=== PATIENT | female | born 1980 | race Caucasian/White ===

== ENCOUNTER 2016-03-15 11:56 | Emergency (ER) | payer MEDICARE, MEDICAID ==
[2016-03-15] MEDS ORDERED: ASPIRIN 81 MG TABLET, CHEWABLE PO ONE (12:36)
--- NOTE | 2016-03-15 12:36 | ER Document Report ---
ED Medical Screen (RME) - General Stated Complaint: CHEST TIGHTNESS/ DIFFICULTY BREATHING Mode of Arrival: Ambulatory Information source: Patient Notes: Patient complains of chest tightness and upper back pain that started yesterday. Patient does report shortness of breath. Patient has had a cough for the past several days. Patient reports chills but no fever. Patient does complain of some nausea. hx; asthma, anxiety I have greeted and performed a rapid initial assessment of this patient. A comprehensive ED assessment and evaluation of the patient, analysis of test results and completion of the medical decision making process will be conducted by additional ED providers. TRAVEL OUTSIDE OF THE [place] IN LAST 30 DAYS: No - Related Data Allergies/Adverse Reactions: lurasidone HCl [From Latuda] Allergy (Severe, Verified 03/15/16 12:35) Seizures morphine Adverse Reaction (Verified 03/15/16 12:35) Past Medical History - Social History Family history: Hypertension Pulmonary Medical History: Reports: Hx Asthma, Hx Pneumonia, Hx Intubation Neurological Medical History: Reports: Hx Seizures - After taking latuda, after latuda was stopped, patient seizures stopped Renal/ Medical History: Reports: Hx Ovarian Cysts GI Medical History: Reports: Hx Irritable Bowel Musculoskeltal Medical History: Reports Hx Musculoskeletal Trauma Psychiatric Medical History: Reports: Hx Anxiety, Hx Depression Past Surgical History: Reports: Hx Section - x2, Hx Tubal Ligation - Immunizations Immunizations up to date: Yes Hx Diphtheria, Pertussis, Tetanus Vaccination: Yes Physical Exam - Respiratory Respiratory status: No respiratory distress Breath sounds: Nonproductive cough
--- NOTE | 2016-03-15 13:21 | EKG REPORT ---
SEVERITY:- BORDERLINE ECG - SINUS RHYTHM INFERIOR Q WAVES, PROBABLY NORMAL VARIATION : Confirmed by: Yazan Brock MD 15-Mar-2016 13:21:14
[2016-03-15 14:02] LABS: ABSOLUTE EOSINOPHILS # (AUTO) 0.2 10^3/uL (0.0-0.6); ABSOLUTE LYMPHOCYTES (AUTO) 1.4 10^3/uL (0.5-4.7); ABSOLUTE MONOCYTES (AUTO) 0.5 10^3/uL (0.1-1.4); ABSOLUTE NEUT (AUTO) 5.2 10^3/uL (1.7-8.2); BASOPHILS % (AUTO) 0.6 % (0-2); EOSINOPHILS % (AUTO) 2.6 % (0-6); HEMATOCRIT 36.8 % (36.0-47.0); HEMOGLOBIN 11.7 g/dL (12.0-15.5); HGB HCT DIFFERENCE -1.7; LYMPHOCYTES % (AUTO) 19.1 % (13-45); MEAN CORPUSCULAR HEMOGLOBIN 21.9 pg (27.0-33.4); MEAN CORPUSCULAR HGB CONC 31.7 g/dL (32.0-36.0); MEAN CORPUSCULAR VOLUME 69 fl (80-97); MONOCYTES % (AUTO) 6.6 % (3-13); RED BLOOD COUNT 5.33 10^6/uL (3.72-5.28); RED CELL DISTRIBUTION WIDTH 16.8 % (11.5-14.0); SEGMENTED NEUTROPHILS % (AUTO) 71.1 % (42-78); WHITE BLOOD COUNT 7.4 10^3/uL (4.0-10.5)
[2016-03-15 14:21] LABS: ALANINE AMINOTRANSFERASE 22 U/L (9-52); ALBUMIN 3.5 g/dL (3.5-5.0); ALKALINE PHOSPHATASE 73 U/L (38-126); ANION GAP 10 (5-19); ASPARTATE AMINO TRANSFERASE 21 U/L (14-36); BILIRUBIN,TOTAL 0.4 mg/dL (0.2-1.3); BLOOD UREA NITROGEN 7 mg/dL (7-20); CALCIUM 9.5 mg/dL (8.4-10.2); CARBON DIOXIDE 29 mmol/L (22-30); CHLORIDE 101 mmol/L (98-107); CREATINE KINASE 83 U/L (30-135); GLUCOSE 94 mg/dL (75-110); POTASSIUM 4.2 mmol/L (3.6-5.0); SODIUM 140.1 mmol/L (137-145); TOTAL PROTEIN 6.9 g/dL (6.3-8.2)
[2016-03-15 14:44] LABS: CREATINE KINASE MB < 0.22 ng/mL (<4.55); TROPONIN I < 0.012 ng/mL
--- NOTE | 2016-03-15 15:23 | ER Document Report ---
ED Respiratory Problem <MARTIN HARVEY - Last Filed: 03/15/16 16:36> - General Mode of Arrival: Ambulatory Information source: Patient TRAVEL OUTSIDE OF THE [place] IN LAST 30 DAYS: No - HPI Patient complains to provider of: Chest pain - Chest tightness, Short of breath Onset: Other - a few days ago Context: Hx asthma Chest pain/discomfort: Tightness Associated symptoms: Other - see above <ANGIE DC - Last Filed: 03/15/16 22:56> - General Chief Complaint: Cough Stated Complaint: CHEST TIGHTNESS/ DIFFICULTY BREATHING Notes: 35-year-old female with history of asthma, pneumonia, and anxiety presents to the ED complaining of shortness of breath secondary to her chest tightness that began a few days ago. Patient explains that her asthma is likely contributing to her difficulty breathing. Patient is also complaining of increased cough. She claims that she had to be admitted to the hospital due to an asthma related incident last year. She further explains that she was intubated for an asthma related incident 8-9 years ago. Patient is currently on Clonidine, Cymbalta, Abilify, Singulair, and Albuterol. Patient denies using her nebulizer at home more than usual. (ANGIE DC) - Related Data Allergies/Adverse Reactions: lurasidone HCl [From Latuda] Allergy (Severe, Verified 03/15/16 12:35) Seizures morphine Adverse Reaction (Verified 03/15/16 12:35) Past Medical History - General Information source: Patient - Social History Smoking Status: Never Smoker Chew tobacco use (# tins/day): No Family History: Reviewed & Not Pertinent, CAD, DM, Hypertension Patient has suicidal ideation: No Patient has homicidal ideation: No Pulmonary Medical History: Reports: Hx Asthma, Hx Pneumonia, Hx Intubation Neurological Medical History: Reports: Hx Seizures - After taking latuda, after latuda was stopped, patient seizures stopped Renal/ Medical History: Reports: Hx Ovarian Cysts. Denies: Hx Peritoneal Dialysis GI Medical History: Reports: Hx Irritable Bowel Musculoskeltal Medical History: Reports Hx Musculoskeletal Trauma Psychiatric Medical History: Reports: Hx Anxiety, Hx Depression Past Surgical History: Reports: Hx Section - x2, Hx Tubal Ligation - Immunizations Immunizations up to date: Yes Hx Diphtheria, Pertussis, Tetanus Vaccination: Yes <ANGIE DC - Last Filed: 03/15/16 22:56> Review of Systems - Review of Systems Constitutional: No symptoms reported EENT: No symptoms reported Cardiovascular: See HPI, Chest pain - chest tightness Respiratory: See HPI, Cough, Short of breath Gastrointestinal: No symptoms reported Genitourinary: No symptoms reported Female Genitourinary: No symptoms reported Musculoskeletal: No symptoms reported Skin: No symptoms reported Hematologic/Lymphatic: No symptoms reported Neurological/Psychological: No symptoms reported -: Yes All other systems reviewed and negative <ANGIE DC - Last Filed: 03/15/16 22:56> Physical Exam <MARTIN HARVEY - Last Filed: 03/15/16 16:36> - Vital signs Interpretation: Normal - General General appearance: Alert In distress: None - HEENT Head: Normocephalic, Atraumatic Eyes: Normal Extraocular movements intact: Yes Pupils: PERRL - Respiratory Respiratory status: No respiratory distress Breath sounds: Normal - Cardiovascular Rhythm: Regular Heart sounds: Normal auscultation - Abdominal Inspection: Normal Distension: No distension Bowel sounds: Normal Tenderness: Nontender - Back Back: Normal - Extremities General upper extremity: Normal inspection, Normal color General lower extremity: Normal inspection, Normal color - Neurological Neuro grossly intact: Yes Cognition: Normal Orientation: AAOx4 [place] Coma Scale Eye Opening: Spontaneous Dott[place] Coma Scale Verbal: Oriented Dottie Coma Scale Motor: Obeys Commands [place] Coma Scale Total: 15 Speech: Normal - Psychological Associated symptoms: Normal affect, Normal mood - Skin Skin Temperature: Warm Skin Moisture: Dry Skin Color: Normal <ANGIE DC - Last Filed: 03/15/16 22:56> - Vital signs Vitals: Temp Pulse Resp BP Pulse Ox 98.1 F 83 16 134/74 H 99 03/15/16 12:33 03/15/16 12:33 03/15/16 12:33 03/15/16 12:33 03/15/16 12:33 (MARTIN HARVEY) Temp Pulse Resp BP Pulse Ox 98.1 F 83 16 134/74 H 99 03/15/16 12:33 03/15/16 12:33 03/15/16 12:33 03/15/16 12:33 03/15/16 12:33 (ANGIE DC) Course - Laboratory Result Diagrams: 03/15/16 13:50 03/15/16 13:50 <MARTIN HARVEY - Last Filed: 03/15/16 16:36> - Laboratory Result Diagrams: 03/15/16 13:50 03/15/16 13:50 <ANGIE DC - Last Filed: 03/15/16 22:56> - Re-evaluation Re-evalutation: 03/15/16 16:35 I personally performed the services described in the documentation, reviewed and edited the documentation which was dictated to my scribe in my presence, and it accurately records my words and actions. Patient presents emergency Department with chest tightness difficulty breathing aching all over back hurts from coughing negative acute flu laboratory evaluation vitals are stable afebrile no acute clinical distress chest x-ray negative. We'll treat as acute bronchitis with prednisone inhaler 2 to three- day PCP follow-up and discuss reasons for ED return sooner (MARTIN HARVEY) - Vital Signs Vital signs: Temp Pulse Resp BP Pulse Ox 98.3 F 73 16 106/63 98 03/15/16 16:47 03/15/16 16:47 03/15/16 16:47 03/15/16 16:47 03/15/16 16:47 (MARTIN HARVEY) - Laboratory Laboratory results interpreted by me: 03/15/16 13:50 RBC 5.33 H Hgb 11.7 L MCV 69 L MCH 21.9 L MCHC 31.7 L RDW 16.8 H (MARTIN HARVEY) (ANGIE DC) Discharge <MARTIN HARVEY - Last Filed: 03/15/16 16:36> <ANGIE DC - Last Filed: 03/15/16 22:56> - Discharge Clinical Impression: Acute bronchitis Qualifiers: Bronchitis organism: unspecified organism Qualified Code(s): J20.9 - Acute bronchitis, unspecified Condition: Stable Disposition: HOME, SELF-CARE Additional Instructions: Bronchitis You have acute bronchitis. This disease is an infection or inflammation of the air passageways in your lungs. Symptoms usually include cough, low grade fever, shortness of breath, and wheezing. The cough usually persists for a couple of weeks. Most cases of bronchitis get better without antibiotics. We prescribe antibiotics when we believe bacteria are damaging your airways, or if there's high risk the bronchitis will worsen into pneumonia. Increase your fluid intake. A cool mist humidifier may make your lungs more comfortable. An expectorant (cough medicine that loosens phlegm) can help. If you smoke, STOP!!! Recovery from bronchitis can be somewhat slow, but you should see improvement within a day or two. Repeated episodes of bronchitis may result in lung damage -- for example, chronic bronchitis, recurrent pneumonias, or emphysema. Call the doctor if you develop increasing fever, shortness of breath, chest pain, bloody sputum, or otherwise worsen. If you have not improved at all after several days, contact the physician. Prescriptions: Albuterol Sulfate [Proair HFA Inhalation Aerosol 8.5 gm MDI] 2 puff IH Q4H PRN # 1 mdi PRN Reason: Prednisone [Deltasone 20 mg Tablet] 3 tab PO DAILY 5 Days Referrals: TJ HODGE DO [Primary Care Provider] - Follow up in 3-5 days (in 2-3 days return to er sooner for increasing worsening or new symptoms) Scribe Documentation - Scribe Written by Frank:: Frank Packer, 03/15/2016 16:21 acting as scribe for :: Wade <ANGIE DC - Last Filed: 03/15/16 22:56>
[2016-03-15 16:52] VITALS: BP 106/63
== END 2016-03-15 16:51 | disposition home or self-care (01) ==
LOC: ER 11:56
DX: J20.9 Acute bronchitis, unspecified (principal); R07.9 Chest pain, unspecified; R06.02 Shortness of breath; Z79.899 Other long term (current) drug therapy
CPT/HCPCS: 93005; 99285; 36415; 82553; 82550; 85025; 80053; 84484; 87804; 71020; 93010; A9270

== ENCOUNTER 2016-03-24 23:52 | Emergency (ER) | payer MEDICARE, MEDICAID ==
--- NOTE | 2016-03-25 00:22 | ER Document Report ---
ED Medical Screen (RME) - General Stated Complaint: PSYCH EVALUATION Time seen by provider: 00:20 Mode of Arrival: Ambulatory Information source: Patient Notes: 35-year-old female presents to ED for no appetite and insomnia and feels like she can have a mental breakdown.. She states she lost all of her medicines 3 weeks ago and she feels like she is going through withdrawals. She states she' s been using Benadryl. I have greeted and performed a rapid initial assessment of this patient. A comprehensive ED assessment and evaluation of the patient, analysis of test results and completion of medical decision making process will be conducted by an additional ED providers. TRAVEL OUTSIDE OF THE [place] IN LAST 30 DAYS: No - Related Data Allergies/Adverse Reactions: lurasidone HCl [From Latuda] Allergy (Severe, Verified 03/15/16 12:35) Seizures morphine Adverse Reaction (Verified 03/15/16 12:35) Past Medical History - Social History Family history: Hypertension Pulmonary Medical History: Reports: Hx Asthma, Hx Pneumonia, Hx Intubation Neurological Medical History: Reports: Hx Seizures - After taking latuda, after latuda was stopped, patient seizures stopped Renal/ Medical History: Reports: Hx Ovarian Cysts. Denies: Hx Peritoneal Dialysis GI Medical History: Reports: Hx Irritable Bowel Musculoskeltal Medical History: Reports Hx Musculoskeletal Trauma Psychiatric Medical History: Reports: Hx Anxiety, Hx Depression Past Surgical History: Reports: Hx Section - x2, Hx Tubal Ligation - Immunizations Immunizations up to date: Yes Hx Diphtheria, Pertussis, Tetanus Vaccination: Yes Physical Exam - Vital signs Vitals: Temp Pulse Resp BP Pulse Ox 98.6 F 84 20 122/83 97 03/25/16 00:02 03/25/16 00:02 03/25/16 00:02 03/25/16 00:02 03/25/16 00:02 Course - Vital Signs Vital signs: Temp Pulse Resp BP Pulse Ox 98.6 F 84 20 122/83 97 03/25/16 00:02 03/25/16 00:02 03/25/16 00:02 03/25/16 00:02 03/25/16 00:02
[2016-03-25 00:48] LABS: ABSOLUTE EOSINOPHILS # (AUTO) 0.3 10^3/uL (0.0-0.6); ABSOLUTE LYMPHOCYTES (AUTO) 2.2 10^3/uL (0.5-4.7); ABSOLUTE MONOCYTES (AUTO) 0.5 10^3/uL (0.1-1.4); ABSOLUTE NEUT (AUTO) 4.1 10^3/uL (1.7-8.2); BASOPHILS % (AUTO) 0.5 % (0-2); EOSINOPHILS % (AUTO) 4.3 % (0-6); HEMATOCRIT 37.4 % (36.0-47.0); HEMOGLOBIN 11.9 g/dL (12.0-15.5); HGB HCT DIFFERENCE -1.7; LYMPHOCYTES % (AUTO) 30.4 % (13-45); MEAN CORPUSCULAR HEMOGLOBIN 22.2 pg (27.0-33.4); MEAN CORPUSCULAR HGB CONC 31.8 g/dL (32.0-36.0); MEAN CORPUSCULAR VOLUME 70 fl (80-97); MONOCYTES % (AUTO) 6.7 % (3-13); RED BLOOD COUNT 5.35 10^6/uL (3.72-5.28); RED CELL DISTRIBUTION WIDTH 17.3 % (11.5-14.0); SEGMENTED NEUTROPHILS % (AUTO) 58.1 % (42-78); WHITE BLOOD COUNT 7.1 10^3/uL (4.0-10.5)
[2016-03-25 01:03] LABS: ALANINE AMINOTRANSFERASE 29 U/L (9-52); ALBUMIN 3.9 g/dL (3.5-5.0); ALKALINE PHOSPHATASE 87 U/L (38-126); ANION GAP 10 (5-19); ASPARTATE AMINO TRANSFERASE 20 U/L (14-36); BILIRUBIN,TOTAL 0.3 mg/dL (0.2-1.3); BLOOD UREA NITROGEN 9 mg/dL (7-20); CALCIUM 9.7 mg/dL (8.4-10.2); CARBON DIOXIDE 28 mmol/L (22-30); CHLORIDE 101 mmol/L (98-107); CREATININE RESULT 0.91 mg/dL (0.52-1.25); GLUCOSE 94 mg/dL (75-110); POTASSIUM 4.2 mmol/L (3.6-5.0); SODIUM 138.5 mmol/L (137-145); TOTAL PROTEIN 6.8 g/dL (6.3-8.2)
[2016-03-25] MEDS ORDERED: DULOXETINE HCL 30 MG CAPSULE.DR PO ONE (02:48)
[2016-03-25] MEDS ORDERED: ARIPIPRAZOLE 5 MG TABLET PO ONE (02:49)
--- NOTE | 2016-03-25 02:52 | ER Document Report ---
ED General - General Chief Complaint: Psych Problem Stated Complaint: PSYCH EVALUATION Mode of Arrival: Ambulatory Notes: Patient is 35-year-old female presents for complaint of feeling very anxious and jittery. She lost her medicine back to half weeks ago. She's been without her Klonopin, Cymbalta, and Abilify. She has a refill coming tomorrow at [facility]. She will be able to obtain her medications tomorrow but requests something to help calm down her symptoms in the meantime. No other complaints at this time. TRAVEL OUTSIDE OF THE [place] IN LAST 30 DAYS: No - Related Data Allergies/Adverse Reactions: lurasidone HCl [From Latuda] Allergy (Severe, Verified 03/15/16 12:35) Seizures morphine Adverse Reaction (Verified 03/15/16 12:35) Past Medical History - General Information source: Patient - Social History Smoking Status: Never Smoker Chew tobacco use (# tins/day): No Frequency of alcohol use: None Drug Abuse: None Family History: Reviewed & Not Pertinent, CAD, DM, Hypertension Patient has suicidal ideation: No Patient has homicidal ideation: No Pulmonary Medical History: Reports: Hx Asthma, Hx Pneumonia, Hx Intubation Neurological Medical History: Reports: Hx Seizures - After taking latuda, after latuda was stopped, patient seizures stopped Renal/ Medical History: Reports: Hx Ovarian Cysts. Denies: Hx Peritoneal Dialysis GI Medical History: Reports: Hx Irritable Bowel Musculoskeltal Medical History: Reports Hx Musculoskeletal Trauma Psychiatric Medical History: Reports: Hx Anxiety, Hx Depression Past Surgical History: Reports: Hx Section - x2, Hx Tubal Ligation - Immunizations Immunizations up to date: Yes Hx Diphtheria, Pertussis, Tetanus Vaccination: Yes Review of Systems - Review of Systems Notes: My Normal Review Basic REVIEW OF SYSTEMS: CONSTITUTIONAL : Denies fever, chills, or sweats. Denies recent illness. EENT: Denies eye, ear, throat, or mouth pain or symptoms. Denies nasal or sinus congestion. MUSCULOSKELETAL: Denies neck or back pain or joint pain or swelling. SKIN: Denies rash or skin lesions. NEUROLOGICAL: Denies altered mental status or loss of consciousness. Denies headache. Denies weakness or paralysis or loss of use of either side. Denies problems with gait or speech. Denies sensory or motor loss. PSYCHIATRIC: Anxiety ALL OTHER SYSTEMS REVIEWED AND NEGATIVE. Physical Exam - Vital signs Vitals: Temp Pulse Resp BP Pulse Ox 98.6 F 84 20 122/83 97 03/25/16 00:02 03/25/16 00:02 03/25/16 00:02 03/25/16 00:02 03/25/16 00:02 - Notes Notes: General Appearance: Well nourished, alert, cooperative, no acute distress, no obvious discomfort. Well-appearing. Vitals: reviewed, See vital signs table. Eyes: PERRL, EOMI, Conjuctiva clear Mouth: No decreasd moisture Neck: Supple, no neck tenderness, No thyromegaly Lungs: No wheezing, No rales, No rhonci, No accessory muscle use, good air exchange bilaterally. Heart: Normal rate, Regular rythm, No murmur, no rub Extremities: strength 5/5 in all extremities, good pulses in all extremities, no swelling or tenderness in the extremities, no edema. Skin: warm, dry, appropriate color, no rash Neuro: speech clear, oriented x 3, normal affect, responds appropriately to questions. Course - Vital Signs Vital signs: Temp Pulse Resp BP Pulse Ox 97.6 F 78 16 128/57 H 98 03/25/16 03:43 03/25/16 03:43 03/25/16 03:43 03/25/16 03:43 03/25/16 03:43 - Laboratory Result Diagrams: 03/25/16 00:31 03/25/16 00:31 Laboratory results interpreted by me: 03/25/16 00:31 RBC 5.35 H Hgb 11.9 L MCV 70 L MCH 22.2 L MCHC 31.8 L RDW 17.3 H - Transfer of Care Notes: 03/25/16 06:58 Patient given her medications. Patient's is going to [facility] any prescriptions in the morning. Patient no further complaints otherwise looks well. Patient will be discharged home. Patient encouraged return to ER at anytime if she has any further concerns. Dictation of this chart was performed using voice recognition software; therefore, there may be some unintended grammatical errors. Discharge - Discharge Clinical Impression: Medication refill Condition: Good Disposition: HOME, SELF-CARE Additional Instructions: Please follow-up with your doctor as needed. Please obtain your medications from the pharmacy tomorrow. Return to ER if you have any further concerns. Referrals: TJ HODGE DO [Primary Care Provider] - Follow up as needed
[2016-03-25 03:44] VITALS: BP 128/57
== END 2016-03-25 03:45 | disposition home or self-care (01) ==
LOC: ER 23:52
DX: F41.9 Anxiety disorder, unspecified (principal); F32.9 Major depressive disorder, single episode, unspecified; J45.909 Unspecified asthma, uncomplicated; Z88.8 Allergy status to other drugs, medicaments and biological substances
CPT/HCPCS: 99282; 36415; 84703; 85025; 80053; A9270 ×2

== ENCOUNTER 2016-03-31 03:09 | Emergency (ER) | payer MEDICARE, MEDICAID ==
[2016-03-31] MEDS ORDERED: IPRATROPIUM/ALBUTEROL 0.5-2.5 MG/3 ML AMPUL NEB ONE (03:41)
[2016-03-31] MEDS ORDERED: ALBUTEROL SULFATE 0.083% NEB 2.5 MG/3 ML AMPUL NEB ONE (07:57)
[2016-03-31] MEDS ORDERED: PREDNISONE 20 MG TABLET PO ONE (07:58)
--- NOTE | 2016-03-31 08:19 | ER Document Report ---
HPI - HPI Patient complains to provider of: cold symptoms Onset: This morning Onset/Duration: Gradual Quality of pain: Achy Pain Level: 5 Context: Patient reports cough, chest tightness and shortness of breath that started today. Patient's concerned she may have the flu. Patient reports multiple sick contacts in the household. Associated Symptoms: Nonproductive cough, Rhinnorhea, Shortness of breath Exacerbated by: Denies Relieved by: Denies Similar symptoms previously: Yes Recently seen / treated by doctor: No - ROS ROS below otherwise negative: Yes Systems Reviewed and Negative: Yes All other systems reviewed and negative - CONSTITUTIONAL Constitutional: REPORTS: Chills. DENIES: Fever - EENT EENT: REPORTS: Congestion - NEURO Neurology: DENIES: Headache - CARDIOVASCULAR Cardiovascular: REPORTS: Chest pain - RESPIRATORY Respiratory: REPORTS: Coughing. DENIES: Trouble Breathing - GASTROINTESTINAL Gastrointestinal: DENIES: Nausea, Patient vomiting, Diarrhea - REPRODUCTIVE Reproductive: DENIES: : - MUSCULOSKELETAL Musculoskeletal: DENIES: Back Pain, Neck Pain - DERM Skin Color: Normal Skin Problems: None Past Medical History - General Information source: Patient - Social History Smoking Status: Former Smoker Frequency of alcohol use: None Drug Abuse: None Occupation: none Lives with: Family Family History: Reviewed & Not Pertinent, CAD, DM, Hypertension Patient has suicidal ideation: No Patient has homicidal ideation: No Pulmonary Medical History: Reports: Hx Asthma, Hx Pneumonia, Hx Intubation Neurological Medical History: Reports: Hx Seizures - After taking latuda, after latuda was stopped, patient seizures stopped Renal/ Medical History: Reports: Hx Ovarian Cysts. Denies: Hx Peritoneal Dialysis GI Medical History: Reports: Hx Irritable Bowel Musculoskeltal Medical History: Reports Hx Musculoskeletal Trauma Psychiatric Medical History: Reports: Hx Anxiety, Hx Depression - anxiety Past Surgical History: Reports: Hx Section - x2, Hx Tubal Ligation - Immunizations Immunizations up to date: Yes Hx Diphtheria, Pertussis, Tetanus Vaccination: Yes Vertical Provider Document - CONSTITUTIONAL Agree With Documented VS: Yes Exam Limitations: No Limitations General Appearance: WD/WN, No Apparent Distress - INFECTION CONTROL TRAVEL OUTSIDE OF THE [place] IN LAST 30 DAYS: No - HEENT HEENT: Atraumatic, Normocephalic. negative: Pharyngeal Exudate, Tympanic Membrane Red, Tympanic Membrane Bulging - NECK Neck: Normal Inspection, Supple, Other - No meningismus. negative: Lymphadenopathy-Left, Lymphadenopathy-Right - RESPIRATORY Respiratory: Breath Sounds Normal, No Respiratory Distress. negative: Chest Non -Tender - Generalized chest and back tenderness with coughing O2 Sat by Pulse Oximetry: 100 - CARDIOVASCULAR Cardiovascular: Regular Rate, Regular Rhythm, No Murmur - GI/ABDOMEN Gastrointestinal: Abdomen Soft - BACK Back: Normal Inspection. negative: CVA Tenderness-Right, CVA Tenderness-Left - MUSCULOSKELETAL/EXTREMETIES Musculoskeletal/Extremeties: DERICK FOREMAN - NEURO Level of Consciousness: Awake, Alert Motor/Sensory: No Motor Deficit, No Sensory Deficit - DERM Integumentary: Warm, Dry, No Rash Course - Re-evaluation Re-evalutation: 03/31/16 10:23 Patient reports breathing has improved after nebulizer treatment. Discussed worsening signs or symptoms that patient should [facility]. Patient verbalized understanding and agrees with plan of care. - Vital Signs Vital signs: Temp Pulse Resp BP Pulse Ox 98.6 F 93 18 123/68 100 03/31/16 03:23 03/31/16 03:23 03/31/16 04:22 03/31/16 03:23 03/31/16 03:23 - Laboratory Laboratory results interpreted by me: 03/31/16 10:24 Labs- Entire Visit 03/31/16 04:00 Influenza A (Rapid) NEGATIVE Influenza B (Rapid) NEGATIVE 03/31/16 17:15 - Diagnostic Test Radiology reviewed: Reports reviewed Discharge - Discharge Clinical Impression: Wheezing Upper respiratory infection Qualifiers: URI type: unspecified URI Qualified Code(s): J06.9 - Acute upper respiratory infection, unspecified Condition: Stable Disposition: HOME, SELF-CARE Additional Instructions: Return immediately for any new or worsening symptoms Followup with your primary care provider, call tomorrow to make a followup appointment Use your nebulizer that you have at home as prescribed UPPER RESPIRATORY ILLNESS: You have a viral infection of the respiratory passages -- a "cold." This common infection causes nasal congestion, drainage, and often sore throat and cough. It is highly contagious. The disease usually lasts about 10 to 14 days. There is no "cure" for the viral infection -- it must run its course. If there is a complication, such as bacterial infection in the nose, sinuses, middle ear, or bronchial tubes, antibiotics may be required. The antibiotics won't affect the virus. Drink plenty of fluids. A humidifier may help. An expectorant medication or decongestant may make you more comfortable. Use acetaminophen or ibuprofen for fever or aches. See the doctor if fever persists over two days, if there is any significant worsening of your symptoms, or if you simply fail to improve as expected. BRONCHOSPASM: You have tightness in the bronchial tubes, called bronchospasm. This often occurs with bronchial infections. Allergies, inhaled chemicals, and polluted or cold air can also provoke bronchospasm. It's more likely in patients with asthma in the family. Emergency treatment of bronchospasm may include adrenaline shots or bronchodilator aerosol. You may feel lightheaded and have a rapid pulse for an hour or two. Rest and get plenty of fluids. At home, we'll treat you with a bronchodilator inhaler. Antibiotics and corticosteroids may be required for some patients. Until you recover, avoid chemical fumes, dusts, pollens, and exercising in very cold or dry air. If you smoke, stop now!! If you develop a fever, increased wheezing, chest pain, or severe shortness of breath, you should contact the doctor immediately. INHALED BRONCHODILATORS: You have received a treatment of and/or prescription for an inhaled bronchodilator -- a medication which stimulates the airways in the lung to dilate. This improves the flow of air in asthma, bronchitis, and emphysema. These medicines have some similarity to adrenaline, and can cause similar side effects: shakiness, racing heart, and a sense of nervousness. These side effects decrease with time. Contact your doctor if these side effects are severe. Do not over-use the medicine. Too-frequent use of the inhaler may make it ineffective. Call your doctor if the inhaler is not controlling your symptoms at the prescribed doses. STEROID MEDICATION: You have been given an injection of or oral medicine of the cortisone/ steroid class. This medication is used to control inflammation or allergy. Larry t is usually only given for a short period of time, until the acute process subsides. There are usually no side effects from short-term use of cortisone-like medications. Some persons feel an increased sense of well-being and are not sleepy at bedtime. Long-term use of cortisone medications is best avoided, unless required for a severe condition. If your condition does not remit, or relapses after the course of corticosteroid medication, you should consult your physician. USE OF ACETAMINOPHEN (Tylenol): Acetaminophen may be taken for pain relief or fever control. It's much safer than aspirin, offering a wider range of "safe" dosages. It is safe during . Some brand names are Tylenol, Panadol, Datril, Anacin 3, Tempra, and Liquiprin. Acetaminophen can be repeated every four hours. The following are maximum recommended dosages: >89 pounds or adults 650 mg to 900 mg Acetaminophen can be repeated every four hours. Maximum dose not to exceed 4000 mg a day. FOLLOW-UP CARE: If you have been referred to a physician for follow-up care, call the physician s office for an appointment as you were instructed or within the next two days. If you experience worsening or a significant change in your symptoms, notify the physician immediately or return to the Emergency Department at any time for re-evaluation. Prescriptions: Benzonatate [Tessalon Perle 100 mg Capsule] 100 mg PO Q8HP PRN #20 cap PRN Reason: Prednisone [Deltasone 20 mg Tablet] 3 tab PO DAILY 4 Days Referrals: TJ HODGE DO [Primary Care Provider] - Follow up tomorrow
[2016-03-31 10:38] VITALS: BP 125/80
== END 2016-03-31 10:36 | disposition home or self-care (01) ==
LOC: ER 03:09
DX: J06.9 Acute upper respiratory infection, unspecified (principal); J45.909 Unspecified asthma, uncomplicated; R07.89 Other chest pain; R06.02 Shortness of breath; R05 Cough; J34.89 Other specified disorders of nose and nasal sinuses; R68.83 Chills (without fever); Z87.891 Personal history of nicotine dependence; Z82.49 Family history of ischemic heart disease and other diseases of the circulatory system; Z87.01 Personal history of pneumonia (recurrent)
CPT/HCPCS: 94640 ×2; 99284; 87804; 71020; A9270 ×3; J7512; J7620

== ENCOUNTER 2016-04-14 01:17 | Emergency (ER) | payer MEDICARE, MEDICAID ==
[2016-04-14 01:30] VITALS: BP 125/71
== END 2016-04-14 03:20 | disposition left against medical advice (07) ==
LOC: ER 01:17
DX: Z53.21 Procedure and treatment not carried out due to patient leaving prior to being seen by health care provider (principal)

== ENCOUNTER 2016-04-28 23:26 | Emergency (ER) | payer MEDICAID, MEDICARE ==
[2016-04-29] MEDS ORDERED: ONDANSETRON 4 MG TAB.RAPDIS PO ONE (00:29)
[2016-04-29] MEDS ORDERED: ONDANSETRON ODT 4 MG TAB (6 TAB/DSPK) PO PRN (04:08)
[2016-04-29] MEDS ORDERED: PREDNISONE 20 MG TABLET PO ONE (04:08)
--- NOTE | 2016-04-29 04:15 | ER Document Report ---
ED General - General Chief Complaint: Hand Swelling Stated Complaint: HAND SWELLING Notes: Patient is a 35-year-old female who presents with complaint of swelling of her hands. Patient says that her hands of been intermittent swelling for last few days. She says they do hurt around the MCP joints for swelling starts. Currently she has no swelling. She says it comes and goes. She's had no fevers. No redness to her hands. No recent trauma or injuries. Patient's second complaint is that she's had some diarrhea and nausea. No social abdominal pain. No vomiting. This is been ongoing for 3 days. No blood in her stool. TRAVEL OUTSIDE OF THE [place] IN LAST 30 DAYS: No - Related Data Allergies/Adverse Reactions: lurasidone HCl [From Latuda] Allergy (Severe, Verified 04/29/16 00:25) Seizures morphine Adverse Reaction (Intermediate, Verified 04/29/16 00:25) Hives Past Medical History - Social History Smoking Status: Never Smoker Chew tobacco use (# tins/day): No Frequency of alcohol use: None Drug Abuse: None Family History: Reviewed & Not Pertinent, CAD, DM, Hypertension Pulmonary Medical History: Reports: Hx Asthma, Hx Pneumonia, Hx Intubation Neurological Medical History: Reports: Hx Seizures - After taking latuda, after latuda was stopped, patient seizures stopped Renal/ Medical History: Reports: Hx Ovarian Cysts. Denies: Hx Peritoneal Dialysis GI Medical History: Reports: Hx Irritable Bowel Musculoskeltal Medical History: Reports Hx Musculoskeletal Trauma Psychiatric Medical History: Reports: Hx Anxiety, Hx Depression - anxiety Past Surgical History: Reports: Hx Section - x2, Hx Tubal Ligation - Immunizations Immunizations up to date: Yes Hx Diphtheria, Pertussis, Tetanus Vaccination: Yes Review of Systems - Review of Systems Notes: My Normal Review Basic REVIEW OF SYSTEMS: CONSTITUTIONAL : Denies fever, chills, or sweats. Denies recent illness. RESPIRATORY: Denies cough, cold, or chest congestion. Denies shortness of breath, difficulty breathing, or wheezing. GASTROINTESTINAL: Denies abdominal pain. Nausea and diarrhea Denies constipation. Last BM: GENITOURINARY: Denies difficulty urinating, painful urination, burning, frequency, or blood in urine. FEMALE GENITOURINARY: Denies vaginal bleeding, abnormal or irregular periods. LMP: MUSCULOSKELETAL: Hand swelling and pain SKIN: Denies rash or skin lesions. NEUROLOGICAL: Denies altered mental status or loss of consciousness. Denies headache. Denies weakness or paralysis or loss of use of either side. Denies problems with gait or speech. Denies sensory or motor loss. ALL OTHER SYSTEMS REVIEWED AND NEGATIVE. Physical Exam - Vital signs Vitals: Temp Pulse Resp BP Pulse Ox 98.5 F 83 16 110/62 98 04/28/16 23:41 04/28/16 23:41 04/28/16 23:41 04/28/16 23:41 04/28/16 23:41 - Notes Notes: General Appearance: Well nourished, alert, cooperative, no acute distress, no obvious discomfort. Well-appearing. Vitals: reviewed, See vital signs table. Head: no swelling or tenderness to the head Eyes: PERRL, EOMI, Conjuctiva clear Mouth: No decreasd moisture Neck: Supple, no neck tenderness Lungs: No wheezing, No rales, No rhonci, No accessory muscle use, good air exchange bilaterally. Heart: Normal rate, Regular rythm, No murmur, no rub Abdomen: Normal BS, soft, No rigidity, No abdominal tenderness, No guarding, no rebound, no abdominal masses, no organomegaly Extremities: strength 5/5 in all extremities, good pulses in all extremities, no swelling or tenderness in the extremities, no current swelling to the hands. No pain to palpation of the hands. No redness or warmth., no edema. Skin: warm, dry, appropriate color, no rash Neuro: speech clear, oriented x 3, normal affect, responds appropriately to questions. Course - Vital Signs Vital signs: Temp Pulse Resp BP Pulse Ox 97.7 F 71 16 112/69 99 04/29/16 04:17 04/29/16 04:17 04/29/16 04:17 04/29/16 04:17 04/29/16 04:17 - Transfer of Care Notes: 04/29/16 07:16 Patient is well-appearing. If the patient safe to be discharged home. She has no current swelling to her hands. Her and her both that her swelling has been come and go and recurrent. Seems to be in conjunction with pain around the MCP joints. The son of possible rheumatoid arthritis or osteoarthritis. We'll place on a tapering dose of steroids have her follow up closely with a primary care doctor. She is also had some diarrhea and nausea. No vomiting. No abdominal pain. She has no fevers. She has no pain to palpation of her abdomen. Clinically she looks very well. I will give her some medications for nausea. Strongly encourage her to return to ER shows fevers, intractable vomiting, or blood in her stool. Patient agrees with plan and will be discharged home. Dictation of this chart was performed using voice recognition software; therefore, there may be some unintended grammatical errors. Discharge - Discharge Clinical Impression: Nausea, Bilateral hand swelling Diarrhea Qualifiers: Diarrhea type: unspecified type Qualified Code(s): R19.7 - Diarrhea, unspecified Condition: Good Disposition: HOME, SELF-CARE Additional Instructions: Please take the prednisone as prescribed. Please take the Zofran for your nausea. Please return to ER if you have abdominal pain, fevers, or redness or increased swelling to your hands that is not improving. Please follow-up with your doctor on Monday for close reevaluation. Prescriptions: Ondansetron [Zofran Odt 4 mg Tablet] 1 tab PO Q4H PRN #10 tab.rapdis PRN Reason: For Nausea/Vomiting Prednisone 10 mg PO ASDIR #20 tablet
[2016-04-29 04:37] VITALS: BP 112/69
== END 2016-04-29 04:21 | disposition home or self-care (01) ==
LOC: ER 23:26
DX: M79.89 Other specified soft tissue disorders (principal); R19.7 Diarrhea, unspecified; R11.0 Nausea; M25.542 Pain in joints of left hand; M25.541 Pain in joints of right hand; J45.909 Unspecified asthma, uncomplicated; Z88.8 Allergy status to other drugs, medicaments and biological substances
CPT/HCPCS: 99283; A9270 ×3; J7512; S0119

== ENCOUNTER 2016-06-05 22:35 | Emergency (ER) | payer MEDICARE, MEDICAID ==
[2016-06-05 23:04] VITALS: BP 119/77
== END 2016-06-06 01:10 | disposition left against medical advice (07) ==
LOC: ER 22:35
DX: Z53.21 Procedure and treatment not carried out due to patient leaving prior to being seen by health care provider (principal)

== ENCOUNTER 2016-07-27 21:45 | Emergency (ER) | payer MEDICARE, MEDICAID ==
[2016-07-27] MEDS ORDERED: PREDNISONE 20 MG TABLET PO ONE (23:21)
[2016-07-27] MEDS ORDERED: KETOROLAC TROMETHAMINE INJ/PF 30 MG/1 ML SDV IM ONE (23:21)
--- NOTE | 2016-07-27 23:26 | ER Document Report ---
ED General - General Chief Complaint: Back Pain Stated Complaint: BACK PAIN Time Seen by Provider: 07/27/16 23:20 Notes: Patient is a 35-year-old female who presents to the ER with a complaint of back pain. Patient says earlier in the week she was trying to lift a large bag of dog food and felt a pop in the right lower back. Since then she has had pain radiating down her right leg. Slight tingling sensation in the toes. No weakness into the leg. No loss of bowel control. No urinary retention. No other injuries or complaints at this time. She has not yet seen her doctor about this. She took ibuprofen and Tylenol at home. She has been using some heat and cold packs. She has some pain with walking but is able to walk without too much difficulty. TRAVEL OUTSIDE OF THE [place] IN LAST 30 DAYS: No - Related Data Allergies/Adverse Reactions: lurasidone HCl [From Latuda] Allergy (Severe, Verified 06/05/16 23:01) Seizures morphine Adverse Reaction (Intermediate, Verified 06/05/16 23:01) Hives Past Medical History - Social History Smoking Status: Never Smoker Chew tobacco use (# tins/day): No Frequency of alcohol use: None Drug Abuse: None Family History: Reviewed & Not Pertinent, CAD, DM, Hypertension Patient has suicidal ideation: No Patient has homicidal ideation: No Pulmonary Medical History: Reports: Hx Asthma, Hx Pneumonia, Hx Intubation Neurological Medical History: Reports: Hx Seizures - After taking latuda, after latuda was stopped, patient seizures stopped Renal/ Medical History: Reports: Hx Ovarian Cysts. Denies: Hx Peritoneal Dialysis GI Medical History: Reports: Hx Irritable Bowel Musculoskeltal Medical History: Reports Hx Musculoskeletal Trauma Psychiatric Medical History: Reports: Hx Anxiety, Hx Depression - anxiety Past Surgical History: Reports: Hx Section - x2, Hx Tubal Ligation - Immunizations Immunizations up to date: Yes Hx Diphtheria, Pertussis, Tetanus Vaccination: Yes Review of Systems - Review of Systems Notes: My Normal Review Basic REVIEW OF SYSTEMS: CONSTITUTIONAL : Denies fever, chills, or sweats. Denies recent illness. EENT: Denies eye, ear, throat, or mouth pain or symptoms. Denies nasal or sinus congestion. CARDIOVASCULAR: Denies chest pain. RESPIRATORY: Denies cough, cold, or chest congestion. Denies shortness of breath, difficulty breathing, or wheezing. GASTROINTESTINAL: Denies abdominal pain. Denies nausea, vomiting, or diarrhea. Denies constipation. Last BM: MUSCULOSKELETAL: Right lower back pain SKIN: Denies rash or skin lesions. NEUROLOGICAL: Denies sensory or motor loss. ALL OTHER SYSTEMS REVIEWED AND NEGATIVE. Physical Exam - Vital signs Vitals: Temp Pulse Resp BP Pulse Ox 98.6 F 79 18 132/84 H 96 07/27/16 22:29 07/27/16 22:29 07/27/16 22:29 07/27/16 22:29 07/27/16 22:29 - Notes Notes: General Appearance: Well nourished, alert, cooperative, no acute distress, no obvious discomfort. Well appearing. Vitals: reviewed, See vital signs table. Head: no swelling or tenderness to the head Eyes: PERRL, EOMI, Conjuctiva clear Back: Palpation on the right side of the lumbosacral spine junction. Extremities: strength 5/5 in all extremities, good pulses in all extremities, no swelling or tenderness in the extremities, patient has good strength with plantar dorsiflexion against resistance. Good distal sensation. Patella and Achilles reflexes are normal. No edema. Skin: warm, dry, appropriate color, no rash Neuro: speech clear, oriented x 3, normal affect, responds appropriately to questions. Course - Vital Signs Vital signs: Temp Pulse Resp BP Pulse Ox 98.6 F 74 18 135/79 H 98 07/27/16 22:29 07/27/16 23:35 07/27/16 23:35 07/27/16 23:35 07/27/16 23:35 - Transfer of Care Notes: 07/28/16 00:19 Patient has what appears to be low back pain with sciatica. She has no evidence of central cord impingement. I encouraged her return here immediately if she has worsening pain, leg weakness, worsening leg numbness, loss of bowel control, or urinary retention. I encouraged her follow-up with her doctor in 2- 3 days for close reevaluation. Patient agrees with plan and will be discharged home. Dictation of this chart was performed using voice recognition software; therefore, there may be some unintended grammatical errors. Discharge - Discharge Clinical Impression: Low back pain Qualifiers: Chronicity: acute Back pain laterality: right Sciatica presence: with sciatica Sciatica laterality: sciatica of right side Qualified Code(s): M54.41 - Lumbago with sciatica, right side Condition: Good Disposition: HOME, SELF-CARE Additional Instructions: LOW BACK PAIN: Three out of every four people will have an episode of disabling back pain during their lifetime. Most commonly the pain is due to straining of the muscles and ligaments in the low back. Usual treatment includes: (1) Rest on a firm surface. Avoid lying on your stomach. (2) Ice pack the painful area. After a few days, gentle heat may be used intermittently to relax the area, or ice packs can be continued. (3) Medication may be needed -- muscle relaxers and antiinflammatory medicines are commonly used. (4) As the back improves, exercises are prescribed to strengthen the back and abdominal muscles. Your doctor will advise you on the proper care for your back at each stage in your recovery. You may be better in a few days -- or healing may take several weeks. If new symptoms of a "herniated disc" (radiation of pain, numbness, or tingling down the back of the leg or weakness in the leg) occur, you should be re-examined. Further testing may be necessary. ICE PACKS: Apply ice packs frequently against the painful area. Many different schedules are recommended, such as "20 minutes on, 20 minutes off" or "one hour ice, two hours rest." If you need to work, you may need to go longer between ice treatments. You should plan to have the area ice packed AT LEAST one fourth of the time. The ice should be applied over the wrap, tape, or splint, or over a layer of cloth -- not directly against the skin. Some ice bags have a built-in cloth and can be put directly on the skin. WARM PACKS: After approximately two days, apply gentle heat (such as a heating pad or hot water bottle) for about 20 to 30 minutes about every two hours -- at least four times daily. Warmth and elevation will help you make a more rapid recovery , and will ease the pain considerably. Do not use HOT heat, and never apply heat for longer than 30 minutes. The continuous heat can invisibly damage skin and muscles -- even when no burn is seen on the surface. Damaged muscles can make you MORE sore. FOLLOW-UP CARE: If you have been referred to a physician for follow-up care, call the physician s office for an appointment as you were instructed or within the next two days. If you experience worsening or a significant change in your symptoms, notify the physician immediately or return to the Emergency Department at any time for re-evaluation. Please return to the ER immediately if you have worsening pain, weakness in your legs, worsening numbness in your legs, loss of bowel control, Inability to urinate, or if you have further concerns. Please follow up with your doctor in 1 -2 days for close reevaluation. If your symptoms persist you may eventually need an MRI and referral to a back surgeon. Prescriptions: Prednisone 10 mg PO ASDIR #42 tablet Referrals: DARREN JERONIMO MD [Primary Care Provider] - Follow up in 3-5 days
[2016-07-27 23:35] VITALS: BP 135/79
== END 2016-07-27 23:35 | disposition home or self-care (01) ==
LOC: ER 21:45
DX: M54.41 Lumbago with sciatica, right side (principal); Z88.6 Allergy status to analgesic agent
CPT/HCPCS: 99283; 96372; J1885; A9270; J7512

== ENCOUNTER 2016-08-01 22:48 | Emergency (ER) | payer MEDICARE, MEDICAID ==
[2016-08-01 23:22] VITALS: BP 128/72
--- NOTE | 2016-08-02 00:14 | ER Document Report ---
HPI - HPI Patient complains to provider of: allergic reaction Onset: Yesterday Severity: Severe Pain Level: 5 Context: Patient presents to the emergency department with concerns that she may be having allergic reaction to 1 of her new medications that she just received from her mental health worker for anxiety and depression. She reports her mouth and throat hurts really bad hurts to swallow. Complains of nausea but denies fever vomiting. Patient is speaking in full sentences clear voice no distress noted. She is drinking a soda. Associated Symptoms: Sore throat Exacerbated by: Denies Relieved by: Denies Similar symptoms previously: No Recently seen / treated by doctor: No - REPRODUCTIVE LMP: current Reproductive: DENIES: : - DERM Skin Color: Normal Past Medical History - General Information source: Patient Last Menstrual Period: Current - Social History Smoking Status: Unknown if Ever Smoked Cigarette use (# per day): No Frequency of alcohol use: None Drug Abuse: None Lives with: Family Family History: Reviewed & Not Pertinent, CAD, DM, Hypertension Pulmonary Medical History: Reports: Hx Asthma, Hx Pneumonia, Hx Intubation Neurological Medical History: Reports: Hx Seizures - After taking latuda, after latuda was stopped, patient seizures stopped Renal/ Medical History: Reports: Hx Ovarian Cysts. Denies: Hx Peritoneal Dialysis GI Medical History: Reports: Hx Irritable Bowel Musculoskeltal Medical History: Reports Hx Musculoskeletal Trauma Psychiatric Medical History: Reports: Hx Anxiety, Hx Depression - anxiety Past Surgical History: Reports: Hx Section - x2, Hx Tubal Ligation - Immunizations Immunizations up to date: Yes Hx Diphtheria, Pertussis, Tetanus Vaccination: Yes Vertical Provider Document - CONSTITUTIONAL Agree With Documented VS: Yes Exam Limitations: No Limitations General Appearance: WD/WN, No Apparent Distress - INFECTION CONTROL TRAVEL OUTSIDE OF THE [place] IN LAST 30 DAYS: No - HEENT HEENT: Atraumatic, Normocephalic, Pharyngeal Erythema - No peritonsillar abscess good clear voice no trismus. negative: Conjuctival Injection, Pharyngeal Tenderness, Tympanic Membrane Bulging - NECK Neck: Normal Inspection, Supple. negative: Lymphadenopathy-Left, Lymphadenopathy-Right - RESPIRATORY Respiratory: Breath Sounds Normal, No Respiratory Distress - No cough noted, respiratory rate even and unlabored O2 Sat by Pulse Oximetry: 98 - CARDIOVASCULAR Cardiovascular: Regular Rate, Regular Rhythm - GI/ABDOMEN Gastrointestinal: Abdomen Soft, Abdomen Non-Tender - MUSCULOSKELETAL/EXTREMETIES Musculoskeletal/Extremeties: MAEW, FROM - NEURO Level of Consciousness: Awake, Alert, Appropriate Motor/Sensory: No Motor Deficit - DERM Integumentary: Warm, Dry, No Rash Course - Re-evaluation Re-evalutation: 08/02/16 00:49 Instructed on negative strep throat culture pending. Patient looks good no rash no signs of an allergic reaction. Respiratory rate even and unlabored - Vital Signs Vital signs: Temp Pulse Resp BP Pulse Ox 98.5 F 88 17 128/72 H 98 08/01/16 23:18 08/01/16 23:18 08/01/16 23:18 08/01/16 23:18 08/01/16 23:18 Discharge - Discharge Clinical Impression: Sore throat, Elevated blood pressure reading Condition: Stable Disposition: HOME, SELF-CARE Instructions: Sore Throat ([facility]) Additional Instructions: *You have been evaluated for a sore throat, concern over allergic reaction *Take benadryl as indicated *Contact your mental health worker regarding your medication concerns tomorrow *Warm salt water gargles and throat lozenges for comfort *Your strep test was negative. A throat culture is pending. Should you need antibiotics you will be contacted. *Follow-up with a primary care provider within one week for recheck *Return to ED for worsening condition change, needs Monitor your blood pressure. Your blood pressure was elevated today. This may be because you were anxious, in pain or because you need medication. It is important to follow up with your primary care provider for full evaluation. Forms: Elevated Blood Pressure Referrals: TJ HODGE DO [Primary Care Provider] - Follow up in 1 week
== END 2016-08-02 02:00 | disposition home or self-care (01) ==
LOC: ER 22:48
DX: J02.9 Acute pharyngitis, unspecified (principal); K13.79 Other lesions of oral mucosa; R03.0 Elevated blood-pressure reading, without diagnosis of hypertension; R11.0 Nausea; F41.9 Anxiety disorder, unspecified; F32.9 Major depressive disorder, single episode, unspecified; J45.909 Unspecified asthma, uncomplicated
CPT/HCPCS: 87070; 87880; 99283

== ENCOUNTER 2016-08-26 01:11 | Emergency (ER) | payer MEDICARE, MEDICAID ==
[2016-08-26] MEDS ORDERED: BENZONATATE 100 MG CAPSULE PO ONE (02:14)
[2016-08-26] MEDS ORDERED: ACETAMINOPHEN 325 MG TABLET PO ONE (02:14)
--- NOTE | 2016-08-26 02:17 | ER Document Report ---
ED Oral Problem - General Chief Complaint: Toothache Stated Complaint: TOOTH PAIN Time Seen by Provider: 08/26/16 01:59 Mode of Arrival: Ambulatory Information source: Patient Notes: 36-year-old female presents to ED for dental pain on the left molar. Patient went to the day and is on antibiotics amoxicillin. She states that she broke the tooth after she fell that the and now she is in some pain. She states that the tooth is supposed to be pulled next week. TRAVEL OUTSIDE OF THE [place] IN LAST 30 DAYS: No - HPI Patient complains to provider of: Toothache Onset: Last week Onset: Gradual Quality of pain: Sharp, Throbbing Severity: Severe Pain Level: 5 Associated symptoms: Toothache Worsened by: Cold Similar symptoms previously: Yes Recently seen / treated by doctor/dentist: Yes - Related Data Allergies/Adverse Reactions: lurasidone HCl [From Latuda] Allergy (Severe, Verified 08/01/16 23:19) Seizures morphine Adverse Reaction (Intermediate, Verified 08/01/16 23:19) Hives Past Medical History - General Information source: Patient - Social History Smoking Status: Former Smoker Cigarette use (# per day): No Chew tobacco use (# tins/day): No Smoking Education Provided: No Frequency of alcohol use: None Drug Abuse: None Lives with: Family Family History: CAD, DM, Hypertension Patient has suicidal ideation: No Patient has homicidal ideation: No - Past Medical History Cardiac Medical History: Reports: None Pulmonary Medical History: Reports: Hx Asthma, Hx Pneumonia, Hx Intubation EENT Medical History: Reports: None Neurological Medical History: Reports: Hx Seizures - After taking latuda, after latuda was stopped, patient seizures stopped Endocrine Medical History: Reports: None Renal/ Medical History: Reports: Hx Ovarian Cysts Malignancy Medical History: Reports: None GI Medical History: Reports: Hx Irritable Bowel Musculoskeltal Medical History: Reports Hx Musculoskeletal Trauma Skin Medical History: Reports None Psychiatric Medical History: Reports: Hx Anxiety, Hx Depression - anxiety Traumatic Medical History: Reports: None Infectious Medical History: Reports: None - Documentary Past Surgical History: Reports: Hx Section - x2, Hx Tubal Ligation - Immunizations Immunizations up to date: Yes Hx Diphtheria, Pertussis, Tetanus Vaccination: Yes Review of Systems - Review of Systems Constitutional: No symptoms reported EENT: Dental problem Cardiovascular: No symptoms reported Respiratory: No symptoms reported Gastrointestinal: No symptoms reported Genitourinary: No symptoms reported Female Genitourinary: No symptoms reported Musculoskeletal: No symptoms reported Skin: No symptoms reported Hematologic/Lymphatic: No symptoms reported Neurological/Psychological: No symptoms reported Physical Exam - Vital signs Vitals: Temp Pulse Resp BP Pulse Ox 98.2 F 99 18 130/72 H 97 08/26/16 01:19 08/26/16 01:19 08/26/16 01:19 08/26/16 01:19 08/26/16 01:19 Interpretation: Normal - General General appearance: Appears well, Alert - HEENT Head: Normocephalic, Atraumatic Eyes: Normal Pupils: PERRL Ears: Normal External canal: Normal Tympanic membrane: Normal Sinus: Normal Nasal: Normal Mouth/Lips: Caries - Multiple dental caries, was seen by a dentist yesterday and started on antibiotics patient states the tooth broke after she fell the dentist and is now in pain. Patient is to have the tooth removed next week. Pharynx: Normal Neck: Normal - Respiratory Respiratory status: No respiratory distress Chest status: Nontender Breath sounds: Normal Chest palpation: Normal - Cardiovascular Rhythm: Regular Heart sounds: Normal auscultation Murmur: No - Abdominal Inspection: Normal Distension: No distension Bowel sounds: Normal Tenderness: Nontender Organomegaly: No organomegaly - Back Back: Normal, Nontender - Extremities General upper extremity: Normal inspection, Nontender, Normal color, Normal ROM , Normal temperature General lower extremity: Normal inspection, Nontender, Normal color, Normal ROM , Normal temperature, Normal weight bearing. No: Ebony's sign - Neurological Neuro grossly intact: Yes Cognition: Normal Orientation: AAOx4 Derby Coma Scale Eye Opening: Spontaneous Dottie Coma Scale Verbal: Oriented Dottie Coma Scale Motor: Obeys Commands Derby Coma Scale Total: 15 Speech: Normal Motor strength normal: LUE, RUE, LLE, RLE Sensory: Normal - Psychological Associated symptoms: Normal affect, Normal mood - Skin Skin Temperature: Warm Skin Moisture: Dry Skin Color: Normal Course - Re-evaluation Re-evalutation: 08/26/16 02:53 Patient was treated with Tylenol and Tessalon Perles to the tooth she is instructed to continue taking her amoxicillin as ordered by her dentist and to follow-up with the dentist as is scheduled to have the tooth removed. - Vital Signs Vital signs: Temp Pulse Resp BP Pulse Ox 97.8 F 88 16 116/68 96 08/26/16 02:27 08/26/16 02:27 08/26/16 02:27 08/26/16 02:27 08/26/16 02:27 Discharge - Discharge Clinical Impression: Pain due to dental caries Condition: Stable Disposition: HOME, SELF-CARE Additional Instructions: TOOTHACHE: Your pain is due to dental decay. The tooth must be repaired in order for you to feel better. You will, therefore, be referred to a dentist. We do not have dentists on the staff at [facility]. Severe swelling or drainage around a tooth usually means a dental abscess. This also requires evaluation and treatment by the dentist, but antibiotics may be prescribed while awaiting dental treatment. You should be rechecked immediately if you develop major swelling of the face, increasing pain, a lump in the jaw or gums, headache, difficulty swallowing, or fever. Take your antibiotics and ibuprofen as ordered. Gargle with warm salt water 2- 3 times a day for the discomfort. Follow-up with dentist as obtained by your dentist to have the tooth pulled. You were given Tylenol for your discomfort tooth. Tessalon Perles was applied to the tooth to decrease the pain at this time. This will give you a numbness to the mouth and throat do not eat or drink anything for the next 4 hours. FOLLOW-UP CARE: You have been referred for follow-up care to the dentists listed below. Call the dentists office for an appointment as you were instructed or within the next two days. If you experience worsening or a significant change in your symptoms, notify the physician immediately or return to the Emergency Department at any time for re-evaluation. [facility] [address] [place], [place] Monday mornings, by appointment [facility] [address] [place] [address] [facility] [address] [facility] [address] [facility] [address] [email or web address] [address] [place] [address] Monday- 8:00am to 5:00 pm Will see patients from other doctors hospital. Charges based on income and family size and accepts Medicare, Medicaid, and Insurances Will pull molars [facility] [id number] Hours of Operation 8:00 am - 4:30 pm weekdays The following dental offices accept Medicaid: [facility] [address] Dr. Love Dr. Donnelly Dr. Stubbs [facility], [place], and Marry oral surgery Dr. Wills ([place]) Dr. Hinton ([place]) [facility] Drs. Whitley and Darwin ([place]) Dr. Jones ([place]) [facility] Dr. Spencer ([place]) Drs. Franz and ([place]) Medicaid Care Line Forms: Elevated Blood Pressure
[2016-08-26 02:28] VITALS: BP 116/68
== END 2016-08-26 02:29 | disposition home or self-care (01) ==
LOC: ER 01:11
DX: K02.9 Dental caries, unspecified (principal); Z87.891 Personal history of nicotine dependence; Z98.51 Tubal ligation status
CPT/HCPCS: 99282; A9270 ×2

== ENCOUNTER 2016-09-12 22:17 | Emergency (ER) | payer MEDICARE, MEDICAID ==
[2016-09-12 22:22] VITALS: BP 136/98
[2016-09-12] MEDS ORDERED: KETOROLAC TROMETHAMINE INJ/PF 30 MG/1 ML SDV IM ONE (23:00)
[2016-09-12] MEDS ORDERED: DEXAMETHASONE SOD PHOS INJ 10 MG/1 ML VIAL IM ONE (23:00)
--- NOTE | 2016-09-12 23:04 | ER Document Report ---
ED General - General Chief Complaint: Back Pain Stated Complaint: BACK AND LEG PAIN Time Seen by Provider: 09/12/16 22:54 Notes: Patient is a 36-year-old female presents with complaint of chronic low back pain. She has pain on the right had a raised on her right leg. She is an MRI which showed bulging disc on her right side. Patient says that this last few days her pain has increased. She is scheduled to have injections in her back in a week but says that she cannot wait and like something to help better manage the pain. She has had no fevers. No weakness. No loss of bowel control. No urinary retention. No new trauma. No other complaints at this time. She is able to ambulate. TRAVEL OUTSIDE OF THE [place] IN LAST 30 DAYS: No - Related Data Allergies/Adverse Reactions: lurasidone HCl [From Latuda] Allergy (Severe, Verified 08/01/16 23:19) Seizures morphine Adverse Reaction (Intermediate, Verified 08/01/16 23:19) Hives Past Medical History - Social History Smoking Status: Former Smoker Chew tobacco use (# tins/day): Yes Frequency of alcohol use: None Drug Abuse: None Family History: CAD, DM, Hypertension Patient has suicidal ideation: No Patient has homicidal ideation: No Pulmonary Medical History: Reports: Hx Asthma, Hx Pneumonia, Hx Intubation Neurological Medical History: Reports: Hx Seizures - After taking latuda, after latuda was stopped, patient seizures stopped Renal/ Medical History: Reports: Hx Ovarian Cysts. Denies: Hx Peritoneal Dialysis GI Medical History: Reports: Hx Irritable Bowel Musculoskeltal Medical History: Reports Hx Musculoskeletal Trauma Psychiatric Medical History: Reports: Hx Anxiety, Hx Depression - anxiety Past Surgical History: Reports: Hx Section - x2, Hx Tubal Ligation - Immunizations Immunizations up to date: Yes Hx Diphtheria, Pertussis, Tetanus Vaccination: Yes Review of Systems - Review of Systems Notes: My Normal Review Basic REVIEW OF SYSTEMS: CONSTITUTIONAL : Denies fever, chills, or sweats. Denies recent illness. GASTROINTESTINAL: Denies abdominal pain. Denies nausea, vomiting, or diarrhea. Denies constipation. Last BM: GENITOURINARY: Denies difficulty urinating, painful urination, burning, frequency, or blood in urine. MUSCULOSKELETAL: Low back pain SKIN: Denies rash or skin lesions. NEUROLOGICAL: Denies sensory or motor loss. ALL OTHER SYSTEMS REVIEWED AND NEGATIVE. Physical Exam - Vital signs Vitals: Temp Pulse Resp BP Pulse Ox 98.3 F 90 17 136/98 H 97 09/12/16 22:19 09/12/16 22:19 09/12/16 22:19 09/12/16 22:19 09/12/16 22:19 - Notes Notes: General Appearance: Well nourished, alert, cooperative, no acute distress,mild obvious discomfort. Patient stands she was able to easily move her legs off the bed and stand up without any difficulty. Vitals: reviewed, See vital signs table. Eyes: PERRL, EOMI, Conjuctiva clear Mouth: No decreasd moisture Back: Pain to palpation of the right lumbar paraspinal musculature. Some pain over the right piriformis. Extremities: strength 5/5 in all extremities, good pulses in all extremities, no swelling or tenderness in the extremities Skin: warm, dry, appropriate color, no rash Neuro: speech clear, oriented x 3, normal affect, responds appropriately to questions. Normal gait. Normal distal sensation. No foot drop Course - Re-evaluation Re-evalutation: 09/12/16 23:09 Chronic back pain. She does not have any signs or symptoms concerning for central cord impingement. She is able walk without difficulty. She looks well. I feel she is safe to be discharged home. I gave her a shot of Decadron as well as a shot of Toradol. I encouraged her follow-up closely with her primary care doctor. I encouraged her return to ER if she has loss of bowel control or urinary tension or leg weakness. Patient agrees with plan and will be discharged home. Dictation of this chart was performed using voice recognition software; therefore, there may be some unintended grammatical errors. - Vital Signs Vital signs: Temp Pulse Resp BP Pulse Ox 98.3 F 90 17 136/98 H 97 09/12/16 22:19 09/12/16 22:19 09/12/16 22:19 09/12/16 22:19 09/12/16 22:19 Discharge - Discharge Clinical Impression: Back pain Qualifiers: Back pain location: low back pain Chronicity: chronic Back pain laterality: right Sciatica presence: with sciatica Sciatica laterality: sciatica of right side Qualified Code(s): M54.41 - Lumbago with sciatica, right side Condition: Good Disposition: HOME, SELF-CARE Additional Instructions: LOW BACK PAIN: Three out of every four people will have an episode of disabling back pain during their lifetime. Most commonly the pain is due to straining of the muscles and ligaments in the low back. Usual treatment includes: (1) Rest on a firm surface. Avoid lying on your stomach. (2) Ice pack the painful area. After a few days, gentle heat may be used intermittently to relax the area, or ice packs can be continued. (3) Medication may be needed -- muscle relaxers and antiinflammatory medicines are commonly used. (4) As the back improves, exercises are prescribed to strengthen the back and abdominal muscles. Your doctor will advise you on the proper care for your back at each stage in your recovery. You may be better in a few days -- or healing may take several weeks. If new symptoms of a "herniated disc" (radiation of pain, numbness, or tingling down the back of the leg or weakness in the leg) occur, you should be re-examined. Further testing may be necessary. ICE PACKS: Apply ice packs frequently against the painful area. Many different schedules are recommended, such as "20 minutes on, 20 minutes off" or "one hour ice, two hours rest." If you need to work, you may need to go longer between ice treatments. You should plan to have the area ice packed AT LEAST one fourth of the time. The ice should be applied over the wrap, tape, or splint, or over a layer of cloth -- not directly against the skin. Some ice bags have a built-in cloth and can be put directly on the skin. WARM PACKS: After approximately two days, apply gentle heat (such as a heating pad or hot water bottle) for about 20 to 30 minutes about every two hours -- at least four times daily. Warmth and elevation will help you make a more rapid recovery , and will ease the pain considerably. Do not use HOT heat, and never apply heat for longer than 30 minutes. The continuous heat can invisibly damage skin and muscles -- even when no burn is seen on the surface. Damaged muscles can make you MORE sore. FOLLOW-UP CARE: If you have been referred to a physician for follow-up care, call the physician s office for an appointment as you were instructed or within the next two days. If you experience worsening or a significant change in your symptoms, notify the physician immediately or return to the Emergency Department at any time for re-evaluation. You have received shots of Toradol and Decadron. These should help some with your pain until you follow up with your doctor. Please take Tylenol at home to also help with your pain. Please return to the ER immediately if you develop weakness in your legs, loss of bowel control, inability to urinate or feel that you are worsening. Referrals: TJ HODGE DO [Primary Care Provider] - 09/14/16
== END 2016-09-12 23:19 | disposition home or self-care (01) ==
LOC: ER 22:17
DX: M54.41 Lumbago with sciatica, right side (principal); M54.9 Dorsalgia, unspecified; M79.604 Pain in right leg; M54.5 Low back pain; G89.29 Other chronic pain; Z87.891 Personal history of nicotine dependence
CPT/HCPCS: 99283; 96372; J1885; J1100

== ENCOUNTER 2016-09-15 23:03 | Emergency (ER) | payer MEDICARE, MEDICAID ==
[2016-09-15 23:11] VITALS: BP 135/75
[2016-09-16] MEDS ORDERED: DIPHENHYDRAMINE HCL 50 MG/ML VIAL IV ONE (01:28)
[2016-09-16] MEDS ORDERED: KETOROLAC TROMETHAMINE INJ/PF 30 MG/1 ML SDV IV ONE (01:28)
[2016-09-16] MEDS ORDERED: PROCHLORPERAZINE EDISYLATE INJ 10 MG/2 ML VIAL IV ONE (01:28)
--- NOTE | 2016-09-16 02:26 | ER Document Report ---
ED General - General Chief Complaint: Headache Stated Complaint: MIGRANE, BLURRY VISION Time Seen by Provider: 09/16/16 02:16 Notes: Patient presents with 2 days of a left-sided constant, throbbing, severe headache with associated blurring of vision in the left eye and nausea without vomiting. Patient states the headache was gradual in onset and became progressively worse until she decided to come to the emergency department tonight for treatment. Notes that lights and sounds worsen her pain. Nothing improves her pain. She notes she has had a history of similar headaches in the past. Denies any focal weakness or numbness. No fever or altered mental status. She has not seen her primary doctor regarding today's concerns. TRAVEL OUTSIDE OF THE [place] IN LAST 30 DAYS: No - Related Data Allergies/Adverse Reactions: lurasidone HCl [From Latuda] Allergy (Severe, Verified 08/01/16 23:19) Seizures morphine Adverse Reaction (Intermediate, Verified 08/01/16 23:19) Hives Past Medical History - General Information source: Patient - Social History Smoking Status: Never Smoker Frequency of alcohol use: None Drug Abuse: None Lives with: Spouse/Significant other Family History: CAD, DM, Hypertension Patient has suicidal ideation: No Patient has homicidal ideation: No Pulmonary Medical History: Reports: Hx Asthma, Hx Pneumonia, Hx Intubation Neurological Medical History: Reports: Hx Seizures - After taking latuda, after latuda was stopped, patient seizures stopped Renal/ Medical History: Reports: Hx Ovarian Cysts. Denies: Hx Peritoneal Dialysis GI Medical History: Reports: Hx Irritable Bowel Musculoskeltal Medical History: Reports Hx Musculoskeletal Trauma Psychiatric Medical History: Reports: Hx Anxiety, Hx Depression - anxiety Past Surgical History: Reports: Hx Section - x2, Hx Tubal Ligation - Immunizations Immunizations up to date: Yes Hx Diphtheria, Pertussis, Tetanus Vaccination: Yes Review of Systems - Review of Systems Notes: Constitutional: Negative for fever. HENT: Negative for sore throat. Eyes: Negative for visual changes. Cardiovascular: Negative for chest pain. Respiratory: Negative for shortness of breath. Gastrointestinal: Negative for abdominal pain, vomiting or diarrhea. Genitourinary: Negative for dysuria. Musculoskeletal: Negative for back pain. Skin: Negative for rash. Neurological: Positive for headache 10 point ROS negative except as marked above and in HPI. Physical Exam - Vital signs Vitals: Temp Pulse Resp BP Pulse Ox 98.9 F 79 18 135/75 H 97 09/15/16 23:08 09/15/16 23:08 09/15/16 23:08 09/15/16 23:08 09/15/16 23:08 Interpretation: Normal Notes: PHYSICAL EXAMINATION: GENERAL: Well-appearing, well-nourished and in no acute distress. HEAD: Atraumatic, normocephalic. EYES: Pupils equal round and reactive to light, extraocular movements intact, sclera anicteric, conjunctiva are normal. ENT: nares patent, oropharynx clear without exudates. Moist mucous membranes. NECK: Normal range of motion, supple without lymphadenopathy LUNGS: Breath sounds clear to auscultation bilaterally and equal. No wheezes rales or rhonchi. HEART: Regular rate and rhythm without murmurs ABDOMEN: Soft, nontender, normoactive bowel sounds. No guarding, no rebound. No masses appreciated. EXTREMITIES: Normal range of motion, no pitting or edema. No cyanosis. NEUROLOGICAL: Face symmetric. Tongue protrudes midline. Extraocular motions intact. Pupils are 2 mm and equally reactive. Normal speech, normal gait. 5 out of 5 strength in both the distal and proximal upper and lower extremities bilaterally. Sensation is grossly intact throughout. Finger to nose testing normal. Pronator drift normal. PSYCH: Normal mood, normal affect. SKIN: Warm, Dry, normal turgor, no rashes or lesions noted. Course - Re-evaluation Re-evalutation: 09/16/16 02:25 Presentation of a headache that appears to be most consistent with tension versus migrainous type headache. Headache was not maximal in onset, patient has no focal neurologic deficits, no nuchal rigidity, vital signs within normal limits, no papilledema, and patient is overall well in appearance. Based on clinical history and examination I do not suspect an acute subarachnoid hemorrhage, dural venous sinus thrombosis, acute meningitis, or intercranial mass. Given my low clinical suspicion for any acute life-threatening etiology, I do not feel advanced neuro imaging or laboratory testing is indicated at this time. Patient did have complete resolution of her headache after receiving a migraine cocktail. At this time will discharge with return precautions and follow-up recommendations. Verbal discharge instructions given a the bedside and opportunity for questions given. Medication warnings reviewed. Patient is in agreement with this plan and has verbalized understanding of return precautions and the need for primary care follow-up in the next 24-72 hours. - Vital Signs Vital signs: Temp Pulse Resp BP Pulse Ox 98.9 F 88 18 135/75 H 98 09/15/16 23:08 09/16/16 02:33 09/16/16 02:33 09/15/16 23:08 09/16/16 02:33 Discharge - Discharge Clinical Impression: Migraine headache Qualifiers: Migraine type: unspecified Status migrainosus presence: with status migrainosus Intractability: not intractable Qualified Code(s): G43.901 - Migraine, unspecified, not intractable, with status migrainosus Condition: Good Disposition: HOME, SELF-CARE Additional Instructions: You were seen today for a migraine headache. Please follow-up with your primary care doctor regarding today's ED visit. Return to emergency department immediately if you develop a headache that gets to its maximum severity within 20 minutes of onset, you pass out, you develop weakness, numbness, changes in your vision, become unable to keep any fluids down for more than 12 hours, or develop a fever greater than 100.4 degrees Fahrenheit. If you develop a similar migraine headache in the future I recommend that you immediately take 600 mg of ibuprofen and 50 mg of Benadryl and go to sleep as quickly as possible. This can often prevent your migraine headache from becoming severe.
== END 2016-09-16 02:33 | disposition home or self-care (01) ==
LOC: ER 23:03
DX: G43.901 Migraine, unspecified, not intractable, with status migrainosus (principal); R11.0 Nausea; H53.149 Visual discomfort, unspecified; J45.909 Unspecified asthma, uncomplicated; Z88.8 Allergy status to other drugs, medicaments and biological substances
CPT/HCPCS: 99283; 96374; 96375; J1200; J1885; J0780

== ENCOUNTER 2016-10-04 01:18 | Emergency (ER) | payer MEDICARE, MEDICAID ==
[2016-10-04 01:23] VITALS: BP 134/86
== END 2016-10-04 03:00 | disposition left against medical advice (07) ==
LOC: ER 01:18
DX: Z53.21 Procedure and treatment not carried out due to patient leaving prior to being seen by health care provider (principal)

== ENCOUNTER 2016-10-10 02:54 | Emergency (ER) | payer MEDICARE, MEDICAID ==
[2016-10-10] MEDS ORDERED: ALBUTEROL SULFATE HFA (90 MCG/PUFF) 8 GM MDI (1 MDI/ER DISP) IH PRN (03:17)
[2016-10-10] MEDS ORDERED: DEXAMETHASONE 4 MG TABLET PO ONE (03:17)
[2016-10-10] MEDS ORDERED: IPRATROPIUM/ALBUTEROL 0.5-2.5 MG/3 ML AMPUL NEB ONE (03:17)
[2016-10-10] MEDS ORDERED: LIDOCAINE 1% INJ-PF (10 MG/ML) 30 ML SDV INJ ONE (04:07)
[2016-10-10] MEDS ORDERED: CEFTRIAXONE INJ 1000 MG VIAL IM ONE (04:07)
--- NOTE | 2016-10-10 04:13 | ER Document Report ---
ED General - General Chief Complaint: Breathing Difficulty Stated Complaint: DIFFICULTY BREATHING Time Seen by Provider: 10/10/16 03:17 Notes: Patient is a 36 year old female with past medical history of asthma who presents with shortness of breath for the last 24 hours. She states that she is out of all home albuterol inhalers. States her symptoms are mild. Exertion worsens her symptoms. She has not tried anything to improve her symptoms. Denies any fever or constitutional symptoms. She does also note that she has a dull, constant, left ear pain ache. She was seen at an urgent care several days ago and diagnosed with a otitis media but has not yet been able to fill a prescription due to the pharmacies being closed for the holiday weekend. She has a history of similar symptoms in the past. TRAVEL OUTSIDE OF THE [place] IN LAST 30 DAYS: No - Related Data Allergies/Adverse Reactions: lurasidone HCl [From Latuda] Allergy (Severe, Verified 08/01/16 23:19) Seizures morphine Adverse Reaction (Intermediate, Verified 08/01/16 23:19) Hives Past Medical History - General Information source: Patient - Social History Smoking Status: Current Every Day Smoker Frequency of alcohol use: None Drug Abuse: None Lives with: Spouse/Significant other Family History: CAD, DM, Hypertension Pulmonary Medical History: Reports: Hx Asthma, Hx Pneumonia, Hx Intubation Neurological Medical History: Reports: Hx Seizures - After taking latuda, after latuda was stopped, patient seizures stopped Renal/ Medical History: Reports: Hx Ovarian Cysts. Denies: Hx Peritoneal Dialysis GI Medical History: Reports: Hx Irritable Bowel Musculoskeltal Medical History: Reports Hx Musculoskeletal Trauma Psychiatric Medical History: Reports: Hx Anxiety, Hx Depression - anxiety Past Surgical History: Reports: Hx Section - x2, Hx Tubal Ligation - Immunizations Immunizations up to date: Yes Hx Diphtheria, Pertussis, Tetanus Vaccination: Yes Review of Systems - Review of Systems Notes: Constitutional: Negative for fever. HENT: Negative for sore throat. Positive for left ear pain Eyes: Negative for visual changes. Cardiovascular: Negative for chest pain. Respiratory: Positive for shortness of breath. Gastrointestinal: Negative for abdominal pain, vomiting or diarrhea. Genitourinary: Negative for dysuria. Musculoskeletal: Negative for back pain. Skin: Negative for rash. Neurological: Negative for headaches, weakness or numbness. 10 point ROS negative except as marked above and in HPI. Physical Exam - Vital signs Vitals: Temp Pulse Resp BP Pulse Ox 97.9 F 79 17 127/78 H 98 10/10/16 03:05 10/10/16 03:05 10/10/16 03:05 10/10/16 03:05 10/10/16 03:05 Interpretation: Normal Notes: PHYSICAL EXAMINATION: GENERAL: Well-appearing, well-nourished and in no acute distress. HEAD: Atraumatic, normocephalic. EYES: Pupils equal round and reactive to light, extraocular movements intact, sclera anicteric, conjunctiva are normal. ENT: nares patent, oropharynx clear without exudates. Moist mucous membranes. Left TM with purulent effusion and bulging. Right TM is clear. NECK: Normal range of motion, supple without lymphadenopathy LUNGS: Breath sounds clear to auscultation bilaterally and equal. Scant wheezing in all lung [place]. HEART: Regular rate and rhythm without murmurs ABDOMEN: Soft, nontender, normoactive bowel sounds. No guarding, no rebound. No masses appreciated. EXTREMITIES: Normal range of motion, no pitting or edema. No cyanosis. NEUROLOGICAL: No focal neurological deficits. Moves all extremities spontaneously and on command. PSYCH: Normal mood, normal affect. SKIN: Warm, Dry, normal turgor, no rashes or lesions noted. Course - Re-evaluation Re-evalutation: 10/10/16 04:07 Patient presents with a mild exacerbation of their baseline asthma. Mild wheezing at time of presentation but vitals do not show significant hypoxemia or tachypnea. No retractions. Patient did clinically improve after receiving nebulizers here in the emergency department. No indication for an acute chest x -ray as patient reports that if she had her home treatments she would not be here. I do not clinically suspect a pneumonia based on history and exam. Patient able to ambulate without any respiratory distress. Based on patient's overall reassuring assessment, I believe they are stable for outpatient management. Patient does also have a left otitis media. She was seen at different providers office but no pharmacies are open for her to fill the prescription. Will give a single dose of IM ceftriaxone here given her ongoing symptoms. There is no pain over the mastoid to suggest an acute mastoiditis. I do not suspect an acute alternative pathology at this time based on history and exam including acute pulmonary embolus, ACS, pneumothorax, or aortic dissection. At this time will discharge with return precautions and follow-up recommendations. Verbal discharge instructions given a the bedside and opportunity for questions given. Medication warnings reviewed. Patient is in agreement with this plan and has verbalized understanding of return precautions and the need for primary care follow-up in the next 24-72 hours. - Vital Signs Vital signs: Temp Pulse Resp BP Pulse Ox 97.9 F 79 17 127/78 H 98 10/10/16 03:05 10/10/16 03:05 10/10/16 03:05 10/10/16 03:05 10/10/16 03:05 Discharge - Discharge Clinical Impression: Asthma exacerbation Left otitis media Qualifiers: Otitis media type: suppurative Chronicity: acute Recurrence: not specified as recurrent Spontaneous tympanic membrane rupture: without spontaneous rupture Qualified Code(s): H66.002 - Acute suppurative otitis media without spontaneous rupture of ear drum, left ear Condition: Good Disposition: HOME, SELF-CARE Additional Instructions: You were seen for an asthma exacerbation. Your symptoms improved with treatment here in the emergency department. However, it is very important that you return to the emergency department immediately if you began to have worsening difficulty breathing that does not respond to your normal home nebulizers. Please also follow closely with your primary care physician. you should also return to emergency department if you develop fever greater than 101 , persistent cough, persistent vomiting, pass out, or any other symptoms that are concerning to you. Referrals: TJ HODGE DO [Primary Care Provider] - Follow up as needed
[2016-10-10 06:08] VITALS: BP 129/69
== END 2016-10-10 04:45 | disposition home or self-care (01) ==
LOC: ER 02:54
DX: J45.901 Unspecified asthma with (acute) exacerbation (principal); T48.6X6A Underdosing of antiasthmatics, initial encounter; Z91.128 Patient's intentional underdosing of medication regimen for other reason; Z91.14 Patient's other noncompliance with medication regimen; H66.002 Acute suppurative otitis media without spontaneous rupture of ear drum, left ear; F17.200 Nicotine dependence, unspecified, uncomplicated; Z88.8 Allergy status to other drugs, medicaments and biological substances
CPT/HCPCS: 94640; 99284; A9270 ×2; J3490 ×2; J0696; J7620

== ENCOUNTER 2017-01-11 02:23 | Emergency (ER) | payer MEDICARE, MEDICAID ==
[2017-01-11 02:51] VITALS: BP 121/61
== END 2017-01-11 03:28 | disposition left against medical advice (07) ==
LOC: ER 02:23
DX: Z53.9 Procedure and treatment not carried out, unspecified reason (principal); R42 Dizziness and giddiness

== ENCOUNTER 2017-02-15 07:19 | Emergency (ER) | payer MEDICARE, MEDICAID ==
--- NOTE | 2017-02-15 08:29 | ER Document Report ---
ED General - General Chief Complaint: Dizziness Stated Complaint: DIZZINESS Time Seen by Provider: 02/15/17 08:28 Notes: The patient is a 36-year-old female, past medical history asthma, anxiety, presents with 2 weeks of feeling like the room is spinning, intermittent nausea and decreased appetite. Patient's anxiety medications were recently adjusted prior to this and she is now on Xanax 0.5 mg twice a day. She denies abdominal pain, urinary symptoms, chest pain, shortness of breath, back pain, sick contacts, recent travel, ataxia, focal weakness, numbness, tingling, SI or HI. TRAVEL OUTSIDE OF THE [place] IN LAST 30 DAYS: No - Related Data Allergies/Adverse Reactions: lurasidone HCl [From Latuda] Allergy (Severe, Verified 02/15/17 07:21) Seizures morphine Adverse Reaction (Intermediate, Verified 02/15/17 07:21) Hives Past Medical History - General Information source: Patient - Social History Smoking Status: Current Every Day Smoker Family History: CAD, DM, Hypertension Pulmonary Medical History: Reports: Hx Asthma, Hx Pneumonia, Hx Intubation Neurological Medical History: Reports: Hx Seizures - After taking latuda, after latuda was stopped, patient seizures stopped Renal/ Medical History: Reports: Hx Ovarian Cysts. Denies: Hx Peritoneal Dialysis GI Medical History: Reports: Hx Irritable Bowel Musculoskeltal Medical History: Reports Hx Musculoskeletal Trauma Psychiatric Medical History: Reports: Hx Anxiety, Hx Depression - anxiety Past Surgical History: Reports: Hx Section - x2, Hx Tubal Ligation - Immunizations Immunizations up to date: Yes Hx Diphtheria, Pertussis, Tetanus Vaccination: Yes Review of Systems - Review of Systems Notes: REVIEW OF SYSTEMS: CONSTITUTIONAL: -fevers, +chills EENT: -eye pain, -difficulty swallowing, -nasal congestion CARDIOVASCULAR: -chest pain, -syncope. RESPIRATORY: -cough, -SOB GASTROINTESTINAL: -abdominal pain, +nausea, -vomiting, -diarrhea GENITOURINARY: -dysuria, -hematuria MUSCULOSKELETAL: -back pain, -neck pain SKIN: -rash or skin lesions. HEMATOLOGIC: -easy bruising or bleeding. LYMPHATIC: -swollen, enlarged glands. NEUROLOGICAL: -altered mental status or loss of consciousness, -headache, + vertigo PSYCHIATRIC: -anxiety, -depression. ALL OTHER SYSTEMS REVIEWED AND NEGATIVE. Physical Exam - Vital signs Vitals: Temp Pulse Resp BP Pulse Ox 97.7 F 81 16 105/71 99 02/15/17 07:25 02/15/17 07:25 02/15/17 07:25 02/15/17 07:25 02/15/17 07:25 - Notes Notes: PHYSICAL EXAMINATION: GENERAL: Well-appearing, well-nourished and in no acute distress. HEAD: Atraumatic, normocephalic. EYES: Pupils equal round and reactive to light, extraocular movements intact, sclera anicteric, conjunctiva are normal. ENT: nares patent, oropharynx clear without exudates. Moist mucous membranes. NECK: Normal range of motion, supple without lymphadenopathy LUNGS: Breath sounds clear to auscultation bilaterally and equal. No wheezes rales or rhonchi. HEART: Regular rate and rhythm without murmurs ABDOMEN: Soft, nontender, normoactive bowel sounds. No guarding, no rebound. No masses appreciated. EXTREMITIES: Normal range of motion, no pitting or edema. No cyanosis. NEUROLOGICAL: Cranial nerves grossly intact. Normal speech, normal gait. Normal sensory and motor exams. PSYCH: Normal mood, normal affect. SKIN: Warm, Dry, normal turgor, no rashes or lesions noted. Course - Re-evaluation Re-evalutation: Patient presents with multiple complaints. She appears well and her vital signs are stable. Blood work is unremarkable and after meclizine, her vertiginous symptoms have resolved. Patient has absolutely no posterior cerebellar signs on physical exam. Instructed patient continue to stay hydrated and use meclizine as needed for any vertigo. Will have her follow-up with her primary care physician tomorrow for recheck of her symptoms and further evaluation. Given very strict return precautions and she understands. Patient presents with multiple vague complaints that did not appear to be concerning for any acute life-threatening pathology. Vitals are within normal limits at triage and at time of discharge. Physical examination is unremarkable. Patient has tolerated oral intake without difficulty. Patient was not noted to be in distress at any point during their ER visit. At this time, based on the reassuring evaluation, I do not suspect an acute OH, pulmonary embolus, aortic dissection, acute intra-abdominal pathology, stroke, or sepsis.Will discharge with return precautions and follow-up recommendations. Verbal discharge instructions given a the bedside and opportunity for questions given. Medication warnings reviewed. Patient is in agreement with this plan and has verbalized understanding of return precautions and the need for primary care follow-up in the next 24-72 hours. - Vital Signs Vital signs: Temp Pulse Resp BP Pulse Ox 97.7 F 81 16 105/71 99 02/15/17 07:25 02/15/17 07:25 02/15/17 07:25 02/15/17 07:25 02/15/17 07:25 - Laboratory Result Diagrams: 02/15/17 08:45 02/15/17 08:45 Laboratory results interpreted by me: 02/15/17 02/15/17 02/15/17 08:45 08:45 08:45 Hgb 10.9 L Hct 34.4 L MCV 70 L MCH 22.3 L MCHC 31.8 L RDW 19.9 H Carbon Dioxide 31 H BUN 4 L Total Protein 6.2 L Urine Blood SMALL H Ur Leukocyte Esterase TRACE H - EKG Interpretation by Me EKG shows normal: Sinus rhythm, [place], Intervals, QRS Complexes, ST-T Waves Rate: Normal Discharge - Discharge Clinical Impression: Vertiginous syndrome Condition: Stable Disposition: HOME, SELF-CARE Additional Instructions: DIZZINESS: Under normal circumstances, your sense of balance is controlled by a number of signals that your brain receives from several locations: Eyes. No matter what your position, visual signals help you determine where your body is in space and how it's moving. Sensory nerves. These are in your skin, muscles and joints. Sensory nerves send messages to your brain about body movements and positions. Inner ear. The organ of balance in your inner ear is the vestibular labyrinth. It includes loop-shaped structures (semicircular canals) that contain fluid and fine, hair-like sensors that monitor the rotation of your head. Near the semicircular canals are the utricle and saccule, which contain tiny particles called otoconia ([id number]). These particles are attached to sensors that help detect gravity and [id number] motion. Good balance depends on at least two of these three sensory systems working well. For instance, closing your eyes while washing your hair in the shower doesn't mean you'll lose your balance. Signals from your inner ear and sensory nerves help keep you upright. However, if your central nervous system can't process signals from all of these locations, if the messages are contradictory, or if the sensory systems aren't functioning properly, you may experience loss of balance. Dizziness may have a number of potential causes. These may include: Vertigo Vertigo - the false sense of motion or spinning - is the most common symptom of dizziness. Sitting up or moving around may make it worse. Sometimes vertigo is severe enough to cause nausea and vomiting. Vertigo usually results from a problem with the nerves and the structures of the balance mechanism in your inner ear (vestibular system), which sense movement and changes in your head position. Abnormal rhythmic eye movements ( nystagmus) almost always accompany vertigo. Causes of vertigo may include: Benign paroxysmal positional vertigo (BPPV). BPPV involves intense, brief episodes of vertigo associated with a change in the position of your head, often when you turn over in bed or sit up in the morning. It occurs when normal calcium carbonate crystals (otoconia) break loose and fall into the wrong part of the canals in your inner ear. When these particles shift, they stimulate sensors in your ear, producing an episode of vertigo. Doctors don't know what causes BPPV, but it may be a natural result of aging. Trauma to your head also may lead to BPPV. Inflammation in the inner ear. Signs and symptoms of inflammation of the inner ear (acute vestibular neuronitis or labyrinthitis) include sudden, intense vertigo that may persist for several days, with nausea and vomiting. It can be incapacitating, requiring bed rest to minimize the signs and symptoms. Fortunately, vestibular neuronitis generally subsides and clears up on its own. Recovery time may be shorter with vestibular rehabilitation exercises. Although the cause of this condition is unknown, it may be a viral infection. Meniere's disease. This disease involves the excessive buildup of fluid in your inner ear. It may affect adults at any age and is characterized by sudden episodes of vertigo lasting 30 minutes to an hour or longer. Other signs and symptoms include the feeling of fullness in your ear, buzzing or ringing in your ear (tinnitus), and fluctuating hearing loss. The cause of Meniere's disease is unknown. Vestibular migraine. People who experience a vestibular migraine are very sensitive to motion. Dizziness and vertigo caused by a vestibular migraine may be triggered by turning your head quickly, being in a crowded or confusing place , driving or riding in a vehicle, or even watching movement on TV. A vestibular migraine may cause feelings of imbalance or unsteadiness, hearing loss, "muffled " hearing, or ringing in your ears (tinnitus). For most people with a vestibular migraine, vertigo doesn't necessarily happen at the same time as the headache. Instead, typical migraine triggers may lead to vertigo without an actual migraine. Attacks of migrainous vertigo can last from a few minutes to several days. Acoustic neuroma. An acoustic neuroma (schwannoma) is a noncancerous (benign ) growth on the acoustic nerve, which connects the inner ear to your brain. Signs and symptoms of an acoustic neuroma may include dizziness, loss of balance , hearing loss and tinnitus. Rapid changes in motion. Riding on roller coasters or in boats, cars or even airplanes may on occasion make you dizzy. Other causes. Rarely, vertigo can be a symptom of a more serious neurological problem such as a stroke, brain hemorrhage or multiple sclerosis. Feeling of faintness (presyncope) "Presyncope" is the medical term for feeling faint and lightheaded without losing consciousness. Sometimes nausea, pale skin and a sense of dizziness accompany a feeling of faintness. Causes of presyncope include: Drop in blood pressure (orthostatic hypotension). A dramatic drop in your systolic blood pressure - the higher number in your blood pressure reading - may result in lightheadedness or a feeling of faintness. It can occur after sitting up or standing too quickly. Inadequate output of blood from the heart. Conditions such as partially blocked arteries (atherosclerosis), disease of the heart muscle (cardiomyopathy) , abnormal heart rhythm (arrhythmia) or a decrease in blood volume may cause inadequate blood flow from your heart. Loss of balance (disequilibrium) Disequilibrium is the loss of balance or the feeling of unsteadiness when you walk. Causes may include: Inner ear (vestibular) problems. Abnormalities with your inner ear can cause you to feel like you are floating, have a heavy head or are unsteady in the dark. Sensory disorders. Failing vision and nerve damage in your legs (peripheral neuropathy) are common in older adultsand may result in difficulty maintaining your balance. Joint and muscle problems. Muscle weakness and osteoarthritis - the type of arthritis that involves wear and tear of your joints - can contribute to loss of balance when it involves your weight-bearing joints. Medications. Loss of balance can be a side effect of certain medications, such as anti-seizure drugs, sedatives and tranquilizers. Lightheadedness and other kinds of dizziness Feeling lightheaded is the feeling of being "spaced out" or having the sensation of spinning inside your head. It can also give you the sensation that if your lightheadedness worsens, you might lose consciousness. Causes may include: Inner ear disorders. These abnormalities of your inner ear can lead to illusions of motion and make you feel like you're floating. Anxiety disorders. Certain anxiety disorders, such as panic attacks and a fear of leaving home or being in large, open spaces (agoraphobia), may cause lightheadedness. Hyperventilation. Abnormally rapid breathing that often accompanies anxiety disorders may make you feel lightheaded. NORMAL EXAM AND WORKUP: At this time, your examination and workup show no significant abnormality. No significant abnormal physical findings were noted. All laboratory, EKG, and imaging (x-ray, CT scans, ultrasound) studies that were ordered show no significant abnormality. Although your examination and all studies that were ordered showed no significant abnormal finding, there are no examinations and no studies that are 100% accurate. There is always the possibility that some abnormality could exist and not be detected with physical examination or within the limits and capabilities of laboratory and other studies. You should return or follow up as you were instructed on your visit today for further evaluation if your symptoms do not resolve. MECLIZINE: You are to take meclizine (Antivert) for control of symptoms. This is a drug of the antihistamine family which is useful for controlling nausea, dizziness, and motion sickness. Meclizine is usually taken three times a day, as needed. It's more effective at preventing symptoms than at relieving severe symptoms once they occur. It can be taken BEFORE activities which are likely to cause dizziness or nausea. Common side effects of this medicine are drowsiness and dry mouth. You should use caution in driving or operating machinery while taking this medication. In particular, you should not drive long distances or drive at night while taking this medicine. Meclizine should not be combined with alcohol , narcotics, or sedative medications without consulting your physician. FOLLOW-UP CARE: If you have been referred to a physician for follow-up care, call the physician s office for an appointment as you were instructed or within the next two days. If you experience worsening or a significant change in your symptoms, notify the physician immediately or return to the Emergency Department at any time for re-evaluation. Prescriptions: Meclizine HCl [Antivert 12.5 mg Tablet] 25 mg PO Q12H PRN #20 tablet PRN Reason: Referrals: DAXA HUSSEIN MD [ACTIVE STAFF] - Follow up as needed
[2017-02-15] MEDS ORDERED: NORMAL SALINE 1000 ML 1,000 ML IV ONE (08:32)
[2017-02-15] MEDS ORDERED: MECLIZINE HCL 25 MG TABLET PO ONE (08:33)
[2017-02-15 09:05] LABS: ABSOLUTE BASOPHILS # (AUTO) 0.1 10^3/uL (0.0-0.2); ABSOLUTE EOSINOPHILS # (AUTO) 0.4 10^3/uL (0.0-0.6); ABSOLUTE LYMPHOCYTES (AUTO) 1.7 10^3/uL (0.5-4.7); ABSOLUTE MONOCYTES (AUTO) 0.7 10^3/uL (0.1-1.4); ABSOLUTE NEUT (AUTO) 5.2 10^3/uL (1.7-8.2); BASOPHILS % (AUTO) 1.2 % (0-2); EOSINOPHILS % (AUTO) 5.5 % (0-6); HEMATOCRIT 34.4 % (36.0-47.0); HEMOGLOBIN 10.9 g/dL (12.0-15.5); LYMPHOCYTES % (AUTO) 20.5 % (13-45); MEAN CORPUSCULAR HEMOGLOBIN 22.3 pg (27.0-33.4); MEAN CORPUSCULAR HGB CONC 31.8 g/dL (32.0-36.0); MEAN CORPUSCULAR VOLUME 70 fl (80-97); MONOCYTES % (AUTO) 8.1 % (3-13); PLATELET COUNT 372 10^3/uL (150-450); RED CELL DISTRIBUTION WIDTH 19.9 % (11.5-14.0); SEGMENTED NEUTROPHILS % (AUTO) 64.7 % (42-78); TOTAL CELLS COUNTED % (AUTO) 100 %; WHITE BLOOD COUNT 8.1 10^3/uL (4.0-10.5)
[2017-02-15 09:16] LABS: ALANINE AMINOTRANSFERASE 25 U/L (9-52); ALBUMIN 3.5 g/dL (3.5-5.0); ALKALINE PHOSPHATASE 90 U/L (38-126); ANION GAP 8 (5-19); ASPARTATE AMINO TRANSFERASE 27 U/L (14-36); BILIRUBIN,DIRECT 0.2 mg/dL (0.0-0.4); BILIRUBIN,TOTAL 0.2 mg/dL (0.2-1.3); BLOOD UREA NITROGEN 4 mg/dL (7-20); CALCIUM 9.5 mg/dL (8.4-10.2); CARBON DIOXIDE 31 mmol/L (22-30); CHLORIDE 102 mmol/L (98-107); GLUCOSE 88 mg/dL (75-110); LIPASE 74.6 U/L (23-300); SODIUM 140.9 mmol/L (137-145); TOTAL PROTEIN 6.2 g/dL (6.3-8.2)
[2017-02-15 09:18] LABS: APPEARANCE,URINE CLEAR; BILIRUBIN,URINE NEGATIVE (NEGATIVE); COLOR,URINE STRAW; GLUCOSE, URINE NEGATIVE (NEGATIVE); KETONES,URINE NEGATIVE (NEGATIVE); LEUKOCYTE ESTERASE,URINE TRACE (NEGATIVE); NITRITE,URINE NEGATIVE (NEGATIVE); PROTEIN,URINE NEGATIVE (NEGATIVE); URINE SPECIFIC GRAVITY 1.002; UROBILINOGEN,URINE NEGATIVE mg/dL (<2.0)
[2017-02-15 10:53] VITALS: BP 112/65
--- NOTE | 2017-02-15 13:32 | EKG REPORT ---
SEVERITY:- NORMAL ECG - SINUS RHYTHM : Confirmed by: Yazan Brock MD 15-Feb-2017 13:32:17
== END 2017-02-15 10:53 | disposition home or self-care (01) ==
LOC: ER 07:19
DX: H81.90 Unspecified disorder of vestibular function, unspecified ear (principal); R11.0 Nausea; R63.0 Anorexia; F41.9 Anxiety disorder, unspecified; F17.200 Nicotine dependence, unspecified, uncomplicated; Z79.899 Other long term (current) drug therapy; Z88.8 Allergy status to other drugs, medicaments and biological substances; R68.83 Chills (without fever)
CPT/HCPCS: 93005; 99284; 96360; 36415; 83690; 85025; 81025; 80053; 81001; 93010; A9270; J7030

== ENCOUNTER 2017-03-14 21:11 | Emergency (ER) | payer MEDICARE, MEDICAID ==
[2017-03-14 21:25] VITALS: BP 117/78
== END 2017-03-14 22:20 | disposition left against medical advice (07) ==
LOC: ER 21:11
DX: Z53.21 Procedure and treatment not carried out due to patient leaving prior to being seen by health care provider (principal)

== ENCOUNTER 2017-04-07 17:59 | Emergency (ER) | payer MEDICARE, MEDICAID ==
[2017-04-07] MEDS ORDERED: IPRATROPIUM/ALBUTEROL 0.5-2.5 MG/3 ML AMPUL NEB ONE ×3 (18:20→19:26)
[2017-04-07] MEDS ORDERED: PREDNISONE 20 MG TABLET PO ONE (18:22)
--- NOTE | 2017-04-07 18:22 | ER Document Report ---
ED Medical Screen (RME) - General Chief Complaint: Shortness Of Breath Stated Complaint: DIFFICULTY BREATHING, CHEST TIGHTNESS Time Seen by Provider: 04/07/17 18:21 Mode of Arrival: Ambulatory Information source: Patient Notes: 36-year-old female with a history of asthma presents to the emergency room with wheezing, tightness in the chest for the past 4 days. Patient denies smoking but states she is around people who do smoke. She does report some chills but denies fever. TRAVEL OUTSIDE OF THE [place] IN LAST 30 DAYS: No - HPI Onset: Yesterday Onset/Duration: Gradual Quality of pain: No pain Severity: None Pain Level: Denies Associated Symptoms: Chills, Cough (nonproductive), Shortness of breath. denies : Fever Exacerbated by: Denies Relieved by: Denies Similar symptoms previously: Yes Recently seen / treated by doctor: Yes - Related Data Smoking: Non-smoker Frequency of alcohol use: None Drug Abuse: None Allergies/Adverse Reactions: lurasidone HCl [From Latuda] Allergy (Severe, Verified 04/07/17 18:05) Seizures morphine Adverse Reaction (Intermediate, Verified 04/07/17 18:05) Hives Past Medical History - General Information source: Patient - Social History Cigarette use (# per day): No Chew tobacco use (# tins/day): No Frequency of alcohol use: None Drug Abuse: None Lives with: Family Family history: Hypertension Pulmonary Medical History: Reports: Hx Asthma, Hx Pneumonia, Hx Intubation Neurological Medical History: Reports: Hx Seizures - After taking latuda, after latuda was stopped, patient seizures stopped Renal/ Medical History: Reports: Hx Ovarian Cysts. Denies: Hx Peritoneal Dialysis GI Medical History: Reports: Hx Irritable Bowel Musculoskeltal Medical History: Reports Hx Musculoskeletal Trauma Psychiatric Medical History: Reports: Hx Anxiety, Hx Depression - anxiety Past Surgical History: Reports: Hx Section - x2, Hx Tubal Ligation - Immunizations Immunizations up to date: Yes Hx Diphtheria, Pertussis, Tetanus Vaccination: Yes Review of Systems - Review of Systems Constitutional: denies: Chills, Fever EENT: No symptoms reported Cardiovascular: No symptoms reported Respiratory: See HPI Gastrointestinal: No symptoms reported Genitourinary: No symptoms reported Female Genitourinary: No symptoms reported Musculoskeletal: No symptoms reported Skin: No symptoms reported Hematologic/Lymphatic: No symptoms reported Neurological/Psychological: No symptoms reported Physical Exam - Vital signs Vitals: Temp Pulse Resp BP Pulse Ox 98.8 F 98 20 113/76 97 18 18:07 04/07/17 18:07 04/07/17 18:07 04/07/17 18:07 04/07/17 18:07 Notes: Physical exam: GENERAL: 36-year-old female, alert and oriented 3, no acute distress HEAD: Atraumatic, normocephalic. EYES: Pupils equal round and reactive to light, extraocular movements intact, sclera anicteric, conjunctiva are normal. ENT: TMs normal, nares patent, oropharynx clear without exudates. Moist mucous membranes. NECK: Normal range of motion, supple without obvious mass or JVD. LUNGS: Lateral wheezing HEART: Regular rate and rhythm without murmurs, rubs or gallops. ABDOMEN: Soft, normoactive bowel sounds. No tenderness to palpation. No guarding, no rebound. No masses appreciated. EXTREMITIES: Normal range of motion, no pitting or edema. No clubbing or cyanosis. NEUROLOGICAL: Cranial nerves II through XII grossly intact. Normal speech, moving all extremities. PSYCH: Normal mood, normal affect. SKIN: Warm, Dry, normal turgor, no rashes or lesions noted. Course - Vital Signs Vital signs: Temp Pulse Resp BP Pulse Ox 98.8 F 98 20 113/76 97 18 18:07 04/07/17 18:07 04/07/17 18:07 04/07/17 18:07 04/07/17 18:07 - Diagnostic Test Radiology reviewed: Image reviewed, Reports reviewed - Test x-ray shows no infiltrates Doctor's Discharge - Discharge Clinical Impression: Asthma exacerbation Condition: Stable Disposition: HOME, SELF-CARE Instructions: Asthma ([facility]) Additional Instructions: As we discussed her chest x-ray showed no pneumonia which is good. Continue with your inhalers. Take the steroids as prescribed: Your given tonight's dose, take your next dose tomorrow. Return to the emergency room for any worsening shortness of breath or concerns or getting worse. Follow-up with your primary care doctor in the next few days. Prescriptions: Prednisone [Deltasone 20 mg Tablet] 3 tab PO DAILY 5 Days tablet Referrals: TJ HODGE DO [Primary Care Provider] - Follow up as needed
--- NOTE | 2017-04-07 18:48 | RADIOLOGY REPORT (SQ) ---
EXAM DESCRIPTION: CHEST PA/LAT COMPLETED DATE/TIME: 04/07/2017 6:42 pm REASON FOR STUDY: sob COMPARISON: 03/31/2016 EXAM PARAMETERS: NUMBER OF VIEWS: two views TECHNIQUE: Digital Frontal and Lateral radiographic views of the chest acquired. RADIATION DOSE: NA LIMITATIONS: none FINDINGS: LUNGS AND PLEURA: No opacities, masses or pneumothorax. No pleural effusion. MEDIASTINUM AND HILAR STRUCTURES: No masses or contour abnormalities. HEART AND VASCULAR STRUCTURES: Heart normal size. No evidence for failure. BONES: No acute findings. HARDWARE: None in the chest. OTHER: No other significant finding. IMPRESSION: NO SIGNIFICANT RADIOGRAPHIC FINDING IN THE CHEST. TECHNICAL DOCUMENTATION: JOB ID: [id number] [employer]- All Rights Reserved Reading location - IP/workstation name: [email or web address]
[2017-04-07 20:31] VITALS: BP 118/67
== END 2017-04-07 20:31 | disposition home or self-care (01) ==
LOC: ER 17:59
DX: J45.901 Unspecified asthma with (acute) exacerbation (principal); R06.02 Shortness of breath; R07.9 Chest pain, unspecified; R05 Cough
CPT/HCPCS: 94640 ×2; 99284; 71046; A9270 ×2; J7512; J7620

== ENCOUNTER 2017-05-27 06:26 | Emergency (ER) | payer MEDICARE, MEDICAID ==
[2017-05-27] MEDS ORDERED: PREDNISONE 20 MG TABLET PO ONE (06:50)
[2017-05-27] MEDS ORDERED: IPRATROPIUM/ALBUTEROL 0.5-2.5 MG/3 ML AMPUL NEB ONE ×2 (06:50→08:07)
[2017-05-27] MEDS: ALBUTEROL SULFATE 0.083% NEB 2.5 MG/3 ML AMPUL NEB SCH (06:56)
[2017-05-27] MEDS ORDERED: GUAIFENESIN/D-METHORPHAN (200-20 MG) SYRUP 10 ML PO ONE (08:08)
--- NOTE | 2017-05-27 08:16 | RADIOLOGY REPORT (SQ) ---
EXAM DESCRIPTION: CHEST 2 VIEWS COMPLETED DATE/TIME: 05/27/2017 8:04 am REASON FOR STUDY: wheeze COMPARISON: 04/07/2017 EXAM PARAMETERS: NUMBER OF VIEWS: two views TECHNIQUE: Digital Frontal and Lateral radiographic views of the chest acquired. RADIATION DOSE: NA LIMITATIONS: none FINDINGS: LUNGS AND PLEURA: No opacities, masses or pneumothorax. No pleural effusion. MEDIASTINUM AND HILAR STRUCTURES: No masses or contour abnormalities. HEART AND VASCULAR STRUCTURES: Heart normal size. No evidence for failure. BONES: No acute findings. HARDWARE: None in the chest. OTHER: No other significant finding. IMPRESSION: NO ACUTE RADIOGRAPHIC FINDING IN THE CHEST. TECHNICAL DOCUMENTATION: JOB ID: [id number] [employer]- All Rights Reserved Reading location - IP/workstation name: [email or web address]
--- NOTE | 2017-05-27 08:29 | ER Document Report ---
ED Respiratory Problem - General Chief Complaint: Asthma Exacerbation Stated Complaint: TROUBLE BREATHING Time Seen by Provider: 05/27/17 07:05 Mode of Arrival: Ambulatory Information source: Patient Notes: Patient is a 36-year-old female with asthma who presents to the ER today for cough, shortness of breath, wheezing 3 days. Patient denies any fever but admits to chills. She denies any vomiting, diarrhea, body aches. She has been using her albuterol inhaler which is not been helping. She denies any chest pain. TRAVEL OUTSIDE OF THE [place] IN LAST 30 DAYS: No - Related Data Allergies/Adverse Reactions: lurasidone HCl [From Latuda] Allergy (Severe, Verified 04/07/17 18:05) Seizures morphine Adverse Reaction (Intermediate, Verified 04/07/17 18:05) Hives Past Medical History - General Information source: Patient - Social History Smoking Status: Never Smoker Family History: CAD, DM, Hypertension Patient has suicidal ideation: No Patient has homicidal ideation: No Pulmonary Medical History: Reports: Hx Asthma, Hx Pneumonia, Hx Intubation Neurological Medical History: Reports: Hx Seizures - After taking latuda, after latuda was stopped, patient seizures stopped Renal/ Medical History: Reports: Hx Ovarian Cysts. Denies: Hx Peritoneal Dialysis GI Medical History: Reports: Hx Irritable Bowel Musculoskeltal Medical History: Reports Hx Musculoskeletal Trauma Psychiatric Medical History: Reports: Hx Anxiety, Hx Depression - anxiety Past Surgical History: Reports: Hx Section - x2, Hx Tubal Ligation - Immunizations Immunizations up to date: Yes Hx Diphtheria, Pertussis, Tetanus Vaccination: Yes Review of Systems - Review of Systems Constitutional: See HPI EENT: No symptoms reported Cardiovascular: No symptoms reported Respiratory: See HPI Gastrointestinal: No symptoms reported Genitourinary: No symptoms reported Female Genitourinary: No symptoms reported Musculoskeletal: No symptoms reported Skin: No symptoms reported Hematologic/Lymphatic: No symptoms reported Neurological/Psychological: No symptoms reported Physical Exam - Vital signs Vitals: Temp Pulse Resp BP Pulse Ox 97.9 F 85 20 120/70 94 05/27/17 06:34 05/27/17 06:34 05/27/17 06:34 05/27/17 06:34 05/27/17 06:34 - Notes Notes: PHYSICAL EXAMINATION: GENERAL: Well-appearing and in no acute distress. HEAD: Atraumatic, normocephalic. EYES: Pupils equal round and reactive to light, extraocular movements intact, sclera anicteric, conjunctiva are normal. ENT: ear canals without erythema or foreign body, TMs pearly peace with good bony landmarks, nares patent, oropharynx clear without exudates. Moist mucous membranes. NECK: Normal range of motion, supple without lymphadenopathy LUNGS: Mild expiratory wheezes in all lung [place], no rales or rhonchi. HEART: Regular rate and rhythm without murmurs ABDOMEN: Soft, no tenderness. No guarding, no rebound BACK: no vertebral tenderness, normal ROM GI/: no CVA tenderness EXTREMITIES: Normal range of motion, no pitting edema. No cyanosis. NEUROLOGICAL: Cranial nerves grossly intact. Normal sensory/motor exams. PSYCH: Normal mood, normal affect. SKIN: Warm, Dry, normal turgor, no rashes or lesions noted Course - Re-evaluation Re-evalutation: 05/27/17 08:26 Chest x-ray negative for any acute pathology, patient feels better after breathing treatments here and cough medication, prednisone. Vital signs are all within normal limits, pulse ox of 94% on room air on arrival. - Vital Signs Vital signs: Temp Pulse Resp BP Pulse Ox 97.9 F 80 20 120/70 99 05/27/17 06:34 05/27/17 07:00 05/27/17 07:00 05/27/17 06:34 05/27/17 07:00 Discharge - Discharge Clinical Impression: Asthma exacerbation Qualifiers: Asthma severity: mild Asthma persistence: unspecified Qualified Code(s): J45.901 - Unspecified asthma with (acute) exacerbation Condition: Stable Disposition: HOME, SELF-CARE Additional Instructions: Return immediately for any new or worsening symptoms. Follow up with primary care provider, call tomorrow to make followup appointment. Prescriptions: Azithromycin [Zithromax 250 mg Tablet] 250 mg PO ASDIR PRN #6 tablet PRN Reason: Prednisone [Deltasone 20 mg Tablet] 3 tab PO DAILY 5 Days tablet
[2017-05-27 09:04] VITALS: BP 128/78
== END 2017-05-27 09:02 | disposition home or self-care (01) ==
LOC: ER 06:26
DX: J45.901 Unspecified asthma with (acute) exacerbation (principal); R05 Cough; R06.02 Shortness of breath
CPT/HCPCS: 94640 ×2; 99285; 71046; A9270 ×4; J3490; J7512; J7620

== ENCOUNTER 2017-06-08 22:35 | Emergency (ER) | payer MEDICARE, MEDICAID ==
[2017-06-08] MEDS ORDERED: PREDNISONE 20 MG TABLET PO ONE (23:44)
[2017-06-08] MEDS ORDERED: ALBUTEROL SULFATE 0.083% NEB 2.5 MG/3 ML AMPUL NEB ONE (23:44)
[2017-06-08] MEDS ORDERED: IPRATROPIUM/ALBUTEROL 0.5-2.5 MG/3 ML AMPUL NEB ONE (23:44)
--- NOTE | 2017-06-08 23:46 | ER Document Report ---
ED Medical Screen (RME) - General Chief Complaint: Nausea/Vomiting/Diarrhea Stated Complaint: TROUBLE BREATHING Time Seen by Provider: 06/08/17 23:41 Mode of Arrival: Ambulatory Information source: Patient Notes: 36 yo ex smoker, asthmatic female thought she had a head and chest cold, getting worse, feels like chest is getting squeezed with cough for 1 week, hurts to take a deep breath. Using duoneb at home , still rattling inside and hurts to breath. Now vomiting and diarrhea past few days. No abdominal pain. INSP and EXP wheeze bilateral. No respiratory distress. Pulse ox 96% and pulse 97 at this time. TRAVEL OUTSIDE OF THE [place] IN LAST 30 DAYS: No - Related Data Allergies/Adverse Reactions: lurasidone HCl [From Latuda] Allergy (Severe, Verified 04/07/17 18:05) Seizures morphine Adverse Reaction (Intermediate, Verified 04/07/17 18:05) Hives Past Medical History - Social History Family history: Hypertension Pulmonary Medical History: Reports: Hx Asthma, Hx Pneumonia, Hx Intubation Neurological Medical History: Reports: Hx Seizures - After taking latuda, after latuda was stopped, patient seizures stopped Renal/ Medical History: Reports: Hx Ovarian Cysts. Denies: Hx Peritoneal Dialysis GI Medical History: Reports: Hx Irritable Bowel Musculoskeltal Medical History: Reports Hx Musculoskeletal Trauma Psychiatric Medical History: Reports: Hx Anxiety, Hx Depression - anxiety Past Surgical History: Reports: Hx Section - x2, Hx Tubal Ligation - Immunizations Immunizations up to date: Yes Hx Diphtheria, Pertussis, Tetanus Vaccination: Yes Physical Exam - Vital signs Vitals: Temp Pulse Resp BP Pulse Ox 99 F 118 H 18 123/76 98 06/08/17 22:35 06/08/17 22:35 06/08/17 22:35 06/08/17 22:35 06/08/17 22:35 Course - Vital Signs Vital signs: Temp Pulse Resp BP Pulse Ox 99 F 118 H 18 123/76 98 06/08/17 22:35 06/08/17 22:35 06/08/17 22:35 06/08/17 22:35 06/08/17 22:35
[2017-06-08] MEDS ORDERED: ONDANSETRON 4 MG TAB.RAPDIS PO ONE (23:50)
--- NOTE | 2017-06-08 23:57 | ER Document Report ---
ED General - General Chief Complaint: Nausea/Vomiting/Diarrhea Stated Complaint: TROUBLE BREATHING Time Seen by Provider: 06/08/17 23:41 Mode of Arrival: Ambulatory Information source: Patient Notes: 36-year-old female history of asthma who was intubated 7 years ago but has been on BiPAP multiple times presents with complaints of shortness of breath productive cough. Patient notes there is a rattling sensation in her lungs but she is unable to completely get up. Patient denies any nausea or vomiting admits to fevers at home max temp 102. Patient denies any concerns for DVT or PE or such risk factors. Otherwise patient states she feels well was given breathing treatments prior to my evaluation TRAVEL OUTSIDE OF THE [place] IN LAST 30 DAYS: No - HPI Onset: Last week Onset/Duration: Persistent Quality of pain: Achy Severity: Mild Pain Level: 1 Associated symptoms: Productive cough, Fever, Shortness of breath Exacerbated by: Movement, Walking, Coughing Relieved by: Denies Similar symptoms previously: Yes Recently seen / treated by doctor: Yes - Related Data Allergies/Adverse Reactions: lurasidone HCl [From Latuda] Allergy (Severe, Verified 04/07/17 18:05) Seizures morphine Adverse Reaction (Intermediate, Verified 04/07/17 18:05) Hives Past Medical History - General Information source: Patient - Social History Smoking Status: Never Smoker Cigarette use (# per day): No Chew tobacco use (# tins/day): No Smoking Education Provided: No Family History: CAD, DM, Hypertension Pulmonary Medical History: Reports: Hx Asthma, Hx Pneumonia, Hx Intubation Neurological Medical History: Reports: Hx Seizures - After taking latuda, after latuda was stopped, patient seizures stopped Renal/ Medical History: Reports: Hx Ovarian Cysts. Denies: Hx Peritoneal Dialysis GI Medical History: Reports: Hx Irritable Bowel Musculoskeltal Medical History: Reports Hx Musculoskeletal Trauma Psychiatric Medical History: Reports: Hx Anxiety, Hx Depression - anxiety Past Surgical History: Reports: Hx Section - x2, Hx Tubal Ligation - Immunizations Immunizations up to date: Yes Hx Diphtheria, Pertussis, Tetanus Vaccination: Yes Review of Systems - Review of Systems Notes: REVIEW OF SYSTEMS: CONSTITUTIONAL : Denies fever, chills, or sweats. Denies recent illness. EENT: Denies eye, ear, throat, or mouth pain or symptoms. Denies nasal or sinus congestion or discharge. Denies throat, tongue, or mouth swelling or difficulty swallowing. CARDIOVASCULAR: Denies chest pain. Denies palpitations or racing or irregular heart beat. Denies ankle edema. RESPIRATORY: Admits to cough shortness of breath wheezing GASTROINTESTINAL: Denies abdominal pain or distention. Denies nausea, vomiting , or diarrhea. Denies blood in vomitus, stools, or per rectum. Denies black, tarry stools. Denies constipation. GENITOURINARY: Denies difficulty urinating, painful urination, burning, frequency, blood in urine, or discharge. FEMALE GENITOURINARY: Denies vaginal bleeding, heavy or abnormal periods, irregular periods. Denies vaginal discharge or odor. MUSCULOSKELETAL: Denies back or neck pain or stiffness. Denies joint pain or swelling. SKIN: Denies rash, lesions or sores. HEMATOLOGIC : Denies easy bruising or bleeding. LYMPHATIC: Denies swollen, enlarged glands. NEUROLOGICAL: Denies confusion or altered mental status. Denies passing out or loss of consciousness. Denies dizziness or lightheadedness. Denies headache. Denies weakness or paralysis or loss of use of either side. Denies problems with gait or speech. Denies sensory loss, numbness, or tingling. Denies seizures. PSYCHIATRIC: Denies anxiety or stress. Denies depression, suicidal ideation, or homicidal ideation. ALL OTHER SYSTEMS REVIEWED AND NEGATIVE. PHYSICAL EXAMINATION: GENERAL: Well-appearing, well-nourished and in no acute distress. HEAD: Atraumatic, normocephalic. EYES: Pupils equal round and reactive to light, extraocular movements intact, conjunctiva are normal. ENT: Nares patent, oropharynx clear without exudates. Moist mucous membranes. NECK: Normal range of motion, supple without lymphadenopathy LUNGS: Inspiratory expiratory wheezing all throughout HEART: Tachycardic while performing breathing treatments ABDOMEN: Soft, nontender, nondistended abdomen. No guarding, no rebound. No masses appreciated. Female : deferred Musculoskeletal: Normal range of motion, no pitting or edema. No cyanosis. NEUROLOGICAL: Cranial nerves grossly intact. Normal speech, normal gait. Normal sensory, motor exams PSYCH: Normal mood, normal affect. SKIN: Warm, Dry, normal turgor, no rashes or lesions noted. Dictation was performed using [employer] recognition software Physical Exam - Vital signs Vitals: Temp Pulse Resp BP Pulse Ox 99 F 118 H 18 123/76 98 06/08/17 22:35 06/08/17 22:35 06/08/17 22:35 06/08/17 22:35 06/08/17 22:35 Course - Re-evaluation Re-evalutation: 06/09/17 02:24 Patient's presentation is most consistent with asthma exacerbation, given that she has had fevers and a sensation of a productive cough I will treat her with antibiotics given history of intubation. Patient overall looks well though is satting well was noted to be tachycardic but has no other pulmonary emboli risk factors therefore I do believe she is stable for discharge Restrict return precautions and provide After performing a Medical Screening Examination, I estimate there is LOW risk for ACUTE CORONARY SYNDROME, PULMONARY EMBOLI, RESPIRATORY FAILURE, SEPSIS OR MENINGITIS, thus I consider the discharge disposition reasonable. I have reevaluated this patient multiple times and no significant life threatening changes are noted. The patient and I have discussed the diagnosis and risks, and we agree with discharging home with close follow-up. We also discussed returning to the Emergency Department immediately if new or worsening symptoms occur. We have discussed the symptoms which are most concerning (e.g., changing or worsening pain, trouble swallowing or breathing, neck stiffness, fever) that necessitate immediate return. - Vital Signs Vital signs: Temp Pulse Resp BP Pulse Ox 98.0 F 118 H 15 122/71 97 06/09/17 01:54 06/08/17 22:35 06/09/17 01:53 06/09/17 01:54 06/09/17 01:53 - Diagnostic Test Radiology reviewed: Image reviewed - No acute abnormality noted on chest x-ray 2 view, Reports reviewed Discharge - Discharge Clinical Impression: Asthma exacerbation Qualifiers: Asthma severity: mild Asthma persistence: intermittent Qualified Code(s): J45.21 - Mild intermittent asthma with (acute) exacerbation Pneumonia Qualifiers: Pneumonia type: due to unspecified organism Laterality: unspecified laterality Lung location: unspecified part of lung Qualified Code(s): J18.9 - Pneumonia, unspecified organism Condition: Stable Disposition: HOME, SELF-CARE Instructions: Asthma ([facility]) Prescriptions: Azithromycin 250 mg PO ASDIR PRN #6 tablet PRN Reason: Prednisone [Deltasone 20 mg Tablet] 3 tab PO DAILY 5 Days tablet Referrals: TJ HODGE DO [Primary Care Provider] - Follow up tomorrow
--- NOTE | 2017-06-09 00:03 | RADIOLOGY REPORT (SQ) ---
EXAM DESCRIPTION: CHEST 2 VIEWS COMPLETED DATE/TIME: 06/08/2017 11:54 pm REASON FOR STUDY: cough and wheeze COMPARISON: 05/27/2017 NUMBER OF VIEWS: Two view. TECHNIQUE: Frontal and lateral radiographic views of the chest acquired. LIMITATIONS: None. FINDINGS: LUNGS AND PLEURA: Peribronchial cuffing and interstitial changes. No consolidation, effus ion, or pneumothorax. MEDIASTINUM AND HILAR STRUCTURES: No masses. No contour abnormalities. HEART AND VASCULAR STRUCTURES: Heart normal in size and contour. No evidence for failure. BONES: No acute findings. HARDWARE: None in the chest. OTHER: No other significant finding. IMPRESSION: REACTIVE AIRWAY DISEASE VERSUS VIRAL SYNDROME. NO CONSOLIDATION. TECHNICAL DOCUMENTATION: JOB ID: [id number] [employer]- All Rights Reserved Reading location - IP/workstation name: [email or web address]
[2017-06-09 01:55] VITALS: BP 122/71
== END 2017-06-09 01:55 | disposition home or self-care (01) ==
LOC: ER 22:35
DX: J18.9 Pneumonia, unspecified organism (principal); R11.2 Nausea with vomiting, unspecified; R19.7 Diarrhea, unspecified; R50.9 Fever, unspecified; Z88.6 Allergy status to analgesic agent; Z98.51 Tubal ligation status
CPT/HCPCS: 94640 ×2; 99283; 71046; A9270 ×4; J7512; J7620; S0119

== ENCOUNTER 2017-06-13 14:12 | Emergency (ER) | payer MEDICARE, MEDICAID ==
[2017-06-13] MEDS ORDERED: NORMAL SALINE 1000 ML 1,000 ML IV ONE ×2 (16:16→18:17)
[2017-06-13] MEDS ORDERED: ONDANSETRON HCL INJ/PF 4 MG/2 ML SDV IV ONE ×2 (16:17→23:38)
--- NOTE | 2017-06-13 16:17 | ER Document Report ---
ED GI/ - General Chief Complaint: Diarrhea Stated Complaint: CONGESTION, DIARRHEA, VOMITING Time Seen by Provider: 06/13/17 15:42 Notes: 36-year-old female to the emergency department with nausea vomiting diarrhea. States that she has had cramping abdominal pain for last 4 days. Large amounts of diarrhea. Cannot keep anything down. Large amount of vomiting. No blood in her stool. Was on antibiotics 2 rounds of azithromycin for total of 10 days as well as prednisone. History of asthma. Abdominal discomfort is described as crampy. TRAVEL OUTSIDE OF THE [place] IN LAST 30 DAYS: No - HPI Patient complains to provider of: Abdominal pain, Diarrhea, Vomiting Onset: Last week Timing/Duration: Gradual, Worse Severity at maximum: Moderate Severity in ED: Moderate Pain Level: 3 Context: denies: Bad food, Lifting, Out of the country travel, , Recent trauma, Other - Related Data Allergies/Adverse Reactions: lurasidone HCl [From Latuda] Allergy (Severe, Verified 06/13/17 14:15) Seizures morphine Adverse Reaction (Intermediate, Verified 06/13/17 14:15) Hives Past Medical History - General Information source: Patient - Social History Smoking Status: Former Smoker Cigarette use (# per day): No Chew tobacco use (# tins/day): No Frequency of alcohol use: None Drug Abuse: None Lives with: Spouse/Significant other Family History: CAD, DM, Hypertension Patient has suicidal ideation: No Patient has homicidal ideation: No Pulmonary Medical History: Reports: Hx Asthma, Hx Pneumonia, Hx Intubation Neurological Medical History: Reports: Hx Seizures - After taking latuda, after latuda was stopped, patient seizures stopped Renal/ Medical History: Reports: Hx Ovarian Cysts. Denies: Hx Peritoneal Dialysis GI Medical History: Reports: Hx Irritable Bowel Musculoskeltal Medical History: Reports Hx Musculoskeletal Trauma Psychiatric Medical History: Reports: Hx Anxiety, Hx Depression - anxiety Past Surgical History: Reports: Hx Section - x2, Hx Tubal Ligation - Immunizations Immunizations up to date: Yes Hx Diphtheria, Pertussis, Tetanus Vaccination: Yes Review of Systems - Review of Systems Constitutional: No symptoms reported EENT: No symptoms reported Cardiovascular: No symptoms reported Respiratory: Cough, Short of breath, Wheezing Gastrointestinal: Abdominal pain, Diarrhea, Nausea, Vomiting Genitourinary: No symptoms reported Female Genitourinary: No symptoms reported Musculoskeletal: No symptoms reported Skin: No symptoms reported Hematologic/Lymphatic: No symptoms reported Neurological/Psychological: No symptoms reported Physical Exam - Vital signs Vitals: Temp Pulse Resp BP Pulse Ox 98.4 F 96 20 127/81 H 99 06/13/17 14:18 06/13/17 14:18 06/13/17 14:18 06/13/17 14:18 06/13/17 14:18 Interpretation: Tachycardic - General General appearance: Appears well, Alert - HEENT Head: Normocephalic, Atraumatic Eyes: Normal Pupils: PERRL - Respiratory Respiratory status: No respiratory distress Chest status: Nontender Breath sounds: Nonproductive cough, Wheezing Chest palpation: Normal - Cardiovascular Rhythm: Tachycardia Heart sounds: Normal auscultation Murmur: No - Abdominal Inspection: Normal Distension: No distension Bowel sounds: Hyperactive Tenderness: Tender, Other - Diffuse tenderness Organomegaly: No organomegaly - Back Back: Normal, Nontender - Extremities General upper extremity: Normal inspection, Nontender, Normal color, Normal ROM , Normal temperature General lower extremity: Normal inspection, Nontender, Normal color, Normal ROM , Normal temperature, Normal weight bearing. No: Ebony's sign - Neurological Neuro grossly intact: Yes Cognition: Normal Orientation: AAOx4 Dottie Coma Scale Eye Opening: Spontaneous Dottie Coma Scale Verbal: Oriented Dottie Coma Scale Motor: Obeys Commands Dottie Coma Scale Total: 15 Speech: Normal Motor strength normal: LUE, RUE, LLE, RLE Sensory: Normal - Psychological Associated symptoms: Normal affect, Normal mood - Skin Skin Temperature: Warm Skin Moisture: Dry Skin Color: Normal Course - Re-evaluation Re-evalutation: 06/13/17 18:24 Patient with excessive amounts of diarrhea while in the emergency department. Has not had any emesis while she is here. Wheezing noted on exam. Has been on recent antibiotic use for C. difficile was ordered. C. difficile was negative. Patient still complaining of significant amount of discomfort diffusely in the abdomen with hyperactive bowel sounds. I do not believe patient has obstruction but will get acute abdominal series. Do not think patient needs a CT scan at this time. More likely represents a colitis. Will likely respond to IV fluids. Would like to place patient in the hospital for observation based on her poor respiratory history and persistent symptoms. Consulted with hospitalist, Dr. Hedrick states that the nighttime hospitalist will see her. Will put her in observation status at this time for intractable diarrhea, dehydration and gastroenteritis 06/13/17 19:13 X-ray was performed. X-ray results concerning for small bowel obstruction. Consult with surgeon. Recommend CT abdomen and pelvis with oral and IV contrast and reconsult after results are complete. CT pending at time of signout. Dr. James to review results of CT scan and consult with surgeon if it appears to be a bowel obstruction or hospitalist if there does not appear to be a bowel obstruction. - Vital Signs Vital signs: Temp Pulse Resp BP Pulse Ox 98.8 F 75 17 123/77 99 06/13/17 18:58 06/13/17 18:58 06/13/17 18:58 06/13/17 18:58 06/13/17 18:58 - Laboratory Result Diagrams: 06/13/17 16:25 06/13/17 16:25 Laboratory results interpreted by me: 06/13/17 06/13/17 06/13/17 16:25 16:25 16:25 WBC 11.7 H Hgb 11.5 L MCV 71 L MCH 22.5 L MCHC 31.7 L RDW 19.8 H Seg Neutrophils % 87.0 H Lymphocytes % 9.7 L Absolute Neutrophils 10.2 H Potassium 3.3 L AST 12 L Urine Blood SMALL H Discharge - Discharge Clinical Impression: Gastroenteritis, Intractable diarrhea Condition: Good Referrals: TJ HODGE DO [Primary Care Provider] - Follow up as needed
[2017-06-13 16:55] LABS: ABSOLUTE LYMPHOCYTES (AUTO) 1.1 10^3/uL (0.5-4.7); ABSOLUTE MONOCYTES (AUTO) 0.4 10^3/uL (0.1-1.4); ABSOLUTE NEUT (AUTO) 10.2 10^3/uL (1.7-8.2); BASOPHILS % (AUTO) 0.1 % (0-2); EOSINOPHILS % (AUTO) 0.1 % (0-6); HEMATOCRIT 36.4 % (36.0-47.0); HEMOGLOBIN 11.5 g/dL (12.0-15.5); LYMPHOCYTES % (AUTO) 9.7 % (13-45); MEAN CORPUSCULAR HEMOGLOBIN 22.5 pg (27.0-33.4); MEAN CORPUSCULAR HGB CONC 31.7 g/dL (32.0-36.0); MEAN CORPUSCULAR VOLUME 71 fl (80-97); MONOCYTES % (AUTO) 3.1 % (3-13); PLATELET COUNT 411 10^3/uL (150-450); RED BLOOD COUNT 5.14 10^6/uL (3.72-5.28); RED CELL DISTRIBUTION WIDTH 19.8 % (11.5-14.0); TOTAL CELLS COUNTED % (AUTO) 100 %; WHITE BLOOD COUNT 11.7 10^3/uL (4.0-10.5)
[2017-06-13 17:07] LABS: APPEARANCE,URINE CLEAR; BILIRUBIN,URINE NEGATIVE (NEGATIVE); COLOR,URINE STRAW; GLUCOSE, URINE NEGATIVE (NEGATIVE); KETONES,URINE NEGATIVE (NEGATIVE); LEUKOCYTE ESTERASE,URINE NEGATIVE (NEGATIVE); NITRITE,URINE NEGATIVE (NEGATIVE); PROTEIN,URINE NEGATIVE (NEGATIVE); URINE SPECIFIC GRAVITY 1.003; UROBILINOGEN,URINE NEGATIVE mg/dL (<2.0)
[2017-06-13 17:22] LABS: ALANINE AMINOTRANSFERASE 17 U/L (9-52); ALBUMIN 3.5 g/dL (3.5-5.0); ALKALINE PHOSPHATASE 76 U/L (38-126); ANION GAP 12 (5-19); ASPARTATE AMINO TRANSFERASE 12 U/L (14-36); BILIRUBIN,DIRECT 0.3 mg/dL (0.0-0.4); BILIRUBIN,TOTAL 0.3 mg/dL (0.2-1.3); BLOOD UREA NITROGEN 9 mg/dL (7-20); CALCIUM 8.9 mg/dL (8.4-10.2); CARBON DIOXIDE 28 mmol/L (22-30); CHLORIDE 101 mmol/L (98-107); GLUCOSE 94 mg/dL (75-110); LIPASE 45.4 U/L (23-300); POTASSIUM 3.3 mmol/L (3.6-5.0); SODIUM 141.1 mmol/L (137-145); TOTAL PROTEIN 6.6 g/dL (6.3-8.2)
[2017-06-13] MEDS ORDERED: HYDROCODONE/ACETAMINOPHEN 5-325 MG TABLET PO ONE ×2 (18:18→23:38)
[2017-06-13] MEDS ORDERED: FAMOTIDINE INJ/PF 20 MG/2 ML SDV IV ONE (18:18)
--- NOTE | 2017-06-13 18:57 | RADIOLOGY REPORT (SQ) ---
EXAM DESCRIPTION: ACUTE ABDOMEN SERIES COMPLETED DATE/TIME: 06/13/2017 6:48 pm REASON FOR STUDY: abd pain COMPARISON: None. NUMBER OF VIEWS: Three views. TECHNIQUE: Frontal chest, supine abdomen and upright/ CT abdomen radiographic images acquired. LIMITATIONS: None. FINDINGS: CHEST: Lungs clear of infiltrates. FREE AIR: None. No abnormal gas collections. BOWEL GAS PATTERN: Multiple gas-filled loops of large and small bowel are present. Air-fluid levels are seen on the upright views. There is not appear to be significant bowel distention, however. CALCIFICATIONS: No suspicious calcifications. HARDWARE: None in the abdomen. SOFT TISSUES: No gross mass or suggestion of organomegaly. BONES: No acute fracture. No worrisome bone lesions. OTHER: No other significant finding. IMPRESSION: Partial bowel obstruction versus ileus. TECHNICAL DOCUMENTATION: JOB ID: [id number] [employer]- All Rights Reserved Reading location - IP/workstation name: [email or web address]
--- NOTE | 2017-06-13 23:12 | RADIOLOGY REPORT (SQ) ---
EXAM DESCRIPTION: CT abdomen pelvis with IV contrast CLINICAL HISTORY: 36 years Female, abd pain and ? obstruction COMPARISON: 12/21/2015 TECHNIQUE: IV and oral contrast. Coronal and sagittal reformat. This exam was performed according to our departmental dose-optimization program, which includes automated exposure control, adjustment of the mA and/or kV according to patient size and/or use of iterative reconstruction technique. FINDINGS: Small right pleural effusion. Minimal left pleural effusion. Interval resolution of a previous cystic component of the left ovarian fossa on CT from December 2015. Inferior thorax, liver, gallbladder, pancreas, spleen, adrenals, renal system, gastrointestinal tract, pelvic organs, lymphatics, vasculature, and musculoskeleton appear otherwise unremarkable. IMPRESSION: Small right pleural effusion. No acute abdominal-pelvic findings.
[2017-06-14 01:27] VITALS: BP 122/71
== END 2017-06-14 01:45 | disposition home or self-care (01) ==
LOC: ER 14:12
DX: K52.9 Noninfective gastroenteritis and colitis, unspecified (principal); Z87.891 Personal history of nicotine dependence; Z88.6 Allergy status to analgesic agent
CPT/HCPCS: 96376; 99285; 96361; 96374; 96375; 36415; 87045; 87205; 83690; 85025; 81025; 80053; 81001; 87493; 74022; 74177; J2405; J7030; S0028; A9270

== ENCOUNTER 2017-06-15 21:00 | Emergency (ER) | payer MEDICARE, MEDICAID ==
[2017-06-15] MEDS ORDERED: LOPERAMIDE HCL 2 MG CAPSULE PO ONE (22:22)
--- NOTE | 2017-06-15 22:29 | ER Document Report ---
ED General <RAVIN GARCIA - Last Filed: 06/16/17 00:30> - General Mode of Arrival: Ambulatory Information source: Patient TRAVEL OUTSIDE OF THE [place] IN LAST 30 DAYS: No <BRIJESH AMES - Last Filed: 06/16/17 01:46> - General Chief Complaint: Abdominal Pain Stated Complaint: ABDOMINAL PAIN Time Seen by Provider: 06/15/17 22:08 Notes: Patient is a 36 year old female presenting to the emergency department complaining of abdominal pain with associated symptoms of diarrhea, decreased appetite and weakness. Patient states that she has not been able to eat anything due to her abdominal pain. She describes her diarrhea as similar to water. Patient was seen in this emergency department on 06/13/2017 and was diagnosed with Gastroenteritis and discharged home. Patient states she has taken an anti-diarrhea medication (does not remember name) and it has not help alleviate her symptoms. According to [facility] records a culture of the patient stool returned with a positive for C. Albicans. (BRIJESH AMES) - Related Data Allergies/Adverse Reactions: lurasidone HCl [From Latuda] Allergy (Severe, Verified 06/13/17 14:15) Seizures morphine Adverse Reaction (Intermediate, Verified 06/13/17 14:15) Hives Past Medical History - General Information source: Patient - Social History Smoking Status: Former Smoker Chew tobacco use (# tins/day): No Frequency of alcohol use: None Drug Abuse: None Family History: CAD, DM, Hypertension Patient has suicidal ideation: No Patient has homicidal ideation: No Pulmonary Medical History: Reports: Hx Asthma, Hx Pneumonia, Hx Intubation Neurological Medical History: Reports: Hx Seizures - After taking latuda, after latuda was stopped, patient seizures stopped Renal/ Medical History: Reports: Hx Ovarian Cysts GI Medical History: Reports: Hx Irritable Bowel Musculoskeltal Medical History: Reports Hx Musculoskeletal Trauma Psychiatric Medical History: Reports: Hx Anxiety, Hx Depression - anxiety Past Surgical History: Reports: Hx Section - x2, Hx Tubal Ligation - Immunizations Immunizations up to date: Yes Hx Diphtheria, Pertussis, Tetanus Vaccination: Yes <BRIJESH AMES - Last Filed: 06/16/17 01:46> Review of Systems - Review of Systems Constitutional: See HPI, Weakness EENT: No symptoms reported Cardiovascular: No symptoms reported Respiratory: No symptoms reported Gastrointestinal: See HPI, Abdominal pain, Diarrhea, Poor appetite Genitourinary: No symptoms reported Female Genitourinary: No symptoms reported Musculoskeletal: No symptoms reported Skin: No symptoms reported Hematologic/Lymphatic: No symptoms reported Neurological/Psychological: No symptoms reported <HUIBRIJESH DENNISON - Last Filed: 06/16/17 01:46> Physical Exam <RADHARAVIN - Last Filed: 06/16/17 00:30> <HUISADESERGIO - Last Filed: 06/16/17 01:46> - Vital signs Vitals: Temp Pulse Resp BP Pulse Ox 98.9 F 98 20 110/70 98 06/15/17 21:05 06/15/17 21:05 06/15/17 21:05 06/15/17 21:05 06/15/17 21:05 - Notes Notes: GENERAL: Alert, interacts well. No acute distress. HEAD: Normocephalic, atraumatic. EYES: Pupils equal, round, and reactive to light. Extraocular movements intact. ENT: Oral mucosa moist, tongue midline. NECK: Full range of motion. Supple. Trachea midline. LUNGS: Clear to auscultation bilaterally, no wheezes, rales, or rhonchi. No respiratory distress. HEART: Regular rate and rhythm. No murmurs, gallops, or rubs. ABDOMEN: Soft, non-tender. Non-distended. Bowel sounds present in all 4 quadrants. EXTREMITIES: Moves all 4 extremities spontaneously. NEUROLOGICAL: Alert and oriented x3. Normal speech. PSYCH: Normal affect, normal mood. SKIN: Warm, dry, normal turgor. No rashes or lesions noted. (BRIJESH AMES) Course - Laboratory Result Diagrams: 06/15/17 22:50 06/15/17 22:50 <RAVIN GARCIA - Last Filed: 06/16/17 00:30> - Laboratory Result Diagrams: 06/15/17 22:50 06/15/17 22:50 <BRIJESH AMES - Last Filed: 06/16/17 01:46> - Re-evaluation Re-evalutation: 06/16/17 00:30 The patient is resting comfortably. There is been no diarrhea since she arrived here. Formed her potassium level is a little low so she will get some supplemental potassium orally and some medicine for nausea and discharged home. (RAVIN GARCIA) - Vital Signs Vital signs: Temp Pulse Resp BP Pulse Ox 98.0 F 80 16 128/73 H 98 06/16/17 01:01 06/16/17 01:01 06/16/17 01:01 06/16/17 01:01 06/16/17 01:01 - Laboratory Laboratory results interpreted by me: 06/15/17 06/15/17 06/15/17 22:50 22:50 23:55 Hgb 11.5 L Hct 35.8 L MCV 71 L MCH 22.7 L RDW 19.3 H Potassium 3.2 L Carbon Dioxide 33 H BUN 6 L Est GFR (Non-Af Amer) 55 L Total Protein 6.0 L Albumin 3.3 L Urine Blood SMALL H Ur Leukocyte Esterase TRACE H Discharge <RAVIN GARCIA - Last Filed: 06/16/17 00:30> <BRIJESH AMES - Last Filed: 06/16/17 01:46> - Discharge Clinical Impression: Hypokalemia Abdominal pain Qualifiers: Abdominal location: generalized Qualified Code(s): R10.84 - Generalized abdominal pain Diarrhea Qualifiers: Diarrhea type: unspecified type Qualified Code(s): R19.7 - Diarrhea, unspecified Condition: Stable Disposition: HOME, SELF-CARE Additional Instructions: Diarrhea Diarrhea means frequent, watery stools. There are many causes. Any problem that keeps the intestinal tract from absorbing water from the stool can lead to diarrhea. A sudden new diarrhea problem is usually caused by a virus, food sensitivity, toxic bacteria, or drugs. In this case, we expect the problem to go away soon. Testing is done only if you seem seriously ill from the diarrhea. If you have chronic diarrhea, or diarrhea that keeps coming back, we need to find out why. Chronic diarrhea can be due to inflammation of the bowels such as Crohn's disease or ulcerative colitis, food sensitivity such as intolerance to lactose or wheat protein, irritable bowel syndrome, and other problems. If your diarrhea is a significant problem but it's not clear why you have it, we' ll refer you to a specialist for further testing. During an episode of diarrhea, drink small amounts (two to six ounces) of clear liquids (soft drinks, sport drinks, herb teas, broth, etc). Take fluids frequently to prevent dehydration. It's usually not a problem to take mild anti- diarrhea medication such as Kaopectate or Pepto-Bismol. As the diarrhea eases, advance to small amounts of bland food (mashed potato, toast) for 24 hours. Call the physician if blood appears in your vomit or stool, if vomiting lasts longer than 24 hours, if the abdominal pain worsens or becomes localized to one area, if you develop high fever, or if you become lightheaded and weak. 888 Drink cool clear liquids for the next 12-24 hours. Take Imodium-AD Pepto-Bismol for diarrhea if needed. Follow-up with your doctor in the next few days for recheck. Referrals: TJ HODGE DO [Primary Care Provider] - Follow up as needed [place] Attestation: 06/15/17 22:41 I personally performed the services described in the documentation, reviewed and edited the documentation which was dictated to the scribe in my presence, and it accurately records my words and actions. (RAVIN GARCIA) Scribe Documentation - Scribe Written by Frank:: Frank Diego, 06/15/2017 22:31 acting as scribe for :: Radha <BRIJESH AMES - Last Filed: 06/16/17 01:46>
[2017-06-15 23:11] LABS: ABSOLUTE BASOPHILS # (AUTO) 0.1 10^3/uL (0.0-0.2); ABSOLUTE EOSINOPHILS # (AUTO) 0.1 10^3/uL (0.0-0.6); ABSOLUTE LYMPHOCYTES (AUTO) 1.7 10^3/uL (0.5-4.7); ABSOLUTE MONOCYTES (AUTO) 0.6 10^3/uL (0.1-1.4); ABSOLUTE NEUT (AUTO) 5.9 10^3/uL (1.7-8.2); BASOPHILS % (AUTO) 0.8 % (0-2); EOSINOPHILS % (AUTO) 1.4 % (0-6); HEMATOCRIT 35.8 % (36.0-47.0); HEMOGLOBIN 11.5 g/dL (12.0-15.5); LYMPHOCYTES % (AUTO) 20.5 % (13-45); MEAN CORPUSCULAR HEMOGLOBIN 22.7 pg (27.0-33.4); MEAN CORPUSCULAR HGB CONC 32.2 g/dL (32.0-36.0); MEAN CORPUSCULAR VOLUME 71 fl (80-97); MONOCYTES % (AUTO) 7.3 % (3-13); PLATELET COUNT 390 10^3/uL (150-450); RED BLOOD COUNT 5.09 10^6/uL (3.72-5.28); RED CELL DISTRIBUTION WIDTH 19.3 % (11.5-14.0); TOTAL CELLS COUNTED % (AUTO) 100 %; WHITE BLOOD COUNT 8.4 10^3/uL (4.0-10.5)
[2017-06-15 23:26] LABS: ALANINE AMINOTRANSFERASE 23 U/L (9-52); ALBUMIN 3.3 g/dL (3.5-5.0); ALKALINE PHOSPHATASE 65 U/L (38-126); ANION GAP 8 (5-19); ASPARTATE AMINO TRANSFERASE 15 U/L (14-36); BILIRUBIN,DIRECT 0.3 mg/dL (0.0-0.4); BILIRUBIN,TOTAL 0.4 mg/dL (0.2-1.3); BLOOD UREA NITROGEN 6 mg/dL (7-20); CALCIUM 8.7 mg/dL (8.4-10.2); CARBON DIOXIDE 33 mmol/L (22-30); CHLORIDE 98 mmol/L (98-107); GLUCOSE 90 mg/dL (75-110); POTASSIUM 3.2 mmol/L (3.6-5.0)
[2017-06-16] MEDS ORDERED: POTASSIUM CHLORIDE 20 MEQ/15 ML UDCUP PO ONE (00:23)
[2017-06-16] MEDS ORDERED: ONDANSETRON 4 MG TAB.RAPDIS PO ONE (00:24)
[2017-06-16] MEDS ORDERED: ONDANSETRON ODT 4 MG TAB (6 TAB/ER DISP) PO PRN (00:27)
[2017-06-16 01:10] VITALS: BP 128/73
[2017-06-16 01:26] LABS: APPEARANCE,URINE SLIGHTLY-CLOUDY; BILIRUBIN,URINE NEGATIVE (NEGATIVE); COLOR,URINE YELLOW; GLUCOSE, URINE NEGATIVE (NEGATIVE); KETONES,URINE NEGATIVE (NEGATIVE); LEUKOCYTE ESTERASE,URINE TRACE (NEGATIVE); NITRITE,URINE NEGATIVE (NEGATIVE); PROTEIN,URINE NEGATIVE (NEGATIVE); URINE SPECIFIC GRAVITY 1.018; UROBILINOGEN,URINE NEGATIVE mg/dL (<2.0)
== END 2017-06-16 01:10 | disposition home or self-care (01) ==
LOC: ER 21:00
DX: E87.6 Hypokalemia (principal); R10.84 Generalized abdominal pain; R19.7 Diarrhea, unspecified; Z87.891 Personal history of nicotine dependence; Z98.51 Tubal ligation status; Z88.6 Allergy status to analgesic agent
CPT/HCPCS: 99284; 36415; 85025; 80053; 81001; A9270 ×4; S0119

== ENCOUNTER 2017-07-01 21:37 | Emergency (ER) | payer MEDICARE, MEDICAID ==
[2017-07-01 21:46] VITALS: BP 146/94
--- NOTE | 2017-07-01 23:08 | ER Document Report ---
ED General - General Chief Complaint: Psych Problem Stated Complaint: ALTERED MENTAL STATUS Time Seen by Provider: 07/01/17 22:03 Cannot obtain history due to: Uncooperative Notes: Patient is a 36-year-old female with a past medical history of severe depression , anxiety, multiple prior psychiatric hospitalizations who presents with increasing depression and inability to complete her activities of daily living secondary to her lethargy in association with depression. She self discontinued all of her medications approximate 1 week ago the names of which she cannot recall. She states she restarted them 3 days ago due to her progressively worsening depression. Her at the bedside provides the majority the history as the patient has minimal verbal engagement. She keeps her eyes closed the entirety of history taking. He reports that she has gotten like this in the [place] past and has spiral out of control often resulting in prolonged mental health hospitalizations with her trying to avoid in this occurrence. They have not contacted the patient's primary doctor psychiatrist regarding today's concerns. The patient denies any suicidal homicidal ideation. She states that her symptoms have not gotten any better since she restarted taking her psychiatric medications. TRAVEL OUTSIDE OF THE [place] IN LAST 30 DAYS: No - Related Data Allergies/Adverse Reactions: lurasidone HCl [From Latuda] Allergy (Severe, Verified 07/01/17 22:11) Seizures morphine Adverse Reaction (Intermediate, Verified 07/01/17 22:11) Hives Past Medical History - General Information source: Patient, Relative - Social History Smoking Status: Never Smoker Frequency of alcohol use: None Drug Abuse: None Lives with: Spouse/Significant other Family History: CAD, DM, Hypertension Patient has suicidal ideation: No Patient has homicidal ideation: No Pulmonary Medical History: Reports: Hx Asthma, Hx Pneumonia, Hx Intubation Neurological Medical History: Reports: Hx Seizures - After taking latuda, after latuda was stopped, patient seizures stopped Renal/ Medical History: Reports: Hx Ovarian Cysts. Denies: Hx Peritoneal Dialysis GI Medical History: Reports: Hx Irritable Bowel Musculoskeltal Medical History: Reports Hx Musculoskeletal Trauma Psychiatric Medical History: Reports: Hx Anxiety, Hx Depression - anxiety Past Surgical History: Reports: Hx Section - x2, Hx Tubal Ligation - Immunizations Immunizations up to date: Yes Hx Diphtheria, Pertussis, Tetanus Vaccination: Yes Review of Systems - Review of Systems Notes: Constitutional: Negative for fever. HENT: Negative for sore throat. Eyes: Negative for visual changes. Cardiovascular: Negative for chest pain. Respiratory: Negative for shortness of breath. Gastrointestinal: Negative for abdominal pain, vomiting or diarrhea. Genitourinary: Negative for dysuria. Musculoskeletal: Negative for back pain. Skin: Negative for rash. Neurological: Negative for headaches, weakness or numbness. 10 point ROS negative except as marked above and in HPI. Physical Exam - Vital signs Vitals: Temp Pulse Resp BP Pulse Ox 98.6 F 97 16 146/94 H 100 07/01/17 21:44 07/01/17 21:44 07/01/17 21:44 07/01/17 21:44 07/01/17 21:44 Interpretation: Hypertensive Notes: PHYSICAL EXAMINATION: GENERAL: Disengaged but in no acute distress HEAD: Atraumatic, normocephalic. EYES: Pupils equal round and reactive to light, extraocular movements intact, sclera anicteric, conjunctiva are normal. ENT: nares patent, oropharynx clear without exudates. Moist mucous membranes. NECK: Normal range of motion, supple without lymphadenopathy LUNGS: Breath sounds clear to auscultation bilaterally and equal. No wheezes rales or rhonchi. HEART: Regular rate and rhythm without murmurs ABDOMEN: Soft, nontender, normoactive bowel sounds. No guarding, no rebound. No masses appreciated. EXTREMITIES: Normal range of motion, no pitting or edema. No cyanosis. NEUROLOGICAL: No focal neurological deficits. Moves all extremities spontaneously and on command. PSYCH: Depressed mood. Flat affect. Denies suicidal or homicidal ideation SKIN: Warm, Dry, normal turgor, no rashes or lesions noted. Course - Re-evaluation Re-evalutation: 07/01/17 23:07 Patient presents with progressively worsening depression that is causing increasing functional impairment, particularly prevents her from performing all of her activities of daily living. She denies any acute safety concerns specifically denies any suicidal or homicidal ideation. She apparently self discontinued her medicines approximately week ago but restarted them several days ago when she noticed progressive worsening of her symptoms. She denies any acute medical complaints. She does not currently meet involuntary treatment criteria but has elected to remain in the emergency department for evaluation by psychiatry in the morning. Will obtain standard screening laboratories. Her screening exam is otherwise unremarkable. She is cleared for evaluation and disposition by psychiatry in the morning. - Vital Signs Vital signs: Temp Pulse Resp BP Pulse Ox 98.6 F 97 16 146/94 H 100 07/01/17 21:44 07/01/17 21:44 07/01/17 21:44 07/01/17 21:44 07/01/17 21:44 - Laboratory Result Diagrams: 07/01/17 23:34 07/01/17 23:34 Laboratory results interpreted by me: 07/01/17 23:34 Hgb 11.2 L Hct 34.6 L MCV 70 L MCH 22.4 L RDW 19.9 H - EKG Interpretation by Me Additional EKG results interpreted by me: 07/02/17 00:03 Sinus rhythm. Rate 82. No ST elevations or depressions. QTC is 463. Discharge - Discharge Clinical Impression: Malaise Depression Qualifiers: Depression Type: major depressive disorder Major depression recurrence: recurrent Active/Remission status: currently active Major depression episode severity: severe Psychotic features: without psychotic features Qualified Code(s ): F33.2 - Major depressive disorder, recurrent severe without psychotic features Condition: Good Disposition: PSYCH HOSP/UNIT Referrals: TJ HODGE DO [Primary Care Provider] - Follow up as needed
[2017-07-01 23:47] LABS: ABSOLUTE EOSINOPHILS # (AUTO) 0.1 10^3/uL (0.0-0.6); ABSOLUTE LYMPHOCYTES (AUTO) 1.2 10^3/uL (0.5-4.7); ABSOLUTE MONOCYTES (AUTO) 0.4 10^3/uL (0.1-1.4); ABSOLUTE NEUT (AUTO) 4.3 10^3/uL (1.7-8.2); BASOPHILS % (AUTO) 0.7 % (0-2); HEMATOCRIT 34.6 % (36.0-47.0); HEMOGLOBIN 11.2 g/dL (12.0-15.5); LYMPHOCYTES % (AUTO) 19.7 % (13-45); MEAN CORPUSCULAR HEMOGLOBIN 22.4 pg (27.0-33.4); MEAN CORPUSCULAR HGB CONC 32.2 g/dL (32.0-36.0); MEAN CORPUSCULAR VOLUME 70 fl (80-97); MONOCYTES % (AUTO) 6.8 % (3-13); PLATELET COUNT 368 10^3/uL (150-450); RED BLOOD COUNT 4.98 10^6/uL (3.72-5.28); RED CELL DISTRIBUTION WIDTH 19.9 % (11.5-14.0); SEGMENTED NEUTROPHILS % (AUTO) 70.8 % (42-78); TOTAL CELLS COUNTED % (AUTO) 100 %; WHITE BLOOD COUNT 6.1 10^3/uL (4.0-10.5)
[2017-07-02 00:03] LABS: ALANINE AMINOTRANSFERASE 24 U/L (9-52); ALBUMIN 3.6 g/dL (3.5-5.0); ALKALINE PHOSPHATASE 69 U/L (38-126); ANION GAP 8 (5-19); ASPARTATE AMINO TRANSFERASE 17 U/L (14-36); BILIRUBIN,DIRECT 0.3 mg/dL (0.0-0.4); BILIRUBIN,TOTAL 0.3 mg/dL (0.2-1.3); BLOOD UREA NITROGEN 4 mg/dL (7-20); CALCIUM 9.3 mg/dL (8.4-10.2); CARBON DIOXIDE 27 mmol/L (22-30); CHLORIDE 103 mmol/L (98-107); GLUCOSE 103 mg/dL (75-110); POTASSIUM 3.5 mmol/L (3.6-5.0); SODIUM 137.9 mmol/L (137-145); TOTAL PROTEIN 6.6 g/dL (6.3-8.2)
[2017-07-02 00:04] LABS: ACETAMINOPHEN < 10 ug/mL (10-30); ALCOHOL < 10 mg/dL (NONE DETECTED); SALICYLATE < 1.0 mg/dL (2.0-20.0)
--- NOTE | 2017-07-02 08:41 | EKG REPORT ---
SEVERITY:- ABNORMAL ECG - SINUS RHYTHM LEFT ATRIAL ABNORMALITY INFERIOR Q WAVES, PROBABLY NORMAL VARIATION : Confirmed by: Yazan Brock MD 02-Jul-2017 08:40:10
[2017-07-02 09:13] LABS: APPEARANCE,URINE SLIGHTLY-CLOUDY; BILIRUBIN,URINE NEGATIVE (NEGATIVE); COLOR,URINE AMBER; GLUCOSE, URINE NEGATIVE (NEGATIVE); KETONES,URINE TRACE mg/dL (NEGATIVE); LEUKOCYTE ESTERASE,URINE NEGATIVE (NEGATIVE); NITRITE,URINE NEGATIVE (NEGATIVE); PROTEIN,URINE 30 mg/dL (NEGATIVE); URINE SPECIFIC GRAVITY 1.018
[2017-07-02 09:16] LABS: URINE AMPHETAMINES SCREEN NEGATIVE; URINE BARBITURATES SCREEN NEGATIVE; URINE BENZODIAZEPINES SCREEN UNCONFIRMED POSITIVE; URINE COCAINE SCREEN NEGATIVE; URINE MARIJUANA (THC) SCREEN UNCONFIRMED POSITIVE; URINE METHADONE SCREEN NEGATIVE; URINE PHENCYCLIDINE SCREEN NEGATIVE
--- NOTE | 2017-07-02 09:59 | ER Document Report ---
Doctor's Note Notes: 07/02/17 09:58 This is a follow-up evaluation: Primary diagnosis-depression major, Patient is here for the above reason, has been doing well, currently has -no complaints-- complaint. On examination-vitals reviewed in the chart. General exam: Alert oriented 3 not in any acute distress HEENT: Normocephalic atraumatic pupils are equal reactive to light, Lungs-clear breath sounds no rales or wheezing. Cardiovascular system: Normal S1-S2 no murmurs. Gastrointestinal: Normal breath sounds, no organomegaly positive bowel sounds. Genitourinary: Skin: No lesions noted, no rash Psychiatric: Diagnoses: Major depressive disorder Plan: Mental health evaluation
--- NOTE | 2017-07-02 13:59 | PSYCHOLOGICAL NOTE ---
Psych Note - Psych Note Psych Note: Reason for consult: Stopped medications x5 days, restarted them the past 3 days , has had difficulty sleeping/eating/been dazed and confused/withdrawn Contact permissions: Juan [phone] Patient is a 36 year old female who presented to the ED last evening via for poor sleep, poor appetite, being more withdrawn and being dazed/ confused subsequent to having stopped her psychiatric medications (Alprazolam 0.5MG, Cogentin 1MG, Hydroxyzine 25MG, Rexulti 4MG obtained by nurse from patient's pharmacy) for 5 days and just restarting them 3 days ago. She denied taking extra since missing days. She was adamant she restarted the medications as prescribed. Patient stated she did not know why she stopped the medications but she restarted them due to how she was feeling. SI/HI were never presenting concerns, patient denied these to initial attending ED Physician and she continued to deny these to this clinician. She admitted to a history of SI with one attempt. at bedside and provided most of the information. He stated patient is not typically silent as she has been. He identified patient sees Aracely Sainz at [facility], she goes monthly and the next appointment is approaching. He stated the last medication appointment there were NO medication changes. he noted Rexulti is a new medication started a couple months back but the others have been prescribed for a year or longer. He stated she had a therapy session scheduled a couple months ago however missed the appointment due to her father having cancer which resulted in clinician sending a letter saying she would have to seek therapy elsewhere He reported patient has the following diagnoses: Anxiety, Panic Attack and Depression. 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 He clarified that patient has had passive thoughts of suicide in the past and there was one overdose (sleep medication) in the past. He acknowledged a previous hospitalization at [facility]) for a 2 week duration 7-8 years ago. He stated she has not been talking, eating or sleeping and he was wanting to prevent a hospitalization. Diagnosis: 311 (F32.9) Unspecified Depressive Disorder by history 300.00 (F41.9) Unspecified Anxiety Disorder (with panic attacks) by history Impression/Plan: Patient is cleared from acute psychiatric services. She had consistently denied SI/HI and these were not presenting concerns. There was no observed psychosis just some slowness in thought process. Patient's presentation is likely a result of abruptly stopping medications for 5 days and starting back up the past 3 days. Her system likely needs to adjust. agreed to have control over medications to include administration, as well as increased supervision. Patient to follow up with current outpatient provider Aracely Sainz at [facility] as a walk in Monday (07/04/17) morning. Patient and provided with outpatient resource list which highlighted both MCM numbers (provided psycho-education on how MCM works) and documented doing a walk in at [facility]. Consulted with Dr. Grant regarding the management and care of patient. ED Physician in agreement with recommendations.
== END 2017-07-02 12:40 | disposition home or self-care (01) ==
LOC: ER 21:37
DX: F33.2 Major depressive disorder, recurrent severe without psychotic features (principal); T43.596A Underdosing of other antipsychotics and neuroleptics, initial encounter; F41.9 Anxiety disorder, unspecified; F41.0 Panic disorder [episodic paroxysmal anxiety]; T42.4X6A Underdosing of benzodiazepines, initial encounter; Z91.128 Patient's intentional underdosing of medication regimen for other reason; J45.909 Unspecified asthma, uncomplicated; Z88.8 Allergy status to other drugs, medicaments and biological substances
CPT/HCPCS: 36415; 80053; 80307; 81001; 84703; 85025; 93005; 93010; 99285

== ENCOUNTER 2017-07-05 15:45 | Emergency (ER) | payer MEDICARE, MEDICAID ==
--- NOTE | 2017-07-05 16:58 | ER Document Report ---
ED Medical Screen (RME) - General Chief Complaint: Psych Problem Stated Complaint: CHEST PAIN Time Seen by Provider: 07/05/17 16:51 Mode of Arrival: Ambulatory Information source: Patient Notes: 36-year-old female presented ED for complaint of loose urination and pain in the back of the head she will not answer questions. She is a frequent visitor to the emergency room. She will not get any information on why she is here or what she is looking for. Respirations are even and unlabored and she is walking with a even steady gait. I have greeted and performed a rapid initial assessment of this patient. A comprehensive ED assessment and evaluation of the patient, analysis of test results and completion of medical decision making process will be conducted by an additional ED providers. TRAVEL OUTSIDE OF THE [place] IN LAST 30 DAYS: No - Related Data Allergies/Adverse Reactions: lurasidone HCl [From Latuda] Allergy (Severe, Verified 07/05/17 16:40) Seizures morphine Adverse Reaction (Intermediate, Verified 07/05/17 16:40) Hives Past Medical History - Social History Chew tobacco use (# tins/day): No Frequency of alcohol use: None Drug Abuse: None Family history: Hypertension Pulmonary Medical History: Reports: Hx Asthma, Hx Pneumonia, Hx Intubation Neurological Medical History: Reports: Hx Seizures - After taking latuda, after latuda was stopped, patient seizures stopped Renal/ Medical History: Reports: Hx Ovarian Cysts. Denies: Hx Peritoneal Dialysis GI Medical History: Reports: Hx Irritable Bowel Musculoskeltal Medical History: Reports Hx Musculoskeletal Trauma Psychiatric Medical History: Reports: Hx Anxiety, Hx Depression - anxiety Past Surgical History: Reports: Hx Section - x2, Hx Tubal Ligation - Immunizations Immunizations up to date: Yes Hx Diphtheria, Pertussis, Tetanus Vaccination: Yes Physical Exam - Vital signs Vitals: Temp Pulse Resp BP Pulse Ox 99.8 F 118 H 16 156/95 H 96 07/05/17 15:59 07/05/17 15:59 07/05/17 15:59 07/05/17 15:59 07/05/17 15:59 Course - Vital Signs Vital signs: Temp Pulse Resp BP Pulse Ox 99.8 F 118 H 16 156/95 H 96 07/05/17 15:59 07/05/17 15:59 07/05/17 15:59 07/05/17 15:59 07/05/17 15:59
[2017-07-05 17:36] LABS: ABSOLUTE BASOPHILS # (AUTO) 0.1 10^3/uL (0.0-0.2); ABSOLUTE EOSINOPHILS # (AUTO) 0.3 10^3/uL (0.0-0.6); ABSOLUTE LYMPHOCYTES (AUTO) 1.7 10^3/uL (0.5-4.7); ABSOLUTE MONOCYTES (AUTO) 0.7 10^3/uL (0.1-1.4); ABSOLUTE NEUT (AUTO) 4.3 10^3/uL (1.7-8.2); BASOPHILS % (AUTO) 1.4 % (0-2); EOSINOPHILS % (AUTO) 4.1 % (0-6); HEMATOCRIT 38.3 % (36.0-47.0); HEMOGLOBIN 12.5 g/dL (12.0-15.5); LYMPHOCYTES % (AUTO) 23.9 % (13-45); MEAN CORPUSCULAR HEMOGLOBIN 22.7 pg (27.0-33.4); MEAN CORPUSCULAR HGB CONC 32.7 g/dL (32.0-36.0); MEAN CORPUSCULAR VOLUME 69 fl (80-97); MONOCYTES % (AUTO) 9.4 % (3-13); PLATELET COUNT 473 10^3/uL (150-450); RED BLOOD COUNT 5.53 10^6/uL (3.72-5.28); RED CELL DISTRIBUTION WIDTH 19.6 % (11.5-14.0); SEGMENTED NEUTROPHILS % (AUTO) 61.2 % (42-78); TOTAL CELLS COUNTED % (AUTO) 100 %
[2017-07-05 17:50] LABS: ALANINE AMINOTRANSFERASE 29 U/L (9-52); ALBUMIN 4.4 g/dL (3.5-5.0); ALKALINE PHOSPHATASE 79 U/L (38-126); ANION GAP 12 (5-19); ASPARTATE AMINO TRANSFERASE 21 U/L (14-36); BILIRUBIN,DIRECT 0.4 mg/dL (0.0-0.4); BILIRUBIN,TOTAL 0.4 mg/dL (0.2-1.3); BLOOD UREA NITROGEN 3 mg/dL (7-20); CALCIUM 9.9 mg/dL (8.4-10.2); CARBON DIOXIDE 28 mmol/L (22-30); CHLORIDE 99 mmol/L (98-107); GLUCOSE 99 mg/dL (75-110); SODIUM 139.4 mmol/L (137-145); TOTAL PROTEIN 7.8 g/dL (6.3-8.2)
--- NOTE | 2017-07-05 20:01 | RADIOLOGY REPORT (SQ) ---
EXAM DESCRIPTION: CHEST 2 VIEWS COMPLETED DATE/TIME: 07/05/2017 7:52 pm REASON FOR STUDY: ams COMPARISON: 06/08/2017 EXAM PARAMETERS: NUMBER OF VIEWS: two views TECHNIQUE: Digital Frontal and Lateral radiographic views of the chest acquired. RADIATION DOSE: NA LIMITATIONS: none FINDINGS: LUNGS AND PLEURA: Mild subsegmental atelectasis. No infiltrate or effusion. No mass. MEDIASTINUM AND HILAR STRUCTURES: No masses or contour abnormalities. HEART AND VASCULAR STRUCTURES: Heart normal size. No evidence for failure. BONES: No acute findings. HARDWARE: None in the chest. OTHER: No other significant finding. IMPRESSION: NO ACUTE RADIOGRAPHIC FINDING IN THE CHEST. TECHNICAL DOCUMENTATION: JOB ID: [id number]- All Rights Reserved Reading location - IP/workstation name: [email or web address]
--- NOTE | 2017-07-05 20:12 | RADIOLOGY REPORT (SQ) ---
EXAM DESCRIPTION: CT HEAD WITHOUT COMPLETED DATE/TIME: 07/05/2017 7:58 pm REASON FOR STUDY: ams COMPARISON: None. TECHNIQUE: Axial images acquired through the brain without intravenous contrast. Images reviewed wi th bone, brain and subdural windows. Additional sagittal and coronal reconstructions were generated. Images stored on PACS. All CT scanners at this facility use dose modulation, iterative reconstruction, and/or weight based d osing when appropriate to reduce radiation dose to as low as reasonably achievable (ALARA). [facility]: Dose Right [facility]: CareDose [facility]: Dose Right [facility]: Teradose 4D [facility]: [employer] RADIATION DOSE: CT Rad equipment meets quality standard of care and radiation dose reduction techniq ues were employed. CTDIvol: 53.2 mGy. DLP: 911 mGy-cm. mGy. LIMITATIONS: None. FINDINGS: VENTRICLES: Normal size and contour. CEREBRUM: No masses. No hemorrhage. No midline shift. No evidence for acute infarction. Normal gra y/white matter differentiation. No areas of low density in the white matter. CEREBELLUM: No masses. No hemorrhage. No alteration of density. No evidence for acute infarction. EXTRAAXIAL SPACES: No fluid collections. No masses. ORBITS AND GLOBE: No intra- or extraconal masses. Normal contour of globe without masses. CALVARIUM: No fracture. PARANASAL SINUSES: No fluid or mucosal thickening. SOFT TISSUES: No mass or hematoma. OTHER: No other significant finding. IMPRESSION: NORMAL BRAIN CT WITHOUT CONTRAST. EVIDENCE OF ACUTE STROKE: NO. COMMENT: Quality ID # [id number]: Final reports with documentation of one or more dose reduction techniques (e.g., Automated exposure control, adjustment of the mA and/or kV according to patient size, use of iterative reconstruction technique) TECHNICAL DOCUMENTATION: JOB ID: [id number] [employer]- All Rights Reserved Reading location - IP/workstation name: [email or web address]
[2017-07-05 20:55] LABS: AMORPHOUS SEDIMENT,URINE TRACE /HPF; APPEARANCE,URINE SLIGHTLY-CLOUDY; BILIRUBIN,URINE NEGATIVE (NEGATIVE); COLOR,URINE YELLOW; GLUCOSE, URINE NEGATIVE (NEGATIVE); KETONES,URINE NEGATIVE (NEGATIVE); LEUKOCYTE ESTERASE,URINE MODERATE (NEGATIVE); NITRITE,URINE NEGATIVE (NEGATIVE); PROTEIN,URINE NEGATIVE (NEGATIVE); URINE SPECIFIC GRAVITY 1.008; UROBILINOGEN,URINE NEGATIVE mg/dL (<2.0)
[2017-07-05 21:10] LABS: URINE AMPHETAMINES SCREEN NEGATIVE; URINE BENZODIAZEPINES SCREEN UNCONFIRMED POSITIVE; URINE COCAINE SCREEN NEGATIVE; URINE MARIJUANA (THC) SCREEN UNCONFIRMED POSITIVE; URINE METHADONE SCREEN NEGATIVE; URINE PHENCYCLIDINE SCREEN NEGATIVE
[2017-07-05 21:11] LABS: URINE BARBITURATES SCREEN NEGATIVE
[2017-07-05] MEDS ORDERED: HALOPERIDOL LACTATE INJ 5 MG/1 ML VIAL IM ONE (21:59)
[2017-07-05] MEDS ORDERED: DIPHENHYDRAMINE HCL 50 MG/ML VIAL IV ONE (21:59)
[2017-07-05] MEDS: NITROFURANTOIN MONOHYD/M-CRYST 100 MG CAPSULE PO SCH (22:00)
[2017-07-05] MEDS ORDERED: ZIPRASIDONE HCL 20 MG CAPSULE PO ONE (22:54)
--- NOTE | 2017-07-06 00:47 | ER Document Report ---
ED General - General Chief Complaint: Psych Problem Stated Complaint: CHEST PAIN Time Seen by Provider: 07/05/17 16:51 Mode of Arrival: Ambulatory TRAVEL OUTSIDE OF THE U.S. IN LAST 30 DAYS: No - HPI Patient complains to provider of: Psychiatric evaluation Notes: Patient coming in for psychiatric evaluation. Upon my entrance examination room patient sitting quietly. Patient does not give much history for the HPI initially. Patient denies any pain upon my evaluation patient is able to give me her address however is unable to get into town she lives when I asked the patient she was in view of the patient states yes that is correct however patient looks like she resides in [place]. Patient is able to name the year name the hospital that she is in but however is confused about the president. Patient otherwise looks to be in no obvious distress. Patient denies any homicidal suicidal ideation upon initial evaluation. Later is available states the patient has a history of significant depression is been off her medications for a few days prior however to take her medications today. While talking to the in the room patient sit up and states "if you discharge you will regret it. I will " states that the patient has been making some passive suicidal thoughts last few days as well - Related Data Allergies/Adverse Reactions: lurasidone HCl [From Latuda] Allergy (Severe, Verified 07/05/17 16:40) Seizures morphine Adverse Reaction (Intermediate, Verified 07/05/17 16:40) Hives Past Medical History - General Information source: Patient - Social History Smoking Status: Never Smoker Chew tobacco use (# tins/day): No Frequency of alcohol use: None Drug Abuse: None Family History: CAD, DM, Hypertension Patient has suicidal ideation: No Patient has homicidal ideation: No Pulmonary Medical History: Reports: Hx Asthma, Hx Pneumonia, Hx Intubation Neurological Medical History: Reports: Hx Seizures - After taking latuda, after latuda was stopped, patient seizures stopped Renal/ Medical History: Reports: Hx Ovarian Cysts. Denies: Hx Peritoneal Dialysis GI Medical History: Reports: Hx Irritable Bowel Musculoskeltal Medical History: Reports Hx Musculoskeletal Trauma Psychiatric Medical History: Reports: Hx Anxiety, Hx Depression - anxiety Past Surgical History: Reports: Hx Section - x2, Hx Tubal Ligation - Immunizations Immunizations up to date: Yes Hx Diphtheria, Pertussis, Tetanus Vaccination: Yes Review of Systems - Review of Systems Constitutional: No symptoms reported EENT: No symptoms reported Cardiovascular: No symptoms reported Respiratory: No symptoms reported Gastrointestinal: No symptoms reported Genitourinary: No symptoms reported Female Genitourinary: No symptoms reported Musculoskeletal: No symptoms reported Skin: No symptoms reported Hematologic/Lymphatic: No symptoms reported Neurological/Psychological: Depression, Suicidal ideation -: Yes All other systems reviewed and negative Physical Exam - Vital signs Vitals: Temp Pulse Resp BP Pulse Ox 99.8 F 118 H 16 156/95 H 96 07/05/17 15:59 07/05/17 15:59 07/05/17 15:59 07/05/17 15:59 07/05/17 15:59 Interpretation: Normal - General General appearance: Appears well, Alert - HEENT Head: Normocephalic, Atraumatic Eyes: Normal Pupils: PERRL - Respiratory Respiratory status: No respiratory distress Chest status: Nontender Breath sounds: Normal Chest palpation: Normal - Cardiovascular Rhythm: Regular Heart sounds: Normal auscultation Murmur: No - Abdominal Inspection: Normal Distension: No distension Bowel sounds: Normal Tenderness: Nontender Organomegaly: No organomegaly - Back Back: Normal, Nontender - Extremities General upper extremity: Normal inspection, Nontender, Normal color, Normal ROM , Normal temperature General lower extremity: Normal inspection, Nontender, Normal color, Normal ROM , Normal temperature, Normal weight bearing. No: Ebony's sign - Neurological Neuro grossly intact: Yes Cognition: Normal Orientation: AAOx4 Dottie Coma Scale Eye Opening: Spontaneous Dottie Coma Scale Verbal: Oriented Dottie Coma Scale Motor: Obeys Commands Dottie Coma Scale Total: 15 Speech: Normal Motor strength normal: LUE, RUE, LLE, RLE Sensory: Normal - Psychological Associated symptoms: Flat affect - Skin Skin Temperature: Warm Skin Moisture: Dry Skin Color: Normal Course - Re-evaluation Re-evalutation: 07/06/17 00:45 Upon evaluation with the has been in the room patient is making passive suicidal statements stating "he will be sorry for letting out here because I am going to " has been is concerned patient will harm herself. I was personally involved in taking care of a cardiac arrest during this time patient became very boisterous screaming and yelling in her room upon leaving the cardiac risk patient started running around the ER screaming "Dion Frederick come and get me" patient was restrained and given medications to help her situation patient was easily and then was let out of restraints. Because of these passive thoughts and erratic behavior will put the patient on IVC paperwork - Vital Signs Vital signs: Temp Pulse Resp BP Pulse Ox 99.8 F 118 H 16 156/95 H 96 07/05/17 15:59 07/05/17 15:59 07/05/17 15:59 07/05/17 15:59 07/05/17 15:59 - Laboratory Result Diagrams: 07/05/17 17:25 07/05/17 17:25 Laboratory results interpreted by me: 07/05/17 07/05/17 07/05/17 17:25 17:25 20:35 RBC 5.53 H MCV 69 L MCH 22.7 L RDW 19.6 H Plt Count 473 H BUN 3 L Urine Blood LARGE H Ur Leukocyte Esterase MODERATE H Discharge - Discharge Clinical Impression: UTI (urinary tract infection) Qualifiers: Urinary tract infection type: site unspecified Hematuria presence: without hematuria Qualified Code(s): N39.0 - Urinary tract infection, site not specified Depression Qualifiers: Depression Type: unspecified Qualified Code(s): F32.9 - Major depressive disorder, single episode, unspecified Condition: Good Disposition: PSYCH HOSP/UNIT
--- NOTE | 2017-07-06 14:08 | ER Document Report ---
Doctor's Note Notes: 07/06/17 14:01 Pt is alert. She believes her mother is the devil because the devil told her that her mother is the devil. Pt is however able to tell me her mother's name along with her father's and 's names. Pt is oriented to person, place and time; she was able to tell me she was [facility], her full name and the year. PE: Lungs clear, no respiratory distress. Heart regular rate and rhythm, no murmurs, gallops or rubs. (MAYA FLORES) 07/06/17 19:29 On physical examination patient has a bizarre affect, is slightly slow to respond and occasionally has word salad but then other times will be completely oriented. She does not have any focal neurologic deficits that would suggest stroke at this point, I am somewhat more concerned that this may be a manifestation of her bipolar disorder. 07/06/17 19:30 Laboratory studies show urinary tract infection which is being treated with nitrofurantoin. We have followed psychiatry's recommendations of Aldo and Julio C. We will wait to see how she responds to these medications. (RONNIE BURKS)
--- NOTE | 2017-07-06 15:52 | PSYCHOLOGICAL NOTE ---
Psych Note - Psych Note Psych Note: Reason for consult: Psychosis Patient coming in for psychiatric evaluation. Upon my entrance examination room patient sitting quietly. Patient does not give much history for the HPI initially. Patient denies any pain upon my evaluation patient is able to give me her address however is unable to get into town she lives when I asked the patient she was in view of the patient states yes that is correct however patient looks like she resides in [place]. Patient is able to name the year name the hospital that she is in but however is confused about the president. Patient was asked she remembered how she arrived to [facility] ED at which she replied "my mama." When asked what behavioral health team can do to help assist patient she stated "take me to [place]." When asked if she is taking her medication she originally states yes then states no. Patient's presentation deteriorated (some word salad and odd responses to further questions) which resulted in patient refusing to further engage further with clinician. Patient is alert however unable to adequately assess orientation. Patient's mood is irritable and hypomanic with congruent affect. Patient is presenting as if in possible psychosis. It is unclear if patient is cheeking her medications or if this is behavioral. Patient is able to correctly answer some questions however quickly deteriorated during evaluation and refused to engage further. Chart review conducted Attending physician noted: Later is available states the patient has a history of significant depression is been off her medications for a few days prior however to take her medications today. While talking to the in the room patient sit up and states "if you discharge you will regret it. I will " states that the patient has been making some passive suicidal thoughts last few days as well Attending physician: Pt noted clapping hands and shouting "hallelujah, hallelujah" and stomping around room. Pt noted leaving room and walking down the hallway continuing to shout "I am Otoniel! Hallelujah". Pt was encouraged back to room by friends, and staff members. Patient was seen on 07/02/2017 for was appears to be the start of current episode--Patient presented to the ED last evening via for poor sleep, poor appetite, being more withdrawn and being dazed/confused subsequent to having stopped her psychiatric medications (Alprazolam 0.5MG, Cogentin 1MG, Hydroxyzine 25MG, Rexulti 4MG obtained by nurse from patient's pharmacy) for 5 days and just restarting them 3 days ago. Medication recommendations per [facility]'s contracted psychiatrist are as follows 1 Zyprexa 5 mg twice daily for mood stabilization. 2. Cogentin 1 mg daily for prevention of possible side effects from Zyprexa Diagnosis: 311 (F32.9) Unspecified Depressive Disorder by history 300.00 (F41.9) Unspecified Anxiety Disorder (with panic attacks) by history R/O Bipolar Disorder Impression/plan: Patient is recommended for mental health hold for overnight observation. Patient presented last week with similar concerns which appears to possibly be the start of this current episode. It is unclear if the patient has been taking her medications. Medication recommendations have been provided. Dr. Grant was consulted and the care management this patient; attending physician is in agreement with recommendations and disposition.
[2017-07-06] MEDS ORDERED: OLANZAPINE INJ/PF 10 MG SDV IM ONE (18:14)
[2017-07-06] MEDS ORDERED: BENZTROPINE MESYLATE INJ 2 MG/2 ML AMPULE IM ONE (18:15)
--- NOTE | 2017-07-07 09:41 | ER Document Report ---
Doctor's Note Notes: 07/07/17 09:39 Medical rounds: Chart reviewed and patient interviewed briefly. Vital signs remained stable. Laboratory studies are satisfactory. Patient is alert, oriented, and cooperative. She states she "does not feel well" but no specific complaint. She denies any unusual pain. She is medically stable, pending reevaluation by psych.
[2017-07-07] MEDS ORDERED: BENZTROPINE MESYLATE 1 MG TABLET PO SCH (10:15)
[2017-07-07] MEDS ORDERED: OLANZAPINE 5 MG TABLET PO SCH (10:15)
[2017-07-07] MEDS: NITROFURANTOIN MONOHYD/M-CRYST 100 MG CAPSULE PO SCH (10:28)
[2017-07-07] MEDS ORDERED: ALBUTEROL SULFATE HFA (90 MCG/PUFF) 200 PUFF/8.5 GM MDI IH PRN (11:20)
--- NOTE | 2017-07-07 13:29 | PSYCHOLOGICAL NOTE ---
Psych Note - Psych Note Psych Note: Reason for consult: Psychosis Patient coming in for psychiatric evaluation. Upon my entrance examination room patient sitting quietly. Patient does not give much history for the HPI initially. Patient denies any pain upon my evaluation patient is able to give me her address however is unable to get into town she lives when I asked the patient she was in view of the patient states yes that is correct however patient looks like she resides in [place]. Patient is able to name the year name the hospital that she is in but however is confused about the president. Clinician conducted checking with patient Patient disclosed she is feeling well today. She reports that she understands she is in [facility] and states that her date is [birth year] however she was having a difficult time identifying what her month ie August not just . Patient was unable to identify correctly the current president stating that she believes the current president is Amie. Patient is presentation is euthymic with congruent affect i.e. no longer demonstrating irritability. Medication recommendations per [facility]'s contracted psychiatrist are as follows 1 Zyprexa 5 mg twice daily for mood stabilization. 2. Cogentin 1 mg daily for prevention of possible side effects from Zyprexa Diagnosis: 311 (F32.9) Unspecified Depressive Disorder by history 300.00 (F41.9) Unspecified Anxiety Disorder (with panic attacks) by history R/O Bipolar Disorder Impression/plan: Patient is recommended for IVC. Patient continues to demonstrate difficulties with orientation stemming from her prolonged manic episode that contained some psychotic features. Patient's presentation has greatly improved; however, there is concern the patient is unable to maintain this brief stability and continue improvement on her own. Patient was seen on Monday and had to return back to [facility] ED because of increased instability. Patient was accepted to [facility]; transportation will occur today. Dr. Grant was consulted and the care management this patient; attending physician is in agreement with recommendations and disposition.
[2017-07-07 13:39] VITALS: BP 126/70
== END 2017-07-07 14:35 ==
LOC: ER 15:45
DX: N39.0 Urinary tract infection, site not specified (principal); F32.9 Major depressive disorder, single episode, unspecified; F41.9 Anxiety disorder, unspecified; R51 Headache; R07.9 Chest pain, unspecified; Z88.6 Allergy status to analgesic agent; Z98.51 Tubal ligation status
CPT/HCPCS: 99285; 96372; 96374; 36415; 87086; 84703; 85025; 80053; 81001; 80307; 71046; 70450; J1200; J1630; A9270 ×3; J3490; J8499

== ENCOUNTER 2017-08-03 11:07 | Emergency (ER) | payer MEDICARE, MEDICAID ==
[2017-08-03] MEDS ORDERED: CHLORPROMAZINE HCL INJ 25 MG/1 ML AMPULE IM ONE (11:38)
--- NOTE | 2017-08-03 11:42 | ER Document Report ---
ED Medical Screen (RME) - General Chief Complaint: Psych Problem Stated Complaint: PSYCH EVAL Time Seen by Provider: 08/03/17 11:32 Notes: RAPID MEDICAL EVALUATION DISCLOSURE I have seen this patient as part of a Rapid Medical Evaluation and, if applicable, placed any initially appropriate orders. The patient will be seen and fully evaluated, including a full history and physical exam, by a provider ( in Main ED or Fast Track) when a room becomes available. 36F [facility] psychiatric disorders here w who reports that "she is having a mental breakdown". States she's been talking out of her mind and asking questions over and over again and talking about needing help "because he is having a heart attack". Patient denies any pain. She keeps repeating "help my , he is having a heart attack" however the is sitting besides the patient in no pain and no distress. He reports that she has been taking her medication because he gives it to her to ensure compliance. She was recently hospitalized in [place] a few weeks ago. EXAM Abnormal mood No SI HI Delusional TRAVEL OUTSIDE OF THE U.S. IN LAST 30 DAYS: No - Related Data Allergies/Adverse Reactions: lurasidone HCl [From Latuda] Allergy (Severe, Verified 07/05/17 16:40) Seizures morphine Adverse Reaction (Intermediate, Verified 07/05/17 16:40) Hives Past Medical History - Social History Chew tobacco use (# tins/day): No Frequency of alcohol use: None Drug Abuse: Marijuana Family history: Hypertension Pulmonary Medical History: Reports: Hx Asthma, Hx Pneumonia, Hx Intubation Neurological Medical History: Reports: Hx Seizures - After taking latuda, after latuda was stopped, patient seizures stopped Renal/ Medical History: Reports: Hx Ovarian Cysts. Denies: Hx Peritoneal Dialysis GI Medical History: Reports: Hx Irritable Bowel Musculoskeltal Medical History: Reports Hx Musculoskeletal Trauma Psychiatric Medical History: Reports: Hx Anxiety, Hx Bipolar Disorder, Hx Depression - anxiety Past Surgical History: Reports: Hx Section - x2, Hx Tubal Ligation - Immunizations Immunizations up to date: Yes Hx Diphtheria, Pertussis, Tetanus Vaccination: Yes Physical Exam - Vital signs Vitals: Temp Pulse Resp BP Pulse Ox 99.1 F 117 H 20 140/85 H 96 08/03/17 11:20 08/03/17 11:20 08/03/17 11:20 08/03/17 11:20 08/03/17 11:20 Course - Vital Signs Vital signs: Temp Pulse Resp BP Pulse Ox 99.1 F 117 H 20 140/85 H 96 08/03/17 11:20 08/03/17 11:20 08/03/17 11:20 08/03/17 11:20 08/03/17 11:20
[2017-08-03] MEDS ORDERED: BENZTROPINE MESYLATE INJ 2 MG/2 ML AMPULE IM ONE (11:45)
--- NOTE | 2017-08-03 12:28 | ER Document Report ---
ED Psych Disorder / Suicide - General Chief Complaint: Psych Problem Stated Complaint: PSYCH EVAL Time Seen by Provider: 08/03/17 11:32 Mode of Arrival: Ambulatory Information source: Patient, Relative TRAVEL OUTSIDE OF THE U.[place]. IN LAST 30 DAYS: No - HPI Patient complains to provider of: Other - DELUSIONS Onset: This morning Onset was: Cannot confirm Quality of pain: No pain Suicide Risk Factors: Frightened friends/family - SPOUSE USED RUSE TO GET PATIENT TO AGREE TO COME TO E.D. Normal mood: No Associated symptoms: Depressed, Paranoid Similar symptoms previously: Yes Recently seen / treated by doctor: Yes - Related Data Allergies/Adverse Reactions: lurasidone HCl [From Latuda] Allergy (Severe, Verified 07/05/17 16:40) Seizures morphine Adverse Reaction (Intermediate, Verified 07/05/17 16:40) Hives Past Medical History - General Information source: Patient, Relative - Social History Smoking Status: Never Smoker Chew tobacco use (# tins/day): No Frequency of alcohol use: None Drug Abuse: Marijuana Family History: CAD, DM, Hypertension Patient has suicidal ideation: No Patient has homicidal ideation: No Pulmonary Medical History: Reports: Hx Asthma, Hx Pneumonia, Hx Intubation Neurological Medical History: Reports: Hx Seizures - After taking latuda, after latuda was stopped, patient seizures stopped Renal/ Medical History: Reports: Hx Ovarian Cysts. Denies: Hx Peritoneal Dialysis GI Medical History: Reports: Hx Irritable Bowel Musculoskeltal Medical History: Reports Hx Musculoskeletal Trauma Psychiatric Medical History: Reports: Hx Anxiety, Hx Bipolar Disorder, Hx Depression - anxiety Past Surgical History: Reports: Hx Section - x2, Hx Tubal Ligation - Immunizations Immunizations up to date: Yes Hx Diphtheria, Pertussis, Tetanus Vaccination: Yes Review of Systems - Review of Systems Constitutional: No symptoms reported EENT: No symptoms reported Cardiovascular: No symptoms reported Respiratory: No symptoms reported Gastrointestinal: No symptoms reported Genitourinary: No symptoms reported Female Genitourinary: denies: Musculoskeletal: No symptoms reported Skin: No symptoms reported Neurological/Psychological: See HPI Physical Exam - Vital signs Vitals: Temp Pulse Resp BP Pulse Ox 99.1 F 117 H 20 140/85 H 96 08/03/17 11:20 08/03/17 11:20 08/03/17 11:20 08/03/17 11:20 08/03/17 11:20 Interpretation: Hypertensive, Tachycardic. No: Tachypneic - General General appearance: Appears well, Alert In distress: None - HEENT Head: Normocephalic Eyes: Normal Conjunctiva: Normal Ears: Normal Nasal: Normal Mouth/Lips: Normal Mucous membranes: Normal - Respiratory Respiratory status: No respiratory distress - Cardiovascular Rhythm: Regular - Abdominal Inspection: Normal Distension: No distension - Extremities General upper extremity: Normal inspection General lower extremity: Normal inspection - Neurological Neuro grossly intact: Yes Cognition: Normal Orientation: AAOx4 - Psychological Associated symptoms: Flat affect, Paranoid, Tearful, Other - WITHDRAWN - Skin Skin Temperature: Warm Skin Moisture: Dry Skin Color: Normal Course - Vital Signs Vital signs: Temp Pulse Resp BP Pulse Ox 98.5 F 109 H 16 125/85 97 08/03/17 16:20 08/03/17 16:20 08/03/17 16:20 08/03/17 16:20 08/03/17 16:20 - Laboratory Result Diagrams: 08/03/17 12:28 08/03/17 12:28 Laboratory results interpreted by me: 08/03/17 08/03/17 12:28 12:28 RBC 5.69 H MCV 69 L MCH 22.0 L RDW 19.3 H BUN 6 L Direct Bilirubin 0.5 H AST 56 H ALT 69 H Salicylates < 1.0 L Acetaminophen < 10 L - EKG Interpretation by [facility] E[facility] shows normal: Sinus rhythm, Sparks, Intervals, ST-T Waves. abnormal: QRS Complexes - SMALL INF. Q WAVES Rate: Tachycardia Discharge - Discharge Clinical Impression: Bipolar disorder Qualifiers: Active/Remission status: currently active Current bipolar episode type: depressed Current episode severity: moderate Qualified Code(s): F31.32 - Bipolar disorder, current episode depressed, moderate Condition: Stable Disposition: PSYCH HOSP/UNIT
[2017-08-03 12:36] LABS: ABSOLUTE BASOPHILS # (AUTO) 0.1 10^3/uL (0.0-0.2); ABSOLUTE EOSINOPHILS # (AUTO) 0.2 10^3/uL (0.0-0.6); ABSOLUTE MONOCYTES (AUTO) 0.4 10^3/uL (0.1-1.4); ABSOLUTE NEUT (AUTO) 4.9 10^3/uL (1.7-8.2); BASOPHILS % (AUTO) 1.3 % (0-2); EOSINOPHILS % (AUTO) 3.5 % (0-6); HEMOGLOBIN 12.5 g/dL (12.0-15.5); LYMPHOCYTES % (AUTO) 15.2 % (13-45); MEAN CORPUSCULAR HGB CONC 32.1 g/dL (32.0-36.0); MEAN CORPUSCULAR VOLUME 69 fl (80-97); MONOCYTES % (AUTO) 6.6 % (3-13); PLATELET COUNT 406 10^3/uL (150-450); RED BLOOD COUNT 5.69 10^6/uL (3.72-5.28); RED CELL DISTRIBUTION WIDTH 19.3 % (11.5-14.0); SEGMENTED NEUTROPHILS % (AUTO) 73.4 % (42-78); TOTAL CELLS COUNTED % (AUTO) 100 %; WHITE BLOOD COUNT 6.7 10^3/uL (4.0-10.5)
[2017-08-03 13:02] LABS: ALANINE AMINOTRANSFERASE 69 U/L (9-52); ALKALINE PHOSPHATASE 81 U/L (38-126); ANION GAP 13 (5-19); ASPARTATE AMINO TRANSFERASE 56 U/L (14-36); BILIRUBIN,DIRECT 0.5 mg/dL (0.0-0.4); BILIRUBIN,TOTAL 0.6 mg/dL (0.2-1.3); BLOOD UREA NITROGEN 6 mg/dL (7-20); CALCIUM 9.7 mg/dL (8.4-10.2); CARBON DIOXIDE 29 mmol/L (22-30); CHLORIDE 100 mmol/L (98-107); GLUCOSE 106 mg/dL (75-110); POTASSIUM 3.6 mmol/L (3.6-5.0); TOTAL PROTEIN 7.3 g/dL (6.3-8.2)
[2017-08-03 13:03] LABS: ACETAMINOPHEN < 10 ug/mL (10-30); ALCOHOL < 10 mg/dL (NONE DETECTED); SALICYLATE < 1.0 mg/dL (2.0-20.0)
[2017-08-03 16:22] VITALS: BP 125/85
--- NOTE | 2017-08-04 00:18 | EKG REPORT ---
SEVERITY:- OTHERWISE NORMAL ECG - SINUS TACHYCARDIA : Confirmed by: Sharla Campbell MD 04-Aug-2017 00:18:05
== END 2017-08-03 16:26 ==
LOC: ER 11:07
DX: F31.9 Bipolar disorder, unspecified (principal); F22 Delusional disorders; R00.0 Tachycardia, unspecified; J45.909 Unspecified asthma, uncomplicated; Z88.8 Allergy status to other drugs, medicaments and biological substances
CPT/HCPCS: 93005; 99285; 96372; 36415; 80307 ×3; 85025; 80053; 93010; J0515; J3230

== ENCOUNTER 2017-12-15 22:54 | Emergency (ER) | payer MEDICARE, MEDICAID ==
--- NOTE | 2017-12-15 23:47 | ER Document Report ---
ED General - General Chief Complaint: Irregular Pulse Stated Complaint: WEAKNESS Time Seen by Provider: 12/15/17 23:45 Notes: Ms. Rivera is a pleasant 37-year-old female who presents with complaint of feeling dizzy and feeling as if her hearts been racing. She has felt this way for a week. She has a history of anxiety and says that she has been anxious recently. She says she occasionally has some chest pain that is mild. Is not pleuritic. No pain or swelling in her legs. No fevers. No recent vomiting. No associated abdominal pain. No history of PE or DVT. She is a former smoker but no longer smokes. She has had tubal ligations and is not on control. TRAVEL OUTSIDE OF THE [place]. IN LAST 30 DAYS: No - Related Data Allergies/Adverse Reactions: lurasidone HCl [From Latuda] Allergy (Severe, Verified 07/05/17 16:40) Seizures morphine Adverse Reaction (Intermediate, Verified 07/05/17 16:40) Hives Past Medical History - Social History Smoking Status: Former Smoker Frequency of alcohol use: None Drug Abuse: None Family History: CAD, DM, Hypertension Pulmonary Medical History: Reports: Hx Asthma, Hx Pneumonia, Hx Intubation Neurological Medical History: Reports: Hx Seizures - After taking latuda, after latuda was stopped, patient seizures stopped Renal/ Medical History: Reports: Hx Ovarian Cysts. Denies: Hx Peritoneal Dialysis GI Medical History: Reports: Hx Irritable Bowel Musculoskeletal Medical History: Reports Hx Musculoskeletal Trauma Psychiatric Medical History: Reports: Hx Anxiety, Hx Bipolar Disorder, Hx Depression - anxiety Past Surgical History: Reports: Hx Section - x2, Hx Tubal Ligation - Immunizations Immunizations up to date: Yes Hx Diphtheria, Pertussis, Tetanus Vaccination: Yes Review of Systems - Review of Systems Notes: My Normal Review Basic REVIEW OF SYSTEMS: CONSTITUTIONAL : Denies fever, chills, or sweats. Denies recent illness. EENT: Denies eye, ear, throat, or mouth pain or symptoms. Denies nasal or sinus congestion. RESPIRATORY: Denies cough, cold, or chest congestion. Denies shortness of breath, difficulty breathing, or wheezing. GASTROINTESTINAL: Denies abdominal pain. Denies nausea, vomiting, or diarrhea. MUSCULOSKELETAL: Denies neck or back pain or joint pain or swelling. SKIN: Denies rash or skin lesions. NEUROLOGICAL: Denies altered mental status or loss of consciousness. Denies headache. Denies weakness or paralysis or loss of use of either side. Denies problems with gait or speech. Denies sensory or motor loss. PSYCHIATRIC: Some stress and anxiety. ALL OTHER SYSTEMS REVIEWED AND NEGATIVE. Physical Exam - Vital signs Vitals: Temp Pulse Resp BP Pulse Ox 98.6 F 116 H 16 122/76 98 12/15/17 23:16 12/15/17 23:16 12/15/17 23:16 12/15/17 23:16 12/15/17 23:16 Course - Re-evaluation Re-evalutation: 12/16/17 01:41 Patient's d-dimer and troponin are both elevated. I will obtain a CTA to rule out underlying PE as a potential source. Patient currently is chest pain-free and her heart rate is improved. 12/16/17 02:30 Patient is having recurrence of chest pressure. I will give her some nitro. I did tell about the elevated troponin. We will see if nitro helps relieve her symptoms. If it does not then we will have to transfer due to her ongoing chest pressure and elevated troponin. Lovenox has been ordered. I did do a bedside echo I do not see any evidence of pericardial effusion. 12/16/17 03:18 Patient's chest pressure is gone with the nitro. She is feeling improved. She now tells me that she had lied earlier and that she has continued to smoke and has been smoking. 12/16/17 03:[address] Turner, hospitalist, who requests I just order a repeat troponin to see if it continues to trend upwards before he considers admission here versus transfer. 12/16/17 05:12 Patient's repeat troponin came back even more elevated. Discussed case with Dr. Turner, hospitalist, who requested we transfer the patient because of increasing troponin. 12/16/17 05:[address] Estrada at [facility]. He agrees to accept the patient for transfer. Patient continues to be chest pain-free at this time. - Vital Signs Vital signs: Temp Pulse Resp BP Pulse Ox 98.6 F 116 H 11 L 103/75 96 12/15/17 23:16 12/15/17 23:16 12/16/17 03:01 12/16/17 03:00 12/16/17 03:01 - Laboratory Result Diagrams: 12/16/17 00:16 12/16/17 00:16 Laboratory results interpreted by me: 12/16/17 12/16/17 12/16/17 00:16 00:16 00:16 Hgb 11.7 L MCV 74 L MCH 23.9 L RDW 22.1 H D-Dimer 1.05 H BUN 4 L Glucose 116 H - EKG Interpretation by Me Additional EKG results interpreted by me: 12/15/17 23:46 EKG is reviewed and interpreted by me. EKG shows sinus tachycardia with a rate of [address] segment elevation or depression. No ischemic T wave inversions. DE interval, QRS duration are within normal range. QTc interval is borderline. Old EKG for comparison is from August 03, 2017. 12/16/17 04:04 EKG #2 is reviewed and interpreted by me. EKG shows sinus tachycardia with rate of [address] segment elevation or depression. DE interval, QRS duration, QTc intervals are within normal range. Discharge - Discharge Clinical Impression: NSTEMI (non-ST elevated myocardial infarction) Condition: Stable Disposition: [facility]
[2017-12-15] MEDS ORDERED: LORAZEPAM INJ 2 MG/1 ML VIAL IV ONE (23:52)
[2017-12-16 00:20] LABS: ABSOLUTE BASOPHILS # (AUTO) 0.1 10^3/uL (0.0-0.2); ABSOLUTE EOSINOPHILS # (AUTO) 0.3 10^3/uL (0.0-0.6); ABSOLUTE LYMPHOCYTES (AUTO) 1.4 10^3/uL (0.5-4.7); ABSOLUTE MONOCYTES (AUTO) 0.4 10^3/uL (0.1-1.4); ABSOLUTE NEUT (AUTO) 6.9 10^3/uL (1.7-8.2); BASOPHILS % (AUTO) 0.8 % (0-2); HEMATOCRIT 36.4 % (36.0-47.0); HEMOGLOBIN 11.7 g/dL (12.0-15.5); LYMPHOCYTES % (AUTO) 15.6 % (13-45); MEAN CORPUSCULAR HEMOGLOBIN 23.9 pg (27.0-33.4); MEAN CORPUSCULAR HGB CONC 32.2 g/dL (32.0-36.0); MEAN CORPUSCULAR VOLUME 74 fl (80-97); MONOCYTES % (AUTO) 4.6 % (3-13); PLATELET COUNT 349 10^3/uL (150-450); RED CELL DISTRIBUTION WIDTH 22.1 % (11.5-14.0); TOTAL CELLS COUNTED % (AUTO) 100 %; WHITE BLOOD COUNT 9.1 10^3/uL (4.0-10.5)
--- NOTE | 2017-12-16 00:25 | RADIOLOGY REPORT (SQ) ---
EXAM DESCRIPTION: XR CHEST 1 VIEW COMPLETED DATE/TME: 12/15/2017 23:52 examination is timed stamped 0002 hours. 12/16/2017 CLINICAL HISTORY: 37 years, Female, chest pain COMPARISON: None. NUMBER OF VIEWS: 1 TECHNIQUE: Single view, AP portable chest was obtained. LIMITATIONS: None. FINDINGS: Unremarkable cardiac and mediastinal silhouette. Heart size is normal. Lungs are clear without focal opacity, pneumothorax or pleural effusions. The visualized bones are within normal limits. IMPRESSION: No acute cardiopulmonary abnormalities. 2010 [employer]- All Rights Reserved
[2017-12-16 00:59] LABS: ANION GAP 11 (5-19); BLOOD UREA NITROGEN 4 mg/dL (7-20); CALCIUM 9.2 mg/dL (8.4-10.2); CARBON DIOXIDE 28 mmol/L (22-30); CHLORIDE 100 mmol/L (98-107); GLUCOSE 116 mg/dL (75-110); POTASSIUM 3.6 mmol/L (3.6-5.0); SODIUM 138.9 mmol/L (137-145)
--- NOTE | 2017-12-16 02:18 | RADIOLOGY REPORT (SQ) ---
CLINICAL HISTORY: chest pain, tachycardia COMPARISON: None. 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 MIPS reconstructions were generated. This exam was performed according to our departmental dose-optimization program, which includes automated exposure control, adjustment of the mA and/or kV according to patient size and/or use of iterative reconstruction technique. MIP images were generated. FINDINGS: Thoracic aorta is normal in course and caliber without aneurysm or dissection. Pulmonary arteries are adequately opacified without acute or chronic filling defects. The heart is normal in size. There is no pericardial effusion. Intrathoracic lymph nodes are not enlarged. There are trace bilateral pleural effusions. There are minimal endobronchial areas of probable mucus, specifically in the left mainstem bronchus as well as the right bronchus intermedius. Lungs are clear with no consolidation, mass or interstitial lung disease. In the upper abdomen, liver is fatty in attenuation. There are no acute osseous findings. No suspicious bony lesions. IMPRESSION: No aortic aneurysm or dissection. No pulmonary embolus. Trace bilateral pleural effusions without overt pneumonia.
[2017-12-16] MEDS ORDERED: NITROGLYCERIN 2% OINTMENT 1 GM PACKET TP ONE (02:29)
[2017-12-16] MEDS ORDERED: NITROGLYCERIN 0.4 MG/TAB 25 TAB/BOTTLE SL PRN (02:29)
[2017-12-16] MEDS: ENOXAPARIN SODIUM INJ 100 MG/1 ML DISP.SYRIN SUBCUT SCH ×2 (02:37→09:27)
[2017-12-16 04:04] LABS: URINE AMPHETAMINES SCREEN NEGATIVE; URINE BARBITURATES SCREEN NEGATIVE; URINE BENZODIAZEPINES SCREEN UNCONFIRMED POSITIVE; URINE COCAINE SCREEN NEGATIVE; URINE MARIJUANA (THC) SCREEN NEGATIVE; URINE METHADONE SCREEN NEGATIVE; URINE PHENCYCLIDINE SCREEN NEGATIVE
[2017-12-16] MEDS ORDERED: ATORVASTATIN CALCIUM 40 MG TABLET PO ONE (06:04)
--- NOTE | 2017-12-16 07:55 | EKG REPORT ---
SEVERITY:- BORDERLINE ECG - SINUS TACHYCARDIA PROBABLE LEFT ATRIAL ABNORMALITY INFERIOR Q WAVES, PROBABLY NORMAL VARIATION : Confirmed by: Yazan Brock MD 16-Dec-2017 07:55:07
--- NOTE | 2017-12-16 07:55 | EKG REPORT ---
SEVERITY:- BORDERLINE ECG - SINUS TACHYCARDIA INFERIOR Q WAVES, PROBABLY NORMAL VARIATION NONSPECIFIC ST-T CHANGES ANT LEADS UNCHANGED FROM PREV. EKG : Confirmed by: Yazan Brock MD 16-Dec-2017 07:54:52
--- NOTE | 2017-12-16 14:45 | ER Document Report ---
Doctor's Note Notes: 12/16/17 14:45 Patient evaluated prior to transfer. She is hemodynamically stable and chest pain-free. Her last troponin was decreasing. She has had no issues since I received sign out at 0600 this morning
[2017-12-16 14:54] VITALS: BP 108/79
== END 2017-12-16 14:54 | disposition short-term general hospital (02) ==
LOC: ER 22:54
DX: I21.4 Non-ST elevation (NSTEMI) myocardial infarction (principal); F41.9 Anxiety disorder, unspecified; J45.909 Unspecified asthma, uncomplicated; R07.89 Other chest pain; R42 Dizziness and giddiness; R00.0 Tachycardia, unspecified; F17.200 Nicotine dependence, unspecified, uncomplicated; Z82.49 Family history of ischemic heart disease and other diseases of the circulatory system; Z88.8 Allergy status to other drugs, medicaments and biological substances
CPT/HCPCS: 93005 ×2; 99285; 96372; 96374; 36415; 83735; 84443; 85025; 80048; 84484; 80307; 85379; 71045; 71275; 93010 ×2; A9270; J2060; J1650

== ENCOUNTER 2018-02-06 12:32 | Inpatient (IN) | payer MEDICARE, MEDICAID ==
--- NOTE | 2018-02-06 13:26 | ER Document Report ---
ED Medical Screen (RME) - General Chief Complaint: Chest Pain Stated Complaint: CHEST PAIN Time Seen by Provider: 02/06/18 13:21 Notes: Patient is here for multiple complaints, but primarily difficulty breathing and feeling short of breath. Symptoms have been going on for 3-4 days. She is also experiencing chest pains and headaches. General body aches as well. Has had some vomiting and diarrhea. Patient was recently in mental health at [facility] and then at another facility for a "nervous breakdown". She was started on Risperdal and Cogentin along with Xanax and Ambien. Her relative who is here with her says that ever since she started on the Risperdal she has had an increased heart rate. Heart rate in triage is 141 and on her EKG in the front it is 133. Patient had a cardiac catheterization done just 1 month ago at [facility] and was told that there were no blockages. Patient smokes 2 packs of cigarettes a day. TRAVEL OUTSIDE OF THE [place] IN LAST 30 DAYS: No - Related Data Allergies/Adverse Reactions: lurasidone HCl [From Latuda] Allergy (Severe, Verified 07/05/17 16:40) Seizures morphine Adverse Reaction (Intermediate, Verified 07/05/17 16:40) Hives Past Medical History - Social History Chew tobacco use (# tins/day): No Frequency of alcohol use: None Drug Abuse: None Family history: Hypertension Pulmonary Medical History: Reports: Hx Asthma, Hx Pneumonia, Hx Intubation Neurological Medical History: Reports: Hx Seizures - After taking latuda, after latuda was stopped, patient seizures stopped Renal/ Medical History: Reports: Hx Ovarian Cysts. Denies: Hx Peritoneal Dialysis GI Medical History: Reports: Hx Irritable Bowel Musculoskeltal Medical History: Reports Hx Musculoskeletal Trauma Psychiatric Medical History: Reports: Hx Anxiety, Hx Bipolar Disorder, Hx Depression - anxiety Past Surgical History: Reports: Hx Section - x2, Hx Tubal Ligation - Immunizations Immunizations up to date: Yes Hx Diphtheria, Pertussis, Tetanus Vaccination: Yes Physical Exam - Vital signs Vitals: Temp Pulse Resp BP Pulse Ox 99.3 F 140 H 18 150/74 H 92 02/06/18 12:45 02/06/18 12:45 02/06/18 12:45 02/06/18 12:45 02/06/18 12:45 Course - Vital Signs Vital signs: Temp Pulse Resp BP Pulse Ox 99.3 F 140 H 18 150/74 H 92 02/06/18 12:45 02/06/18 12:45 02/06/18 12:45 02/06/18 12:45 02/06/18 12:45 Doctor's Discharge - Discharge Referrals: TJ HODGE DO [Primary Care Provider] - Follow up as needed
--- NOTE | 2018-02-06 14:18 | EKG REPORT ---
SEVERITY:- OTHERWISE NORMAL ECG - SINUS TACHYCARDIA : Confirmed by: Sharla Campbell MD 06-Feb-2018 14:17:32
--- NOTE | 2018-02-06 14:23 | RADIOLOGY REPORT (SQ) ---
EXAM DESCRIPTION: CHEST 2 VIEWS COMPLETED DATE/TIME: 02/06/2018 1:58 pm REASON FOR STUDY: Chest pain and tachycardia. COMPARISON: 12/16/2017 EXAM PARAMETERS: NUMBER OF VIEWS: two views TECHNIQUE: Digital Frontal and Lateral radiographic views of the chest acquired. RADIATION DOSE: NA LIMITATIONS: none FINDINGS: LUNGS AND PLEURA: There is new diffuse bilateral patchy heterogeneous pulmonary opacity. MEDIASTINUM AND HILAR STRUCTURES: No masses or contour abnormalities. HEART AND VASCULAR STRUCTURES: Heart normal size. No evidence for failure. BONES: No acute findings. HARDWARE: None in the chest. OTHER: No other significant finding. IMPRESSION: New diffuse bilateral patchy heterogeneous pulmonary opacity, findings consistent with m ultifocal infection and/or ARDS. TECHNICAL DOCUMENTATION: JOB ID: [id number] [employer]- All Rights Reserved Reading location - IP/workstation name: [email or web address]
[2018-02-06 14:25] LABS: HEMATOCRIT 36.4 % (36.0-47.0); HEMOGLOBIN 12.3 g/dL (12.0-15.5); MEAN CORPUSCULAR HEMOGLOBIN 24.8 pg (27.0-33.4); MEAN CORPUSCULAR HGB CONC 33.9 g/dL (32.0-36.0); MEAN CORPUSCULAR VOLUME 73 fl (80-97); PLATELET COUNT 188 10^3/uL (150-450); RED BLOOD COUNT 4.97 10^6/uL (3.72-5.28); RED CELL DISTRIBUTION WIDTH 19.1 % (11.5-14.0); WHITE BLOOD COUNT 9.3 10^3/uL (4.0-10.5)
[2018-02-06] MEDS ORDERED: NORMAL SALINE 1000 ML 1,000 ML IV ONE (14:25)
--- NOTE | 2018-02-06 14:28 | ER Document Report ---
ED General - General Chief Complaint: Chest Pain Stated Complaint: CHEST PAIN Time Seen by Provider: 02/06/18 13:21 Mode of Arrival: Ambulatory Information source: Patient Notes: This is a 37-year-old female with a history of asthma who presents to the emergency room with cough, congestion, shortness of breath, wheezing and body aches along with vomiting and diarrhea. Patient states she has had the symptoms for the last few days. She does report that her grandmother has the flu. There are other people in the family none of which are sick. TRAVEL OUTSIDE OF THE [place] IN LAST 30 DAYS: No - HPI Onset: Last week Onset/Duration: Gradual Quality of pain: No pain Severity: None Pain Level: Denies Associated symptoms: Chills, Diarrhea, Nausea, Vomiting, Shortness of breath. denies: Fever Exacerbated by: Denies Relieved by: Denies Similar symptoms previously: Yes Recently seen / treated by doctor: No - Related Data Allergies/Adverse Reactions: lurasidone HCl [From Latuda] Allergy (Severe, Verified 07/05/17 16:40) Seizures morphine Adverse Reaction (Intermediate, Verified 07/05/17 16:40) Hives Past Medical History - General Information source: Patient - Social History Smoking Status: Current Every Day Smoker Cigarette use (# per day): Yes - 1 prepack per day Chew tobacco use (# tins/day): No Frequency of alcohol use: None Drug Abuse: None Lives with: Family Family History: CAD, DM, Hypertension Patient has suicidal ideation: No Patient has homicidal ideation: No Pulmonary Medical History: Reports: Hx Asthma, Hx Pneumonia, Hx Intubation Neurological Medical History: Reports: Hx Seizures - After taking latuda, after latuda was stopped, patient seizures stopped Renal/ Medical History: Reports: Hx Ovarian Cysts. Denies: Hx Peritoneal Dialysis GI Medical History: Reports: Hx Irritable Bowel Musculoskeletal Medical History: Reports Hx Musculoskeletal Trauma Psychiatric Medical History: Reports: Hx Anxiety, Hx Bipolar Disorder, Hx Depression - anxiety Past Surgical History: Reports: Hx Section - x2, Hx Tubal Ligation - Immunizations Immunizations up to date: Yes Hx Diphtheria, Pertussis, Tetanus Vaccination: Yes Review of Systems - Review of Systems Constitutional: Chills. denies: Fever EENT: No symptoms reported Cardiovascular: Chest pain, Orthopnea. denies: Palpitations, Heart racing Respiratory: Cough, Short of breath, Wheezing Gastrointestinal: Diarrhea, Vomiting. denies: Abdomen distended, Abdominal pain Genitourinary: No symptoms reported Female Genitourinary: No symptoms reported Musculoskeletal: No symptoms reported Skin: No symptoms reported Hematologic/Lymphatic: No symptoms reported Neurological/Psychological: No symptoms reported Physical Exam - Vital signs Vitals: Temp Pulse Resp BP Pulse Ox 99.3 F 140 H 18 150/74 H 92 02/06/18 12:45 02/06/18 12:45 02/06/18 12:45 02/06/18 12:45 02/06/18 12:45 Notes: Physical exam: GENERAL: Patient is alert and oriented x3, no acute distress. Her pulse is 126, respiratory rate 27, O2 sat 96% on room air, blood pressure 135/88. HEAD: Atraumatic, normocephalic. EYES: Pupils equal round and reactive to light, extraocular movements intact, sclera anicteric, conjunctiva are normal. ENT: TMs normal, nares patent, oropharynx clear without exudates. Moist mucous membranes. NECK: Normal range of motion, supple without obvious mass or JVD. LUNGS: Breath sounds clear to auscultation bilaterally and equal. No wheezes rales or rhonchi. HEART: Regular rate and rhythm without murmurs, rubs or gallops. ABDOMEN: Soft, normoactive bowel sounds. No tenderness to palpation. No guarding, no rebound. No masses appreciated. EXTREMITIES: Normal range of motion, no pitting or edema. No clubbing or cyanosis. NEUROLOGICAL: Cranial nerves II through XII grossly intact. Normal speech, moving all extremities. PSYCH: Normal mood, normal affect. SKIN: Warm, Dry, normal turgor, no rashes or lesions noted. Course - Re-evaluation Re-evalutation: 02/06/18 16:57 Patient did ambulate to the bathroom and had a walk test and she became quite dyspneic and her oxygen saturation dropped to 92% on room air. The CTA shows no pulmonary emboli but it does show multifocal pneumonia. She will be admitted for IV antibiotics. - Vital Signs Vital signs: Temp Pulse Resp BP Pulse Ox 102.9 F H 118 H 22 H 138/67 H 94 02/06/18 20:51 02/06/18 20:51 02/06/18 20:51 02/06/18 20:51 02/06/18 20:51 - Laboratory Result Diagrams: 02/06/18 14:02 02/06/18 14:02 Laboratory results interpreted by me: 02/06/18 02/06/18 02/06/18 14:02 14:02 14:02 MCV 73 L MCH 24.8 L RDW 19.1 H Seg Neuts % (Manual) 97 H Lymphocytes % (Manual) 1 L Monocytes % (Manual) 2 L Abs Neuts (Manual) 9.0 H Abs Lymphs (Manual) 0.1 L Sodium 128.6 L Potassium 2.6 L* Chloride 88 L BUN 5 L Serum Osmolality 254 L AST 55 H Creatine Kinase 427 H Urine Blood 02/06/18 14:22 MCV MCH RDW Seg Neuts % (Manual) Lymphocytes % (Manual) Monocytes % (Manual) Abs Neuts (Manual) Abs Lymphs (Manual) Sodium Potassium Chloride BUN Serum Osmolality AST Creatine Kinase Urine Blood SMALL H - Diagnostic Test Radiology reviewed: Image reviewed, Reports reviewed - CTA shows multifocal pneumonia - EKG Interpretation by Me Rate: Tachycardia - EKG shows sinus tachycardia with a ventricular rate of 133, no acute ST-T wave changes QTC 402 Discharge - Discharge Clinical Impression: Pneumonia, Hypokalemia Condition: Stable Disposition: ADMITTED INPATIENT Admitting Provider: Hospitalist - Dr Hopper Unit Admitted: Telemetry
[2018-02-06 14:35] LABS: ALANINE AMINOTRANSFERASE 19 U/L (9-52); ALKALINE PHOSPHATASE 65 U/L (38-126); ANION GAP 16 (5-19); ASPARTATE AMINO TRANSFERASE 55 U/L (14-36); BILIRUBIN,DIRECT 0.4 mg/dL (0.0-0.4); BILIRUBIN,TOTAL 0.8 mg/dL (0.2-1.3); BLOOD UREA NITROGEN 5 mg/dL (7-20); CALCIUM 8.6 mg/dL (8.4-10.2); CARBON DIOXIDE 25 mmol/L (22-30); CHLORIDE 88 mmol/L (98-107); CREATINE KINASE 427 U/L (30-135); GLUCOSE 109 mg/dL (75-110); SODIUM 128.6 mmol/L (137-145)
[2018-02-06 14:36] LABS: APPEARANCE,URINE CLEAR; BILIRUBIN,URINE NEGATIVE (NEGATIVE); COLOR,URINE YELLOW; GLUCOSE, URINE NEGATIVE (NEGATIVE); KETONES,URINE NEGATIVE (NEGATIVE); LEUKOCYTE ESTERASE,URINE NEGATIVE (NEGATIVE); NITRITE,URINE NEGATIVE (NEGATIVE); PROTEIN,URINE NEGATIVE (NEGATIVE); URINE SPECIFIC GRAVITY 1.002; UROBILINOGEN,URINE NEGATIVE mg/dL (<2.0)
[2018-02-06 14:46] LABS: CREATINE KINASE MB 1.42 ng/mL (<4.55)
[2018-02-06 14:50] LABS: POTASSIUM 2.6 mmol/L (3.6-5.0)
[2018-02-06 14:50] LABS: URINE AMPHETAMINES SCREEN NEGATIVE; URINE BARBITURATES SCREEN NEGATIVE; URINE BENZODIAZEPINES SCREEN UNCONFIRMED POSITIVE; URINE COCAINE SCREEN NEGATIVE; URINE MARIJUANA (THC) SCREEN UNCONFIRMED POSITIVE; URINE METHADONE SCREEN NEGATIVE; URINE PHENCYCLIDINE SCREEN NEGATIVE
[2018-02-06 14:51] LABS: ABSOLUTE LYMPHOCYTES# (MANUAL) 0.1 10^3/uL (0.5-4.7); ABSOLUTE MONOCYTES # (MANUAL) 0.2 10^3/uL (0.1-1.4); BASOPHILS % (MANUAL) 0 % (0-2); EOSINOPHILS % (MANUAL) 0 % (0-6); LYMPHOCYTES % (MANUAL) 1 % (13-45); MONOCYTES % (MANUAL) 2 % (3-13); SEGMENTED NEUTROPHILS % (MAN) 97 % (42-78); TOTAL CELLS COUNTED 100
[2018-02-06 14:52] LABS: ANISOCYTOSIS 2+; HYPOCHROMASIA 1+; OVALOCYTES 1+; PLATELET COMMENT ADEQUATE; POIKILOCYTOSIS 1+; TROPONIN I < 0.012 ng/mL
[2018-02-06 15:14] LABS: A TYPE INFLUENZA AG NEGATIVE (NEGATIVE); B INFLUENZA AG NEGATIVE (NEGATIVE)
[2018-02-06] MEDS ORDERED: POTASSIUM CHLORIDE 10 MEQ CAPSULE.ER PO ONE ×2 (15:15→19:45)
--- NOTE | 2018-02-06 16:32 | RADIOLOGY REPORT (SQ) ---
EXAM DESCRIPTION: CTA CHEST COMPLETED DATE/TIME: 02/06/2018 4:09 pm REASON FOR STUDY: sob COMPARISON: Chest x-ray dated 02/06/2018. Chest CTA dated 12/16/2017. TECHNIQUE: CT scan of the chest performed using helical scanning technique with dynamic intravenous contrast injection. Images reviewed with lung, soft tissue and bone windows. Reconstructed coronal and sagittal MPR images reviewed. Additional 3 dimensional post-processing performed to develop Maximal Intensity Projection images (OR P). All images stored on PACS. All CT scanners at this facility use dose modulation, iterative reconstruction, and/or weight based d osing when appropriate to reduce radiation dose to as low as reasonably achievable (ALARA). [facility]: Dose Right [facility]: CareDose [facility]: Dose Right [facility]: Teradose 4D [facility]: Poacht App CONTRAST TYPE AND DOSE: contrast/concentration: Isovue 350.00 mg/ml; Total Contrast Delivered: 78.0 ml; Total Saline Delivered: 110.0 ml Contrast bolus adequate for pulmonary arteries and aorta. RENAL FUNCTION: BUN 5 creatinine 0.72. RADIATION DOSE: CT Rad equipment meets quality standard of care and radiation dose reduction techniq ues were employed. CTDIvol: 14.4 - 29.8 mGy. DLP: 535 mGy-cm. . LIMITATIONS: None. FINDINGS: LUNGS AND PLEURA: Small pleural effusions. Extensive ground-glass opacities scattered thr oughout both lungs. AORTA AND GREAT VESSELS: No aneurysm. No dissection. HEART: No pericardial effusion. No significant coronary artery calcifications. PULMONARY ARTERIES: No emboli visualized in the main pulmonary arteries or the segmental branches. HILAR AND MEDIASTINAL STRUCTURES: No identified masses or abnormal nodes. HARDWARE: None in the chest. UPPER ABDOMEN: No significant findings. Limited exam. THYROID AND OTHER SOFT TISSUES: No masses. No adenopathy. BONES: No acute or significant finding. 3D MIPS: Confirm above findings. OTHER: No other significant finding. IMPRESSION: 1. NORMAL CTA OF THE CHEST. NO PULMONARY EMBOLI. 2. SMALL PLEURAL EFFUSIONS. EXTENSIVE GROUND-GLASS OPACITIES SCATTERED THROUGHOUT BOTH LUNGS MOST LI PAMELA DUE TO MULTIFOCAL PNEUMONIA. OTHER ACUTE INFLAMMATORY ETIOLOGIES/PNEUMONITIS MAY ALSO BE POSSIB LE. COMMENT: Quality ID # [id number]: Final reports with documentation of one or more dose reduction techniques (e.g., Automated exposure control, adjustment of the mA and/or kV according to patient size, use of iterative reconstruction technique) TECHNICAL DOCUMENTATION: JOB ID: [id number] [employer]- All Rights Reserved Reading location - IP/workstation name: [email or web address]
[2018-02-06] MEDS ORDERED: AZITHROMYCIN INJ 500 MG VIAL IV ONE ×2 (16:53→19:16)
[2018-02-06] MEDS ORDERED: CEFTRIAXONE 1 GM/D5W RTU 1 GM/50 ML RTUPB IV ONE (16:53)
[2018-02-06] MEDS ORDERED: IPRATROPIUM/ALBUTEROL 0.5-2.5 MG/3 ML AMPUL NEB ONE ×2 (16:54→23:15)
[2018-02-06] MEDS ORDERED: METHYLPREDNISOLONE INJ 125 MG/2 ML SDV IV ONE (16:56)
--- NOTE | 2018-02-06 17:46 | PDOC H&P ---
History of Present Illness Admission Date/PCP: 02/06/18 17:00 TJ HODGE DO Patient complains of: cough, wheezing, diarrhea History of Present Illness: JOVANY LAU is a 37 year old female with a PMH of asthma, history of depression, history of intubation for bilateral pneumonia, history of manic episodes with psychotic features (?bipolar disorder) who presented with cough, SOB, wheezing and diarrhea. Patient says her parents were having repsiratory symptoms last week including cough and congestion. She started having minimally productive cough over the past 6-7 days and developed gradually worsening SOB. She also reports of associated wheezing, subjective fever and chills. In the ER, she was noted to have bilateral wheezes. Patient also complains of watery, nonbloody stools, 4 episodes/day for the past 5 days. She also reports of associated nausea and vomiting and says she threw up twice this morning. Denies history of C. diff or recent antibiotic use. Past Medical History Pulmonary Medical History: Reports: Asthma, Intubation, Pneumonia Neurological Medical History: Reports: Seizures - After taking latuda, after latuda was stopped, patient seizures stopped Psychiatric Medical History: Reports: Bipolar Disorder, Depression - anxiety Past Surgical History Past Surgical History: Reports: Section - x2, Tubal Ligation Social History Lives with: Family Smoking Status: Current Every Day Smoker Frequency of Alcohol Use: Rare Hx Recreational Drug Use: No Drugs: None Hx Prescription Drug Abuse: No Family History Family History: CAD, DM, Hypertension Parental Family History Reviewed: Yes - no premature CAD Children Family History Reviewed: No Sibling(s) Family History Reviewed.: No Medication/Allergy Home Medications: Albuterol Sulfate [Ventolin Hfa] 2 puff IH Q4HP PRN 07/07/17 Alprazolam [Xanax 0.5 mg Tablet] 0.5 mg PO BID 07/07/17 Benztropine Mesylate [Cogentin 1 mg Tablet] 1 mg PO Q12 07/07/17 Risperidone [Risperdal] 1 mg PO BID 02/06/18 Zolpidem Tartrate [Ambien] 10 mg PO DAILY 02/06/18 Aspirin [Ecotrin 81 mg EC Tablet] 81 mg PO DAILY 02/07/18 Atorvastatin Calcium [Lipitor 40 mg Tablet] 40 mg PO QHS 02/07/18 Metoprolol Tartrate [Lopressor 25 mg Tablet] 25 mg PO DAILY 02/07/18 Allergies/Adverse Reactions: lurasidone HCl [From Latuda] Allergy (Severe, Verified 07/05/17 16:40) Seizures morphine Adverse Reaction (Intermediate, Verified 07/05/17 16:40) Hives Review of Systems All systems: reviewed and no additional remarkable complaints except as stated - as mentioned above Physical Exam Vital Signs: Temp Pulse Resp BP Pulse Ox 99.3 F 140 H 26 H 139/81 H 96 02/06/18 12:45 02/06/18 12:45 02/06/18 16:05 02/06/18 15:01 02/06/18 16:05 Intake & Output 02/05/18 02/06/18 02/07/18 06:59 06:59 06:59 Weight 189 lb 13.088 oz General appearance: PRESENT: no acute distress, well-developed, well-nourished Head exam: PRESENT: atraumatic, normocephalic Eye exam: PRESENT: conjunctiva pink, EOMI, PERRLA. ABSENT: scleral icterus Ear exam: PRESENT: normal external ear exam Mouth exam: PRESENT: moist, tongue midline Neck exam: ABSENT: carotid bruit, JVD, lymphadenopathy, thyromegaly Respiratory exam: PRESENT: rhonchi, wheezes - mild wheezes bilaterally. ABSENT: rales Cardiovascular exam: PRESENT: RRR. ABSENT: diastolic murmur, rubs, systolic murmur Pulses: PRESENT: normal dorsalis pedis pul GI/Abdominal exam: PRESENT: normal bowel sounds, soft. ABSENT: distended, guarding, mass, organolmegaly, rebound, tenderness Rectal exam: PRESENT: deferred Neurological exam: PRESENT: alert, awake, oriented to person, oriented to place, oriented to time, oriented to situation, CN II-XII grossly intact. ABSENT: motor sensory deficit Results Laboratory Results: 02/06/18 14:02 02/06/18 14:02 02/06/18 02/06/18 02/06/18 14:02 14:02 14:02 WBC 9.3 RBC 4.97 Hgb 12.3 Hct 36.4 MCV 73 L MCH 24.8 L MCHC 33.9 RDW 19.1 H Plt Count 188 Seg Neutrophils % Not Reportable Lymphocytes % Not Reportable Monocytes % Not Reportable Eosinophils % Not Reportable Basophils % Not Reportable Absolute Neutrophils Not Reportable Absolute Lymphocytes Not Reportable Absolute Monocytes Not Reportable Absolute Eosinophils Not Reportable Absolute Basophils Not Reportable Sodium 128.6 L Potassium 2.6 L* Chloride 88 L Carbon Dioxide 25 Anion Gap 16 BUN 5 L Creatinine 0.72 Est GFR ( Amer) > 60 Est GFR (Non-Af Amer) > 60 Glucose 109 Calcium 8.6 Magnesium Total Bilirubin 0.8 AST 55 H ALT 19 Alkaline Phosphatase 65 Total Protein 7.0 Albumin 4.0 Serum HCG, Qual NEGATIVE Urine Color Urine Appearance Urine pH Ur Specific Anchor Urine Protein Urine Glucose (UA) Urine Ketones Urine Blood Urine Nitrite Ur Leukocyte Esterase Urine WBC (Auto) Urine RBC (Auto) 02/06/18 02/06/18 14:02 14:22 WBC RBC Hgb Hct MCV MCH MCHC RDW Plt Count Seg Neutrophils % Lymphocytes % Monocytes % Eosinophils % Basophils % Absolute Neutrophils Absolute Lymphocytes Absolute Monocytes Absolute Eosinophils Absolute Basophils Sodium Potassium Chloride Carbon Dioxide Anion Gap BUN Creatinine Est GFR ( Amer) Est GFR (Non-Af Amer) Glucose Calcium Magnesium 1.6 Total Bilirubin AST ALT Alkaline Phosphatase Total Protein Albumin Serum HCG, Qual Urine Color YELLOW Urine Appearance CLEAR Urine pH 6.0 Ur Specific Anchor 1.002 Urine Protein NEGATIVE Urine Glucose (UA) NEGATIVE Urine Ketones NEGATIVE Urine Blood SMALL H Urine Nitrite NEGATIVE Ur Leukocyte Esterase NEGATIVE Urine WBC (Auto) 8 Urine RBC (Auto) 0 02/06/18 02/06/18 14:02 14:02 Creatine Kinase 427 H CK-MB (CK-2) 1.42 Troponin I < 0.012 Impressions: Chest X-Ray 02/06/18 13:24 IMPRESSION: New diffuse bilateral patchy heterogeneous pulmonary opacity, findings consistent with multifocal infection and/or ARDS. Chest/Abdomen CTA 02/06/18 15:16 IMPRESSION: 1. NORMAL CTA OF THE CHEST. NO PULMONARY EMBOLI. 2. SMALL PLEURAL EFFUSIONS. EXTENSIVE GROUND-GLASS OPACITIES SCATTERED THROUGHOUT BOTH LUNGS MOST LIKELY DUE TO MULTIFOCAL PNEUMONIA. OTHER ACUTE INFLAMMATORY ETIOLOGIES/PNEUMONITIS MAY ALSO BE POSSIBLE. Assessment & Plan - Diagnosis (1) Asthma exacerbation Is this a current diagnosis for this admission?: Yes Plan: Continue steroids. Will add scheduled breathing treatments. (2) Pneumonia Is this a current diagnosis for this admission?: Yes Plan: Chest CT shows multifocal pneumonia. She does have recent sick contacts at home. She was given azithromycin and rocephin in the ER. Will continue both. Will order sputum culture. (3) Acute diarrhea Is this a current diagnosis for this admission?: Yes Plan: Will check for C diff. IV fluids with NS@150 cc/hr. (4) Hypokalemia Is this a current diagnosis for this admission?: Yes Plan: Likely from her diarrhea and vomiting. She was given 40 meqs of potassium in the ER. Will give another 60 meqs. (5) Hyponatremia Is this a current diagnosis for this admission?: Yes Plan: Likely related to dehydration. Will continue IV fluids. Will recheck BMP tomorrow morning. - Time Time Spent: 30 to 50 Minutes
--- NOTE | 2018-02-06 19:47 | EKG REPORT ---
SEVERITY:- BORDERLINE ECG - SINUS TACHYCARDIA PROBABLE LEFT ATRIAL ABNORMALITY BORDERLINE T ABNORMALITIES, ANT-LAT LEADS : Confirmed by: Sharla Campbell MD 06-Feb-2018 19:47:08
[2018-02-06] MEDS ORDERED: RISPERIDONE 0.25 MG TABLET PO ONE (20:00)
[2018-02-06] MEDS: METHYLPREDNISOLONE INJ 40 MG/1 ML SDV IV SCH (21:19)
[2018-02-06] MEDS: ALPRAZOLAM 0.5 MG TABLET PO PRN (21:19)
[2018-02-06] MEDS: HEPARIN SOD (PORCINE) 5,000 UNIT/ML 1 ML SYRINGE SUBCUT SCH (21:21)
[2018-02-06] MEDS: ALBUTEROL SULFATE 0.083% NEB 2.5 MG/3 ML AMPUL NEB SCH (21:27)
[2018-02-06] MEDS ORDERED: ALPRAZOLAM 0.5 MG TABLET PO SCH (22:00)
[2018-02-06] MEDS: NORMAL SALINE 1000 ML 1,000 ML IV PRN (22:41)
[2018-02-06] MEDS ORDERED: ACETAMINOPHEN 325 MG TABLET PO PRN (23:07)
[2018-02-07] MEDS: ALBUTEROL SULFATE 0.083% NEB 2.5 MG/3 ML AMPUL NEB SCH ×3 (02:11→14:10)
[2018-02-07] MEDS: NORMAL SALINE 1000 ML 1,000 ML IV PRN ×3 (04:51→21:41)
[2018-02-07 06:22] LABS: ANION GAP 9 (5-19); BLOOD UREA NITROGEN 5 mg/dL (7-20); CALCIUM 8.2 mg/dL (8.4-10.2); CARBON DIOXIDE 24 mmol/L (22-30); CHLORIDE 106 mmol/L (98-107); GLUCOSE 146 mg/dL (75-110); SODIUM 138.7 mmol/L (137-145)
[2018-02-07 07:19] LABS: POTASSIUM 3.8 mmol/L (3.6-5.0)
[2018-02-07] MEDS ORDERED: NORMAL SALINE 1000 ML 1,000 ML IV ONE (07:40)
--- NOTE | 2018-02-07 09:59 | RADIOLOGY REPORT (SQ) ---
EXAM DESCRIPTION: CHEST SINGLE VIEW COMPLETED DATE/TIME: 02/07/2018 9:47 am REASON FOR STUDY: sob COMPARISON: Previous day. EXAM PARAMETERS: NUMBER OF VIEWS: One view. TECHNIQUE: Single frontal radiographic view of the chest acquired. RADIATION DOSE: NA LIMITATIONS: None. FINDINGS: LUNGS AND PLEURA: Diffuse bilateral airspace disease not significantly changed allowing fo r differences in technique. No evidence of cavitation. MEDIASTINUM AND HILAR STRUCTURES: No masses. Contour normal. HEART AND VASCULAR STRUCTURES: Heart normal in size. Normal vasculature. BONES: No acute findings. HARDWARE: None in the chest. OTHER: No other significant finding. IMPRESSION: Bilateral pneumonia. No significant change. TECHNICAL DOCUMENTATION: JOB ID: [id number] [employer]- All Rights Reserved Reading location - IP/workstation name: [email or web address]
[2018-02-07] MEDS ORDERED: LEVOFLOXACIN 750 MG/D5W RTU 750 MG/150 ML RTUPB IV SCH (10:00)
[2018-02-07] MEDS ORDERED: CEFTRIAXONE 1 GM/D5W RTU 1 GM/50 ML RTUPB IV SCH (10:00)
[2018-02-07] MEDS ORDERED: RISPERIDONE 0.25 MG TABLET PO SCH (10:00)
[2018-02-07] MEDS ORDERED: BENZTROPINE MESYLATE 1 MG TABLET PO SCH (10:00)
[2018-02-07 10:03] LABS: ARTERIAL BLOOD BASE EXCESS 2.5 mmol/L; ARTERIAL BLOOD H2CO3 0.97 mmol/L (1.05-1.35); ARTERIAL BLOOD HCO3 24.9 mmol/L (20-24); ARTERIAL BLOOD PCO2 32.1 mmHg (35-45); ARTERIAL BLOOD PH 7.51 (7.35-7.45); ARTERIAL BLOOD PO2 53.5 mmHg (80-100); ARTERIAL BLOOD TOTAL CO2 25.9 mmol/L (21-25)
[2018-02-07 10:04] LABS: ARTERIAL BLOOD FIO2 28%
[2018-02-07] MEDS: HEPARIN SOD (PORCINE) 5,000 UNIT/ML 1 ML SYRINGE SUBCUT SCH ×2 (10:28→21:44)
[2018-02-07] MEDS: METHYLPREDNISOLONE INJ 40 MG/1 ML SDV IV SCH ×2 (10:29→18:35)
[2018-02-07] MEDS: AZITHROMYCIN 250 MG TABLET PO SCH (10:29)
[2018-02-07] MEDS ORDERED: VANCOMYCIN HCL 0 MG in DEXTROSE 5%-WATER 250 ML IV NR (12:00)
[2018-02-07 13:20] LABS: ARTERIAL BLOOD BASE EXCESS 0.7 mmol/L; ARTERIAL BLOOD FIO2 28%; ARTERIAL BLOOD H2CO3 0.96 mmol/L (1.05-1.35); ARTERIAL BLOOD HCO3 23.6 mmol/L (20-24); ARTERIAL BLOOD O2 SATURATION 90.2 % (94-98); ARTERIAL BLOOD PH 7.49 (7.35-7.45); ARTERIAL BLOOD PO2 52.9 mmHg (80-100); ARTERIAL BLOOD TOTAL CO2 24.5 mmol/L (21-25)
[2018-02-07] MEDS: ALPRAZOLAM 0.5 MG TABLET PO PRN (13:47)
--- NOTE | 2018-02-07 14:41 | PDOC PROGRESS REPORT ---
Subjective Progress Note for:: 02/07/18 Subjective:: This is a 37 year old female with a PMH of asthma, history of depression, history of intubation for bilateral pneumonia, history of manic episodes with psychotic features (?bipolar disorder) who presented with cough, SOB, wheezing and diarrhea. She was found to have multifocal pneumonia on chest CT and was admitted for this and for asthma exacerbation. Overnight, patient says her SOB started to slowly worsen. Upon encounter this morning, she was noted to be tachypneic. She desaturated to 89-90% on nasal cannula and was noted to have crackles bilaterally. She was switched to BIPAP which she says did alleviate the SOB. She will be transferred to the ICU. Reason For Visit: PNEUMONIA Physical Exam Vital Signs: Temp Pulse Resp BP Pulse Ox 98.6 F 86 47 H 128/62 H 98 02/07/18 11:57 02/07/18 14:10 02/07/18 14:10 02/07/18 13:26 02/07/18 14:10 Intake & Output 02/06/18 02/07/18 02/08/18 06:59 06:59 06:59 Intake Total 2893 1150 Output Total 3200 Balance -307 1150 Weight 187 lb 13.341 oz General appearance: PRESENT: mild distress Head exam: PRESENT: atraumatic, normocephalic Eye exam: PRESENT: conjunctiva pink, EOMI, PERRLA. ABSENT: scleral icterus Ear exam: PRESENT: normal external ear exam Mouth exam: PRESENT: moist, tongue midline Neck exam: ABSENT: carotid bruit, JVD, lymphadenopathy, thyromegaly Respiratory exam: PRESENT: crackles - crackles on both lung [place]. ABSENT: rales, rhonchi Pulses: PRESENT: normal dorsalis pedis pul GI/Abdominal exam: PRESENT: normal bowel sounds, soft. ABSENT: distended, guarding, mass, organolmegaly, rebound, tenderness Rectal exam: PRESENT: deferred Neurological exam: PRESENT: alert, awake, oriented to person, oriented to place, oriented to time, oriented to situation, CN II-XII grossly intact. ABSENT: motor sensory deficit Results Laboratory Results: 02/06/18 14:02 02/07/18 05:50 02/06/18 02/06/18 02/06/18 14:02 14:02 14:02 Carbonic Acid HCO3/H2CO3 Ratio ABG pH ABG pCO2 ABG pO2 ABG HCO3 ABG O2 Saturation ABG Base Excess FiO2 Sodium 128.6 L Potassium 2.6 L* Chloride 88 L Carbon Dioxide 25 Anion Gap 16 BUN 5 L Creatinine 0.72 Est GFR ( Amer) > 60 Est GFR (Non-Af Amer) > 60 Glucose 109 Serum Osmolality Lactic Acid Calcium 8.6 Magnesium 1.6 Total Bilirubin 0.8 AST 55 H ALT 19 Alkaline Phosphatase 65 Total Protein 7.0 Albumin 4.0 Serum HCG, Qual NEGATIVE Urine Color Urine Appearance Urine pH Ur Specific Taylor Urine Protein Urine Glucose (UA) Urine Ketones Urine Blood Urine Nitrite Ur Leukocyte Esterase Urine WBC (Auto) Urine RBC (Auto) 02/06/18 02/06/18 02/06/18 14:02 14:22 17:17 Carbonic Acid HCO3/H2CO3 Ratio ABG pH ABG pCO2 ABG pO2 ABG HCO3 ABG O2 Saturation ABG Base Excess FiO2 Sodium Potassium Chloride Carbon Dioxide Anion Gap BUN Creatinine Est GFR ( Amer) Est GFR (Non-Af Amer) Glucose Serum Osmolality 254 L Lactic Acid 2.8 H Calcium Magnesium Total Bilirubin AST ALT Alkaline Phosphatase Total Protein Albumin Serum HCG, Qual Urine Color YELLOW Urine Appearance CLEAR Urine pH 6.0 Ur Specific Taylor 1.002 Urine Protein NEGATIVE Urine Glucose (UA) NEGATIVE Urine Ketones NEGATIVE Urine Blood SMALL H Urine Nitrite NEGATIVE Ur Leukocyte Esterase NEGATIVE Urine WBC (Auto) 8 Urine RBC (Auto) 0 02/06/18 02/07/18 02/07/18 21:47 05:50 05:50 Carbonic Acid HCO3/H2CO3 Ratio ABG pH ABG pCO2 ABG pO2 ABG HCO3 ABG O2 Saturation ABG Base Excess FiO2 Sodium 138.7 Potassium 3.8 D Chloride 106 Carbon Dioxide 24 Anion Gap 9 BUN 5 L Creatinine 0.60 Est GFR ( Amer) > 60 Est GFR (Non-Af Amer) > 60 Glucose 146 H Serum Osmolality Lactic Acid 3.4 H 2.4 H Calcium 8.2 L Magnesium Total Bilirubin AST ALT Alkaline Phosphatase Total Protein Albumin Serum HCG, Qual Urine Color Urine Appearance Urine pH Ur Specific Taylor Urine Protein Urine Glucose (UA) Urine Ketones Urine Blood Urine Nitrite Ur Leukocyte Esterase Urine WBC (Auto) Urine RBC (Auto) 02/07/18 02/07/18 09:39 12:55 Carbonic Acid 0.97 L 0.96 L HCO3/H2CO3 Ratio 25:1 24:1 ABG pH 7.51 H 7.49 H ABG pCO2 32.1 L 32.0 L ABG pO2 53.5 L 52.9 L ABG HCO3 24.9 H 23.6 ABG O2 Saturation 91.0 L 90.2 L ABG Base Excess 2.5 0.7 FiO2 28% 28% Sodium Potassium Chloride Carbon Dioxide Anion Gap BUN Creatinine Est GFR ( Amer) Est GFR (Non-Af Amer) Glucose Serum Osmolality Lactic Acid Calcium Magnesium Total Bilirubin AST ALT Alkaline Phosphatase Total Protein Albumin Serum HCG, Qual Urine Color Urine Appearance Urine pH Ur Specific Taylor Urine Protein Urine Glucose (UA) Urine Ketones Urine Blood Urine Nitrite Ur Leukocyte Esterase Urine WBC (Auto) Urine RBC (Auto) 02/06/18 02/06/18 14:02 14:02 Creatine Kinase 427 H CK-MB (CK-2) 1.42 Troponin I < 0.012 Impressions: Chest/Abdomen CTA 02/06/18 15:16 IMPRESSION: 1. NORMAL CTA OF THE CHEST. NO PULMONARY EMBOLI. 2. SMALL PLEURAL EFFUSIONS. EXTENSIVE GROUND-GLASS OPACITIES SCATTERED THROUGHOUT BOTH LUNGS MOST LIKELY DUE TO MULTIFOCAL PNEUMONIA. OTHER ACUTE INFLAMMATORY ETIOLOGIES/PNEUMONITIS MAY ALSO BE POSSIBLE. Chest X-Ray 02/07/18 08:59 IMPRESSION: Bilateral pneumonia. No significant change. Assessment & Plan - Diagnosis (1) Acute respiratory failure with hypoxia Is this a current diagnosis for this admission?: Yes Plan: Secondary to bilateral, multifocal pneumonia. Now on BIPAP. (2) Pneumonia Is this a current diagnosis for this admission?: Yes Plan: Chest CT shows multifocal pneumonia. She does have recent sick contacts at home. She is showing signs of decompensation. Will broaden antibiotic coverage. Now on BIPAP. Patient will be moved to the ICU. (3) Asthma exacerbation Is this a current diagnosis for this admission?: Yes Plan: Continue steroids and breathing treatments. (4) Acute diarrhea Is this a current diagnosis for this admission?: Yes Plan: No recurrence of diarrhea since admission. (5) Hypokalemia Is this a current diagnosis for this admission?: Yes Plan: Likely from her diarrhea and vomiting. Resolved. (6) Hyponatremia Is this a current diagnosis for this admission?: Yes Plan: Likely related to dehydration. Resolved. Will continue IV fluids. (7) Lactic acidosis Is this a current diagnosis for this admission?: Yes Plan: Improving. Continue IV fluids. - Time Time Spent with patient: 35 or more minutes
[2018-02-07] MEDS ORDERED: LEVALBUTEROL HCL NEB 1.25 MG/3 ML AMPUL NEB PRN (14:46)
[2018-02-07] MEDS ORDERED: PROPOFOL 1,000 MG/100 ML INFUS..BTL IV ONE (15:13)
[2018-02-07] MEDS ORDERED: PROPOFOL INJ 200 MG/20 ML VIAL IV ONE (15:16)
[2018-02-07] MEDS ORDERED: MIDAZOLAM HCL 50 MG/100 ML RTUINJ ONE (15:21)
--- NOTE | 2018-02-07 16:04 | RADIOLOGY REPORT (SQ) ---
EXAM DESCRIPTION: CHEST SINGLE VIEW COMPLETED DATE/TIME: 02/07/2018 3:46 pm REASON FOR STUDY: ET TUBE PLACEMENT COMPARISON: 02/07/2018 earlier. 02/06/2018. Single-view chest AP portable semi upright timed approximately 1537 hours. Endotracheal tube now in place, appropriate. Appropriate nasogastric tube. Diffuse bilateral pulmonary infiltrates are once again demonstrated. TECHNICAL DOCUMENTATION: JOB ID: [id number] Reading location - IP/workstation name: [email or web address]
[2018-02-07] MEDS: PIPERACILLIN SODIUM/TAZOBACTAM 3.375 GM in NORMAL SALINE 100 ML IV SCH ×2 (16:23→21:40)
[2018-02-07] MEDS: MIDAZOLAM HCL 50 MG/100 ML RTUINJ IV PRN ×2 (16:25→21:16)
[2018-02-07] MEDS: PROPOFOL 1,000 MG/100 ML INFUS..BTL IV PRN ×3 (16:26→22:30)
[2018-02-07 16:32] LABS: ARTERIAL BLOOD BASE EXCESS 1.5 mmol/L; ARTERIAL BLOOD FIO2 50%; ARTERIAL BLOOD H2CO3 1.09 mmol/L (1.05-1.35); ARTERIAL BLOOD HCO3 25.2 mmol/L (20-24); ARTERIAL BLOOD O2 SATURATION 97.9 % (94-98); ARTERIAL BLOOD PCO2 36.2 mmHg (35-45); ARTERIAL BLOOD PH 7.46 (7.35-7.45); ARTERIAL BLOOD PO2 99.5 mmHg (80-100); ARTERIAL BLOOD TOTAL CO2 26.3 mmol/L (21-25)
[2018-02-07] MEDS ORDERED: SUCCINYLCHOLINE CHLORIDE INJ 200 MG/10 ML VIAL ONE (16:32)
[2018-02-07] MEDS: VANCOMYCIN HCL 1,250 MG in DEXTROSE 5%-WATER 250 ML IV SCH (18:33)
[2018-02-07] MEDS: IPRATROPIUM/ALBUTEROL 0.5-2.5 MG/3 ML AMPUL NEB SCH (20:13)
[2018-02-07] MEDS: BUDESONIDE NEB 0.5 MG/2 ML AMPUL NEB SCH (20:13)
[2018-02-07] MEDS ORDERED: MONTELUKAST SODIUM 10 MG TABLET PO SCH (22:00)
[2018-02-08] MEDS: MIDAZOLAM HCL 50 MG/100 ML RTUINJ IV PRN ×5 (01:00→21:17)
[2018-02-08] MEDS: IPRATROPIUM/ALBUTEROL 0.5-2.5 MG/3 ML AMPUL NEB SCH ×4 (02:24→20:03)
[2018-02-08] MEDS: VANCOMYCIN HCL 1,250 MG in DEXTROSE 5%-WATER 250 ML IV SCH ×3 (02:26→17:49)
[2018-02-08] MEDS: PIPERACILLIN SODIUM/TAZOBACTAM 3.375 GM in NORMAL SALINE 100 ML IV SCH ×4 (02:26→21:11)
[2018-02-08] MEDS: PROPOFOL 1,000 MG/100 ML INFUS..BTL IV PRN ×7 (03:00→23:39)
[2018-02-08 03:58] LABS: HEMATOCRIT 28.6 % (36.0-47.0); MEAN CORPUSCULAR HEMOGLOBIN 24.5 pg (27.0-33.4); MEAN CORPUSCULAR HGB CONC 32.8 g/dL (32.0-36.0); MEAN CORPUSCULAR VOLUME 75 fl (80-97); PLATELET COUNT 155 10^3/uL (150-450); RED BLOOD COUNT 3.83 10^6/uL (3.72-5.28); RED CELL DISTRIBUTION WIDTH 19.4 % (11.5-14.0); WHITE BLOOD COUNT 9.6 10^3/uL (4.0-10.5)
[2018-02-08 04:00] LABS: HEMOGLOBIN 9.4 g/dL (12.0-15.5)
[2018-02-08 04:15] LABS: ABSOLUTE LYMPHOCYTES# (MANUAL) 0.1 10^3/uL (0.5-4.7); ABSOLUTE MONOCYTES # (MANUAL) 0.3 10^3/uL (0.1-1.4); ABSOLUTE NEUTROPHILS# (MANUAL) 9.2 10^3/uL (1.7-8.2); BASOPHILS % (MANUAL) 0 % (0-2); EOSINOPHILS % (MANUAL) 0 % (0-6); LYMPHOCYTES % (MANUAL) 1 % (13-45); MONOCYTES % (MANUAL) 3 % (3-13); SEGMENTED NEUTROPHILS % (MAN) 96 % (42-78); TOTAL CELLS COUNTED 100
[2018-02-08 04:16] LABS: ANISOCYTOSIS 2+; BURR CELLS 1+; OVALOCYTES SLIGHT; POIKILOCYTOSIS 1+; TEAR DROP CELLS 1+; TOXIC GRANULATION 1+
[2018-02-08 04:17] LABS: PLATELET CLUMPS PRESENT; PLATELET COMMENT ADEQUATE; PLATELET GIANT PRESENT; PLATELET LARGE PRESENT
[2018-02-08 04:23] LABS: ALANINE AMINOTRANSFERASE 20 U/L (9-52); ALBUMIN 2.7 g/dL (3.5-5.0); ALKALINE PHOSPHATASE 52 U/L (38-126); ANION GAP 9 (5-19); ASPARTATE AMINO TRANSFERASE 31 U/L (14-36); BILIRUBIN,DIRECT 0.5 mg/dL (0.0-0.4); BILIRUBIN,TOTAL 0.5 mg/dL (0.2-1.3); BLOOD UREA NITROGEN 7 mg/dL (7-20); CALCIUM 7.3 mg/dL (8.4-10.2); CARBON DIOXIDE 23 mmol/L (22-30); CHLORIDE 107 mmol/L (98-107); GLUCOSE 205 mg/dL (75-110); POTASSIUM 3.2 mmol/L (3.6-5.0); SODIUM 138.5 mmol/L (137-145); TOTAL PROTEIN 5.5 g/dL (6.3-8.2)
[2018-02-08] MEDS: METHYLPREDNISOLONE INJ 40 MG/1 ML SDV IV SCH ×5 (05:13→23:34)
[2018-02-08 05:21] LABS: ARTERIAL BLOOD BASE EXCESS -1.4 mmol/L; ARTERIAL BLOOD FIO2 50%; ARTERIAL BLOOD H2CO3 1.12 mmol/L (1.05-1.35); ARTERIAL BLOOD O2 SATURATION 97.4 % (94-98); ARTERIAL BLOOD PCO2 37.1 mmHg (35-45); ARTERIAL BLOOD PH 7.41 (7.35-7.45); ARTERIAL BLOOD PO2 96.2 mmHg (80-100); ARTERIAL BLOOD TOTAL CO2 24.1 mmol/L (21-25)
--- NOTE | 2018-02-08 06:12 | RADIOLOGY REPORT (SQ) ---
EXAM DESCRIPTION: XR CHEST 1 VIEW COMPLETED DATE/TME: 02/08/2018 06:00 CLINICAL HISTORY: Respiratory Distress. 37 years Female, resp failure COMPARISON: One day prior. NUMBER OF VIEWS/TECHNIQUE: 1/AP FINDINGS: Moderate mixed airspace and interstitial opacities. Adequate appearing endotracheal tube. Likely adequate appearing enteric tube partially obscured. Normal cardiac silhouette size. No pneumothorax. Stable bony thorax. IMPRESSION: No significant change.
[2018-02-08] MEDS: NORMAL SALINE 1000 ML 1,000 ML IV PRN ×2 (07:47→18:15)
[2018-02-08] MEDS: BUDESONIDE NEB 0.5 MG/2 ML AMPUL NEB SCH ×2 (09:12→20:03)
[2018-02-08] MEDS ORDERED: POTASSIUM CHLORIDE 20 MEQ/15 ML UDCUP PO ONE (09:30)
[2018-02-08] MEDS: AZITHROMYCIN 250 MG TABLET PO SCH (10:09)
[2018-02-08] MEDS: HEPARIN SOD (PORCINE) 5,000 UNIT/ML 1 ML SYRINGE SUBCUT SCH ×2 (10:10→21:12)
--- NOTE | 2018-02-08 10:42 | Physician Advisory Note ---
Physician Advisor ProgressNote .: Pursuant to the plan for Jose Daniels, I have reviewed the medical record for this patient. Physician Advisor Statement: Pt with underlying type asthma, came in w/gram-___ type PNA & acute asthmas exac, with prominent lactic acidosis along w/prominent tachycard ia/tachypnea, plus acute respiratory alkalosis, and developing Ac Resp Failure evidenced by labored breathing with accessory muscle use/hypoxemia despite tx. Now requiring intubation. Please consider documenting, if you agree: 1. "PNA, multifocal, suspect gram- type" 2. "Acute exac of mild/mod/sev intermittent/persistent asthma" (see below) 3. "acute lactic acidosis, suspect due to " - hypoxemia? Thanks! CK Dx of type of chronic asthma is based on worst category in which pt has at least 1 of following s/s present at baseline: A. Mild Intermittent: only needs albuterol occasionally. B. Mild Persistent: sx >2x/wk, nocturnal sx up to 4x/mo, FEV1 80+% predicted C. Mod Persistent: sx (or albuterol) daily, nocturnal sx >1x/wk, FEV1 60-80% predicted D. Severe Persistent: activities curtailed, frequent exacerbations, noct sx frequent, FEV1 <60% predicted.
--- NOTE | 2018-02-08 17:06 | PDOC PROGRESS REPORT ---
Subjective Progress Note for:: 02/08/18 Subjective:: This is a 37 year old female with a PMH of asthma, history of depression, history of intubation for bilateral pneumonia, history of manic episodes with psychotic features (?bipolar disorder) who presented with cough, SOB, wheezing and diarrhea. She was found to have multifocal pneumonia on chest CT and was admitted for this and for asthma exacerbation. Patient continued to develop respiratory distress yesterday afternoon 02/07/18 and was breathing in the 40s on BIPAP. She was moved tot he ICU and was subsequently intubated. No acute event overnight. Currently sedated and is saturating well on 50% FiO2. Minimal secretions from ET. Reason For Visit: PNEUMONIA Physical Exam Vital Signs: Temp Pulse Resp BP Pulse Ox 98.1 F 84 20 116/68 99 02/08/18 14:00 02/08/18 14:00 02/08/18 16:00 02/08/18 14:00 02/08/18 16:00 Intake & Output 02/07/18 02/08/18 02/09/18 06:59 06:59 06:59 Intake Total 2893 4579 776 Output Total 3200 530 560 Balance -307 4049 216 Weight 187 lb 13.341 oz 199 lb 4.766 oz General appearance: PRESENT: other - intubated, sedated Eye exam: PRESENT: conjunctiva pink, EOMI, PERRLA. ABSENT: scleral icterus Ear exam: PRESENT: normal external ear exam Mouth exam: PRESENT: moist, tongue midline Neck exam: ABSENT: carotid bruit, JVD, lymphadenopathy, thyromegaly Respiratory exam: PRESENT: rales - mid to base bilaterally, rhonchi. ABSENT: wheezes Cardiovascular exam: PRESENT: RRR. ABSENT: diastolic murmur, rubs, systolic murmur Pulses: PRESENT: normal dorsalis pedis pul GI/Abdominal exam: PRESENT: normal bowel sounds, soft. ABSENT: distended, guarding, mass, organolmegaly, rebound, tenderness Rectal exam: PRESENT: deferred Neurological exam: PRESENT: other - intubated, sedated Results Laboratory Results: 02/08/18 03:48 02/08/18 03:48 02/08/18 02/08/18 02/08/18 03:48 03:48 05:08 WBC 9.6 RBC 3.83 Hgb 9.4 L D Hct 28.6 L MCV 75 L MCH 24.5 L MCHC 32.8 RDW 19.4 H Plt Count 155 Seg Neutrophils % Not Reportable Lymphocytes % Not Reportable Monocytes % Not Reportable Eosinophils % Not Reportable Basophils % Not Reportable Absolute Neutrophils Not Reportable Absolute Lymphocytes Not Reportable Absolute Monocytes Not Reportable Absolute Eosinophils Not Reportable Absolute Basophils Not Reportable Carbonic Acid 1.12 HCO3/H2CO3 Ratio 20:1 ABG pH 7.41 ABG pCO2 37.1 ABG pO2 96.2 ABG HCO3 23.0 ABG O2 Saturation 97.4 ABG Base Excess -1.4 FiO2 50% Sodium 138.5 Potassium 3.2 L Chloride 107 Carbon Dioxide 23 Anion Gap 9 BUN 7 Creatinine 0.55 Est GFR ( Amer) > 60 Est GFR (Non-Af Amer) > 60 Glucose 205 H Calcium 7.3 L Phosphorus 2.0 L Magnesium 2.1 Total Bilirubin 0.5 AST 31 ALT 20 Alkaline Phosphatase 52 Total Protein 5.5 L Albumin 2.7 L 02/06/18 02/06/18 14:02 14:02 Creatine Kinase 427 H CK-MB (CK-2) 1.42 Troponin I < 0.012 Impressions: Chest/Abdomen CTA 02/06/18 15:16 IMPRESSION: 1. NORMAL CTA OF THE CHEST. NO PULMONARY EMBOLI. 2. SMALL PLEURAL EFFUSIONS. EXTENSIVE GROUND-GLASS OPACITIES SCATTERED THROUGHOUT BOTH LUNGS MOST LIKELY DUE TO MULTIFOCAL PNEUMONIA. OTHER ACUTE INFLAMMATORY ETIOLOGIES/PNEUMONITIS MAY ALSO BE POSSIBLE. Chest X-Ray 02/08/18 06:00 IMPRESSION: No significant change. Assessment & Plan - Diagnosis (1) Acute respiratory failure with hypoxia Is this a current diagnosis for this admission?: Yes Plan: Secondary to bilateral, multifocal pneumonia. Currently intubated and is saturating well on 50% FiO2. (2) Pneumonia Is this a current diagnosis for this admission?: Yes Plan: Chest CT shows multifocal pneumonia. She does have recent sick contacts at home. Suspecting gram+ and gram- bacteria. Continue broad spectrum antibiotics. Await final results of sputum culture. Currently intubated and is saturating well on 50% FiO2. (3) Asthma exacerbation Is this a current diagnosis for this admission?: Yes Plan: Continue steroids and breathing treatments. (4) Acute diarrhea Is this a current diagnosis for this admission?: Yes Plan: No recurrence of diarrhea since admission. (5) Hypokalemia Is this a current diagnosis for this admission?: Yes Plan: Likely from her diarrhea and vomiting. Resolved. (6) Hyponatremia Is this a current diagnosis for this admission?: Yes Plan: Likely related to dehydration. Resolved. (7) Lactic acidosis Is this a current diagnosis for this admission?: Yes Plan: Resolved. - Time Time Spent with patient: 15-24 minutes
[2018-02-08 18:07] LABS: ANION GAP 5 (5-19); BLOOD UREA NITROGEN 6 mg/dL (7-20); CALCIUM 7.3 mg/dL (8.4-10.2); CARBON DIOXIDE 24 mmol/L (22-30); CHLORIDE 110 mmol/L (98-107); GLUCOSE 156 mg/dL (75-110); POTASSIUM 3.5 mmol/L (3.6-5.0)
[2018-02-09] MEDS: IPRATROPIUM/ALBUTEROL 0.5-2.5 MG/3 ML AMPUL NEB SCH ×4 (01:13→20:55)
[2018-02-09] MEDS: MIDAZOLAM HCL 50 MG/100 ML RTUINJ IV PRN ×4 (02:51→20:50)
[2018-02-09] MEDS: VANCOMYCIN HCL 1,250 MG in DEXTROSE 5%-WATER 250 ML IV SCH ×3 (02:56→17:26)
[2018-02-09] MEDS: PROPOFOL 1,000 MG/100 ML INFUS..BTL IV PRN ×6 (03:52→22:19)
[2018-02-09] MEDS: PIPERACILLIN SODIUM/TAZOBACTAM 3.375 GM in NORMAL SALINE 100 ML IV SCH ×4 (03:52→19:59)
[2018-02-09] MEDS: METHYLPREDNISOLONE INJ 40 MG/1 ML SDV IV SCH ×4 (06:04→23:06)
--- NOTE | 2018-02-09 06:32 | RADIOLOGY REPORT (SQ) ---
EXAM DESCRIPTION: XR CHEST 2 VIEWS COMPLETED DATE/TME: 02/09/2018 06:00 CLINICAL HISTORY: 37 years Female, PNA, resp failure COMPARISON: One day prior. NUMBER OF VIEWS/TECHNIQUE: 2, PA/Lateral FINDINGS: Moderate mixed airspace and interstitial opacities. Adequate appearing endotracheal tube. Likely adequate appearing enteric tube partially obscured. Normal cardiac silhouette size. No pneumothorax. Stable bony thorax. IMPRESSION: No significant change.
[2018-02-09 06:42] LABS: ARTERIAL BLOOD BASE EXCESS 1.8 mmol/L; ARTERIAL BLOOD HCO3 25.5 mmol/L (20-24); ARTERIAL BLOOD PCO2 36.4 mmHg (35-45); ARTERIAL BLOOD PH 7.46 (7.35-7.45); ARTERIAL BLOOD PO2 146.6 mmHg (80-100); ARTERIAL BLOOD TOTAL CO2 26.6 mmol/L (21-25)
[2018-02-09 06:43] LABS: ARTERIAL BLOOD FIO2 50%
[2018-02-09] MEDS: NORMAL SALINE 1000 ML 1,000 ML IV PRN (09:09)
[2018-02-09] MEDS: BUDESONIDE NEB 0.5 MG/2 ML AMPUL NEB SCH ×2 (09:15→20:55)
[2018-02-09 09:41] LABS: HEMATOCRIT 27.5 % (36.0-47.0); MEAN CORPUSCULAR HEMOGLOBIN 24.4 pg (27.0-33.4); MEAN CORPUSCULAR HGB CONC 32.7 g/dL (32.0-36.0); MEAN CORPUSCULAR VOLUME 75 fl (80-97); PLATELET COUNT 184 10^3/uL (150-450); RED BLOOD COUNT 3.68 10^6/uL (3.72-5.28); RED CELL DISTRIBUTION WIDTH 20.2 % (11.5-14.0)
[2018-02-09] MEDS: AZITHROMYCIN 250 MG TABLET PO SCH (09:41)
[2018-02-09] MEDS: HEPARIN SOD (PORCINE) 5,000 UNIT/ML 1 ML SYRINGE SUBCUT SCH ×2 (10:05→20:54)
[2018-02-09 10:27] LABS: ABSOLUTE LYMPHOCYTES# (MANUAL) 0.2 10^3/uL (0.5-4.7); ABSOLUTE MONOCYTES # (MANUAL) 0.2 10^3/uL (0.1-1.4); ABSOLUTE NEUTROPHILS# (MANUAL) 7.6 10^3/uL (1.7-8.2); ANISOCYTOSIS 2+; BASOPHILS % (MANUAL) 0 % (0-2); EOSINOPHILS % (MANUAL) 0 % (0-6); HYPERSEGMENTED NEUTROPHILS PRESENT; LYMPHOCYTES % (MANUAL) 3 % (13-45); MONOCYTES % (MANUAL) 2 % (3-13); OVALOCYTES SLIGHT; POIKILOCYTOSIS SLIGHT; ROULEAUX SLIGHT; SEGMENTED NEUTROPHILS % (MAN) 95 % (42-78); TOTAL CELLS COUNTED 100
[2018-02-09 10:28] LABS: PLATELET COMMENT ADEQUATE
[2018-02-09 10:30] LABS: BLOOD UREA NITROGEN 9 mg/dL (7-20); CALCIUM 7.6 mg/dL (8.4-10.2); GLUCOSE 140 mg/dL (75-110); POTASSIUM 3.6 mmol/L (3.6-5.0)
[2018-02-09 10:36] LABS: ANION GAP 7 (5-19); CARBON DIOXIDE 25 mmol/L (22-30); CHLORIDE 109 mmol/L (98-107); SODIUM 140.7 mmol/L (137-145)
--- NOTE | 2018-02-09 12:49 | PDOC PROGRESS REPORT ---
Subjective Progress Note for:: 02/09/18 Subjective:: Intubated and sedated Reason For Visit: PNEUMONIA Physical Exam Vital Signs: Temp Pulse Resp BP Pulse Ox 98.6 F 76 18 127/77 H 100 02/09/18 07:51 02/09/18 10:00 02/09/18 09:15 02/09/18 07:51 02/09/18 12:14 Intake & Output 02/08/18 02/09/18 02/10/18 06:59 06:59 06:59 Intake Total 4579 3036 1668 Output Total 530 1275 360 Balance 4049 1761 1308 Weight 90.4 kg 93.3 kg General appearance: PRESENT: no acute distress, disheveled, obese. ABSENT: cooperative Head exam: PRESENT: atraumatic, normocephalic Eye exam: PRESENT: conjunctiva pale Mouth exam: PRESENT: dry mucosa, neck supple, tongue midline, other - ET tube Neck exam: ABSENT: carotid bruit, JVD, lymphadenopathy, thyromegaly, tracheal deviation, tracheostomy Respiratory exam: PRESENT: rales, rhonchi, unlabored, wheezes. ABSENT: decreased breath sounds, prolonged expiratory phas, retraction, stridor Cardiovascular exam: PRESENT: RRR, +S1, +S2 Pulses: PRESENT: normal radial pulses - [id number] GI/Abdominal exam: PRESENT: soft. ABSENT: tenderness Extremities exam: ABSENT: calf tenderness, clubbing - [id number], joint swe lling, pedal edema Neurological exam: ABSENT: awake - [id number] Skin exam: PRESENT: dry, warm Results Laboratory Results: 02/09/18 09:00 02/09/18 09:00 02/08/18 02/08/18 02/09/18 17:46 17:46 06:30 WBC RBC Hgb Hct MCV MCH MCHC RDW Plt Count Seg Neutrophils % Lymphocytes % Monocytes % Eosinophils % Basophils % Absolute Neutrophils Absolute Lymphocytes Absolute Monocytes Absolute Eosinophils Absolute Basophils Carbonic Acid 1.10 HCO3/H2CO3 Ratio 23:1 ABG pH 7.46 H ABG pCO2 36.4 ABG pO2 146.6 H ABG HCO3 25.5 H ABG O2 Saturation 99.0 H ABG Base Excess 1.8 FiO2 50% Sodium 139.0 Potassium 3.5 L Chloride 110 H Carbon Dioxide 24 Anion Gap 5 BUN 6 L Creatinine 0.51 L 0.51 L Est GFR ( Amer) > 60 > 60 Est GFR (Non-Af Amer) > 60 > 60 Glucose 156 H Calcium 7.3 L 02/09/18 02/09/18 09:00 09:00 WBC 8.0 RBC 3.68 L Hgb 9.0 L Hct 27.5 L MCV 75 L MCH 24.4 L MCHC 32.7 RDW 20.2 H Plt Count 184 Seg Neutrophils % Not Reportable Lymphocytes % Not Reportable Monocytes % Not Reportable Eosinophils % Not Reportable Basophils % Not Reportable Absolute Neutrophils Not Reportable Absolute Lymphocytes Not Reportable Absolute Monocytes Not Reportable Absolute Eosinophils Not Reportable Absolute Basophils Not Reportable Carbonic Acid HCO3/H2CO3 Ratio ABG pH ABG pCO2 ABG pO2 ABG HCO3 ABG O2 Saturation ABG Base Excess FiO2 Sodium 140.7 Potassium 3.6 Chloride 109 H Carbon Dioxide 25 Anion Gap 7 BUN 9 Creatinine 0.58 Est GFR ( Amer) > 60 Est GFR (Non-Af Amer) > 60 Glucose 140 H Calcium 7.6 L 02/06/18 23:30 Sputum Gram Stain - Final 02/06/18 23:30 Sputum Sputum Culture - Final NORMAL STACY 02/07/18 17:10 Izaguirre Catheter Urine Culture - Final NO GROWTH 2 DAYS 02/07/18 16:00 Tracheal Aspirate Gram Stain - Final 02/07/18 16:00 Tracheal Aspirate Sputum Culture - Final GREATLY REDUCED NORMAL STACY 02/06/18 02/06/18 14:02 14:02 Creatine Kinase 427 H CK-MB (CK-2) 1.42 Troponin I < 0.012 Impressions: Chest/Abdomen CTA 02/06/18 15:16 IMPRESSION: 1. NORMAL CTA OF THE CHEST. NO PULMONARY EMBOLI. 2. SMALL PLEURAL EFFUSIONS. EXTENSIVE GROUND-GLASS OPACITIES SCATTERED THROUGHOUT BOTH LUNGS MOST LIKELY DUE TO MULTIFOCAL PNEUMONIA. OTHER ACUTE INFLAMMATORY ETIOLOGIES/PNEUMONITIS MAY ALSO BE POSSIBLE. Chest X-Ray 02/09/18 06:00 IMPRESSION: No significant change. Assessment & Plan - Diagnosis (1) Acute respiratory failure with hypoxia Is this a current diagnosis for this admission?: Yes (2) Lactic acidosis Is this a current diagnosis for this admission?: Yes (3) Asthma exacerbation Is this a current diagnosis for this admission?: Yes (4) Pneumonia Is this a current diagnosis for this admission?: Yes - Time Total Critical Time (Minutes): 55 - Plan Summary Plan Summary: pao2/fio2 = 147/.5 = 294
--- NOTE | 2018-02-09 17:17 | PDOC PROGRESS REPORT ---
Subjective Progress Note for:: 02/09/18 Subjective:: This is a 37 year old female with a PMH of asthma, history of depression, history of intubation for bilateral pneumonia, history of manic episodes with psychotic features (?bipolar disorder) who presented with cough, SOB, wheezing and diarrhea. She was found to have multifocal pneumonia on chest CT and was admitted for this and for asthma exacerbation. Patient continued to develop respiratory distress on 02/07/18 and was breathing in the 40s on BIPAP. She was moved tot he ICU and was subsequently intubated. No acute event overnight. Currently sedated and is saturating well on minimal vent settings. She is having moderate zaragoza thick secretions from the ET. No f ever. Reason For Visit: PNEUMONIA Physical Exam Vital Signs: Temp Pulse Resp BP Pulse Ox 98.6 F 78 18 127/77 H 99 02/09/18 07:51 02/09/18 14:12 02/09/18 14:12 02/09/18 07:51 02/09/18 14:12 Intake & Output 02/08/18 02/09/18 02/10/18 06:59 06:59 06:59 Intake Total 4579 3036 1894 Output Total 530 1275 610 Balance 4049 1761 1284 Weight 199 lb 4.766 oz 205 lb 11.06 oz General appearance: PRESENT: other - intubated, sedated Head exam: PRESENT: atraumatic, normocephalic Eye exam: PRESENT: conjunctiva pink, EOMI, PERRLA. ABSENT: scleral icterus Ear exam: PRESENT: normal external ear exam Mouth exam: PRESENT: moist, tongue midline Neck exam: ABSENT: carotid bruit, JVD, lymphadenopathy, thyromegaly Respiratory exam: PRESENT: rhonchi. ABSENT: rales, wheezes Cardiovascular exam: PRESENT: RRR. ABSENT: diastolic murmur, rubs, systolic murmur Pulses: PRESENT: normal dorsalis pedis pul GI/Abdominal exam: PRESENT: normal bowel sounds, soft. ABSENT: distended, guarding, mass, organolmegaly, rebound, tenderness Rectal exam: PRESENT: deferred Neurological exam: PRESENT: other - intubated, sedated Results Laboratory Results: 02/09/18 09:00 02/09/18 09:00 02/08/18 02/08/18 02/09/18 17:46 17:46 06:30 WBC RBC Hgb Hct MCV MCH MCHC RDW Plt Count Seg Neutrophils % Lymphocytes % Monocytes % Eosinophils % Basophils % Absolute Neutrophils Absolute Lymphocytes Absolute Monocytes Absolute Eosinophils Absolute Basophils Carbonic Acid 1.10 HCO3/H2CO3 Ratio 23:1 ABG pH 7.46 H ABG pCO2 36.4 ABG pO2 146.6 H ABG HCO3 25.5 H ABG O2 Saturation 99.0 H ABG Base Excess 1.8 FiO2 50% Sodium 139.0 Potassium 3.5 L Chloride 110 H Carbon Dioxide 24 Anion Gap 5 BUN 6 L Creatinine 0.51 L 0.51 L Est GFR ( Amer) > 60 > 60 Est GFR (Non-Af Amer) > 60 > 60 Glucose 156 H Calcium 7.3 L 02/09/18 02/09/18 09:00 09:00 WBC 8.0 RBC 3.68 L Hgb 9.0 L Hct 27.5 L MCV 75 L MCH 24.4 L MCHC 32.7 RDW 20.2 H Plt Count 184 Seg Neutrophils % Not Reportable Lymphocytes % Not Reportable Monocytes % Not Reportable Eosinophils % Not Reportable Basophils % Not Reportable Absolute Neutrophils Not Reportable Absolute Lymphocytes Not Reportable Absolute Monocytes Not Reportable Absolute Eosinophils Not Reportable Absolute Basophils Not Reportable Carbonic Acid HCO3/H2CO3 Ratio ABG pH ABG pCO2 ABG pO2 ABG HCO3 ABG O2 Saturation ABG Base Excess FiO2 Sodium 140.7 Potassium 3.6 Chloride 109 H Carbon Dioxide 25 Anion Gap 7 BUN 9 Creatinine 0.58 Est GFR ( Amer) > 60 Est GFR (Non-Af Amer) > 60 Glucose 140 H Calcium 7.6 L 02/06/18 23:30 Sputum Gram Stain - Final 02/06/18 23:30 Sputum Sputum Culture - Final NORMAL STACY 02/07/18 17:10 Izaguirre Catheter Urine Culture - Final NO GROWTH 2 DAYS 02/07/18 16:00 Tracheal Aspirate Gram Stain - Final 02/07/18 16:00 Tracheal Aspirate Sputum Culture - Final GREATLY REDUCED NORMAL STACY 02/06/18 02/06/18 14:02 14:02 Creatine Kinase 427 H CK-MB (CK-2) 1.42 Troponin I < 0.012 Impressions: Chest/Abdomen CTA 02/06/18 15:16 IMPRESSION: 1. NORMAL CTA OF THE CHEST. NO PULMONARY EMBOLI. 2. SMALL PLEURAL EFFUSIONS. EXTENSIVE GROUND-GLASS OPACITIES SCATTERED TH ROUGHOUT BOTH LUNGS MOST LIKELY DUE TO MULTIFOCAL PNEUMONIA. OTHER ACUTE INFLAMMATORY ETIOLOGIES/PNEUMONITIS MAY ALSO BE POSSIBLE. Chest X-Ray 02/09/18 06:00 IMPRESSION: No significant change. Assessment & Plan - Diagnosis (1) Acute respiratory failure with hypoxia Is this a current diagnosis for this admission?: Yes Plan: Secondary to bilateral, multifocal pneumonia. Currently intubated and is saturating well on minimal vent settings. (2) Pneumonia Is this a current diagnosis for this admission?: Yes Plan: Chest CT shows multifocal pneumonia. She does have recent sick contacts at home. Suspecting gram+ and gram- bacteria. Continue broad spectrum antibiotics. Await final results of sputum culture. Currently intubated and is saturating well on 50% FiO2. (3) Asthma exacerbation Is this a current diagnosis for this admission?: Yes Plan: Continue steroids and breathing treatments. (4) Acute diarrhea Is this a current diagnosis for this admission?: Yes Plan: No recurrence of diarrhea since admission. (5) Hypokalemia Is this a current diagnosis for this admission?: Yes Plan: Likely from her diarrhea and vomiting. Resolved. (6) Hyponatremia Is this a current diagnosis for this admission?: Yes Plan: Likely related to dehydration. Resolved. (7) Lactic acidosis Is this a current diagnosis for this admission?: Yes Plan: Resolved. - Time Time Spent with patient: 15-24 minutes
[2018-02-10] MEDS: VANCOMYCIN HCL 1,250 MG in DEXTROSE 5%-WATER 250 ML IV SCH ×3 (00:59→17:30)
[2018-02-10] MEDS: PROPOFOL 1,000 MG/100 ML INFUS..BTL IV PRN ×6 (01:04→21:06)
[2018-02-10] MEDS: MIDAZOLAM HCL 50 MG/100 ML RTUINJ IV PRN ×4 (02:08→22:51)
[2018-02-10] MEDS: PIPERACILLIN SODIUM/TAZOBACTAM 3.375 GM in NORMAL SALINE 100 ML IV SCH ×4 (02:53→20:59)
[2018-02-10] MEDS: NORMAL SALINE 1000 ML 1,000 ML IV PRN ×2 (02:55→17:31)
[2018-02-10] MEDS: IPRATROPIUM/ALBUTEROL 0.5-2.5 MG/3 ML AMPUL NEB SCH ×4 (03:41→20:44)
[2018-02-10 04:14] LABS: ABSOLUTE LYMPHOCYTES (AUTO) 0.6 10^3/uL (0.5-4.7); ABSOLUTE MONOCYTES (AUTO) 0.3 10^3/uL (0.1-1.4); ABSOLUTE NEUT (AUTO) 5.1 10^3/uL (1.7-8.2); BASOPHILS % (AUTO) 0.1 % (0-2); HEMATOCRIT 27.5 % (36.0-47.0); HEMOGLOBIN 9.2 g/dL (12.0-15.5); LYMPHOCYTES % (AUTO) 9.7 % (13-45); MEAN CORPUSCULAR HEMOGLOBIN 24.8 pg (27.0-33.4); MEAN CORPUSCULAR HGB CONC 33.3 g/dL (32.0-36.0); MEAN CORPUSCULAR VOLUME 75 fl (80-97); MONOCYTES % (AUTO) 5.1 % (3-13); PLATELET COUNT 199 10^3/uL (150-450); RED BLOOD COUNT 3.69 10^6/uL (3.72-5.28); RED CELL DISTRIBUTION WIDTH 19.6 % (11.5-14.0); SEGMENTED NEUTROPHILS % (AUTO) 85.1 % (42-78); TOTAL CELLS COUNTED % (AUTO) 100 %
[2018-02-10 04:26] LABS: ARTERIAL BLOOD BASE EXCESS 2.3 mmol/L; ARTERIAL BLOOD H2CO3 1.03 mmol/L (1.05-1.35); ARTERIAL BLOOD HCO3 25.6 mmol/L (20-24); ARTERIAL BLOOD O2 SATURATION 99.1 % (94-98); ARTERIAL BLOOD PCO2 34.3 mmHg (35-45); ARTERIAL BLOOD PH 7.49 (7.35-7.45); ARTERIAL BLOOD TOTAL CO2 26.6 mmol/L (21-25)
[2018-02-10 04:29] LABS: ARTERIAL BLOOD FIO2 50%
[2018-02-10 04:40] LABS: ALANINE AMINOTRANSFERASE 31 U/L (9-52); ALBUMIN 2.6 g/dL (3.5-5.0); ALKALINE PHOSPHATASE 49 U/L (38-126); ANION GAP 7 (5-19); ASPARTATE AMINO TRANSFERASE 22 U/L (14-36); BILIRUBIN,DIRECT 0.3 mg/dL (0.0-0.4); BILIRUBIN,TOTAL 0.3 mg/dL (0.2-1.3); BLOOD UREA NITROGEN 11 mg/dL (7-20); CALCIUM 7.7 mg/dL (8.4-10.2); CARBON DIOXIDE 26 mmol/L (22-30); CHLORIDE 107 mmol/L (98-107); GLUCOSE 174 mg/dL (75-110); POTASSIUM 3.6 mmol/L (3.6-5.0); SODIUM 140.3 mmol/L (137-145); TOTAL PROTEIN 5.1 g/dL (6.3-8.2)
[2018-02-10] MEDS: METHYLPREDNISOLONE INJ 40 MG/1 ML SDV IV SCH ×4 (05:08→23:16)
--- NOTE | 2018-02-10 08:27 | RADIOLOGY REPORT (SQ) ---
EXAM DESCRIPTION: CHEST SINGLE VIEW COMPLETED DATE/TIME: 02/10/2018 7:15 am REASON FOR STUDY: pna COMPARISON: 02/09/2018 FINDINGS: Single-view chest AP portable upright at approximately 0701 hours. Appropriate endotracheal and nasogastric tubes, stable. Patchy areas of volume loss and airspace disease remain but are improved. No pneumothorax. TECHNICAL DOCUMENTATION: JOB ID: [id number] Reading location - IP/workstation name: [email or web address]
[2018-02-10] MEDS: BUDESONIDE NEB 0.5 MG/2 ML AMPUL NEB SCH ×2 (08:57→20:44)
[2018-02-10] MEDS: RISPERIDONE 1 MG TABLET PO SCH ×2 (09:38→21:00)
[2018-02-10] MEDS: AZITHROMYCIN 250 MG TABLET PO SCH (09:38)
[2018-02-10] MEDS: HEPARIN SOD (PORCINE) 5,000 UNIT/ML 1 ML SYRINGE SUBCUT SCH ×2 (09:39→21:00)
--- NOTE | 2018-02-10 19:20 | PDOC PROGRESS REPORT ---
Subjective Progress Note for:: 02/10/18 Subjective:: This is a 37 year old female with a PMH of asthma, history of depression, history of intubation for bilateral pneumonia, history of manic episodes with psychotic features (?bipolar disorder) who presented with cough, SOB, wheezing and diarrhea. She was found to have multifocal pneumonia on chest CT and was admitted for this and for asthma exacerbation. Patient continued to develop respiratory distress on 02/07/18 and was breathing in the 40s on BIPAP. She was moved tot he ICU and was subsequently intubated. No acute event overnight. Currently sedated and is saturating well on minimal vent settings and is now down to 30% FiO2. She is having moderate zaragoza thick secretions from the ET. No fever. Reason For Visit: PNEUMONIA Physical Exam Vital Signs: Temp Pulse Resp BP Pulse Ox 98.6 F 81 14 127/72 H 96 02/10/18 15:00 02/10/18 14:00 02/10/18 15:00 02/10/18 14:52 02/10/18 16:19 Intake & Output 02/09/18 02/10/18 02/11/18 06:59 06:59 06:59 Intake Total 3036 4240 782 Output Total 1275 1485 505 Balance 1761 2755 277 Weight 205 lb 11.06 oz 210 lb 5.136 oz General appearance: PRESENT: other - Intubated, sedated Head exam: PRESENT: atraumatic, normocephalic Eye exam: PRESENT: conjunctiva pink, EOMI, PERRLA. ABSENT: scleral icterus Ear exam: PRESENT: normal external ear exam Mouth exam: PRESENT: moist, tongue midline Neck exam: ABSENT: carotid bruit, JVD, lymphadenopathy, thyromegaly Respiratory exam: PRESENT: rales - Improved from yesterday, rhonchi. ABSENT: wheezes Cardiovascular exam: PRESENT: RRR. ABSENT: diastolic murmur, rubs, systolic murmur Pulses: PRESENT: normal dorsalis pedis pul GI/Abdominal exam: PRESENT: normal bowel sounds, soft. ABSENT: distended, guarding, mass, organolmegaly, rebound, tenderness Rectal exam: PRESENT: deferred Neurological exam: PRESENT: alert, awake, oriented to person, oriented to place, oriented to time, oriented to situation, CN II-XII grossly intact. ABSENT: motor sensory deficit Results Laboratory Results: 02/10/18 03:54 02/10/18 03:54 02/10/18 02/10/18 02/10/18 03:54 03:54 04:10 WBC 6.0 RBC 3.69 L Hgb 9.2 L Hct 27.5 L MCV 75 L MCH 24.8 L MCHC 33.3 RDW 19.6 H Plt Count 199 Seg Neutrophils % 85.1 H Lymphocytes % 9.7 L Monocytes % 5.1 Eosinophils % 0.0 Basophils % 0.1 Absolute Neutrophils 5.1 Absolute Lymphocytes 0.6 Absolute Monocytes 0.3 Absolute Eosinophils 0.0 Absolute Basophils 0.0 Carbonic Acid 1.03 L HCO3/H2CO3 Ratio 24:1 ABG pH 7.49 H ABG pCO2 34.3 L ABG pO2 150.0 H ABG HCO3 25.6 H ABG O2 Saturation 99.1 H ABG Base Excess 2.3 FiO2 50% Sodium 140.3 Potassium 3.6 Chloride 107 Carbon Dioxide 26 Anion Gap 7 BUN 11 Creatinine 0.63 Est GFR ( Amer) > 60 Est GFR (Non-Af Amer) > 60 Glucose 174 H Calcium 7.7 L Magnesium 2.7 H Total Bilirubin 0.3 AST 22 ALT 31 Alkaline Phosphatase 49 Total Protein 5.1 L Albumin 2.6 L 02/06/18 02/06/18 14:02 14:02 Creatine Kinase 427 H CK-MB (CK-2) 1.42 Troponin I < 0.012 Impressions: Chest/Abdomen CTA 02/06/18 15:16 IMPRESSION: 1. NORMAL CTA OF THE CHEST. NO PULMONARY EMBOLI. 2. SMALL PLEURAL EFFUSIONS. EXTENSIVE GROUND-GLASS OPACITIES SCATTERED THROUGHOUT BOTH LUNGS MOST LIKELY DUE TO MULTIFOCAL PNEUMONIA. OTHER ACUTE INFLAMMATORY ETIOLOGIES/PNEUMONITIS MAY ALSO BE POSSIBLE. Assessment & Plan - Diagnosis (1) Acute respiratory failure with hypoxia Is this a current diagnosis for this admission?: Yes Plan: Secondary to bilateral, multifocal pneumonia. Currently intubated and is saturating well on minimal vent settings. She is now down to 30% FiO2. (2) Pneumonia Is this a current diagnosis for this admission?: Yes Plan: Chest CT shows multifocal pneumonia. She does have recent sick contacts at home. Suspecting gram+ and gram- bacteria. Continue broad spectrum antibiotics. Await final results of sputum culture. Currently intubated and is saturating well on 30% FiO2. Chest x-ray today shows improvement. We will try to start weaning trials tomorrow. (3) Asthma exacerbation Is this a current diagnosis for this admission?: Yes Plan: Continue steroids and breathing treatments. (4) Acute diarrhea Is this a current diagnosis for this admission?: Yes Plan: No recurrence of diarrhea since admission. (5) Hypokalemia Is this a current diagnosis for this admission?: Yes Plan: Likely from her diarrhea and vomiting. Resolved. (6) Hyponatremia Is this a current diagnosis for this admission?: Yes Plan: Likely related to dehydration. Resolved. (7) Lactic acidosis Is this a current diagnosis for this admission?: Yes Plan: Resolved. - Time Time Spent with patient: 25-34 minutes
[2018-02-11] MEDS: VANCOMYCIN HCL 1,250 MG in DEXTROSE 5%-WATER 250 ML IV SCH ×3 (02:00→17:43)
[2018-02-11] MEDS: IPRATROPIUM/ALBUTEROL 0.5-2.5 MG/3 ML AMPUL NEB SCH ×4 (02:15→20:42)
[2018-02-11] MEDS: PROPOFOL 1,000 MG/100 ML INFUS..BTL IV PRN ×5 (02:50→19:53)
[2018-02-11] MEDS: PIPERACILLIN SODIUM/TAZOBACTAM 3.375 GM in NORMAL SALINE 100 ML IV SCH ×4 (03:28→19:59)
[2018-02-11 04:22] LABS: ARTERIAL BLOOD BASE EXCESS 3.9 mmol/L; ARTERIAL BLOOD H2CO3 1.13 mmol/L (1.05-1.35); ARTERIAL BLOOD HCO3 27.6 mmol/L (20-24); ARTERIAL BLOOD O2 SATURATION 96.9 % (94-98); ARTERIAL BLOOD PCO2 37.6 mmHg (35-45); ARTERIAL BLOOD PH 7.48 (7.35-7.45); ARTERIAL BLOOD PO2 82.9 mmHg (80-100); ARTERIAL BLOOD TOTAL CO2 28.7 mmol/L (21-25)
[2018-02-11 04:24] LABS: ARTERIAL BLOOD FIO2 30%
[2018-02-11 04:26] LABS: HEMATOCRIT 26.7 % (36.0-47.0); HEMOGLOBIN 8.8 g/dL (12.0-15.5); MEAN CORPUSCULAR HEMOGLOBIN 24.6 pg (27.0-33.4); MEAN CORPUSCULAR VOLUME 75 fl (80-97); PLATELET COUNT 246 10^3/uL (150-450); RED BLOOD COUNT 3.58 10^6/uL (3.72-5.28); RED CELL DISTRIBUTION WIDTH 19.3 % (11.5-14.0); WHITE BLOOD COUNT 5.1 10^3/uL (4.0-10.5)
[2018-02-11 04:57] LABS: ABSOLUTE LYMPHOCYTES# (MANUAL) 0.7 10^3/uL (0.5-4.7); ABSOLUTE MONOCYTES # (MANUAL) 0.5 10^3/uL (0.1-1.4); ALANINE AMINOTRANSFERASE 29 U/L (9-52); ALBUMIN 2.6 g/dL (3.5-5.0); ALKALINE PHOSPHATASE 39 U/L (38-126); ASPARTATE AMINO TRANSFERASE 15 U/L (14-36); BASOPHILS % (MANUAL) 0 % (0-2); BILIRUBIN,DIRECT 0.3 mg/dL (0.0-0.4); BILIRUBIN,TOTAL 0.4 mg/dL (0.2-1.3); BLOOD UREA NITROGEN 15 mg/dL (7-20); CALCIUM 7.6 mg/dL (8.4-10.2); EOSINOPHILS % (MANUAL) 0 % (0-6); GLUCOSE 178 mg/dL (75-110); LYMPHOCYTES % (MANUAL) 13 % (13-45); MONOCYTES % (MANUAL) 9 % (3-13); POTASSIUM 4.1 mmol/L (3.6-5.0); SEGMENTED NEUTROPHILS % (MAN) 78 % (42-78); TOTAL CELLS COUNTED 100
[2018-02-11 04:58] LABS: ANISOCYTOSIS 1+; PLATELET COMMENT ADEQUATE; POLYCHROMASIA 1+
[2018-02-11 05:02] LABS: CARBON DIOXIDE 28 mmol/L (22-30); CHLORIDE 107 mmol/L (98-107); SODIUM 138.6 mmol/L (137-145)
[2018-02-11 05:03] LABS: ANION GAP 4 (5-19)
[2018-02-11] MEDS: METHYLPREDNISOLONE INJ 40 MG/1 ML SDV IV SCH ×3 (05:10→21:26)
--- NOTE | 2018-02-11 06:50 | RADIOLOGY REPORT (SQ) ---
EXAM DESCRIPTION: XR CHEST 1 VIEW COMPLETED DATE/TME: 02/11/2018 06:00 CLINICAL HISTORY: 37 years Female, pna COMPARISON: One day prior. NUMBER OF VIEWS/TECHNIQUE: 1/AP FINDINGS: Moderate mixed airspace and interstitial opacities. Adequate appearing endotracheal tube. Likely adequate appearing enteric tube partially obscured. Normal cardiac silhouette size. No pneumothorax. Stable bony thorax. IMPRESSION: No significant change.
[2018-02-11] MEDS: MIDAZOLAM HCL 50 MG/100 ML RTUINJ IV PRN ×2 (08:48→18:45)
[2018-02-11] MEDS: BUDESONIDE NEB 0.5 MG/2 ML AMPUL NEB SCH ×2 (09:07→20:42)
[2018-02-11] MEDS: HEPARIN SOD (PORCINE) 5,000 UNIT/ML 1 ML SYRINGE SUBCUT SCH (09:18)
[2018-02-11] MEDS: AZITHROMYCIN 250 MG TABLET PO SCH (09:44)
[2018-02-11] MEDS: RISPERIDONE 1 MG TABLET PO SCH (09:52)
[2018-02-11] MEDS: FUROSEMIDE INJ/PF 40 MG/4 ML SDV IV SCH (10:25)
[2018-02-11] MEDS: PANTOPRAZOLE SODIUM 40 MG VIAL IV SCH ×2 (10:50→21:26)
[2018-02-11] MEDS: NORMAL SALINE 1000 ML 1,000 ML IV PRN (13:05)
--- NOTE | 2018-02-11 17:45 | PDOC PROGRESS REPORT ---
Subjective Progress Note for:: 02/11/18 Subjective:: This is a 37 year old female with a PMH of asthma, history of depression, history of intubation for bilateral pneumonia, history of manic episodes with psychotic features (?bipolar disorder) who presented with cough, SOB, wheezing and diarrhea. She was found to have multifocal pneumonia on chest CT and was admitted for this and for asthma exacerbation. Patient continued to develop respiratory distress on 02/07/18 and was breathing in the 40s on BIPAP. She was moved tot he ICU and was subsequently intubated. Per RN, patient had some minimal coffee ground output from the OG this morning. SQ heparin held and IV Protonix started. Currently sedated and is saturating well on minimal vent settings and is down to 30% FiO2. Secretions from the ET continue has improved and has been minimal overnight. No fever. Reason For Visit: PNEUMONIA Physical Exam Vital Signs: Temp Pulse Resp BP Pulse Ox 99.0 F 73 16 134/83 H 98 02/11/18 16:00 02/11/18 16:00 02/11/18 16:00 02/11/18 16:00 02/11/18 16:17 Intake & Output 02/10/18 02/11/18 02/12/18 06:59 06:59 06:59 Intake Total 4240 3566 735 Output Total 1485 1245 3215 Balance 2755 2321 -2480 Weight 210 lb 5.136 oz 210 lb 5.136 oz 212 lb 4.882 oz General appearance: PRESENT: other - intubated, sedated Eye exam: PRESENT: conjunctiva pink, EOMI, PERRLA. ABSENT: scleral icterus Ear exam: PRESENT: normal external ear exam Neck exam: ABSENT: carotid bruit, JVD, lymphadenopathy, thyromegaly Respiratory exam: PRESENT: rales - on the bases, rhonchi. ABSENT: wheezes Cardiovascular exam: PRESENT: RRR. ABSENT: diastolic murmur, rubs, systolic murmur Pulses: PRESENT: normal dorsalis pedis pul GI/Abdominal exam: PRESENT: normal bowel sounds, soft. ABSENT: distended, guarding, mass, organolmegaly, rebound, tenderness Rectal exam: PRESENT: deferred Neurological exam: PRESENT: other - intubated, sedated Results Laboratory Results: 02/11/18 04:08 02/11/18 04:08 02/11/18 02/11/18 02/11/18 04:02 04:08 04:08 WBC 5.1 RBC 3.58 L Hgb 8.8 L Hct 26.7 L MCV 75 L MCH 24.6 L MCHC 33.0 RDW 19.3 H Plt Count 246 Seg Neutrophils % Not Reportable Lymphocytes % Not Reportable Monocytes % Not Reportable Eosinophils % Not Reportable Basophils % Not Reportable Absolute Neutrophils Not Reportable Absolute Lymphocytes Not Reportable Absolute Monocytes Not Reportable Absolute Eosinophils Not Reportable Absolute Basophils Not Reportable Carbonic Acid 1.13 HCO3/H2CO3 Ratio 24:1 ABG pH 7.48 H ABG pCO2 37.6 ABG pO2 82.9 ABG HCO3 27.6 H ABG O2 Saturation 96.9 ABG Base Excess 3.9 FiO2 30% Sodium 138.6 Potassium 4.1 Chloride 107 Carbon Dioxide 28 Anion Gap 4 L BUN 15 Creatinine 0.62 Est GFR ( Amer) > 60 Est GFR (Non-Af Amer) > 60 Glucose 178 H Calcium 7.6 L Magnesium 2.9 H Total Bilirubin 0.4 AST 15 ALT 29 Alkaline Phosphatase 39 Total Protein 5.0 L Albumin 2.6 L 02/06/18 15:02 Blood Blood Culture - Final NO GROWTH IN 5 DAYS 02/06/18 14:52 Blood Blood Culture - Final NO GROWTH IN 5 DAYS 02/06/18 02/06/18 14:02 14:02 Creatine Kinase 427 H CK-MB (CK-2) 1.42 Troponin I < 0.012 Impressions: Chest/Abdomen CTA 02/06/18 15:16 IMPRESSION: 1. NORMAL CTA OF THE CHEST. NO PULMONARY EMBOLI. 2. SMALL PLEURAL EFFUSIONS. EXTENSIVE GROUND-GLASS OPACITIES SCATTERED THROUGHOUT BOTH LUNGS MOST LIKELY DUE TO MULTIFOCAL PNEUMONIA. OTHER ACUTE INFLAMMATORY ETIOLOGIES/PNEUMONITIS MAY ALSO BE POSSIBLE. Chest X-Ray 02/11/18 06:00 IMPRESSION: No significant change. Assessment & Plan - Diagnosis (1) Acute respiratory failure with hypoxia Is this a current diagnosis for this admission?: Yes Plan: Secondary to bilateral, multifocal pneumonia. Currently intubated and is saturating well on minimal vent settings. She is now down to 30% FiO2. Wean down on sedation today and proceed with SBT. (2) Pneumonia Is this a current diagnosis for this admission?: Yes Plan: Chest CT shows multifocal pneumonia. She does have recent sick contacts at home. Continue broad spectrum antibiotics for now. A Currently intubated and is saturating well on 30% FiO2. (3) Asthma exacerbation Is this a current diagnosis for this admission?: Yes Plan: Continue steroids and breathing treatments. (4) Acute diarrhea Is this a current diagnosis for this admission?: Yes Plan: No recurrence of diarrhea since admission. (5) Hypokalemia Is this a current diagnosis for this admission?: Yes Plan: Likely from her diarrhea and vomiting. Resolved. (6) Hyponatremia Is this a current diagnosis for this admission?: Yes Plan: Likely related to dehydration. Resolved. (7) Lactic acidosis Is this a current diagnosis for this admission?: Yes Plan: Resolved. - Time Time Spent with patient: 25-34 minutes
[2018-02-11] MEDS: RISPERIDONE 1 MG TABLET NG SCH (21:26)
[2018-02-12] MEDS: PROPOFOL 1,000 MG/100 ML INFUS..BTL IV PRN ×2 (00:52→05:12)
[2018-02-12] MEDS: VANCOMYCIN HCL 1,250 MG in DEXTROSE 5%-WATER 250 ML IV SCH ×2 (00:59→09:38)
[2018-02-12] MEDS: IPRATROPIUM/ALBUTEROL 0.5-2.5 MG/3 ML AMPUL NEB SCH ×4 (01:45→19:22)
[2018-02-12] MEDS: PIPERACILLIN SODIUM/TAZOBACTAM 3.375 GM in NORMAL SALINE 100 ML IV SCH ×3 (02:51→17:23)
[2018-02-12 03:55] LABS: HEMATOCRIT 26.4 % (36.0-47.0); HEMOGLOBIN 8.8 g/dL (12.0-15.5); MEAN CORPUSCULAR HEMOGLOBIN 24.6 pg (27.0-33.4); MEAN CORPUSCULAR HGB CONC 33.2 g/dL (32.0-36.0); MEAN CORPUSCULAR VOLUME 74 fl (80-97); PLATELET COUNT 263 10^3/uL (150-450); RED BLOOD COUNT 3.56 10^6/uL (3.72-5.28); RED CELL DISTRIBUTION WIDTH 19.7 % (11.5-14.0); WHITE BLOOD COUNT 5.4 10^3/uL (4.0-10.5)
[2018-02-12 04:08] LABS: ANION GAP 6 (5-19); BLOOD UREA NITROGEN 16 mg/dL (7-20); CALCIUM 7.4 mg/dL (8.4-10.2); CARBON DIOXIDE 27 mmol/L (22-30); CHLORIDE 104 mmol/L (98-107); GLUCOSE 149 mg/dL (75-110); POTASSIUM 3.8 mmol/L (3.6-5.0); SODIUM 137.3 mmol/L (137-145)
[2018-02-12 04:34] LABS: ABSOLUTE LYMPHOCYTES# (MANUAL) 0.6 10^3/uL (0.5-4.7); ABSOLUTE MONOCYTES # (MANUAL) 0.6 10^3/uL (0.1-1.4); ABSOLUTE NEUTROPHILS# (MANUAL) 4.2 10^3/uL (1.7-8.2); ANISOCYTOSIS 1+; BASOPHILS % (MANUAL) 0 % (0-2); EOSINOPHILS % (MANUAL) 0 % (0-6); LYMPHOCYTES % (MANUAL) 12 % (13-45); MONOCYTES % (MANUAL) 11 % (3-13); PLATELET COMMENT ADEQUATE; POLYCHROMASIA 1+; SEGMENTED NEUTROPHILS % (MAN) 77 % (42-78); TOTAL CELLS COUNTED 100
[2018-02-12] MEDS: NORMAL SALINE 1000 ML 1,000 ML IV PRN ×2 (05:11→20:31)
[2018-02-12] MEDS: MIDAZOLAM HCL 50 MG/100 ML RTUINJ IV PRN (05:19)
[2018-02-12 05:24] LABS: ARTERIAL BLOOD BASE EXCESS 3.9 mmol/L; ARTERIAL BLOOD H2CO3 0.88 mmol/L (1.05-1.35); ARTERIAL BLOOD HCO3 25.9 mmol/L (20-24); ARTERIAL BLOOD PCO2 29.3 mmHg (35-45); ARTERIAL BLOOD PH 7.57 (7.35-7.45); ARTERIAL BLOOD PO2 128.5 mmHg (80-100); ARTERIAL BLOOD TOTAL CO2 26.8 mmol/L (21-25)
[2018-02-12 05:25] LABS: ARTERIAL BLOOD FIO2 30%
--- NOTE | 2018-02-12 06:27 | RADIOLOGY REPORT (SQ) ---
EXAM DESCRIPTION: XR CHEST 1 VIEW COMPLETED DATE/TME: 02/12/2018 06:00 CLINICAL HISTORY: Respiratory Distress. 37 years Female, resp failure/pna COMPARISON: One day prior. NUMBER OF VIEWS/TECHNIQUE: 1/AP FINDINGS: Moderate mixed airspace and interstitial opacities. Adequate appearing endotracheal tube. Likely adequate appearing enteric tube partially obscured. Normal cardiac silhouette size. No pneumothorax. Stable bony thorax. IMPRESSION: No significant change.
[2018-02-12] MEDS: BUDESONIDE NEB 0.5 MG/2 ML AMPUL NEB SCH ×2 (08:26→19:22)
[2018-02-12] MEDS: PANTOPRAZOLE SODIUM 40 MG VIAL IV SCH ×2 (09:37→21:08)
[2018-02-12] MEDS: FUROSEMIDE INJ/PF 40 MG/4 ML SDV IV SCH (09:37)
[2018-02-12] MEDS: METHYLPREDNISOLONE INJ 40 MG/1 ML SDV IV SCH ×2 (09:38→21:08)
[2018-02-12] MEDS: RISPERIDONE 1 MG TABLET NG SCH ×2 (09:39→21:08)
[2018-02-12] MEDS ORDERED: AZITHROMYCIN 250 MG TABLET NG SCH (10:00)
[2018-02-12] MEDS: HEPARIN SOD (PORCINE) 5,000 UNIT/ML 1 ML SYRINGE SUBCUT SCH ×2 (10:27→21:08)
--- NOTE | 2018-02-12 16:23 | PDOC PROGRESS REPORT ---
Subjective Progress Note for:: 02/12/18 Subjective:: This is a 37 year old female with a PMH of asthma, history of depression, history of intubation for bilateral pneumonia, history of manic episodes with psychotic features (?bipolar disorder) who presented with cough, SOB, wheezing and diarrhea. She was found to have multifocal pneumonia on chest CT and was admitted for this and for asthma exacerbation. Patient continued to develop respiratory distress on 02/07/18 and was breathing in the 40s on BIPAP. She was moved tot he ICU and was subsequently intubated. No acute event overnight. Patient was weaned off sedation this morning for SBT and possible extubation. Patient, however, self-extubated. She is currently not in respiratory distress. She denies SOB or chest pain. Currently saturating at 93% on 2L via NC. She will be monitored overnight in the ICU. Reason For Visit: PNEUMONIA Physical Exam Vital Signs: Temp Pulse Resp BP Pulse Ox 97.9 F 86 14 137/81 H 100 02/12/18 13:24 02/12/18 13:55 02/12/18 13:55 02/12/18 13:24 02/12/18 13:55 Intake & Output 02/11/18 02/12/18 02/13/18 06:59 06:59 06:59 Intake Total 3566 3065 169 Output Total 1245 4640 2330 Balance 2321 -1575 -2161 Weight 210 lb 5.136 oz 212 lb 1.355 oz 212 lb 1.355 oz General appearance: PRESENT: no acute distress, well-developed, well-nourished Head exam: PRESENT: atraumatic, normocephalic Eye exam: PRESENT: conjunctiva pink, EOMI, PERRLA. ABSENT: scleral icterus Ear exam: PRESENT: normal external ear exam Mouth exam: PRESENT: moist, tongue midline Neck exam: ABSENT: carotid bruit, JVD, lymphadenopathy, thyromegaly Respiratory exam: PRESENT: rales - on the baees, significantly improved from yesterday, rhonchi. ABSENT: wheezes Cardiovascular exam: PRESENT: RRR. ABSENT: diastolic murmur, rubs, systolic murmur Pulses: PRESENT: normal dorsalis pedis pul GI/Abdominal exam: PRESENT: normal bowel sounds, soft. ABSENT: distended, guarding, mass, organolmegaly, rebound, tenderness Rectal exam: PRESENT: deferred Neurological exam: PRESENT: alert, awake, oriented to person, oriented to place, oriented to time, oriented to situation, CN II-XII grossly intact. ABSENT: motor sensory deficit Results Laboratory Results: 02/12/18 03:31 02/12/18 03:31 02/12/18 02/12/18 02/12/18 03:31 03:31 03:49 WBC 5.4 RBC 3.56 L Hgb 8.8 L Hct 26.4 L MCV 74 L MCH 24.6 L MCHC 33.2 RDW 19.7 H Plt Count 263 Seg Neutrophils % Not Reportable Lymphocytes % Not Reportable Monocytes % Not Reportable Eosinophils % Not Reportable Basophils % Not Reportable Absolute Neutrophils Not Reportable Absolute Lymphocytes Not Reportable Absolute Monocytes Not Reportable Absolute Eosinophils Not Reportable Absolute Basophils Not Reportable Carbonic Acid Cancelled HCO3/H2CO3 Ratio Cancelled ABG pH Cancelled ABG pCO2 Cancelled ABG pO2 Cancelled ABG HCO3 Cancelled ABG O2 Saturation Cancelled ABG Base Excess Cancelled FiO2 Cancelled Sodium 137.3 Potassium 3.8 Chloride 104 Carbon Dioxide 27 Anion Gap 6 BUN 16 Creatinine 0.52 Est GFR ( Amer) > 60 Est GFR (Non-Af Amer) > 60 Glucose 149 H Calcium 7.4 L Magnesium 2.7 H 02/12/18 04:45 WBC RBC Hgb Hct MCV MCH MCHC RDW Plt Count Seg Neutrophils % Lymphocytes % Monocytes % Eosinophils % Basophils % Absolute Neutrophils Absolute Lymphocytes Absolute Monocytes Absolute Eosinophils Absolute Basophils Carbonic Acid 0.88 L HCO3/H2CO3 Ratio 29:1 ABG pH 7.57 H ABG pCO2 29.3 L ABG pO2 128.5 H ABG HCO3 25.9 H ABG O2 Saturation 99.0 H ABG Base Excess 3.9 FiO2 30% Sodium Potassium Chloride Carbon Dioxide Anion Gap BUN Creatinine Est GFR ( Amer) Est GFR (Non-Af Amer) Glucose Calcium Magnesium 02/06/18 15:02 Blood Blood Culture - Final NO GROWTH IN 5 DAYS 02/06/18 14:52 Blood Blood Culture - Final NO GROWTH IN 5 DAYS 02/06/18 02/06/18 14:02 14:02 Creatine Kinase 427 H CK-MB (CK-2) 1.42 Troponin I < 0.012 Impressions: Chest/Abdomen CTA 02/06/18 15:16 IMPRESSION: 1. NORMAL CTA OF THE CHEST. NO PULMONARY EMBOLI. 2. SMALL PLEURAL EFFUSIONS. EXTENSIVE GROUND-GLASS OPACITIES SCATTERED THROUGHOUT BOTH LUNGS MOST LIKELY DUE TO MULTIFOCAL PNEUMONIA. OTHER ACUTE INFLAMMATORY ETIOLOGIES/PNEUMONITIS MAY ALSO BE POSSIBLE. Chest X-Ray 02/12/18 06:00 IMPRESSION: No significant change. Assessment & Plan - Diagnosis (1) Acute respiratory failure with hypoxia Is this a current diagnosis for this admission?: Yes Plan: Secondary to bilateral, multifocal pneumonia. Self-extubated today 02/12/18. Currently saturating at 93% on 2L via NC. She will be monitored overnight in the ICU. (2) Pneumonia Is this a current diagnosis for this admission?: Yes Plan: Chest CT shows multifocal pneumonia. She does have recent sick contacts at home. Will switch IV antibiotics to Levaquin. Self-extubated as mentioned. (3) Asthma exacerbation Is this a current diagnosis for this admission?: Yes Plan: Continue steroids and breathing treatments. (4) Acute diarrhea Is this a current diagnosis for this admission?: Yes Plan: She did have loose stools this afternoon. C diff testing ordered. (5) Hypokalemia Is this a current diagnosis for this admission?: Yes Plan: Likely from her diarrhea and vomiting. Resolved. (6) Hyponatremia Is this a current diagnosis for this admission?: Yes Plan: Likely related to dehydration. Resolved. (7) Lactic acidosis Is this a current diagnosis for this admission?: Yes Plan: Resolved. (8) Bipolar 1 disorder Is this a current diagnosis for this admission?: Yes Plan: Continue risperidone. - Time Time Spent with patient: 25-34 minutes
[2018-02-12] MEDS ORDERED: LOPERAMIDE HCL 2 MG CAPSULE PO PRN (19:32)
[2018-02-12] MEDS: HALOPERIDOL LACTATE INJ 5 MG/1 ML VIAL IV PRN (21:11)
[2018-02-13] MEDS: IPRATROPIUM/ALBUTEROL 0.5-2.5 MG/3 ML AMPUL NEB SCH ×4 (02:49→21:18)
[2018-02-13 04:24] LABS: HEMATOCRIT 28.1 % (36.0-47.0); HEMOGLOBIN 9.3 g/dL (12.0-15.5); MEAN CORPUSCULAR HEMOGLOBIN 24.5 pg (27.0-33.4); MEAN CORPUSCULAR HGB CONC 33.2 g/dL (32.0-36.0); MEAN CORPUSCULAR VOLUME 74 fl (80-97); PLATELET COUNT 308 10^3/uL (150-450); RED CELL DISTRIBUTION WIDTH 19.6 % (11.5-14.0); WHITE BLOOD COUNT 5.9 10^3/uL (4.0-10.5)
[2018-02-13 04:41] LABS: ALANINE AMINOTRANSFERASE 34 U/L (9-52); ALBUMIN 2.6 g/dL (3.5-5.0); ALKALINE PHOSPHATASE 41 U/L (38-126); ASPARTATE AMINO TRANSFERASE 21 U/L (14-36); BILIRUBIN,DIRECT 0.3 mg/dL (0.0-0.4); BILIRUBIN,TOTAL 0.5 mg/dL (0.2-1.3); BLOOD UREA NITROGEN 15 mg/dL (7-20); CALCIUM 7.8 mg/dL (8.4-10.2); CARBON DIOXIDE 31 mmol/L (22-30); CHLORIDE 105 mmol/L (98-107); GLUCOSE 118 mg/dL (75-110); POTASSIUM 3.6 mmol/L (3.6-5.0); SODIUM 138.7 mmol/L (137-145); TOTAL PROTEIN 5.2 g/dL (6.3-8.2)
[2018-02-13 04:49] LABS: ABSOLUTE MONOCYTES # (MANUAL) 0.2 10^3/uL (0.1-1.4); ABSOLUTE NEUTROPHILS# (MANUAL) 4.7 10^3/uL (1.7-8.2); BAND NEUTROPHILS % (MANUAL) 1 % (3-5); BASOPHILS % (MANUAL) 0 % (0-2); EOSINOPHILS % (MANUAL) 0 % (0-6); LYMPHOCYTES % (MANUAL) 16 % (13-45); MONOCYTES % (MANUAL) 3 % (3-13); SEGMENTED NEUTROPHILS % (MAN) 79 % (42-78); TOTAL CELLS COUNTED 100
[2018-02-13 04:52] LABS: ANISOCYTOSIS 2+; POIKILOCYTOSIS 1+; TOXIC GRANULATION SLIGHT
[2018-02-13 04:53] LABS: OVALOCYTES 1+; PLATELET COMMENT ADEQUATE; SCHISTOCYTES SLIGHT; TEAR DROP CELLS 1+
[2018-02-13 04:54] LABS: ANION GAP 3 (5-19)
[2018-02-13 05:01] LABS: ARTERIAL BLOOD BASE EXCESS 8.6 mmol/L; ARTERIAL BLOOD H2CO3 1.18 mmol/L (1.05-1.35); ARTERIAL BLOOD HCO3 31.9 mmol/L (20-24); ARTERIAL BLOOD O2 SATURATION 98.4 % (94-98); ARTERIAL BLOOD PCO2 39.2 mmHg (35-45); ARTERIAL BLOOD PH 7.53 (7.35-7.45); ARTERIAL BLOOD TOTAL CO2 33.2 mmol/L (21-25)
[2018-02-13 05:02] LABS: ARTERIAL BLOOD FIO2 2LNC
--- NOTE | 2018-02-13 08:41 | RADIOLOGY REPORT (SQ) ---
EXAM DESCRIPTION: CHEST SINGLE VIEW COMPLETED DATE/TIME: 02/13/2018 6:52 am REASON FOR STUDY: pna/resp failure COMPARISON: 02/12/2018. EXAM PARAMETERS: NUMBER OF VIEWS: One view. TECHNIQUE: Single frontal radiographic view of the chest acquired. RADIATION DOSE: NA LIMITATIONS: None. FINDINGS: LUNGS AND PLEURA: Faint bilateral airspace disease unchanged. No large pleural effusion. No pneumothorax. MEDIASTINUM AND HILAR STRUCTURES: No masses. Contour normal. HEART AND VASCULAR STRUCTURES: Heart normal in size. Normal vasculature. BONES: No acute findings. HARDWARE: Interval removal of the endotracheal tube and nasogastric tube. OTHER: No other significant finding. IMPRESSION: REMOVAL OF THE ENDOTRACHEAL TUBE AND NASOGASTRIC TUBE. OTHERWISE NO CHANGE. TECHNICAL DOCUMENTATION: JOB ID: [id number] [employer]- All Rights Reserved Reading location - IP/workstation name: [facility]
[2018-02-13] MEDS: BUDESONIDE NEB 0.5 MG/2 ML AMPUL NEB SCH ×2 (09:07→21:19)
[2018-02-13] MEDS ORDERED: LEVOFLOXACIN 750 MG TABLET PO SCH (10:00)
[2018-02-13] MEDS: RISPERIDONE 1 MG TABLET NG SCH ×2 (10:49→21:47)
[2018-02-13] MEDS: PREDNISONE 5 MG TABLET PO SCH (10:49)
[2018-02-13] MEDS: PANTOPRAZOLE SODIUM 40 MG VIAL IV SCH ×2 (10:49→21:47)
[2018-02-13] MEDS: ALPRAZOLAM 0.5 MG TABLET PO SCH ×2 (10:50→18:04)
[2018-02-13] MEDS: HEPARIN SOD (PORCINE) 5,000 UNIT/ML 1 ML SYRINGE SUBCUT SCH ×2 (10:50→21:47)
[2018-02-13] MEDS ORDERED: ALBUTEROL SULFATE HFA (90 MCG/PUFF) 8 GM MDI (1 MDI/ER DISP) IH PRN (13:21)
--- NOTE | 2018-02-13 14:01 | PDOC PROGRESS REPORT ---
Subjective Progress Note for:: 02/13/18 Subjective:: [birth year][id number]-old female admitted for bilateral pneumonia status post intubation and extubation no acute events in the last 24 hours. As per the nurse patient is taking her medications when the is present otherwise she is not taking her home medications .I try to talk to the patient this morning she is unable to give her name or date of silvano,h she is just staring at me. I am not sure is because of the bipolar disorder or not I am going to arrange for the psych consult. Patient is afebrile and pulse ox is 98% on 2 L. Reason For Visit: PNEUMONIA Physical Exam Vital Signs: Temp Pulse Resp BP Pulse Ox 98 F 71 17 131/79 H 98 02/13/18 12:00 02/13/18 08:00 02/13/18 10:24 02/13/18 10:24 02/13/18 10:24 Intake & Output 02/12/18 02/13/18 02/14/18 06:59 06:59 06:59 Intake Total 3065 1550 200 Output Total 4640 3430 Balance -1575 -1880 200 Weight 96.2 kg 91.5 kg General appearance: PRESENT: no acute distress Head exam: PRESENT: atraumatic Eye exam: PRESENT: PERRLA Mouth exam: PRESENT: moist Neck exam: ABSENT: carotid bruit, JVD, lymphadenopathy, thyromegaly Cardiovascular exam: PRESENT: RRR. ABSENT: diastolic murmur, rubs, systolic murmur GI/Abdominal exam: PRESENT: normal bowel sounds, soft. ABSENT: distended, guarding, mass, organolmegaly, rebound, tenderness Neurological exam: PRESENT: alert, awake, oriented to person, oriented to place, oriented to time, oriented to situation, CN II-XII grossly intact. ABSENT: motor sensory deficit Psychiatric exam: PRESENT: flat affect Results Laboratory Results: 02/13/18 04:05 02/13/18 04:05 02/13/18 02/13/18 02/13/18 04:05 04:05 04:30 WBC 5.9 RBC 3.80 Hgb 9.3 L Hct 28.1 L MCV 74 L MCH 24.5 L MCHC 33.2 RDW 19.6 H Plt Count 308 Seg Neutrophils % Not Reportable Lymphocytes % Not Reportable Monocytes % Not Reportable Eosinophils % Not Reportable Basophils % Not Reportable Absolute Neutrophils Not Reportable Absolute Lymphocytes Not Reportable Absolute Monocytes Not Reportable Absolute Eosinophils Not Reportable Absolute Basophils Not Reportable Carbonic Acid 1.18 HCO3/H2CO3 Ratio 27:1 ABG pH 7.53 H ABG pCO2 39.2 ABG pO2 110.0 H ABG HCO3 31.9 H ABG O2 Saturation 98.4 H ABG Base Excess 8.6 FiO2 2LNC Sodium 138.7 Potassium 3.6 Chloride 105 Carbon Dioxide 31 H Anion Gap 3 L BUN 15 Creatinine 0.49 L Est GFR ( Amer) > 60 Est GFR (Non-Af Amer) > 60 Glucose 118 H Calcium 7.8 L Magnesium 2.4 H Total Bilirubin 0.5 AST 21 ALT 34 Alkaline Phosphatase 41 Total Protein 5.2 L Albumin 2.6 L 02/07/18 18:49 Blood Blood Culture - Final NO GROWTH IN 5 DAYS 02/07/18 17:47 Blood Blood Culture - Final NO GROWTH IN 5 DAYS 02/06/18 02/06/18 14:02 14:02 Creatine Kinase 427 H CK-MB (CK-2) 1.42 Troponin I < 0.012 Impressions: Chest/Abdomen CTA 02/06/18 15:16 IMPRESSION: 1. NORMAL CTA OF THE CHEST. NO PULMONARY EMBOLI. 2. SMALL PLEURAL EFFUSIONS. EXTENSIVE GROUND-GLASS OPACITIES SCATTERED THROUGHOUT BOTH LUNGS MOST LIKELY DUE TO MULTIFOCAL PNEUMONIA. OTHER ACUTE INFLAMMATORY ETIOLOGIES/PNEUMONITIS MAY ALSO BE POSSIBLE. Chest X-Ray 02/13/18 06:00 IMPRESSION: REMOVAL OF THE ENDOTRACHEAL TUBE AND NASOGASTRIC TUBE. OTHERWISE NO CHANGE. Assessment & Plan - Diagnosis (1) Acute respiratory failure with hypoxia Is this a current diagnosis for this admission?: Yes Plan: Secondary to bilateral, multifocal pneumonia. Self-extubated today 02/12/18. Currently saturating at 93% on 2L via NC. She will be monitored overnight in the ICU. 02/13/2017-patient is admitted with multifocal pneumonia status post intubation and self effect extubation on 02/12/2018 pulse ox is 98% on 2 L on examination mild wheezing at the bases. Patient is not in distress. Currently she is on levofloxacin. Cultures and sputum cultures are negative. (2) Pneumonia Is this a current diagnosis for this admission?: Yes Plan: 02/13/2018-chest CT shows multiple multifocal pneumonia blood cultures sputum cultures are negative patient is afebrile she is on levofloxacin 750 mg IV daily. Plan is to continue the present management. (3) Asthma exacerbation Is this a current diagnosis for this admission?: Yes Plan: 02/13/2018-patient has history of asthma came in with anoxic asthma exacerbation plan is to continue the breathing treatments and prednisone 5 mg p.o. daily. patient is stable enough to go to [facility]. (4) Bipolar 1 disorder Is this a current diagnosis for this admission?: Yes Plan: 02/13/2018-patient has history of bipolar disorder she is on risperidone .plan is to continue the risperidone while she was in the hospital ,also requested for psych evaluation because the patient is not communicative, but alert and awake not in distress but she is not answering the questions like giving name and date of , she is just staring at me with a flat affect .hopefully the psychiatrist can recommend adjustment on her medications. - Time Time Spent with patient: 15-24 minutes Smoking Cessation Education: over 10 minutes Medications reviewed and adjusted accordingly: Yes Anticipated discharge: Home
[2018-02-13] MEDS ORDERED: ALBUTEROL SULFATE HFA (90 MCG/PUFF) 200 PUFF/8.5 GM MDI IH PRN (14:32)
[2018-02-13] MEDS: HALOPERIDOL LACTATE INJ 5 MG/1 ML VIAL IV PRN (15:08)
--- NOTE | 2018-02-13 16:29 | PDOC PROGRESS REPORT ---
Subjective Progress Note for:: 02/13/18 Subjective:: 24 hours status post extubation stable Reason For Visit: PNEUMONIA Physical Exam Vital Signs: Temp Pulse Resp BP Pulse Ox 98 F 70 19 121/70 97 02/13/18 05:50 02/13/18 07:56 02/13/18 06:00 02/13/18 05:25 02/13/18 06:00 Intake & Output 02/12/18 02/13/18 02/14/18 06:59 06:59 06:59 Intake Total 3065 1550 Output Total 4640 3430 Balance -1575 -1880 Weight 96.2 kg 91.5 kg General appearance: PRESENT: no acute distress, cooperative, disheveled, obese Head exam: PRESENT: atraumatic, normocephalic Eye exam: PRESENT: conjunctiva pale, EOMI. ABSENT: nystagmus, scleral icterus Mouth exam: PRESENT: dry mucosa, neck supple, tongue midline Neck exam: ABSENT: carotid bruit, JVD, lymphadenopathy, thyromegaly, tracheal deviation, tracheostomy Respiratory exam: PRESENT: decreased breath sounds, prolonged expiratory phas, rhonchi, unlabored. ABSENT: retraction, stridor, tachypnea Cardiovascular exam: PRESENT: RRR, +S1, +S2, tachycardia Pulses: PRESENT: normal radial pulses GI/Abdominal exam: PRESENT: soft Gentrourinary exam: PRESENT: indwelling catheter Extremities exam: ABSENT: calf tenderness, clubbing, joint swelling, pedal edema Musculoskeletal exam: ABSENT: deformity, dislocation Neurological exam: PRESENT: altered, awake Skin exam: PRESENT: dry, warm Results Laboratory Results: 02/13/18 04:05 02/13/18 04:05 02/13/18 02/13/18 02/13/18 04:05 04:05 04:30 WBC 5.9 RBC 3.80 Hgb 9.3 L Hct 28.1 L MCV 74 L MCH 24.5 L MCHC 33.2 RDW 19.6 H Plt Count 308 Seg Neutrophils % Not Reportable Lymphocytes % Not Reportable Monocytes % Not Reportable Eosinophils % Not Reportable Basophils % Not Reportable Absolute Neutrophils Not Reportable Absolute Lymphocytes Not Reportable Absolute Monocytes Not Reportable Absolute Eosinophils Not Reportable Absolute Basophils Not Reportable Carbonic Acid 1.18 HCO3/H2CO3 Ratio 27:1 ABG pH 7.53 H ABG pCO2 39.2 ABG pO2 110.0 H ABG HCO3 31.9 H ABG O2 Saturation 98.4 H ABG Base Excess 8.6 FiO2 2LNC Sodium 138.7 Potassium 3.6 Chloride 105 Carbon Dioxide 31 H Anion Gap 3 L BUN 15 Creatinine 0.49 L Est GFR ( Amer) > 60 Est GFR (Non-Af Amer) > 60 Glucose 118 H Calcium 7.8 L Magnesium 2.4 H Total Bilirubin 0.5 AST 21 ALT 34 Alkaline Phosphatase 41 Total Protein 5.2 L Albumin 2.6 L 02/07/18 18:49 Blood Blood Culture - Final NO GROWTH IN 5 DAYS 02/07/18 17:47 Blood Blood Culture - Final NO GROWTH IN 5 DAYS 02/06/18 02/06/18 14:02 14:02 Creatine Kinase 427 H CK-MB (CK-2) 1.42 Troponin I < 0.012 Impressions: Chest/Abdomen CTA 02/06/18 15:16 IMPRESSION: 1. NORMAL CTA OF THE CHEST. NO PULMONARY EMBOLI. 2. SMALL PLEURAL EFFUSIONS. EXTENSIVE GROUND-GLASS OPACITIES SCATTERED THROUGHOUT BOTH LUNGS MOST LIKELY DUE TO MULTIFOCAL PNEUMONIA. OTHER ACUTE INFLAMMATORY ETIOLOGIES/PNEUMONITIS MAY ALSO BE POSSIBLE. Chest X-Ray 02/13/18 06:00 IMPRESSION: REMOVAL OF THE ENDOTRACHEAL TUBE AND NASOGASTRIC TUBE. OTHERWISE NO CHANGE. Assessment & Plan - Diagnosis (1) Acute respiratory failure with hypoxia Is this a current diagnosis for this admission?: Yes Plan: 24 hours status post extubation stable (2) Lactic acidosis Is this a current diagnosis for this admission?: Yes Plan: Resolved (3) Asthma exacerbation Is this a current diagnosis for this admission?: Yes Plan: Really improved (4) Pneumonia Is this a current diagnosis for this admission?: Yes Plan: Improved - Time Total Critical Time (Minutes): 40
--- NOTE | 2018-02-13 16:31 | PDOC PROGRESS REPORT ---
Subjective Progress Note for:: 02/12/18 Subjective:: Agitated extubated self Reason For Visit: PNEUMONIA Physical Exam Vital Signs: Temp Pulse Resp BP Pulse Ox 98.6 F 87 16 129/71 H 99 02/12/18 07:35 02/12/18 01:45 02/12/18 06:23 02/12/18 06:23 02/12/18 06:23 Intake & Output 02/11/18 02/12/18 02/13/18 06:59 06:59 06:59 Intake Total 3566 3065 7 Output Total 1245 4640 330 Balance 1891 -6197 -746 Weight 95.4 kg 96.2 kg 96.2 kg General appearance: PRESENT: no acute distress, cooperative, disheveled, obese Head exam: PRESENT: atraumatic, normocephalic Eye exam: PRESENT: conjunctiva pale, EOMI. ABSENT: nystagmus, scleral icterus Mouth exam: PRESENT: dry mucosa, neck supple, tongue midline Neck exam: ABSENT: carotid bruit, JVD, lymphadenopathy, thyromegaly, tracheal deviation, tracheostomy Respiratory exam: PRESENT: decreased breath sounds, prolonged expiratory phas, rales, rhonchi, unlabored. ABSENT: retraction, stridor, tachypnea Cardiovascular exam: PRESENT: RRR, +S1, +S2, tachycardia Pulses: PRESENT: normal radial pulses GI/Abdominal exam: PRESENT: soft. ABSENT: tenderness Gentrourinary exam: PRESENT: indwelling catheter Extremities exam: ABSENT: calf tenderness, clubbing, joint swelling, pedal edema Musculoskeletal exam: ABSENT: deformity, dislocation Neurological exam: PRESENT: altered, awake Skin exam: PRESENT: dry, warm Results Laboratory Results: 02/12/18 03:31 02/12/18 03:31 02/12/18 02/12/18 02/12/18 03:31 03:31 03:49 WBC 5.4 RBC 3.56 L Hgb 8.8 L Hct 26.4 L MCV 74 L MCH 24.6 L MCHC 33.2 RDW 19.7 H Plt Count 263 Seg Neutrophils % Not Reportable Lymphocytes % Not Reportable Monocytes % Not Reportable Eosinophils % Not Reportable Basophils % Not Reportable Absolute Neutrophils Not Reportable Absolute Lymphocytes Not Reportable Absolute Monocytes Not Reportable Absolute Eosinophils Not Reportable Absolute Basophils Not Reportable Carbonic Acid Cancelled HCO3/H2CO3 Ratio Cancelled ABG pH Cancelled ABG pCO2 Cancelled ABG pO2 Cancelled ABG HCO3 Cancelled ABG O2 Saturation Cancelled ABG Base Excess Cancelled FiO2 Cancelled Sodium 137.3 Potassium 3.8 Chloride 104 Carbon Dioxide 27 Anion Gap 6 BUN 16 Creatinine 0.52 Est GFR ( Amer) > 60 Est GFR (Non-Af Amer) > 60 Glucose 149 H Calcium 7.4 L Magnesium 2.7 H 02/12/18 04:45 WBC RBC Hgb Hct MCV MCH MCHC RDW Plt Count Seg Neutrophils % Lymphocytes % Monocytes % Eosinophils % Basophils % Absolute Neutrophils Absolute Lymphocytes Absolute Monocytes Absolute Eosinophils Absolute Basophils Carbonic Acid 0.88 L HCO3/H2CO3 Ratio 29:1 ABG pH 7.57 H ABG pCO2 29.3 L ABG pO2 128.5 H ABG HCO3 25.9 H ABG O2 Saturation 99.0 H ABG Base Excess 3.9 FiO2 30% Sodium Potassium Chloride Carbon Dioxide Anion Gap BUN Creatinine Est GFR ( Amer) Est GFR (Non-Af Amer) Glucose Calcium Magnesium 02/06/18 15:02 Blood Blood Culture - Final NO GROWTH IN 5 DAYS 02/06/18 14:52 Blood Blood Culture - Final NO GROWTH IN 5 DAYS 02/06/18 02/06/18 14:02 14:02 Creatine Kinase 427 H CK-MB (CK-2) 1.42 Troponin I < 0.012 Impressions: Chest/Abdomen CTA 02/06/18 15:16 IMPRESSION: 1. NORMAL CTA OF THE CHEST. NO PULMONARY EMBOLI. 2. SMALL PLEURAL EFFUSIONS. EXTENSIVE GROUND-GLASS OPACITIES SCATTERED THROUGHOUT BOTH LUNGS MOST LIKELY DUE TO MULTIFOCAL PNEUMONIA. OTHER ACUTE INFLAMMATORY ETIOLOGIES/PNEUMONITIS MAY ALSO BE POSSIBLE. Chest X-Ray 02/12/18 06:00 IMPRESSION: No significant change. Assessment & Plan - Diagnosis (1) Acute respiratory failure with hypoxia Is this a current diagnosis for this admission?: Yes Plan: extubated (2) Lactic acidosis Is this a current diagnosis for this admission?: Yes Plan: Resolved (3) Asthma exacerbation Is this a current diagnosis for this admission?: Yes Plan: Really improved (4) Pneumonia Is this a current diagnosis for this admission?: Yes Plan: Improved - Time Total Critical Time (Minutes): 55
--- NOTE | 2018-02-13 16:37 | PDOC CONSULTATION ---
Consultation Consult Date: 02/07/18 Attending physician:: CHELE VIRGEN Consult reason:: Exacerbation of asthma History of Present Illness Admission Date/PCP: 02/06/18 17:00 TJ HODGE DO History of Present Illness: JOVANY LAU is a 37 year old female presented after 6-7 days of cough increasing shuffling steps increasing shortness of breath nausea vomiting and nonbloody diarrhea he said shortness of breath and cough got progressively worse a long history of asthma, anxiety the office disorder and bipolar disease remote history of smoking up until the day of admission to chronic lung disease as a child except for the asthma she admits to exposure to passive smoke as a child as well as an adult no significant occupational history no pets no recent travel Past Medical History Pulmonary Medical History: Reports: Asthma, Intubation, Pneumonia Neurological Medical History: Reports: Seizures - After taking latuda, after latuda was stopped, patient seizures stopped Psychiatric Medical History: Reports: Bipolar Disorder, Depression - anxiety Past Surgical History Past Surgical History: Reports: Section - x2, Tubal Ligation Social History Lives with: Family Smoking Status: Current Every Day Smoker Number of Years Smokin Last Time Smoked: "a few months ago" Passive smoke exposure as: Both Frequency of Alcohol Use: Rare Hx Recreational Drug Use: No Drugs: None Hx Prescription Drug Abuse: No Do you have pets?: No Have you had any respiratory illnesses as a child?: No Have you been exposed to any sick contacts recently?: No Have you had any recent respiratory illnesses?: Yes Have you travelled outside of [place] in the past 12 months?: No Family History Family History: CAD, DM, Hypertension Parental Family History Reviewed: Yes Children Family History Reviewed: Yes Sibling(s) Family History Reviewed.: Yes Medication/Allergy Home Medications: Albuterol Sulfate [Ventolin Hfa] 2 puff IH Q4HP PRN 07/07/17 Alprazolam [Xanax 0.5 mg Tablet] 0.5 mg PO BID 07/07/17 Benztropine Mesylate [Cogentin 1 mg Tablet] 1 mg PO Q12 07/07/17 Risperidone [Risperdal] 1 mg PO BID 02/06/18 Zolpidem Tartrate [Ambien] 10 mg PO DAILY 02/06/18 Aspirin [Ecotrin 81 mg EC Tablet] 81 mg PO DAILY 02/07/18 Atorvastatin Calcium [Lipitor 40 mg Tablet] 40 mg PO QHS 02/07/18 Metoprolol Tartrate [Lopressor 25 mg Tablet] 25 mg PO DAILY 02/07/18 Allergies/Adverse Reactions: lurasidone HCl [From Latuda] Allergy (Severe, Verified 07/05/17 16:40) Seizures morphine Adverse Reaction (Intermediate, Verified 07/05/17 16:40) Hives Review of Systems ROS unobtainable: Due to mental status Physical Exam Vital Signs: Temp Pulse Resp BP Pulse Ox 98.6 F 86 47 H 128/62 H 98 02/07/18 11:57 02/07/18 14:10 02/07/18 14:10 02/07/18 13:26 02/07/18 14:10 Intake & Output 02/06/18 02/07/18 02/08/18 06:59 06:59 06:59 Intake Total 2893 1150 Output Total 3200 Balance -307 1150 Weight 85.2 kg General appearance: PRESENT: disheveled, mild distress, obese. ABSENT: cooperative Head exam: PRESENT: atraumatic, normocephalic Eye exam: PRESENT: conjunctiva pale, EOMI. ABSENT: nystagmus, scleral icterus Mouth exam: PRESENT: dry mucosa, neck supple, tongue midline Neck exam: ABSENT: carotid bruit, JVD, lymphadenopathy, thyromegaly, tracheal deviation, tracheostomy Respiratory exam: PRESENT: decreased breath sounds, prolonged expiratory phas, rales, rhonchi, tachypnea, wheezes. ABSENT: retraction, stridor, unlabored Cardiovascular exam: PRESENT: RRR, +S1, +S2 Pulses: PRESENT: normal radial pulses GI/Abdominal exam: PRESENT: soft. ABSENT: tenderness Extremities exam: ABSENT: calf tenderness, clubbing, joint swelling, pedal edema Musculoskeletal exam: ABSENT: deformity, dislocation Neurological exam: PRESENT: altered Skin exam: PRESENT: dry, warm Results Laboratory Results: 02/06/18 14:02 02/07/18 05:50 02/06/18 02/06/18 02/06/18 14:02 14:02 14:02 Carbonic Acid HCO3/H2CO3 Ratio ABG pH ABG pCO2 ABG pO2 ABG HCO3 ABG O2 Saturation ABG Base Excess FiO2 Sodium 128.6 L Potassium 2.6 L* Chloride 88 L Carbon Dioxide 25 Anion Gap 16 BUN 5 L Creatinine 0.72 Est GFR ( Amer) > 60 Est GFR (Non-Af Amer) > 60 Glucose 109 Serum Osmolality 254 L Lactic Acid Calcium 8.6 Magnesium 1.6 Total Bilirubin 0.8 AST 55 H ALT 19 Alkaline Phosphatase 65 Total Protein 7.0 Albumin 4.0 02/06/18 02/06/18 02/07/18 17:17 21:47 05:50 Carbonic Acid HCO3/H2CO3 Ratio ABG pH ABG pCO2 ABG pO2 ABG HCO3 ABG O2 Saturation ABG Base Excess FiO2 Sodium 138.7 Potassium 3.8 D Chloride 106 Carbon Dioxide 24 Anion Gap 9 BUN 5 L Creatinine 0.60 Est GFR ( Amer) > 60 Est GFR (Non-Af Amer) > 60 Glucose 146 H Serum Osmolality Lactic Acid 2.8 H 3.4 H Calcium 8.2 L Magnesium Total Bilirubin AST ALT Alkaline Phosphatase Total Protein Albumin 02/07/18 02/07/18 02/07/18 05:50 09:39 12:55 Carbonic Acid 0.97 L 0.96 L HCO3/H2CO3 Ratio 25:1 24:1 ABG pH 7.51 H 7.49 H ABG pCO2 32.1 L 32.0 L ABG pO2 53.5 L 52.9 L ABG HCO3 24.9 H 23.6 ABG O2 Saturation 91.0 L 90.2 L ABG Base Excess 2.5 0.7 FiO2 28% 28% Sodium Potassium Chloride Carbon Dioxide Anion Gap BUN Creatinine Est GFR ( Amer) Est GFR (Non-Af Amer) Glucose Serum Osmolality Lactic Acid 2.4 H Calcium Magnesium Total Bilirubin AST ALT Alkaline Phosphatase Total Protein Albumin 02/06/18 02/06/18 14:02 14:02 Creatine Kinase 427 H CK-MB (CK-2) 1.42 Troponin I < 0.012 Impressions: Chest/Abdomen CTA 02/06/18 15:16 IMPRESSION: 1. NORMAL CTA OF THE CHEST. NO PULMONARY EMBOLI. 2. SMALL PLEURAL EFFUSIONS. EXTENSIVE GROUND-GLASS OPACITIES SCATTERED THROUGHOUT BOTH LUNGS MOST LIKELY DUE TO MULTIFOCAL PNEUMONIA. OTHER ACUTE INFLAMMATORY ETIOLOGIES/PNEUMONITIS MAY ALSO BE POSSIBLE. Chest X-Ray 02/07/18 08:59 IMPRESSION: Bilateral pneumonia. No significant change. Assessment & Plan - Diagnosis (1) Acute respiratory failure with hypoxia Is this a current diagnosis for this admission?: Yes Plan: Requiring intubation (2) Lactic acidosis Is this a current diagnosis for this admission?: Yes Plan: Labs- All tests 24 hr 02/06/18 02/06/18 02/07/18 17:17 21:47 05:50 Lactic Acid 2.8 H 3.4 H 2.4 H 02/07/18 14:27 Lactic Acid 1.0 (3) Pneumonia Is this a current diagnosis for this admission?: Yes Plan: Improved - Time Total Critical Time (Minutes): 55
[2018-02-13] MEDS ORDERED: METOPROLOL TARTRATE 25 MG TABLET ONE (18:49)
[2018-02-13] MEDS: ATORVASTATIN CALCIUM 40 MG TABLET PO SCH (21:47)
[2018-02-13] MEDS: ZOLPIDEM TARTRATE 5 MG TABLET PO SCH (21:47)
[2018-02-14] MEDS: ZOLPIDEM TARTRATE 5 MG TABLET PO SCH ×2 (00:13→21:21)
[2018-02-14] MEDS: RISPERIDONE 1 MG TABLET NG SCH ×3 (00:17→21:21)
[2018-02-14] MEDS: ATORVASTATIN CALCIUM 40 MG TABLET PO SCH ×2 (00:17→21:21)
[2018-02-14] MEDS: IPRATROPIUM/ALBUTEROL 0.5-2.5 MG/3 ML AMPUL NEB SCH ×4 (01:37→20:14)
[2018-02-14 05:39] LABS: HEMATOCRIT 31.7 % (36.0-47.0); HEMOGLOBIN 10.3 g/dL (12.0-15.5); MEAN CORPUSCULAR HEMOGLOBIN 24.4 pg (27.0-33.4); MEAN CORPUSCULAR HGB CONC 32.6 g/dL (32.0-36.0); MEAN CORPUSCULAR VOLUME 75 fl (80-97); PLATELET COUNT 314 10^3/uL (150-450); RED BLOOD COUNT 4.22 10^6/uL (3.72-5.28); RED CELL DISTRIBUTION WIDTH 19.3 % (11.5-14.0); WHITE BLOOD COUNT 5.4 10^3/uL (4.0-10.5)
[2018-02-14 05:55] LABS: ALANINE AMINOTRANSFERASE 47 U/L (9-52); ALBUMIN 2.7 g/dL (3.5-5.0); ALKALINE PHOSPHATASE 46 U/L (38-126); ANION GAP 7 (5-19); ASPARTATE AMINO TRANSFERASE 28 U/L (14-36); BILIRUBIN,DIRECT 0.3 mg/dL (0.0-0.4); BILIRUBIN,TOTAL 0.7 mg/dL (0.2-1.3); BLOOD UREA NITROGEN 19 mg/dL (7-20); CALCIUM 8.2 mg/dL (8.4-10.2); CARBON DIOXIDE 29 mmol/L (22-30); CHLORIDE 102 mmol/L (98-107); GLUCOSE 86 mg/dL (75-110); POTASSIUM 3.4 mmol/L (3.6-5.0); SODIUM 137.5 mmol/L (137-145); TOTAL PROTEIN 5.3 g/dL (6.3-8.2)
[2018-02-14 06:02] LABS: ABSOLUTE LYMPHOCYTES# (MANUAL) 0.9 10^3/uL (0.5-4.7); ABSOLUTE MONOCYTES # (MANUAL) 0.4 10^3/uL (0.1-1.4); ABSOLUTE NEUTROPHILS# (MANUAL) 4.1 10^3/uL (1.7-8.2); BASOPHILS % (MANUAL) 0 % (0-2); EOSINOPHILS % (MANUAL) 0 % (0-6); LYMPHOCYTES % (MANUAL) 17 % (13-45); MONOCYTES % (MANUAL) 7 % (3-13); SEGMENTED NEUTROPHILS % (MAN) 76 % (42-78); TOTAL CELLS COUNTED 100
[2018-02-14 06:03] LABS: ANISOCYTOSIS 2+; OVALOCYTES 1+; PLATELET CLUMPS PRESENT; PLATELET COMMENT ADEQUATE; PLATELET LARGE PRESENT; TOXIC GRANULATION 1+
[2018-02-14] MEDS: BUDESONIDE NEB 0.5 MG/2 ML AMPUL NEB SCH ×2 (09:00→20:14)
--- NOTE | 2018-02-14 09:38 | PDOC PROGRESS REPORT ---
Subjective Progress Note for:: 02/14/18 Subjective:: 02/13/[id number]-wfua-old female admitted for bilateral pneumonia status post intubation and extubation no acute events in the last 24 hours. As per the nurse patient is taking her medications when the is present otherwise she is not taking her home medications .I try to talk to the patient this morning she is unable to give her name or date of silvano,h she is just staring at me. I am not sure is because of the bipolar disorder or not I am going to arrange for the psych consult. Patient is afebrile and pulse ox is 98% on 2 L. 02/14/2018-no acute events in the last 24 hours. Patient is afebrile. Patient is not communicated to, alert and awake but not responding verbally. I am going to request for MRI of the brain without contrast and a psych consult was requested because she has history of bipolar disorder. Patient is refusing to take the medications unless is present at bedside. She was successfully extubated 2 days ago no respiratory problems so far. Pulse ox is 96% on 2 L. Reason For Visit: PNEUMONIA Physical Exam Vital Signs: Temp Pulse Resp BP Pulse Ox 98 F 108 H 27 H 132/90 H 96 02/14/18 04:00 02/14/18 01:35 02/14/18 06:00 02/14/18 05:25 02/14/18 06:00 Intake & Output 02/13/18 02/14/18 02/15/18 06:59 06:59 06:59 Intake Total 1550 1400 Output Total 3430 0 Balance -1880 1400 Weight 91.5 kg 91 kg General appearance: PRESENT: no acute distress Head exam: PRESENT: atraumatic Eye exam: PRESENT: PERRLA Mouth exam: PRESENT: dry mucosa Neck exam: ABSENT: carotid bruit, JVD, lymphadenopathy, thyromegaly Respiratory exam: PRESENT: decreased breath sounds Cardiovascular exam: PRESENT: tachycardia Pulses: PRESENT: normal dorsalis pedis pul GI/Abdominal exam: PRESENT: normal bowel sounds, soft. ABSENT: distended, guarding, mass, organolmegaly, rebound, tenderness Neurological exam: PRESENT: alert, awake, CN II-XII grossly intact Psychiatric exam: PRESENT: flat affect Results Laboratory Results: 02/14/18 04:48 02/14/18 04:48 02/14/18 02/14/18 04:48 04:48 WBC 5.4 RBC 4.22 Hgb 10.3 L Hct 31.7 L MCV 75 L MCH 24.4 L MCHC 32.6 RDW 19.3 H Plt Count 314 Seg Neutrophils % Not Reportable Lymphocytes % Not Reportable Monocytes % Not Reportable Eosinophils % Not Reportable Basophils % Not Reportable Absolute Neutrophils Not Reportable Absolute Lymphocytes Not Reportable Absolute Monocytes Not Reportable Absolute Eosinophils Not Reportable Absolute Basophils Not Reportable Sodium 137.5 Potassium 3.4 L Chloride 102 Carbon Dioxide 29 Anion Gap 7 BUN 19 Creatinine 0.54 Est GFR ( Amer) > 60 Est GFR (Non-Af Amer) > 60 Glucose 86 Calcium 8.2 L Magnesium 2.4 H Total Bilirubin 0.7 AST 28 ALT 47 Alkaline Phosphatase 46 Total Protein 5.3 L Albumin 2.7 L 02/06/18 02/06/18 14:02 14:02 Creatine Kinase 427 H CK-MB (CK-2) 1.42 Troponin I < 0.012 Impressions: Chest/Abdomen CTA 02/06/18 15:16 IMPRESSION: 1. NORMAL CTA OF THE CHEST. NO PULMONARY EMBOLI. 2. SMALL PLEURAL EFFUSIONS. EXTENSIVE GROUND-GLASS OPACITIES SCATTERED THROUGHOUT BOTH LUNGS MOST LIKELY DUE TO MULTIFOCAL PNEUMONIA. OTHER ACUTE INFLAMMATORY ETIOLOGIES/PNEUMONITIS MAY ALSO BE POSSIBLE. Chest X-Ray 02/13/18 06:00 IMPRESSION: REMOVAL OF THE ENDOTRACHEAL TUBE AND NASOGASTRIC TUBE. OTHERWISE NO CHANGE. Assessment & Plan - Diagnosis (1) Acute respiratory failure with hypoxia Is this a current diagnosis for this admission?: Yes Plan: Secondary to bilateral, multifocal pneumonia. Self-extubated today 02/12/18. Currently saturating at 93% on 2L via NC. She will be monitored overnight in the ICU. 02/13/2018-patient is admitted with multifocal pneumonia status post intubation and self effect extubation on 02/12/2018 pulse ox is 98% on 2 L on examination mild wheezing at the bases. Patient is not in distress. Currently she is on levofloxacin. Cultures and sputum cultures are negative. 02/14/2018-patient self extubated on 02/12/2018-socks is 96% on 2 L. She is not in respiratory distress comfortable in the bed. Dr. Natarajan is following the patient on regular basis. Her hypoxia is resolved. I am planning to discontinue IV Levaquin. Blood cultures sputum cultures came back negative. (2) Pneumonia Is this a current diagnosis for this admission?: Yes Plan: 02/13/2018-chest CT shows multiple multifocal pneumonia blood cultures sputum cultures are negative patient is afebrile she is on levofloxacin 750 mg IV daily. Plan is to continue the present management. 02/14/2018-patient is afebrile for the last 48 hours. Sputum cultures blood cultures came back negative she completed 8 days course of IV antibiotic therapy. I am going to stop the antibiotics from today. (3) Asthma exacerbation Is this a current diagnosis for this admission?: Yes Plan: 02/13/2018-patient has history of asthma came in with anoxic asthma exacerbation plan is to continue the breathing treatments and prednisone 5 mg p.o. daily. patient is stable enough to go to [facility]. 02/14/2018-on examination chest bilateral entry was decreased no wheezing no rhonchi present. Patient is getting scheduled breathing treatments and prednisone 5 mg p.o. daily. (4) Bipolar 1 disorder Is this a current diagnosis for this admission?: Yes Plan: 02/13/2018-patient has history of bipolar disorder she is on risperidone .plan is to continue the risperidone while she was in the hospital ,also requested for psych evaluation because the patient is not communicative, but alert and awake not in distress but she is not answering the questions like giving name and date of , she is just staring at me with a flat affect .hopefully the psychiatrist can recommend adjustment on her medications. 02/14/2018-patient has history of bipolar disorder 2 mg p.o. twice daily but she is refusing the medication most of the time unless is present at bedside bedside. Requested for psych evaluation hopefully they will give some input about the patient. In the meantime arranging for MRI of the brain without contrast. - Time Time Spent with patient: 15-24 minutes Smoking Cessation Education: over 10 minutes Medications reviewed and adjusted accordingly: Yes Anticipated discharge: Home
[2018-02-14] MEDS ORDERED: (PENDING PHARMACY ID) (Zolpidem Tartrate [Ambien] 10 MG) PO SCH (10:00)
[2018-02-14] MEDS ORDERED: LORAZEPAM INJ 2 MG/1 ML VIAL IV ONE (10:14)
[2018-02-14] MEDS: PREDNISONE 5 MG TABLET PO SCH (10:17)
[2018-02-14] MEDS: METOPROLOL TARTRATE 25 MG TABLET PO SCH (10:17)
[2018-02-14] MEDS: HEPARIN SOD (PORCINE) 5,000 UNIT/ML 1 ML SYRINGE SUBCUT SCH ×2 (10:17→21:21)
[2018-02-14] MEDS: ALPRAZOLAM 0.5 MG TABLET PO SCH ×2 (10:17→18:02)
[2018-02-14] MEDS: ASPIRIN 81 MG TABLET, ENT COATED PO SCH (10:18)
--- NOTE | 2018-02-14 12:01 | RADIOLOGY REPORT (SQ) ---
EXAM DESCRIPTION: MRI HEAD WITHOUT COMPLETED DATE/TIME: 02/14/2018 11:24 am REASON FOR STUDY: ams COMPARISON: CT brain 07/05/2017 TECHNIQUE: Multiplanar imaging includes non-contrasted T1, T2, FLAIR, and diffusion with ADC map seq uences. Images stored on PACS. LIMITATIONS: Motion artifact on some of the pulse sequences FINDINGS: ANATOMY: No anomalies. Normal vascular flow voids. Pituitary fossa normal. CSF SPACES: Normal in size and contour. No hemorrhage. CEREBRUM: Sulci and gyri normal in size and contour. Normal white matter signal on FLAIR imaging. No evidence of hemorrhage, mass, or extraaxial fluid collection. POSTERIOR FOSSA: No signal alteration. No hemorrhage. No edema, masses or mass effect. Internal mio tory canals, cerebello-pontine angles, mastoids normal. DIFFUSION IMAGING: Negative for acute or sub-acute infarction. ORBITS: No masses. Globes normal. PARANASAL SINUSES: No fluid levels. Mucosa normal. OTHER: No other significant finding. IMPRESSION: NORMAL MRI OF THE BRAIN WITHOUT INTRAVENOUS GADOLINIUM CONTRAST. EVIDENCE OF ACUTE STROKE: NO. TECHNICAL DOCUMENTATION: JOB ID: [id number] [employer]- All Rights Reserved Reading location - IP/workstation name: [email or web address]
--- NOTE | 2018-02-14 17:41 | PSYCHOLOGICAL NOTE ---
Psych Note - Psych Note Date seen by psych provider: 02/14/18 Time seen by psych provider: 16:40 Psych Note: Reason for Consult: bipolar Patient confirms that she still takes risperidone for her mental health and that she takes it appropriately. She nodded her head reporting she has an outpatient mental health provider. She denied by shaking her head thoughts of wanting to harm herself or others. Patient is alert and orientated to person, place. Clinician notes patient is unable to demonstrate orientation to time and circumstance due to her refusal to fully engage with clinician. Mood is euthymic with flat affect. patient denies suicidal and homicidal ideation. Delusions are absent behaviors congruent with an intact reality based presentation i.e. organized and linear thought process. Eye contact was well-maintained clinician notes patient is conversational speech was mainly nonverbal i.e. nodding or shaking her head however towards the end evaluation patient did whisper. Intellectual abilities appear to be within the average range. Attention and concentration are fair. Insight, judgment, impulse control are fair. Diagnosis: 311 (F32.9) Unspecified Depressive Disorder by history 300.00 (F41.9) Unspecified Anxiety Disorder (with panic attacks) by history R/O Bipolar Disorder Impression\plan: Patient is cleared from acute psychiatric services. She is recommended to restart home medications for psychiatric symptoms. Patient does not meet IVC criteria per [place] GS 122C. Patient does demonstrate some behavioral characteristics. Please re-consult if new concerns arise. Dr. Grant was consulted on the care and management of this patient.
[2018-02-15] MEDS: IPRATROPIUM/ALBUTEROL 0.5-2.5 MG/3 ML AMPUL NEB SCH ×4 (02:19→20:21)
[2018-02-15] MEDS: BUDESONIDE NEB 0.5 MG/2 ML AMPUL NEB SCH ×2 (08:46→20:21)
[2018-02-15] MEDS: PREDNISONE 5 MG TABLET PO SCH (09:49)
[2018-02-15] MEDS: RISPERIDONE 1 MG TABLET NG SCH ×2 (09:50→21:11)
[2018-02-15] MEDS: ASPIRIN 81 MG TABLET, ENT COATED PO SCH (09:50)
[2018-02-15] MEDS: ALPRAZOLAM 0.5 MG TABLET PO SCH ×2 (09:50→17:53)
[2018-02-15] MEDS: METOPROLOL TARTRATE 25 MG TABLET PO SCH (09:53)
[2018-02-15] MEDS: HEPARIN SOD (PORCINE) 5,000 UNIT/ML 1 ML SYRINGE SUBCUT SCH ×2 (09:54→21:11)
--- NOTE | 2018-02-15 10:17 | PDOC PROGRESS REPORT ---
Subjective Progress Note for:: 02/15/18 Subjective:: 02/13[birth year][id number]-pvqk-old female admitted for bilateral pneumonia status post intubation and extubation no acute events in the last 24 hours. As per the nurse patient is taking her medications when the is present otherwise she is not taking her home medications .I try to talk to the patient this morning she is unable to give her name or date of silvano,h she is just staring at me. I am not sure is because of the bipolar disorder or not I am going to arrange for the psych consult. Patient is afebrile and pulse ox is 98% on 2 L. 02/14/2018-no acute events in the last 24 hours. Patient is afebrile. Patient is not communicated to, alert and awake but not responding verbally. I am going to request for MRI of the brain without contrast and a psych consult was requested because she has history of bipolar disorder. Patient is refusing to take the medications unless is present at bedside. She was successfully extubated 2 days ago no respiratory problems so far. Pulse ox is 96% on 2 L. 02/15/2018--patient is doing much much better today alert and oriented communicating well appreciate psych evaluation. Acute events in the last 24 hours. Patient is afebrile. Reason For Visit: PNEUMONIA Physical Exam Vital Signs: Temp Pulse Resp BP Pulse Ox 99.4 F 89 16 102/51 L 95 02/15/18 07:23 02/15/18 08:48 02/15/18 08:48 02/15/18 07:23 02/15/18 08:48 Intake & Output 02/14/18 02/15/18 02/16/18 06:59 06:59 06:59 Intake Total 1400 360 Output Total 0 0 Balance 1400 360 Weight 91 kg 88.5 kg General appearance: PRESENT: no acute distress Head exam: PRESENT: atraumatic Eye exam: PRESENT: PERRLA Mouth exam: PRESENT: moist Neck exam: ABSENT: carotid bruit - There is, JVD, lymphadenopathy, thyromegaly Respiratory exam: PRESENT: clear to auscultation hemant. ABSENT: rales, rhonchi, wheezes Cardiovascular exam: PRESENT: RRR. ABSENT: diastolic murmur, rubs, systolic murmur GI/Abdominal exam: PRESENT: normal bowel sounds, soft. ABSENT: distended, guarding, mass, organolmegaly, rebound, tenderness Extremities exam: PRESENT: full ROM. ABSENT: calf tenderness, clubbing, pedal edema Neurological exam: PRESENT: alert, awake, oriented to person, oriented to place, oriented to time, oriented to situation, CN II-XII grossly intact. ABSENT: motor sensory deficit Psychiatric exam: PRESENT: appropriate affect, normal mood. ABSENT: homicidal ideation, suicidal ideation Results Laboratory Results: 02/14/18 04:48 02/14/18 04:48 02/06/18 02/06/18 14:02 14:02 Creatine Kinase 427 H CK-MB (CK-2) 1.42 Troponin I < 0.012 Impressions: Chest/Abdomen CTA 02/06/18 15:16 IMPRESSION: 1. NORMAL CTA OF THE CHEST. NO PULMONARY EMBOLI. 2. SMALL PLEURAL EFFUSIONS. EXTENSIVE GROUND-GLASS OPACITIES SCATTERED THROUGHOUT BOTH LUNGS MOST LIKELY DUE TO MULTIFOCAL PNEUMONIA. OTHER ACUTE INFLAMMATORY ETIOLOGIES/PNEUMONITIS MAY ALSO BE POSSIBLE. Chest X-Ray 02/13/18 06:00 IMPRESSION: REMOVAL OF THE ENDOTRACHEAL TUBE AND NASOGASTRIC TUBE. OTHERWISE NO CHANGE. Head MRI 02/14/18 00:00 IMPRESSION: NORMAL MRI OF THE BRAIN WITHOUT INTRAVENOUS GADOLINIUM CONTRAST. EVIDENCE OF ACUTE STROKE: NO. Assessment & Plan - Diagnosis (1) Acute respiratory failure with hypoxia Is this a current diagnosis for this admission?: Yes Plan: Secondary to bilateral, multifocal pneumonia. Self-extubated today 02/12/18. Currently saturating at 93% on 2L via NC. She will be monitored overnight in the ICU. 02/13/2018-patient is admitted with multifocal pneumonia status post intubation and self effect extubation on 02/12/2018 pulse ox is 98% on 2 L on examination mild wheezing at the bases. Patient is not in distress. Currently she is on levofloxacin. Cultures and sputum cultures are negative. 02/14/2018-patient self extubated on 02/12/2018-socks is 96% on 2 L. She is not in respiratory distress comfortable in the bed. Dr. Natarajan is following the patient on regular basis. Her hypoxia is resolved. I am planning to discontinue IV Levaquin. Blood cultures sputum cultures came back negative. 02/15/2018-patient was admitted with bilateral multifocal pneumonia leading to acute respiratory failure status post intubation and self ectopy extubation on 02/12/2018. Pulse oxes are 95-96% on room air today. Shunt is asymptomatic. She is off the IV fluids. Blood cultures sputum cultures are negative. In my opinion hypoxia is resolved. (2) Pneumonia Is this a current diagnosis for this admission?: Yes Plan: 02/13/2018-chest CT shows multiple multifocal pneumonia blood cultures sputum cultures are negative patient is afebrile she is on levofloxacin 750 mg IV daily. Plan is to continue the present management. 02/14/2018-patient is afebrile for the last 48 hours. Sputum cultures blood cultures came back negative she completed 8 days course of IV antibiotic therapy. I am going to stop the antibiotics from today. 02/15/2018-patient was afebrile for the last 72 hours T-max is with low-grade fever of 99.[address] scan at the time of admission shows bilateral pneumonia. Sputum cultures are negative. Probably she has a bacterial pneumonia. Patient has elevated lactic acidosis probably secondary to pneumonia. (3) Asthma exacerbation Is this a current diagnosis for this admission?: Yes Plan: 02/13/2018-patient has history of asthma came in with anoxic asthma exacerbation plan is to continue the breathing treatments and prednisone 5 mg p.o. daily. patient is stable enough to go to [facility]. 02/14/2018-on examination chest bilateral entry was decreased no wheezing no rhonchi present. Patient is getting scheduled breathing treatments and prednisone 5 mg p.o. daily. 02/2018-patient has history of bronchial asthma she had apparent asthma exacerbation. She was treated with IV steroids and nebulizer treatments optimize resolved. Bronchial asthma exacerbation may be secondary to pneumonia. (4) Bipolar 1 disorder Is this a current diagnosis for this admission?: Yes Plan: 02/13/2018-patient has history of bipolar disorder she is on risperidone .plan is to continue the risperidone while she was in the hospital ,also requested for psych evaluation because the patient is not communicative, but alert and awake not in distress but she is not answering the questions like giving name and date of , she is just staring at me with a flat affect .hopefully the psychiatrist can recommend adjustment on her medications. 02/14/2018-patient has history of bipolar disorder 2 mg p.o. twice daily but she is refusing the medication most of the time unless is present at bedside bedside. Requested for psych evaluation hopefully they will give some input about the patient. In the meantime arranging for MRI of the brain without contrast. 02/15/2018-patient's mood is much improved. Able to communicate well. She is smiling. Psych consult was done appreciate the input. We are going to start her back on Cogentin 1 mg p.o. every 12 hours, she is already on Xanax 0.5 mg twice daily and risperidone 1 mg twice daily. (5) Physical deconditioning Is this a current diagnosis for this admission?: Yes Plan: 02/15/2018-patient was in the hospital she was admitted for bilateral pneumonia status post intubation and extubation patient was seen and physical deconditioning she has difficulty in ambulation I think it is appropriate for the physical therapy to work with the patient if she did well today probably plan to discharge her home tomorrow. - Time Time Spent with patient: 15-24 minutes Smoking Cessation Education: 3 to 10 minutes Medications reviewed and adjusted accordingly: Yes Anticipated discharge: Home
[2018-02-15] MEDS: BENZTROPINE MESYLATE 1 MG TABLET PO SCH (17:52)
[2018-02-15] MEDS: ZOLPIDEM TARTRATE 5 MG TABLET PO SCH (21:11)
[2018-02-15] MEDS: ATORVASTATIN CALCIUM 40 MG TABLET PO SCH (21:11)
[2018-02-16] MEDS: IPRATROPIUM/ALBUTEROL 0.5-2.5 MG/3 ML AMPUL NEB SCH ×2 (02:51→08:41)
[2018-02-16] MEDS: BUDESONIDE NEB 0.5 MG/2 ML AMPUL NEB SCH (08:41)
[2018-02-16] MEDS: ALPRAZOLAM 0.5 MG TABLET PO SCH (09:39)
[2018-02-16] MEDS: RISPERIDONE 1 MG TABLET NG SCH (09:39)
[2018-02-16] MEDS: ASPIRIN 81 MG TABLET, ENT COATED PO SCH (09:39)
[2018-02-16] MEDS: BENZTROPINE MESYLATE 1 MG TABLET PO SCH (09:39)
[2018-02-16] MEDS: HEPARIN SOD (PORCINE) 5,000 UNIT/ML 1 ML SYRINGE SUBCUT SCH (09:42)
[2018-02-16] MEDS: METOPROLOL TARTRATE 25 MG TABLET PO SCH (09:43)
[2018-02-16] MEDS ORDERED: POTASSIUM CHLORIDE 20 MEQ/15 ML UDCUP PO ONE (11:00)
[2018-02-16 12:54] VITALS: BP 100/55
--- NOTE | 2018-02-16 13:53 | PDOC DISCHARGE SUMMARY ---
General - Admit/Disc Date/PCP Admission Date/Primary Care Provider: 02/06/18 17:00 TJ HODGE, Discharge Date: 02/16/18 - Discharge Diagnosis (1) Acute respiratory failure with hypoxia Is this a current diagnosis for this admission?: Yes Summary: Secondary to bilateral, multifocal pneumonia. Self-extubated today 02/12/18. Currently saturating at 93% on 2L via NC. She will be monitored overnight in the ICU. 02/13/2018-patient is admitted with multifocal pneumonia status post intubation and self effect extubation on 02/12/2018 pulse ox is 98% on 2 L on examination mild wheezing at the bases. Patient is not in distress. Currently she is on levofloxacin. Cultures and sputum cultures are negative. 02/14/2018-patient self extubated on 02/12/2018-socks is 96% on 2 L. She is not in respiratory distress comfortable in the bed. Dr. Natarajan is following the patient on regular basis. Her hypoxia is resolved. I am planning to discontinue IV Levaquin. Blood cultures sputum cultures came back negative. 02/15/2018-patient was admitted with bilateral multifocal pneumonia leading to acute respiratory failure status post intubation and self ectopy extubation on 02/12/2018. Pulse oxes are 95-96% on room air today. Shunt is asymptomatic. She is off the IV fluids. Blood cultures sputum cultures are negative. In my opinion hypoxia is resolved. 02/16/2018-patient was admitted with bilateral multifocal pneumonia leading to intubation she was self extubated on 02/12/2018. Pulse oxes today 92% on room air patient is comfortably in the bed. Acute on chronic respiratory failure with hypoxia is resolved. And is going home today with home health. PT is also recommending rolling walker. (2) Pneumonia Is this a current diagnosis for this admission?: Yes Summary: 02/13/2018-chest CT shows multiple multifocal pneumonia blood cultures sputum cultures are negative patient is afebrile she is on levofloxacin 750 mg IV daily. Plan is to continue the present management. 02/14/2018-patient is afebrile for the last 48 hours. Sputum cultures blood cultures came back negative she completed 8 days course of IV antibiotic therapy. I am going to stop the antibiotics from today. 02/15/2018-patient was afebrile for the last 72 hours T-max is with low-grade fever of 99.[address] scan at the time of admission shows bilateral pneumonia. Sputum cultures are negative. Probably she has a bacterial pneumonia. Patient has elevated lactic acidosis probably secondary to pneumonia. 02/16/2018-patient was admitted with multifocal pneumonia most likely community- acquired pneumonia sputum cultures came back negative blood cultures came back negative. It is going to go home on levofloxacin 500 mg p.o. daily for 5 days. Strongly advised to follow-up with primary care physician in 3-5 days. Patient agreed and verbalized response. (3) Asthma exacerbation Is this a current diagnosis for this admission?: Yes Summary: 02/13/2018-patient has history of asthma came in with anoxic asthma exacerbation plan is to continue the breathing treatments and prednisone 5 mg p.o. daily. patient is stable enough to go to [facility]. 02/14/2018-on examination chest bilateral entry was decreased no wheezing no rhonchi present. Patient is getting scheduled breathing treatments and prednisone 5 mg p.o. daily. 02/2018-patient has history of bronchial asthma she had apparent asthma exacerbation. She was treated with IV steroids and nebulizer treatments o ptimize resolved. Bronchial asthma exacerbation may be secondary to pneumonia. 02/16/2018-patient has history of bronchial asthma and asthma exacerbation probably secondary to pneumonia. Asthma exacerbation was resolved. On examination today chest bilateral entry was decreased but there is no wheezing. (4) Bipolar 1 disorder Is this a current diagnosis for this admission?: Yes Summary: 02/13/2018-patient has history of bipolar disorder she is on risperidone .plan is to continue the risperidone while she was in the hospital ,also requested for psych evaluation because the patient is not communicative, but alert and awake not in distress but she is not answering the questions like giving name and date of , she is just staring at me with a flat affect .hopefully the psychiatrist can recommend adjustment on her medications. 02/14/2018-patient has history of bipolar disorder 2 mg p.o. twice daily but she is refusing the medication most of the time unless is present at bedside bedside. Requested for psych evaluation hopefully they will give some input about the patient. In the meantime arranging for MRI of the brain without contrast. 02/15/2018-patient's mood is much improved. Able to communicate well. She is smiling. Psych consult was done appreciate the input. We are going to start her back on Cogentin 1 mg p.o. every 12 hours, she is already on Xanax 0.5 mg twice daily and risperidone 1 mg twice daily. 02/16/2018-patient has history of bipolar disorder psych evaluation was done here patient was on Cogentin 1 mg p.o. twice daily, Xanax 0.5 mg p.o. twice daily risperidone 1 mg p.o. twice daily at home those medications are continued while she was in the hospital. She was advised to continue the medications at home also was strongly advised her to follow-up with her psychiatrist in 1 week. She agreed. (5) Physical deconditioning Is this a current diagnosis for this admission?: Yes Summary: 02/15/2018-patient was in the hospital she was admitted for bilateral pneumonia status post intubation and extubation patient was seen and physical deconditioning she has difficulty in ambulation I think it is appropriate for the physical therapy to work with the patient if she did well today probably plan to discharge her home tomorrow. 02/16/2018-physical therapy was done the recommendation is home health and arsenio louis and a prescription will be written for the patient to go home with yana walker. - Additional Information Discharge Diet: Cardiac Discharge Activity: Activity As Tolerated Prescriptions: Levofloxacin [Levaquin 500 mg Tablet] 500 mg PO DAILY #5 tablet Home Medications: Albuterol Sulfate [Ventolin Hfa] 2 puff IH Q4HP PRN 07/07/17 Alprazolam [Xanax 0.5 mg Tablet] 0.5 mg PO BID 07/07/17 Benztropine Mesylate [Cogentin 1 mg Tablet] 1 mg PO Q12 07/07/17 Risperidone [Risperdal] 1 mg PO BID 02/06/18 Zolpidem Tartrate [Ambien] 10 mg PO DAILY 02/06/18 Aspirin [Ecotrin 81 mg EC Tablet] 81 mg PO DAILY 02/07/18 Atorvastatin Calcium [Lipitor 40 mg Tablet] 40 mg PO QHS 02/07/18 Metoprolol Tartrate [Lopressor 25 mg Tablet] 25 mg PO DAILY 02/07/18 Levofloxacin [Levaquin 500 mg Tablet] 500 mg PO DAILY #5 tablet 02/16/18 History of Present Illness History of Present Illness: JOVANY LAU is a 37 year old female a PMH of asthma, history of depression, history of intubation for bilateral pneumonia, history of manic episodes with psychotic features (?bipolar disorder) who presented with cough, SOB, wheezing and diarrhea. Patient says her parents were having repsiratory symptoms last week including cough and congestion. She started having minimally productive cough over the past 6-7 days and developed gradually worsening SOB. She also reports of associated wheezing, subjective fever and chills. In the ER, she was noted to have bilateral wheezes. Patient also complains of watery, nonbloody stools, 4 episodes/day for the past 5 days. She also reports of associated nausea and vomiting and says she threw up twice this morning. Denies history of C. diff or recent antibiotic use. Physical Exam Vital Signs: Temp Pulse Resp BP Pulse Ox 99.0 F 74 16 110/66 93 02/16/18 11:47 02/16/18 11:47 02/16/18 11:47 02/16/18 11:47 02/16/18 11:47 Intake & Output 02/15/18 02/16/18 02/17/18 06:59 06:59 06:59 Intake Total 360 675 475 Output Total 0 600 Balance 360 75 475 Weight 88.5 kg 88.5 kg General appearance: PRESENT: no acute distress Head exam: PRESENT: atraumatic Eye exam: PRESENT: PERRLA Mouth exam: PRESENT: dry mucosa Neck exam: ABSENT: carotid bruit, JVD, lymphadenopathy, thyromegaly Respiratory exam: PRESENT: decreased breath sounds Cardiovascular exam: PRESENT: RRR. ABSENT: diastolic murmur, rubs, systolic murmur GI/Abdominal exam: PRESENT: normal bowel sounds, soft. ABSENT: distended, guarding, mass, organolmegaly, rebound, tenderness Neurological exam: PRESENT: alert, awake, oriented to person, oriented to place, oriented to time, oriented to situation, CN II-XII grossly intact. ABSENT: motor sensory deficit Psychiatric exam: PRESENT: appropriate affect, normal mood. ABSENT: homicidal ideation, suicidal ideation Results Laboratory Results: 02/14/18 04:48 02/14/18 04:48 02/06/18 02/06/18 14:02 14:02 Creatine Kinase 427 H CK-MB (CK-2) 1.42 Troponin I < 0.012 Impressions: Chest/Abdomen CTA 02/06/18 15:16 IMPRESSION: 1. NORMAL CTA OF THE CHEST. NO PULMONARY EMBOLI. 2. SMALL PLEURAL EFFUSIONS. EXTENSIVE GROUND-GLASS OPACITIES SCATTERED THROUGH OUT BOTH LUNGS MOST LIKELY DUE TO MULTIFOCAL PNEUMONIA. OTHER ACUTE INFLAMMATORY ETIOLOGIES/PNEUMONITIS MAY ALSO BE POSSIBLE. Chest X-Ray 02/13/18 06:00 IMPRESSION: REMOVAL OF THE ENDOTRACHEAL TUBE AND NASOGASTRIC TUBE. OTHERWISE NO CHANGE. Head MRI 02/14/18 00:00 IMPRESSION: NORMAL MRI OF THE BRAIN WITHOUT INTRAVENOUS GADOLINIUM CONTRAST. EVIDENCE OF ACUTE STROKE: NO. Qualifiers - * PATIENT BEING DISCHARGED WITH ANY OF THE FOLLOWING DIAGNOSIS: No VTE patient discharged on overlapping Therapy?: Yes
== END 2018-02-16 13:30 | disposition home health service (06) | DRG 207 ==
LOC: ER 12:32 → EH 17:00 → 3W 20:40 → ICU 02-07 13:14 → 3S 02-14 12:56
PROVIDERS: ADMIT Hospitalist; ATTEND Hospitalist
PROC: 5A09457 Assistance with Respiratory Ventilation, 24-96 Consecutive Hours, Continuous Positive Airway Pressure (ICD-10-PCS; 2018-02-06)
PROC: 5A1955Z Respiratory Ventilation, Greater than 96 Consecutive Hours (ICD-10-PCS; principal; 2018-02-07)
PROC: 0BH17EZ Insertion of Endotracheal Airway into Trachea, Via Natural or Artificial Opening (ICD-10-PCS; 2018-02-07)
DX: J18.9 Pneumonia, unspecified organism (principal); J96.01 Acute respiratory failure with hypoxia; J45.901 Unspecified asthma with (acute) exacerbation; E87.1 Hypo-osmolality and hyponatremia; E87.2 Acidosis; E87.6 Hypokalemia; F31.9 Bipolar disorder, unspecified; F17.200 Nicotine dependence, unspecified, uncomplicated; F41.9 Anxiety disorder, unspecified; Z82.49 Family history of ischemic heart disease and other diseases of the circulatory system; Z83.3 Family history of diabetes mellitus; Z88.6 Allergy status to analgesic agent; Z79.899 Other long term (current) drug therapy; Z78.1 Physical restraint status; Z79.82 Long term (current) use of aspirin; Z79.51 Long term (current) use of inhaled steroids
CPT/HCPCS: 31500; 36415; 36600; 70551; 71045; 71046; 71275; 80048; 80053; 80202; 80307; 81001; 81025; 82550; 82553; 82565; 82803; 83605; 83735; 83930; 84100; 84484; 84703; 85025; 87040; 87070; 87086; 87205; 87493; 87804; 93005; 93010; 94002; 94003; 94640; 94660; 96360; 96361; 99285; J0330; J0456; J0696; J1630; J1644; J1940; J2060; J2250; J2543; J2704; J2920; J2930; J3370; J3490; J7030; J7060; J7512; J7620; S0164

== ENCOUNTER 2018-11-11 23:28 | Emergency (ER) | payer MEDICARE, MEDICAID ==
[2018-11-12] MEDS ORDERED: METHYLPREDNISOLONE INJ 125 MG/2 ML SDV IV ONE (01:58)
[2018-11-12] MEDS ORDERED: IPRATROPIUM/ALBUTEROL 0.5-2.5 MG/3 ML AMPUL NEB ONE (01:58)
--- NOTE | 2018-11-12 02:19 | ER Document Report ---
ED Respiratory Problem - General Chief Complaint: Chest Tightness Stated Complaint: SHORTNESS OF BREATH Time Seen by Provider: 11/12/18 01:48 Primary Care Provider: TJ HDOGE DO [Primary Care Provider] - Follow up as needed TRAVEL OUTSIDE OF THE [place] IN LAST 30 DAYS: No - HPI Notes: This is a 38-year-old female who presents today with a complaint of cough, congestion, shortness of breath for the past week. Patient describes pain across her upper back and chest wall for the past week which she attributes to her coughing. Her cough is productive of clear sputum. She denies any fever or chills. She denies any vomiting or diarrhea. She describes her symptoms as mod erate. There are no obvious aggravating or relieving factors. - Related Data Allergies/Adverse Reactions: lurasidone HCl [From Latuda] Allergy (Severe, Verified 07/05/17 16:40) Seizures morphine Adverse Reaction (Intermediate, Verified 07/05/17 16:40) Hives Past Medical History - Social History Smoking Status: Former Smoker Chew tobacco use (# tins/day): No Frequency of alcohol use: None Drug Abuse: None Family History: CAD, DM, Hypertension Patient has suicidal ideation: No Patient has homicidal ideation: No Pulmonary Medical History: Reports: Hx Asthma, Hx Pneumonia, Hx Intubation Neurological Medical History: Reports: Hx Seizures - After taking latuda, after latuda was stopped, patient seizures stopped Renal/ Medical History: Reports: Hx Ovarian Cysts. Denies: Hx Peritoneal Dialysis GI Medical History: Reports: Hx Irritable Bowel Musculoskeletal Medical History: Reports Hx Musculoskeletal Trauma Psychiatric Medical History: Reports: Hx Anxiety, Hx Bipolar Disorder, Hx Depression - anxiety Past Surgical History: Reports: Hx Section - x2, Hx Tubal Ligation - Immunizations Immunizations up to date: Yes Hx Diphtheria, Pertussis, Tetanus Vaccination: Yes Review of Systems - Review of Systems Constitutional: denies: Fever EENT: Nose congestion. denies: Sinus pressure Cardiovascular: Chest pain. denies: Palpitations, Heart racing Respiratory: Cough, Short of breath, Wheezing Neurological/Psychological: denies: Headaches -: Yes All other systems reviewed and negative Physical Exam - Vital signs Vitals: Temp Pulse Resp BP Pulse Ox 98.6 F 93 18 127/71 H 100 11/11/18 23:32 11/11/18 23:32 11/11/18 23:32 11/11/18 23:32 11/11/18 23:32 - General General appearance: Appears well, Alert - Respiratory Respiratory status: No respiratory distress Chest status: Nontender Breath sounds: Wheezing - There are diffuse scattered wheezes appreciated. Chest palpation: Normal - Cardiovascular Rhythm: Regular Heart sounds: Normal auscultation Murmur: No - Neurological Neuro grossly intact: Yes Cognition: Normal Orientation: AAOx4 [place] Coma Scale Eye Opening: Spontaneous [place] Coma Scale Verbal: Oriented [place] Coma Scale Motor: Obeys Commands Dottie Coma Scale Total: 15 Speech: Normal Motor strength normal: LUE, RUE, LLE, RLE Sensory: Normal - Psychological Associated symptoms: Normal affect, Normal mood Course - Re-evaluation Re-evalutation: 11/12/18 02:18 Differential diagnosis includes pneumonia versus asthma exacerbation versus bronchitis. There is no clinical suspicion for acute coronary syndrome with atypical chest pain for 1 week, related to URI symptoms. Can rule out with one negative troponin. EKG shows normal sinus rhythm at 92 bpm. Left atrial enlargement. No acute injury pattern. 11/12/18 03:34 Patient reevaluated. Patient feels much better. No wheezing. Labs and tests were reviewed and discussed. We will put her on a Z-Fritz for bronchitis. Patient has albuterol at home. She is stable for discharge. - Vital Signs Vital signs: Temp Pulse Resp BP Pulse Ox 98.6 F 93 16 112/72 99 11/11/18 23:32 11/11/18 23:32 11/12/18 03:01 11/12/18 03:01 11/12/18 03:01 - Laboratory Result Diagrams: 11/12/18 02:17 11/12/18 02:17 Laboratory results interpreted by me: 11/12/18 11/12/18 02:17 02:17 MCV 76 L MCH 24.7 L RDW 20.9 H Sodium 133.2 L Potassium 5.1 H Discharge - Discharge Clinical Impression: Acute bacterial bronchitis, Bronchospasm with bronchitis, acute, Acute costochondritis Condition: Stable Disposition: HOME, SELF-CARE Instructions: Bronchitis With Bronchospasm (Wheezing) (OM) Additional Instructions: Use your Albuterol as needed for wheezing and cough. Follow-up with your doctor. Return if worse or concerns. Prescriptions: Benzonatate [Tessalon Perles 100 mg Capsule] 100 mg PO Q8HP PRN #40 capsule PRN Reason: Prednisone [Deltasone 20 mg Tablet] 3 tab PO DAILY 5 Days #15 tablet Azithromycin [Zithromax 250 mg Tablet] 250 mg PO ASDIR PRN #6 tablet PRN Reason: Referrals: TJ HODGE DO [Primary Care Provider] - Follow up in 3-5 days
[2018-11-12 02:56] LABS: ABSOLUTE BASOPHILS # (AUTO) 0.1 10^3/uL (0.0-0.2); ABSOLUTE EOSINOPHILS # (AUTO) 0.2 10^3/uL (0.0-0.6); ABSOLUTE LYMPHOCYTES (AUTO) 1.8 10^3/uL (0.5-4.7); ABSOLUTE MONOCYTES (AUTO) 0.5 10^3/uL (0.1-1.4); ABSOLUTE NEUT (AUTO) 4.8 10^3/uL (1.7-8.2); BASOPHILS % (AUTO) 0.9 % (0-2); HEMATOCRIT 38.2 % (36.0-47.0); HEMOGLOBIN 12.4 g/dL (12.0-15.5); LYMPHOCYTES % (AUTO) 24.2 % (13-45); MEAN CORPUSCULAR HEMOGLOBIN 24.7 pg (27.0-33.4); MEAN CORPUSCULAR HGB CONC 32.4 g/dL (32.0-36.0); MEAN CORPUSCULAR VOLUME 76 fl (80-97); MONOCYTES % (AUTO) 7.1 % (3-13); PLATELET COUNT 276 10^3/uL (150-450); RED CELL DISTRIBUTION WIDTH 20.9 % (11.5-14.0); SEGMENTED NEUTROPHILS % (AUTO) 64.8 % (42-78); TOTAL CELLS COUNTED % (AUTO) 100 %; WHITE BLOOD COUNT 7.4 10^3/uL (4.0-10.5)
--- NOTE | 2018-11-12 02:58 | RADIOLOGY REPORT (SQ) ---
EXAM DESCRIPTION: X-ray two view chest. CLINICAL HISTORY: 38 years Female, cough/dyspnea COMPARISON: 02/11/2018 TECHNIQUE: PA and Lateral views of the chest performed on 11/12/2018 at 2:33 AM FINDINGS: The lungs are well expanded and are grossly clear. There is trace blunting of the left posterior costophrenic sulcus consistent with a small effusion and/or atelectasis or scarring. There is no evidence of a pneumothorax. The cardiac silhouette is normal in size. The mediastinal contours are normal. No acute osseous abnormalities are identified. No focal soft tissue abnormalities are identified. IMPRESSION: 1. Trace blunting of the left posterior costophrenic sulcus which may be due to a small effusion, atelectasis and/or scarring. 2. The lungs are otherwise clear.
[2018-11-12 03:10] LABS: ANION GAP 8 (5-19); BLOOD UREA NITROGEN 11 mg/dL (7-20); CALCIUM 8.6 mg/dL (8.4-10.2); CARBON DIOXIDE 25 mmol/L (22-30); CHLORIDE 100 mmol/L (98-107); GLUCOSE 88 mg/dL (75-110); POTASSIUM 5.1 mmol/L (3.6-5.0)
[2018-11-12] MEDS ORDERED: AZITHROMYCIN 250 MG TABLET PO ONE (03:39)
[2018-11-12 04:00] VITALS: BP 116/68
--- NOTE | 2018-11-12 07:28 | EKG REPORT ---
SEVERITY:- ABNORMAL ECG - SINUS RHYTHM PROBABLE LEFT ATRIAL ABNORMALITY BORDERLINE INFERIOR Q WAVES BORDERLINE T ABNORMALITIES, ANT-LAT LEADS INCOMPLETE RBBB : Confirmed by: Yazan Brock MD 12-Nov-2018 07:27:50
== END 2018-11-12 03:50 | disposition home or self-care (01) ==
LOC: ER 23:28
DX: M94.0 Chondrocostal junction syndrome [Tietze] (principal); J20.9 Acute bronchitis, unspecified; R07.89 Other chest pain; Z88.6 Allergy status to analgesic agent; Z98.51 Tubal ligation status
CPT/HCPCS: 93005; 36415; 85025; 80048; 84484; 71046; 93010; A9270 ×2; J2930; 94640; 96374; 99285; J7620

== ENCOUNTER 2019-01-12 20:57 | Emergency (ER) | payer MEDICARE, MEDICAID ==
[2019-01-12] MEDS ORDERED: IPRATROPIUM/ALBUTEROL 0.5-2.5 MG/3 ML AMPUL NEB ONE ×2 (21:19→22:09)
--- NOTE | 2019-01-12 21:19 | ER Document Report ---
ED Medical Screen (RME) - General Chief Complaint: Asthma Exacerbation Stated Complaint: DIFFICULTY BREATHING Time Seen by Provider: 01/12/19 21:13 Primary Care Provider: TJ HODGE DO [Primary Care Provider] - Follow up as needed Mode of Arrival: Ambulatory Information source: Patient Notes: 38-year-old female presents to ED for complaint of upper respiratory infection that has caused her asthma to get much worse. She states she is short of breath now. She does have a significant cough. She does have inspiratory and expiratory wheezes with a crackle on the left lung. Will treat with steroids and nebulizers and get an x-ray and have her followed up by another provider. I have greeted and performed a rapid initial assessment of this patient. A co mprehensive ED assessment and evaluation of the patient, analysis of test results and completion of medical decision making process will be conducted by an additional ED providers. TRAVEL OUTSIDE OF THE [place] IN LAST 30 DAYS: No - HPI Onset: Other - feww days ago Quality of pain: Achy - Related Data Allergies/Adverse Reactions: lurasidone HCl [From Latuda] Allergy (Severe, Verified 07/05/17 16:40) Seizures morphine Adverse Reaction (Intermediate, Verified 07/05/17 16:40) Hives Past Medical History - General Information source: Patient - Social History Cigarette use (# per day): No Chew tobacco use (# tins/day): No Frequency of alcohol use: None Drug Abuse: None Lives with: Family Family history: Hypertension - Past Medical History Cardiac Medical History: Reports: Hx Hypercholesterolemia Pulmonary Medical History: Reports: Hx Asthma, Hx Pneumonia, Hx Intubation EENT Medical History: Reports: None Neurological Medical History: Reports: Hx Seizures - After taking latuda, after latuda was stopped, patient seizures stopped Endocrine Medical History: Reports: None Renal/ Medical History: Reports: Hx Ovarian Cysts Malignancy Medical History: Reports: None GI Medical History: Reports: Hx Irritable Bowel Musculoskeltal Medical History: Reports Hx Musculoskeletal Trauma Skin Medical History: Reports None Psychiatric Medical History: Reports: Hx Anxiety, Hx Bipolar Disorder, Hx Depression - anxiety Traumatic Medical History: Reports: None Infectious Medical History: Reports: None Past Surgical History: Reports: Hx Section - x2, Hx Tubal Ligation - Immunizations Immunizations up to date: Yes Hx Diphtheria, Pertussis, Tetanus Vaccination: Yes Physical Exam - Vital signs Vitals: Temp Pulse Resp BP Pulse Ox 99.8 F 108 H 20 119/75 96 01/12/19 21:00 01/12/19 21:00 01/12/19 21:00 01/12/19 21:00 01/12/19 21:00 Course - Vital Signs Vital signs: Temp Pulse Resp BP Pulse Ox 99.8 F 108 H 20 119/75 96 01/12/19 21:00 01/12/19 21:00 01/12/19 21:00 01/12/19 21:00 01/12/19 21:00 Doctor's Discharge - Discharge Referrals: TJ HODGE DO [Primary Care Provider] - Follow up as needed
[2019-01-12] MEDS ORDERED: ACETAMINOPHEN 325 MG TABLET PO ONE (21:20)
[2019-01-12] MEDS ORDERED: ONDANSETRON 4 MG TAB.RAPDIS PO ONE (21:20)
[2019-01-12] MEDS: ALBUTEROL SULFATE 0.083% NEB 2.5 MG/3 ML AMPUL NEB SCH ×2 (21:33→22:32)
[2019-01-12 21:44] LABS: ABSOLUTE EOSINOPHILS # (AUTO) 0.4 10^3/uL (0.0-0.6); ABSOLUTE LYMPHOCYTES (AUTO) 0.9 10^3/uL (0.5-4.7); ABSOLUTE MONOCYTES (AUTO) 0.6 10^3/uL (0.1-1.4); LYMPHOCYTES % (AUTO) 9.7 % (13-45); MONOCYTES % (AUTO) 6.6 % (3-13); TOTAL CELLS COUNTED % (AUTO) 100 %
[2019-01-12 21:48] LABS: ABSOLUTE BASOPHILS # (AUTO) 0.1 10^3/uL (0.0-0.2); BASOPHILS % (AUTO) 0.6 % (0-2); EOSINOPHILS % (AUTO) 4.5 % (0-6); HEMATOCRIT 37.6 % (36.0-47.0); HEMOGLOBIN 12.8 g/dL (12.0-15.5); MEAN CORPUSCULAR HGB CONC 33.9 g/dL (32.0-36.0); MEAN CORPUSCULAR VOLUME 83 fl (80-97); PLATELET COUNT 226 10^3/uL (150-450); RED BLOOD COUNT 4.55 10^6/uL (3.72-5.28); RED CELL DISTRIBUTION WIDTH 17.3 % (11.5-14.0); SEGMENTED NEUTROPHILS % (AUTO) 78.6 % (42-78)
[2019-01-12 22:03] LABS: ALBUMIN 3.6 g/dL (3.5-5.0); ALKALINE PHOSPHATASE 79 U/L (38-126); ANION GAP 11 (5-19); ASPARTATE AMINO TRANSFERASE 15 U/L (14-36); BILIRUBIN,DIRECT 0.1 mg/dL (0.0-0.4); BILIRUBIN,TOTAL 0.8 mg/dL (0.2-1.3); BLOOD UREA NITROGEN 5 mg/dL (7-20); CALCIUM 9.1 mg/dL (8.4-10.2); CARBON DIOXIDE 24 mmol/L (22-30); CHLORIDE 99 mmol/L (98-107); GLUCOSE 101 mg/dL (75-110); POTASSIUM 3.6 mmol/L (3.6-5.0); TOTAL PROTEIN 6.9 g/dL (6.3-8.2)
[2019-01-12 22:04] LABS: ANISOCYTOSIS 1+; BURR CELLS SLIGHT; OVALOCYTES SLIGHT; POIKILOCYTOSIS 1+; TEAR DROP CELLS SLIGHT; TOXIC GRANULATION SLIGHT
[2019-01-12 22:05] LABS: PLATELET COMMENT ADEQUATE
[2019-01-12] MEDS ORDERED: NORMAL SALINE 1000 ML 1,000 ML IV ONE (22:08)
[2019-01-12] MEDS ORDERED: METHYLPREDNISOLONE INJ 125 MG/2 ML SDV IV ONE (22:09)
--- NOTE | 2019-01-12 22:35 | RADIOLOGY REPORT (SQ) ---
CLINICAL HISTORY: cough congestion, short of breath COMPARISON: None. 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 Lungs are clear without consolidation, atelectasis, mass or edema. There is no pleural effusion. There is no pneumothorax. There are no acute osseous findings. IMPRESSION: Clear lungs.
--- NOTE | 2019-01-12 22:40 | ER Document Report ---
ED General - General Chief Complaint: Shortness Of Breath Stated Complaint: DIFFICULTY BREATHING Time Seen by Provider: 01/12/19 21:13 Primary Care Provider: TJ HODGE DO [Primary Care Provider] - Follow up as needed Mode of Arrival: Ambulatory TRAVEL OUTSIDE OF THE [place] IN LAST 30 DAYS: No - HPI Notes: 38-year-old female with history of asthma which has previously required intubation on 2 occasions presents now with a chief complaint of cough, increasing shortness of breath and low-grade temperature for 2 days. Patient is a non-smoker but there is a relative who smokes in the home. She is currently producing small amounts of yellow sputum. No hemoptysis. Burning in chest when she takes a deep breath. Patient was apparently offered but refused a flu vaccine this fall. She is not currently on steroids but was treated with oral prednisone within the last 6 months. Patient has been using nebulizers at home today. Pertinent prior history: Denies history of cardiovascular disease. Denies history of diabetes mellitus. Past surgery includes x2 and tubal ligation. 6 para 4 AB 2. History of bipolar disorder. - Related Data Allergies/Adverse Reactions: lurasidone HCl [From Latuda] Allergy (Severe, Verified 07/05/17 16:40) Seizures morphine Adverse Reaction (Intermediate, Verified 07/05/17 16:40) Hives Home Medications: xanax 0.5 mg bid. risperadol 1 mg bid. cogentin 0.5 mg bid. cymbalta 60 mg q day. ferrous sulfate qam. lipitor 40 mg qhs Past Medical History - General Information source: Patient, Relative - Social History Smoking Status: Never Smoker Cigarette use (# per day): No Chew tobacco use (# tins/day): No Frequency of alcohol use: None Drug Abuse: None Lives with: Family Family History: CAD, DM, Hypertension Patient has suicidal ideation: No Patient has homicidal ideation: No - Past Medical History Cardiac Medical History: Reports: Hx Hypercholesterolemia Pulmonary Medical History: Reports: Hx Asthma, Hx Pneumonia, Hx Intubation EENT Medical History: Reports: None Neurological Medical History: Reports: Hx Seizures - After taking latuda, after latuda was stopped, patient seizures stopped Endocrine Medical History: Reports: None Renal/ Medical History: Reports: Hx Ovarian Cysts Malignancy Medical History: Reports: None GI Medical History: Reports: Hx Irritable Bowel Musculoskeletal Medical History: Reports Hx Musculoskeletal Trauma Skin Medical History: Reports None Psychiatric Medical History: Reports: Hx Anxiety, Hx Bipolar Disorder, Hx Depression - anxiety Traumatic Medical History: Reports: None Infectious Medical History: Reports: None Past Surgical History: Reports: Hx Section - x2, Hx Tubal Ligation - Immunizations Immunizations up to date: Yes Hx Diphtheria, Pertussis, Tetanus Vaccination: Yes Review of Systems - Review of Systems Notes: Constitutional: As per HPI. HENT: Negative for sore throat. Eyes: Negative for visual changes. Cardiovascular: Negative for chest pain. Respiratory: As per HPI. Gastrointestinal: Negative for abdominal pain, vomiting or diarrhea. Genitourinary: Negative for dysuria. Musculoskeletal: Negative for back pain. Skin: Negative for rash. Neurological: Negative for headaches, weakness or numbness. 10 point ROS negative except as marked above and in HPI. Physical Exam - Vital signs Vitals: Temp Pulse Resp BP Pulse Ox 99.8 F 108 H 20 119/75 96 01/12/19 21:00 01/12/19 21:00 01/12/19 21:00 01/12/19 21:00 01/12/19 21:00 - Notes Notes: GENERAL: Well-developed well-nourished appearing mildly dyspneic at rest. SKIN: Good turgor no rashes. HEAD: Normocephalic atraumatic. EYES: PERRLA. Conjunctivae and sclerae clear. EARS: CANALS AND TMS CLEAR. NOSE: CLEAR. MOUTH: Moist mucosa. Good dentition. No stridor or edema. No drooling. NECK: Supple. No masses or thyromegaly. No adenopathy. Carotids 2+ without bruits. No JVD. BACK: Symmetrical without tenderness. CHEST: Minimal use of accessory muscles. End expiratory wheezes bilaterally. HEART: Regular rhythm. No murmur gallop or rub. ABDOMEN: Soft nontender without masses, organomegaly or rebound. Bowel sounds normally active. No bruits. GENITALIA: Deferred. EXTREMITIES: No edema. No calf tenderness. Cap refill less than 1.5 seconds. Dorsalis pedis and posterior tibial pulses 3+ and symmetrical. NEUROLOGICAL: GCS 15. Alert and oriented x3. Normal gait. Fluent speech. Cranial nerves II through XII intact. Sensorimotor and cerebellar normal. Normal tone. PSYCHIATRIC: Appropriate affect. Course - Re-evaluation Re-evalutation: 01/12/19 22:41 Chest x-rays reviewed and shows no infiltrates. Patient is going to receive some IV Solu-Medrol and additional nebulizers here. If we can bring about clearing I think she can probably be placed on oral steroids and oral antibiotic and managed as an outpatient. We will reevaluate patient in approximately 1 hour. 01/13/19 00:35 Chest x-ray is clear. Flu swab is negative. CBC and comprehensive metabolic profile are unremarkable. Patient received 1 L normal saline here. She also was given 125 mg of Solu- Medrol IV and got 2 nebulizer treatments with DuoNeb. She is clear at this point and feels much better. She appears stable for outpatient management. - Vital Signs Vital signs: Temp Pulse Resp BP Pulse Ox 99.8 F 108 H 20 119/75 96 01/12/19 21:13 01/12/19 21:00 01/12/19 21:13 01/12/19 21:00 01/12/19 21:13 - Laboratory Result Diagrams: 01/12/19 21:30 01/12/19 21:30 Laboratory results interpreted by me: 01/12/19 01/12/19 21:30 21:30 RDW 17.3 H Lymph % (Auto) 9.7 L Seg Neutrophils % 78.6 H Sodium 134.0 L BUN 5 L - Diagnostic Test Radiology reviewed: Reports reviewed Discharge - Discharge Clinical Impression: Asthma exacerbation, Acute bronchitis Condition: Stable Disposition: HOME, SELF-CARE Instructions: Antibiotic Therapy ([facility]), Asthma ([facility]), Inhaled Bronchodilators ([facility]) Additional Instructions: Avoid exposure to secondhand smoke. Increase oral fluids. Take prescribed medications as instructed. Use your nebulizer every 4 hours as needed. Return here as needed for new or worsening symptoms. Follow-up with your primary care doctor this week. Prescriptions: Prednisone [Deltasone 20 mg Tablet] 2 tab PO DAILY 5 Days #10 tablet Doxycycline Monohydrate 100 mg PO BID 10 Days #20 capsule Referrals: TJ HODGE DO [Primary Care Provider] - Follow up as needed
[2019-01-12 23:22] LABS: A TYPE INFLUENZA AG NEGATIVE (NEGATIVE); B INFLUENZA AG NEGATIVE (NEGATIVE)
[2019-01-13 01:51] VITALS: BP 145/69
== END 2019-01-13 01:00 | disposition home or self-care (01) ==
LOC: ER 20:57
DX: J45.901 Unspecified asthma with (acute) exacerbation (principal); R06.02 Shortness of breath; R05 Cough; R50.9 Fever, unspecified
CPT/HCPCS: 36415; 85025; 80053; 87804; 71046; A9270 ×4; J2930; J7030; 94640; 96361; 96374; 99285; J7620; S0119

== ENCOUNTER 2019-01-19 14:41 | Emergency (ER) | payer MEDICARE, MEDICAID ==
--- NOTE | 2019-01-19 15:09 | ER Document Report ---
ED Medical Screen (RME) - General Chief Complaint: Anxiety Stated Complaint: ANXIETY/COLD SYMPTOMS Time Seen by Provider: 01/19/19 15:05 Primary Care Provider: TJ HODGE DO [Primary Care Provider] - Follow up as needed Mode of Arrival: Ambulatory Information source: Patient Notes: This 38-year-old female with history of anxiety presents today with complaints of shortness of breath and anxiety really bad. Patient reports she takes multiple medications for anxiety but is now working. Last saw her mental health provider 30 days ago. Denies fever nausea vomiting diarrhea. Denies cough. Reports shortness of breath. Denies suicidal or homicidal ideations. I have greeted and performed a rapid initial assessment of this patient. A comprehensive ED assessment and evaluation of the patient, analysis of test results and completion of the medical decision making process will be conducted by additional ED providers. Dictation of this chart was performed using voice recognition software; therefore, there may be some unintended grammatical errors. TRAVEL OUTSIDE OF THE [place] IN LAST 30 DAYS: No - Related Data Allergies/Adverse Reactions: lurasidone HCl [From Latuda] Allergy (Severe, Verified 01/19/19 14:59) Seizures morphine Adverse Reaction (Intermediate, Verified 01/19/19 14:59) Hives Home Medications: xanax. cymbalta. risperidol. benzatopin. ferrous sulfate. lipitor Past Medical History - Social History Chew tobacco use (# tins/day): No Frequency of alcohol use: None Drug Abuse: None Family history: Hypertension - Past Medical History Cardiac Medical History: Reports: Hx Hypercholesterolemia Pulmonary Medical History: Reports: Hx Asthma, Hx Pneumonia, Hx Intubation Neurological Medical History: Reports: Hx Seizures - After taking latuda, after latuda was stopped, patient seizures stopped Renal/ Medical History: Reports: Hx Ovarian Cysts GI Medical History: Reports: Hx Irritable Bowel Musculoskeltal Medical History: Reports Hx Musculoskeletal Trauma Psychiatric Medical History: Reports: Hx Anxiety, Hx Bipolar Disorder, Hx Depression - anxiety Past Surgical History: Reports: Hx Section - x2, Hx Tubal Ligation - Immunizations Immunizations up to date: Yes Hx Diphtheria, Pertussis, Tetanus Vaccination: Yes Physical Exam - Vital signs Vitals: Temp Pulse Resp BP Pulse Ox 97.7 F 107 H 18 135/77 H 98 01/19/19 14:57 01/19/19 14:57 01/19/19 14:57 01/19/19 14:57 01/19/19 14:57 Course - Vital Signs Vital signs: Temp Pulse Resp BP Pulse Ox 97.7 F 107 H 18 135/77 H 98 01/19/19 14:59 01/19/19 14:59 01/19/19 14:59 01/19/19 14:59 01/19/19 14:59 Doctor's Discharge - Discharge Referrals: TJ HODGE DO [Primary Care Provider] - Follow up as needed
[2019-01-19 15:28] LABS: ABSOLUTE BASOPHILS # (AUTO) 0.1 10^3/uL (0.0-0.2); ABSOLUTE EOSINOPHILS # (AUTO) 0.1 10^3/uL (0.0-0.6); ABSOLUTE LYMPHOCYTES (AUTO) 1.6 10^3/uL (0.5-4.7); ABSOLUTE MONOCYTES (AUTO) 0.5 10^3/uL (0.1-1.4); ABSOLUTE NEUT (AUTO) 5.9 10^3/uL (1.7-8.2); BASOPHILS % (AUTO) 0.7 % (0-2); EOSINOPHILS % (AUTO) 1.7 % (0-6); HEMATOCRIT 41.1 % (36.0-47.0); LYMPHOCYTES % (AUTO) 19.5 % (13-45); MEAN CORPUSCULAR HEMOGLOBIN 28.3 pg (27.0-33.4); MEAN CORPUSCULAR VOLUME 83 fl (80-97); PLATELET COUNT 332 10^3/uL (150-450); RED BLOOD COUNT 4.95 10^6/uL (3.72-5.28); RED CELL DISTRIBUTION WIDTH 16.7 % (11.5-14.0); SEGMENTED NEUTROPHILS % (AUTO) 72.1 % (42-78); TOTAL CELLS COUNTED % (AUTO) 100 %; WHITE BLOOD COUNT 8.2 10^3/uL (4.0-10.5)
--- NOTE | 2019-01-19 16:06 | PSYCHOLOGICAL NOTE ---
Psych Note - Psych Note Date seen by psych provider: 01/19/19 Time seen by psych provider: 15:45 Psych Note: Reason for Consult: Anxiety Patient arrived to [facility] ED with concerns of severe anxiety. Patient states that her chest feels like it is closing up. She confirms she takes her medications as directed stating that she takes Xanax, Cymbalta, Cogentin and risperidone. She disclosed that she goes to [facility] and just had her appointment in the beginning of the month. She reports she did tell her provider of these concerns and they increased her Cymbalta and has an upcoming appointment for the of this month for follow-up. Patient states that in the beginning of the year February she was on life support and a few weeks later her brother from lung cancer and then in April her father from a heart attack. She reports that with it being the holidays she has been having a hard time. Patient reports that typically when she comes into the hospital with uncontrolled anxiety she receives a shot to help her calm down; "whenever I come in they have given me a shot of something ....like Adderall or something to help me." She reports that she feels dizzy and "real stressed." Patient is alert and orientated to person, place, time and circumstance. Mood is dysphoric with tearful affect. Patient denies suicidal homicidal ideation. Delusions are absent behaviors congruent with intact reality based presentation I organized and linear thought process. Eye contact is well-maintained. Conversational speech is within normal rate, tone and prosody. Intellectual abilities appear to be within the average range. Attention and concentration are currently good. Insight, judgment, impulse control are fair. Diagnosis: 311 (F32.9) Unspecified Depressive Disorder per history 300.00 (F41.9) Unspecified Anxiety Disorder (with panic attacks) per history R/O Bipolar Disorder Medication recommendations per [facility]'s contracted psychiatrist Dr. Krunal ALVAREZ are as follows: None at this time Impression\\plan: Patient is cleared from acute psychiatric services. Patient does not meet IVC criteria per [place] GS 122C. It is highly recommended the patient does not receive any benzodiazepines neither p.o. or IM form. Patient has a prescription for Xanax and specifically is requesting a shot to help calm her. There is concern the patient may be increasing her tolerance for benzodiazepines and becoming dependent. Patient has an outpatient mental health provider with [facility] and has an upcoming appointment on 02/04/2019, she was also seen on 01/07/2019 by [facility]. She just filled her prescription for Xanax 0.5 mg twice daily on 01/07/2019 for a 30-day supply. Patient should have plenty of medications at home for her anxiety. Dr. Grant was consulted on the care and management of this patient; attending physicians in agreement with recommendations and disposition.
[2019-01-19 16:19] LABS: ACETAMINOPHEN < 10 ug/mL (10-30); ALBUMIN 3.7 g/dL (3.5-5.0); ALCOHOL < 10 mg/dL (NONE DETECTED); ALKALINE PHOSPHATASE 81 U/L (38-126); ANION GAP 13 (5-19); ASPARTATE AMINO TRANSFERASE 18 U/L (14-36); BILIRUBIN,DIRECT 0.2 mg/dL (0.0-0.4); BILIRUBIN,TOTAL 0.5 mg/dL (0.2-1.3); BLOOD UREA NITROGEN 8 mg/dL (7-20); CALCIUM 9.3 mg/dL (8.4-10.2); CARBON DIOXIDE 29 mmol/L (22-30); CHLORIDE 96 mmol/L (98-107); GLUCOSE 131 mg/dL (75-110); SALICYLATE < 1.0 mg/dL (2.0-20.0); TOTAL PROTEIN 6.6 g/dL (6.3-8.2)
[2019-01-19] MEDS ORDERED: POTASSIUM CHLORIDE 20 MEQ PACKET PO ONE (16:29)
[2019-01-19 17:04] LABS: APPEARANCE,URINE SLIGHTLY-CLOUDY; BILIRUBIN,URINE NEGATIVE (NEGATIVE); COLOR,URINE STRAW; GLUCOSE, URINE NEGATIVE (NEGATIVE); KETONES,URINE NEGATIVE (NEGATIVE); LEUKOCYTE ESTERASE,URINE SMALL (NEGATIVE); NITRITE,URINE NEGATIVE (NEGATIVE); PROTEIN,URINE NEGATIVE (NEGATIVE); URINE SPECIFIC GRAVITY 1.002; UROBILINOGEN,URINE NEGATIVE mg/dL (<2.0)
[2019-01-19 17:12] LABS: URINE AMPHETAMINES SCREEN NEGATIVE; URINE BARBITURATES SCREEN NEGATIVE; URINE COCAINE SCREEN NEGATIVE; URINE METHADONE SCREEN NEGATIVE; URINE PHENCYCLIDINE SCREEN NEGATIVE
[2019-01-19 17:16] LABS: URINE BENZODIAZEPINES SCREEN UNCONFIRMED POSITIVE; URINE MARIJUANA (THC) SCREEN UNCONFIRMED POSITIVE
[2019-01-19] MEDS ORDERED: LORAZEPAM 1 MG TABLET PO ONE (18:59)
[2019-01-19 20:05] VITALS: BP 125/78
[2019-01-19] MEDS ORDERED: HYDROXYZINE HCL 10 MG TABLET PO ONE (20:41)
--- NOTE | 2019-01-20 00:05 | EKG REPORT ---
SEVERITY:- ABNORMAL ECG - SINUS RHYTHM PROBABLE LEFT ATRIAL ABNORMALITY BORDERLINE T ABNORMALITIES, ANT-LAT LEADS : Confirmed by: Yazan Brock MD 20-Jan-2019 00:04:55
--- NOTE | 2019-01-22 08:30 | ER Document Report ---
Entered by LATOSHA MASCORRO SCRIBE 01/19/192017 Acting as scribe for:YI PAK IV, MD ED General - General Chief Complaint: Anxiety Stated Complaint: ANXIETY/COLD SYMPTOMS Time Seen by Provider: 01/19/19 15:05 Primary Care Provider: TJ HODGE DO [Primary Care Provider] - Follow up as needed Mode of Arrival: Ambulatory Notes: This 38-year-old female patient presents to the emergency department today with complaints of increased anxiety over the last several days. TRAVEL OUTSIDE OF THE [place] IN LAST 30 DAYS: No - Related Data Allergies/Adverse Reactions: lurasidone HCl [From Latuda] Allergy (Severe, Verified 01/19/19 14:59) Seizures morphine Adverse Reaction (Intermediate, Verified 01/19/19 14:59) Hives Home Medications: xanax. cymbalta. risperidol. benzatopin. ferrous sulfate. lipitor Past Medical History - General Information source: Patient - Social History Smoking Status: Never Smoker Chew tobacco use (# tins/day): No Frequency of alcohol use: None Drug Abuse: None Family History: CAD, DM, Hypertension Patient has suicidal ideation: No Patient has homicidal ideation: No - Past Medical History Cardiac Medical History: Reports: Hx Hypercholesterolemia Pulmonary Medical History: Reports: Hx Asthma, Hx Pneumonia, Hx Intubation Neurological Medical History: Reports: Hx Seizures - After taking latuda, after latuda was stopped, patient seizures stopped Renal/ Medical History: Reports: Hx Ovarian Cysts GI Medical History: Reports: Hx Irritable Bowel Musculoskeletal Medical History: Reports Hx Musculoskeletal Trauma Psychiatric Medical History: Reports: Hx Anxiety, Hx Bipolar Disorder, Hx Depression - anxiety Past Surgical History: Reports: Hx Section - x2, Hx Tubal Ligation - Immunizations Immunizations up to date: Yes Hx Diphtheria, Pertussis, Tetanus Vaccination: Yes Review of Systems - Review of Systems EENT: See HPI, Nose congestion, Nose discharge Physical Exam - Vital signs Vitals: Temp Pulse Resp BP Pulse Ox 97.7 F 107 H 18 135/77 H 98 01/19/19 14:57 01/19/19 14:57 01/19/19 14:57 01/19/19 14:57 01/19/19 14:57 - Notes Notes: Physical Exam: General: Alert, appears well. HEENT: Normocephalic. Atraumatic. PERRL. Extraocular movements intact. Oropharynx clear. Neck: Supple. Non-tender. Respiratory: No respiratory distress. Clear and equal breath sounds bilaterally. Cardiovascular: Regular rate and rhythm. Abdominal: Normal Inspection. Non-tender. No distension. Normal Bowel Sounds. Back: No gross abnormalities. Extremities: Moves all four extremities. Upper extremities: Normal inspection. Normal ROM. Lower extremities: Normal inspection. No edema. Normal ROM. Neurological: Normal cognition. AAOx4. Normal speech. Psychological: Normal affect. Normal Mood. Skin: Warm. Dry. Normal color. Course - Vital Signs Vital signs: Temp Pulse Resp BP Pulse Ox 98.5 F 86 18 125/78 100 01/19/19 20:05 01/19/19 20:05 01/19/19 18:11 01/19/19 20:05 01/19/19 20:05 - Laboratory Result Diagrams: 01/19/19 15:16 01/19/19 15:16 Laboratory results interpreted by me: 01/19/19 01/19/19 01/19/19 15:16 15:16 16:27 RDW 16.7 H Potassium 3.0 L* Chloride 96 L Glucose 131 H Urine Blood SMALL H Ur Leukocyte Esterase SMALL H Salicylates < 1.0 L Acetaminophen < 10 L - EKG Interpretation by Me Additional EKG results interpreted by me: 01/19/19 20:42 EKG performed on 01/19/2019 at 1803 hrs. was interpreted by this MD. Findings: Normal sinus rhythm, rate 85, normal axis, P waves proceed QRS complexes, QRS complexes appear narrow, there are no ST segment elevations or depressions suggestive of acute myocardial injury or ischemia. Impression normal sinus rhythm with nonspecific ST segments. Discharge - Discharge Clinical Impression: Anxiety, Hypokalemia Asthma Qualifiers: Asthma severity: unspecified severity Asthma persistence: unspecified Asthma complication type: unspecified Qualified Code(s): J45.909 - Unspecified asthma, uncomplicated Condition: Good Disposition: HOME, SELF-CARE Instructions: Anxiety ([facility]) Additional Instructions: Return to the Emergency Department without delay if any worse. Anxiety The physician feels that some of your health problems are being caused by anxiety. Anxiety affects your health in many ways. Anxiety alone can cause palpitations, sweats, chest pains, abdominal pains, shortness of breath, and headaches. It contributes to ulcer disease, high blood pressure, irritable bowel syndrome, and has been shown to cause flare-ups of many other diseases. Anxiety is not a simple disorder to treat. If the anxiety is due to recent life stresses, you may simply need time to "work through" the changes. If the anxiety is due to an underlying unhappiness with yourself or due to psychiatric disturbance, professional help will be needed. Your physician can refer you for further help if needed. Anti-anxiety medication is occasionally given if the stress is acute or if you are having trouble sleeping. Chronic or frequent use of these medications is not a good idea because the body becomes reliant on it, preventing you from dealing with life's normal stresses. HOME CARE INSTRUCTIONS & INFORMATION: Thank you for choosing us for your medical needs. We hope you're satisfied with the care you received. After you leave, you must properly care for your problem and, at the same time, observe its progress. Any condition can change. Some illnesses can change rapidly over hours or days. If your condition worsens, return to the Emergency Department or see your physician promptly. ABOUT YOUR X-RAYS AND EKG'S: If you had an EKG or X-rays taken, they have been read by the Emergency Physician. The X-rays and EKG's will also be read by a Radiologist or Water Plumber within 24 hours. If discrepancies are noted, you will be notified by telephone. Please be certain the ED has a correct telephone number & address where you can be reached. Also, realize that some fractures or abnormalities do not show up on initial X-rays. If your symptoms continue, see your physician. ABOUT YOUR LABORATORY TEST: If you had laboratory tests, the results have been reviewed by the Emergency Physician. Some test results (for example cultures) may not be available for several days. You will be contacted if any test result shows you need additional treatment. Please be certain the ED has a correct telephone number and address where you can be reached. ABOUT YOUR MEDICATIONS: You will receive instructions on how to take your medicine on the prescription label you receive. Additional information may be provided by the Pharmacy. If you have questions afterwards, call the ED for clarification or further instructions. Some prescribed medications may cause drowsiness. Do not perform tasks such as driving a car or operating machinery without consulting your Pharmacist. If you feel you need a refill of pain medication, your condition will need re-evaluation. Please do not call for a refill of any medication. ABOUT YOUR SIGNATURE: Signature of this document acknowledges to followin. Understanding that you received emergency treatment and that you may be released before al medical problems are known or treated. Please be certain the ED has a correct phone number & address where you can be reached. 2. Acknowledgement that you will arrange for follow-up care as recommended. 3. Authorization for the Emergency Physician to provide information to your follow-up Physician in order to maximize your care. AT ANY TIME, IF YOUR SYMPTOMS CHANGE SIGNIFICANTLY OR WORSEN OR YOU DEVELOP NEW SYMPTOMS, RETURN TO THE EMERGENCY DEPARTMENT IMMEDIATELY FOR RE-EVALUATION. OUR GOAL IS TO PROVIDE EXCELLENT MEDICAL CARE! WE HOPE THAT WE HAVE MET YOUR EXPECTATIONS DURING YOUR EMERGENCY DEPARTMENT VISIT AND THAT YOU FEEL YOU HAVE RECEIVED EXCELLENT CARE! Prescriptions: Fluticasone/Salmeterol [Advair 250-50 Diskus 14 Dose/Diskus] 1 inh IH Q12H #1 inhaler Hydroxyzine HCl [Atarax 25 mg Tablet] 1 tab PO QID PRN #12 tablet PRN Reason: Referrals: TJ HODGE DO [Primary Care Provider] - Follow up as needed I personally performed the services described in the documentation, reviewed and edited the documentation which was dictated to the scribe in my presence, and it accurately records my words and actions.
== END 2019-01-19 21:02 | disposition home or self-care (01) ==
LOC: ER 14:41
DX: F41.9 Anxiety disorder, unspecified (principal); E87.6 Hypokalemia; J45.909 Unspecified asthma, uncomplicated; R09.81 Nasal congestion; R09.89 Other specified symptoms and signs involving the circulatory and respiratory systems; F32.9 Major depressive disorder, single episode, unspecified; E78.00 Pure hypercholesterolemia, unspecified; Z79.899 Other long term (current) drug therapy; Z88.8 Allergy status to other drugs, medicaments and biological substances
CPT/HCPCS: 93005; 99284; 36415; 80307 ×4; 84703; 85025; 80053; 81001; 93010; A9270 ×2; J3490

== ENCOUNTER 2019-02-28 00:50 | Emergency (ER) | payer MEDICARE, MEDICAID ==
[2019-02-28 02:10] LABS: ABSOLUTE BASOPHILS # (AUTO) 0.1 10^3/uL (0.0-0.2); ABSOLUTE EOSINOPHILS # (AUTO) 0.3 10^3/uL (0.0-0.6); ABSOLUTE LYMPHOCYTES (AUTO) 1.3 10^3/uL (0.5-4.7); ABSOLUTE MONOCYTES (AUTO) 0.6 10^3/uL (0.1-1.4); ABSOLUTE NEUT (AUTO) 4.4 10^3/uL (1.7-8.2); BASOPHILS % (AUTO) 0.8 % (0-2); HEMATOCRIT 38.6 % (36.0-47.0); HEMOGLOBIN 12.9 g/dL (12.0-15.5); MEAN CORPUSCULAR HEMOGLOBIN 29.4 pg (27.0-33.4); MEAN CORPUSCULAR HGB CONC 33.4 g/dL (32.0-36.0); MEAN CORPUSCULAR VOLUME 88 fl (80-97); MONOCYTES % (AUTO) 8.7 % (3-13); PLATELET COUNT 274 10^3/uL (150-450); RED BLOOD COUNT 4.38 10^6/uL (3.72-5.28); RED CELL DISTRIBUTION WIDTH 17.3 % (11.5-14.0); SEGMENTED NEUTROPHILS % (AUTO) 65.5 % (42-78); TOTAL CELLS COUNTED % (AUTO) 100 %; WHITE BLOOD COUNT 6.7 10^3/uL (4.0-10.5)
[2019-02-28 02:32] LABS: ALBUMIN 3.7 g/dL (3.5-5.0); ALKALINE PHOSPHATASE 68 U/L (38-126); ANION GAP 11 (5-19); ASPARTATE AMINO TRANSFERASE 33 U/L (14-36); BILIRUBIN,DIRECT 0.3 mg/dL (0.0-0.4); BILIRUBIN,TOTAL 0.3 mg/dL (0.2-1.3); BLOOD UREA NITROGEN 7 mg/dL (7-20); CALCIUM 8.9 mg/dL (8.4-10.2); CARBON DIOXIDE 27 mmol/L (22-30); CHLORIDE 101 mmol/L (98-107); CREATINE KINASE 73 U/L (30-135); GLUCOSE 100 mg/dL (75-110); POTASSIUM 3.4 mmol/L (3.6-5.0); TOTAL PROTEIN 6.6 g/dL (6.3-8.2)
[2019-02-28 02:45] LABS: CREATINE KINASE MB 0.25 ng/mL (<4.55)
[2019-02-28 02:48] LABS: TROPONIN I < 0.012 ng/mL
[2019-02-28] MEDS ORDERED: METOCLOPRAMIDE HCL INJ/PF 10 MG/2 ML SDV IV ONE (04:40)
[2019-02-28] MEDS ORDERED: DIPHENHYDRAMINE HCL 50 MG/ML VIAL IV ONE (04:40)
--- NOTE | 2019-02-28 04:42 | ER Document Report ---
ED Medical Screen (RME) - General Chief Complaint: Chest Pain Stated Complaint: CHEST PAINS Time Seen by Provider: 02/28/19 04:35 Primary Care Provider: TJ HODGE DO [Primary Care Provider] - Follow up as needed Notes: Patient is a 38-year-old female that comes emergency department for chief complaint of headache and pain along her chest and shoulder on the left side. She states that she woke up and she had a throbbing headache on the left side of her face, she states she also felt pain in her armpit and into her shoulder, chest, arm. She denies vomiting, fever, injury, shortness of breath. She states this is not how her migraines usually are but she has a history of migraines. She also is a history of asthma and anxiety. She denies any other medical history. Denies recreational drugs or smoking. TRAVEL OUTSIDE OF THE [place] IN LAST 30 DAYS: No - Related Data Allergies/Adverse Reactions: lurasidone HCl [From Latuda] Allergy (Severe, Verified 02/28/19 01:04) Seizures morphine Adverse Reaction (Intermediate, Verified 02/28/19 01:04) Hives Past Medical History - Social History Family history: Hypertension - Past Medical History Cardiac Medical History: Reports: Hx Hypercholesterolemia Pulmonary Medical History: Reports: Hx Asthma, Hx Pneumonia, Hx Intubation Neurological Medical History: Reports: Hx Seizures - After taking latuda, after latuda was stopped, patient seizures stopped Renal/ Medical History: Reports: Hx Ovarian Cysts GI Medical History: Reports: Hx Irritable Bowel Musculoskeltal Medical History: Reports Hx Musculoskeletal Trauma Psychiatric Medical History: Reports: Hx Anxiety, Hx Bipolar Disorder, Hx Depression - anxiety Past Surgical History: Reports: Hx Section - x2, Hx Tubal Ligation - Immunizations Immunizations up to date: Yes Hx Diphtheria, Pertussis, Tetanus Vaccination: Yes Physical Exam - Vital signs Vitals: Temp Pulse Resp BP Pulse Ox 98.3 F 101 H 16 111/66 98 02/28/19 01:02 02/28/19 01:02 02/28/19 01:02 02/28/19 01:02 02/28/19 01:02 - Neurological Orientation: AAOx4 [place] Coma Scale Eye Opening: Spontaneous [place] Coma Scale Verbal: Oriented Dottie Coma Scale Motor: Obeys Commands Dottie Coma Scale Total: 15 Speech: Normal Cranial nerves: Normal Cerebellar coordination: Normal Motor strength normal: LUE, RUE, LLE, RLE Additional motor exam normals: Equal 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 Patient in no distress, has no neurological deficits, vital signs unremarkable. I have greeted and performed a rapid initial assessment of this patient. A comprehensive ED assessment and evaluation of the patient, analysis of test results and completion of the medical decision making process will be conducted by additional ED providers. - Vital Signs Vital signs: Temp Pulse Resp BP Pulse Ox 98.3 F 101 H 16 111/66 98 02/28/19 01:02 02/28/19 01:02 02/28/19 01:02 02/28/19 01:02 02/28/19 01:02 - Laboratory Result Diagrams: 02/28/19 01:57 02/28/19 01:57 Laboratory results interpreted by me: 02/28/19 02/28/19 01:57 01:57 RDW 17.3 H Potassium 3.4 L Doctor's Discharge - Discharge Referrals: TJ HODGE DO [Primary Care Provider] - Follow up as needed
[2019-02-28 06:49] VITALS: BP 128/86
--- NOTE | 2019-02-28 07:44 | EKG REPORT ---
SEVERITY:- ABNORMAL ECG - SINUS TACHYCARDIA PROBABLE LEFT ATRIAL ABNORMALITY INCOMPLETE RBBB : Confirmed by: Yazan Brock MD 28-Feb-2019 07:42:59
--- NOTE | 2019-02-28 16:36 | ER Document Report ---
Entered by LATOSHA MASCORRO SCRIBE 02/28/19 0627 Acting as scribe for:RAVIN GARCIA MD ED General - General Chief Complaint: Chest Pain Stated Complaint: CHEST PAINS Time Seen by Provider: 02/28/19 04:35 Primary Care Provider: TJ HODGE DO [Primary Care Provider] - Follow up as needed Information source: Patient Notes: This 38 year old female patient presents to the emergency department today with complaints of reproducible chest pain along with a headache which both began last night prior to arrival at around midnight. Patient states that she has a history of migraine headaches and her headache today is identical to previous migraine headaches. Patient states she has gotten relief from medication given by E provider. TRAVEL OUTSIDE OF THE [place] IN LAST 30 DAYS: No - Related Data Allergies/Adverse Reactions: lurasidone HCl [From Latuda] Allergy (Severe, Verified 02/28/19 01:04) Seizures morphine Adverse Reaction (Intermediate, Verified 02/28/19 01:04) Hives Past Medical History - General Information source: Patient - Social History Smoking Status: Former Smoker Cigarette use (# per day): No Chew tobacco use (# tins/day): Yes Frequency of alcohol use: None Drug Abuse: None Lives with: Family Family History: CAD, DM, Hypertension Patient has suicidal ideation: No Patient has homicidal ideation: No - Past Medical History Cardiac Medical History: Reports: Hx Hypercholesterolemia Pulmonary Medical History: Reports: Hx Asthma, Hx Pneumonia, Hx Intubation Neurological Medical History: Reports: Hx Seizures - only while on latuda Renal/ Medical History: Reports: Hx Ovarian Cysts GI Medical History: Reports: Hx Irritable Bowel Musculoskeletal Medical History: Reports Hx Musculoskeletal Trauma Psychiatric Medical History: Reports: Hx Anxiety, Hx Bipolar Disorder, Hx Depr ession Past Surgical History: Reports: Hx Section - x2, Hx Tubal Ligation - Immunizations Immunizations up to date: Yes Hx Diphtheria, Pertussis, Tetanus Vaccination: Yes Review of Systems - Review of Systems Constitutional: No symptoms reported EENT: No symptoms reported Cardiovascular: See HPI, Chest pain - reproducible Respiratory: No symptoms reported Gastrointestinal: No symptoms reported Genitourinary: No symptoms reported Female Genitourinary: No symptoms reported Musculoskeletal: No symptoms reported Skin: No symptoms reported Hematologic/Lymphatic: No symptoms reported Neurological/Psychological: See HPI, Headaches -: Yes All other systems reviewed and negative Physical Exam - Vital signs Vitals: Temp Pulse Resp BP Pulse Ox 98.3 F 101 H 16 111/66 98 02/28/19 01:02 02/28/19 01:02 02/28/19 01:02 02/28/19 01:02 02/28/19 01:02 Interpretation: Normal - General General appearance: Appears well, Alert, Other - sleeping soundly - HEENT Head: Normocephalic, Atraumatic Eyes: Normal Pupils: PERRL - Respiratory Respiratory status: No respiratory distress Chest status: Tender - reproducible chest pain Breath sounds: Normal Chest palpation: Normal - Cardiovascular Rhythm: Regular Heart sounds: Normal auscultation Murmur: No - Abdominal Inspection: Obese Distension: No distension Bowel sounds: Normal Tenderness: Nontender Organomegaly: No organomegaly - Back Back: Normal, Nontender - Extremities General upper extremity: Normal inspection. No: Edema General lower extremity: Normal inspection. No: Edema - Neurological Neuro grossly intact: Yes Cognition: Normal Orientation: AAOx4 [place] Coma Scale Eye Opening: Spontaneous [place] Coma Scale Verbal: Oriented [place] Coma Scale Motor: Obeys Commands Dottie Coma Scale Total: 15 Speech: Normal - Psychological Associated symptoms: Normal affect, Normal mood - Skin Skin Temperature: Warm Skin Moisture: Dry Skin Color: Normal Course - Re-evaluation Re-evalutation: 02/28/19 06:30 Patient had received IV Benadryl and Reglan earlier, she was sleeping when I first went to see her. I woke her up and her headache has improved and she feels comfortable going back home. - Vital Signs Vital signs: Temp Pulse Resp BP Pulse Ox 98.3 F 101 H 16 111/66 98 02/28/19 01:02 02/28/19 01:02 02/28/19 01:02 02/28/19 01:02 02/28/19 01:02 - Laboratory Result Diagrams: 02/28/19 01:57 02/28/19 01:57 Laboratory results interpreted by me: 02/28/19 02/28/19 01:57 01:57 RDW 17.3 H Potassium 3.4 L - EKG Interpretation by Ct EKG shows normal: Sinus rhythm, [place], Intervals. abnormal: QRS Complexes - Borderline inferior Q waves, ST-T Waves - Borderline anterior lateral T wave abnormalities Rate: Tachycardia - 102 P Waves: LAE When compared to previous EKG there are: No significant change Discharge - Discharge Clinical Impression: Chest wall pain Migraine headache Qualifiers: Migraine type: unspecified Status migrainosus presence: without status migrainosus Intractability: not intractable Qualified Code(s): G43.909 - Migraine, unspecified, not intractable, without status migrainosus Condition: Stable Disposition: HOME, SELF-CARE Additional Instructions: Chest Wall Pain Your chest pain has been diagnosed as coming from the chest wall. This is often caused by straining the muscles or joints in the chest during physical activity, direct trauma, coughing, or vigorous vomiting. Persons with arthritis are especially prone to this type of pain, due to inflammation of the cartilage joints near the breast bone. Occasionally, no cause can be found. Rest from strenuous physical activity. This kind of chest pain is usually made worse by movement of the chest. Depending on the symptoms, we may prescribe medicine for pain, muscle relaxation, and antiinflammatory effects. If the pain is new, and seems to be due to muscle strain, cold packs can hel p. Otherwise, apply gentle warmth to the painful area for 15 minutes every hour or two. You should contact the doctor immediately if things change. Further evaluation is needed if you develop a fever or cough, if the nature of the pain changes, or if you become short of breath. Migraine Headache The physician feels that your symptoms are due to a migraine attack. Migraines are caused by changes in the blood vessels of the head. Arteries go into spasm, often causing warning symptoms that a headache may begin soon. As the spasm goes away, the vessels dilate and throb, causing the pounding pain of a migraine headache. Migraines often cause nausea and vomiting. The treatment of headaches varies with severity and cause of pain. Not all headaches need pain shots -- in fact, there is evidence that using narcotics for headaches may make them worse in the long run. The physician will determine the therapy that's in your best interest for this particular headache. Medications are available that may prevent migraines, or stop them as they first occur. If one medication is not helpful, try another. If migraines are frequent, be patient -- follow the doctor's recommendations. Call the physician if you are worsening, or if new symptoms arise. Rest in a cool, quiet, dark room today. Follow-up with your primary care provider if you continue to have problems. RETURN TO THE EMERGENCY ROOM IF ANY NEW OR WORSENING SYMPTOMS. Referrals: TJ HODGE DO [Primary Care Provider] - Follow up as needed Scribe Attestation: 02/28/19 06:31 I personally performed the services described in the documentation, reviewed and edited the documentation which was dictated to the scribe in my presence, and it accurately records my words and actions. I personally performed the services described in the documentation, reviewed and edited the documentation which was dictated to the scribe in my presence, and it accurately records my words and actions.
== END 2019-02-28 06:49 | disposition home or self-care (01) ==
LOC: ER 00:50
DX: R07.89 Other chest pain (principal); G43.909 Migraine, unspecified, not intractable, without status migrainosus; R00.0 Tachycardia, unspecified; J45.909 Unspecified asthma, uncomplicated; Z87.891 Personal history of nicotine dependence; Z88.8 Allergy status to other drugs, medicaments and biological substances
CPT/HCPCS: 93005; 99285; 96374; 96375; 36415; 82553; 82550; 85025; 80053; 84484; 93010; J1200; J2765

== ENCOUNTER 2019-03-12 18:19 | Emergency (ER) | payer MEDICARE, MEDICAID ==
--- NOTE | 2019-03-12 18:56 | ER Document Report ---
ED Medical Screen (RME) - General Chief Complaint: Possible Overdose Stated Complaint: POSSIBLE OVERDOSE Time Seen by Provider: 03/12/19 18:51 Primary Care Provider: TJ HODGE DO [Primary Care Provider] - Follow up as needed Notes: HPI: 38-year-old female with history of bipolar presenting for overdose of Ambien. Patient states that she only wanted to go to sleep so she took at least 10 tablets of 10 mg Ambien. Patient denies thoughts of actually harming herself. States that her took away the Ambien bottle after she told him she had taken the pills. Denies nausea vomiting chest pain shortness of breath states that she feels tired I have greeted and performed a rapid initial assessment of this patient. A comprehensive ED assessment and evaluation of the patient, analysis of test results and completion of the medical decision making process will be conducted by additional ED providers PHYSICAL EXAMINATION: GENERAL: Well-appearing, well-nourished and in mild acute distress. HEAD: Atraumatic, normocephalic. EYES: sclera anicteric, conjunctiva are normal. ENT: Moist mucous membranes. NECK: Normal range of motion LUNGS: Normal work of breathing, lung sounds are clear to auscultation HEART: 2+ radial pulses bilaterally, regular rate and rhythm ABD: limited by positioning for exam in triage. EXTREMITIES: no pitting or edema. No cyanosis. NEUROLOGICAL: No focal neurological deficits. Moves all extremities spontaneously and on command. PSYCH: Depressed mood, patient does not make eye contact during exam SKIN: Warm, Dry, normal turgor, no rashes or lesions noted. TRAVEL OUTSIDE OF THE [place] IN LAST 30 DAYS: No - Related Data Allergies/Adverse Reactions: lurasidone HCl [From Latuda] Allergy (Severe, Verified 02/28/19 01:04) Seizures morphine Adverse Reaction (Intermediate, Verified 02/28/19 01:04) Hives Past Medical History - Social History Family history: Hypertension - Past Medical History Cardiac Medical History: Reports: Hx Hypercholesterolemia Pulmonary Medical History: Reports: Hx Asthma, Hx Pneumonia, Hx Intubation Neurological Medical History: Reports: Hx Seizures - only while on latuda Renal/ Medical History: Reports: Hx Ovarian Cysts GI Medical History: Reports: Hx Irritable Bowel Musculoskeltal Medical History: Reports Hx Musculoskeletal Trauma Psychiatric Medical History: Reports: Hx Anxiety, Hx Bipolar Disorder, Hx Depression Past Surgical History: Reports: Hx Section - x2, Hx Tubal Ligation - Immunizations Immunizations up to date: Yes Hx Diphtheria, Pertussis, Tetanus Vaccination: Yes Physical Exam - Vital signs Vitals: Temp Pulse Resp BP Pulse Ox 98.5 F 93 16 127/85 H 99 03/12/19 18:36 03/12/19 18:36 03/12/19 18:36 03/12/19 18:36 03/12/19 18:36 Course - Vital Signs Vital signs: Temp Pulse Resp BP Pulse Ox 98.5 F 93 16 127/85 H 99 03/12/19 18:36 03/12/19 18:36 03/12/19 18:36 03/12/19 18:36 03/12/19 18:36 Doctor's Discharge - Discharge Referrals: TJ HODGE DO [Primary Care Provider] - Follow up as needed
[2019-03-12 21:00] LABS: ABSOLUTE BASOPHILS # (AUTO) 0.1 10^3/uL (0.0-0.2); ABSOLUTE EOSINOPHILS # (AUTO) 0.4 10^3/uL (0.0-0.6); ABSOLUTE LYMPHOCYTES (AUTO) 1.1 10^3/uL (0.5-4.7); ABSOLUTE MONOCYTES (AUTO) 0.4 10^3/uL (0.1-1.4); ABSOLUTE NEUT (AUTO) 4.4 10^3/uL (1.7-8.2); BASOPHILS % (AUTO) 0.9 % (0-2); EOSINOPHILS % (AUTO) 5.8 % (0-6); HEMATOCRIT 38.7 % (36.0-47.0); HEMOGLOBIN 13.3 g/dL (12.0-15.5); LYMPHOCYTES % (AUTO) 17.5 % (13-45); MEAN CORPUSCULAR HEMOGLOBIN 29.7 pg (27.0-33.4); MEAN CORPUSCULAR HGB CONC 34.2 g/dL (32.0-36.0); MEAN CORPUSCULAR VOLUME 87 fl (80-97); MONOCYTES % (AUTO) 5.9 % (3-13); PLATELET COUNT 264 10^3/uL (150-450); RED BLOOD COUNT 4.46 10^6/uL (3.72-5.28); RED CELL DISTRIBUTION WIDTH 16.6 % (11.5-14.0); SEGMENTED NEUTROPHILS % (AUTO) 69.9 % (42-78); TOTAL CELLS COUNTED % (AUTO) 100 %; WHITE BLOOD COUNT 6.2 10^3/uL (4.0-10.5)
[2019-03-12 21:10] LABS: APPEARANCE,URINE SLIGHTLY-CLOUDY; BILIRUBIN,URINE NEGATIVE (NEGATIVE); COLOR,URINE YELLOW; GLUCOSE, URINE NEGATIVE (NEGATIVE); KETONES,URINE NEGATIVE (NEGATIVE); LEUKOCYTE ESTERASE,URINE TRACE (NEGATIVE); NITRITE,URINE NEGATIVE (NEGATIVE); PROTEIN,URINE NEGATIVE (NEGATIVE); URINE SPECIFIC GRAVITY 1.009; UROBILINOGEN,URINE NEGATIVE mg/dL (<2.0)
[2019-03-12 21:16] LABS: ALBUMIN 3.7 g/dL (3.5-5.0); ALKALINE PHOSPHATASE 64 U/L (38-126); ANION GAP 8 (5-19); ASPARTATE AMINO TRANSFERASE 31 U/L (14-36); BILIRUBIN,DIRECT 0.3 mg/dL (0.0-0.4); BILIRUBIN,TOTAL 0.7 mg/dL (0.2-1.3); BLOOD UREA NITROGEN 8 mg/dL (7-20); CARBON DIOXIDE 29 mmol/L (22-30); CHLORIDE 100 mmol/L (98-107); GLUCOSE 88 mg/dL (75-110); TOTAL PROTEIN 6.9 g/dL (6.3-8.2)
[2019-03-12 21:17] LABS: ACETAMINOPHEN < 10 ug/mL (10-30); ALCOHOL < 10 mg/dL (NONE DETECTED); SALICYLATE < 1.0 mg/dL (2.0-20.0)
[2019-03-12 21:25] LABS: URINE AMPHETAMINES SCREEN NEGATIVE; URINE BARBITURATES SCREEN NEGATIVE; URINE COCAINE SCREEN NEGATIVE; URINE MARIJUANA (THC) SCREEN NEGATIVE; URINE METHADONE SCREEN NEGATIVE; URINE PHENCYCLIDINE SCREEN NEGATIVE
[2019-03-12 21:27] LABS: URINE BENZODIAZEPINES SCREEN UNCONFIRMED POSITIVE
--- NOTE | 2019-03-12 21:36 | ER Document Report ---
ED General - General Chief Complaint: Possible Overdose Stated Complaint: POSSIBLE OVERDOSE Time Seen by Provider: 03/12/19 18:51 Primary Care Provider: TJ HODGE DO [Primary Care Provider] - Follow up as needed TRAVEL OUTSIDE OF THE [place] IN LAST 30 DAYS: No - HPI Notes: Patient is a 38-year-old female with a history of bipolar disorder who presents to the emergency department for evaluation. She took 10 Ambien. 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 She states that her children have become an issue as well, although she does not elaborate. She states that she is suicidal. She denies any homicidal ideation. She denies any visual or auditory hallucination. She sees a counselor at [facility]. She has been taking her medications as prescribed. She denies any recent medication changes. - Related Data Allergies/Adverse Reactions: lurasidone HCl [From Latuda] Allergy (Severe, Verified 02/28/19 01:04) Seizures morphine Adverse Reaction (Intermediate, Verified 02/28/19 01:04) Hives Past Medical History - General Information source: Patient - Social History Smoking Status: Former Smoker Family History: Reviewed & Not Pertinent, CAD, DM, Hypertension Patient has suicidal ideation: No Patient has homicidal ideation: No - Past Medical History Cardiac Medical History: Reports: Hx Hypercholesterolemia Pulmonary Medical History: Reports: Hx Asthma, Hx Pneumonia, Hx Intubation Neurological Medical History: Reports: Hx Seizures - Mode CTA right 9 months he accepted/diagnosed of the leonly while on latuda Renal/ Medical History: Reports: Hx Ovarian Cysts GI Medical History: Reports: Hx Irritable Bowel Musculoskeletal Medical History: Reports Hx Musculoskeletal Trauma Psychiatric Medical History: Reports: Hx Anxiety, Hx Bipolar Disorder, Hx Depression Past Surgical History: Reports: Hx Section - x2, Hx Tubal Ligation - Immunizations Immunizations up to date: Yes Hx Diphtheria, Pertussis, Tetanus Vaccination: Yes Review of Systems - Review of Systems Constitutional: No symptoms reported EENT: No symptoms reported Cardiovascular: No symptoms reported Respiratory: No symptoms reported Gastrointestinal: No symptoms reported Genitourinary: No symptoms reported Musculoskeletal: No symptoms reported Skin: No symptoms reported Neurological/Psychological: See HPI Physical Exam - Vital signs Vitals: Temp Pulse Resp BP Pulse Ox 98.5 F 93 16 127/85 H 99 03/12/19 18:36 03/12/19 18:36 03/12/19 18:36 03/12/19 18:36 03/12/19 18:36 - Notes Notes: This is a 38-year-old female who appears her stated age, no acute distress. She is lying in the bed in 3 hallway with her at her side. She has diminished eye contact and a very flat affect. Vital signs reviewed, please refer to chart. Head is normocephalic, atraumatic. Pupils equal round, reactive to light. Neck is supple without meningismus. Heart is regular rate and rhythm. Lungs are clear to auscultation bilaterally. Abdomen is soft, nontender, normoactive bowel sounds throughout. Extremities without cyanosis, clubbing. Posterior calves are nontender. Peripheral pulses are equal. Skin is warm and dry. Patient is awake, alert, neurological exam is nonfocal. Course - Re-evaluation Re-evalutation: 03/12/19 21:36 Patient presents emergency department for evaluation after an intentional overdose. Care is supportive after ingestion of 10 Ativan per poison control. The patient has been stable. Laboratory investigations and EKG are reviewed. At this point patient is medically cleared. IVC paperwork is filed. Awaiting psychosocial evaluation in the morning. - Vital Signs Vital signs: Temp Pulse Resp BP Pulse Ox 98.5 F 93 12 121/79 100 03/12/19 18:36 03/12/19 18:36 03/12/19 20:19 03/12/19 20:18 03/12/19 20:19 - Laboratory Result Diagrams: 03/12/19 20:39 03/12/19 20:39 Laboratory results interpreted by me: 03/12/19 03/12/19 03/12/19 20:39 20:39 20:43 RDW 16.6 H Urine Blood MODERATE H Ur Leukocyte Esterase TRACE H Salicylates < 1.0 L Acetaminophen < 10 L - EKG Interpretation by Me Additional EKG results interpreted by me: 03/12/19 21:37 Sinus mechanism with a rate of 80 bpm. Normal axis and intervals. No acute ST changes concerning for ischemia or infarction. Discharge - Discharge Clinical Impression: Suicide attempt Condition: Stable Disposition: OTHER Referrals: TJ HODGE DO [Primary Care Provider] - Follow up as needed
--- NOTE | 2019-03-12 21:58 | EKG REPORT ---
SEVERITY:- ABNORMAL ECG - SINUS RHYTHM PROBABLE LEFT ATRIAL ABNORMALITY ABNORMAL T, CONSIDER ISCHEMIA, LATERAL LEADS : Confirmed by: Sharla Campbell MD 12-Mar-2019 21:58:25
--- NOTE | 2019-03-13 11:11 | ER Document Report ---
Doctor's Note Notes: 03/13/19 10:50 38-year-old female who took 1010 mg Ambien last evening because she stated she was overwhelmed and just wanted to sleep. Patient adamantly denies suicidal ideation. States that her is going to manage her medications, states that she will follow-up as planned with behavioral health as an outpatient. States that she does not want to kill herself, states that she loves her kids and grandkids and wants to live for them. GENERAL: Alert, interacts well. No acute distress. HEAD: Normocephalic, atraumatic EYES: Pupils equal, round and reactive to light, extraocular movements intact. ENT: Oral mucosa moist, tongue midline. NECK: Full range of motion, supple, trachea midline. LUNGS: no respiratory distress. EXTREMITIES: Moves all 4 extremities spontaneously, no edema. No cyanosis. NEUROLOGICAL: Alert and oriented x3, normal speech. PSYCH: Normal mood, normal affect. SKIN: Warm, Dry, normal turgor, no rashes or lesions noted. Patient is rescinded, discharged home.
[2019-03-13 11:58] VITALS: BP 114/79
--- NOTE | 2019-03-14 00:30 | PSYCHOLOGICAL NOTE ---
Psych Note - Psych Note Date seen by psych provider: 03/13/19 Time seen by psych provider: 09:44 Psych Note: Presenting Problem: Patient presented to the ED last evening via for overdose of Ambien (reported 10 pills at 10MG). She stated "I took too many of my sleeping pills because I wanted to go to sleep, I have had a lot on my plate lately." When asked if she wanted to wake up she said "yes." She denied current suicidal ideation. She stated she goes to [facility] for medication with Aracely Sainz, has not had medications changes in the past couple months and they are supposed to be setting her up with therapy. She reported she had a medication appointment 03/04/2019 and the next one is 04/01/2019 but she could walk in if needed. She stated she is prescribed Xanax, Risperdal, Cogentin, Ambien and Cymbalta. Patient was alert and oriented x5, mood was euthymic with congruent affect, she made fair eye contact, she was engaged and answered questions when addressed and did not appear to be responding to internal stimuli given appropriate interactions. 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 He identified patient has been hospitalized at the [facility] for a month years ago, and then last year at [facility] from the ED for 3 days which did nothing so he brought her back and then she went to [facility]. He stated he does not know what is in her mind but would keep her safe. He agreed to be in charge of medications and administration until patient and medication provider feel comfortable with her taking control. Chart review revealed patient [facility] team 01/19/19 for anxiety but had just filled her Xanax 0.5MG BID, 02/14/18 due to being Bipolar and off of her Risperdal and 07/07/17 for psychosis which resulted in hospitalization at [facility]. Diagnosis: Overdose Caregiver Stress Familial Discord Impression/Plan: Patient is cleared from acute psychiatric services. Recommendation to rescind 24 Hour Petition for Evaluation. Patient denied the overdose being a suicide attempt, said she took extra sleeping pills to sleep due to stress and she wanted to wake up. at bedside said he would keep her safe and be in charge of medications/administration. Patient and provided with the outpatient MH sheet which highlighted both [facility] and [facility] for crisis/talk therapy/linkage, as well as [facility] which documented walk in appointment today and request therapy. [facility] [employer] [facility] [employer] faxed a patient referral form to [facility] for care coordination/continuity of care. Consulted with Dr. Grant regarding the management and care of patient. ED Physician in agreement with recommendations.
== END 2019-03-13 11:58 | disposition home or self-care (01) ==
LOC: ER 18:19
DX: T50.902A Poisoning by unspecified drugs, medicaments and biological substances, intentional self-harm, initial encounter (principal); J45.909 Unspecified asthma, uncomplicated; Z63.6 Dependent relative needing care at home; Z79.899 Other long term (current) drug therapy; Z88.8 Allergy status to other drugs, medicaments and biological substances; Z87.891 Personal history of nicotine dependence
CPT/HCPCS: 36415; 80053; 80307; 81001; 84703; 85025; 93005; 93010; 99285

== ENCOUNTER 2019-03-13 15:02 | Emergency (ER) | payer MEDICARE, MEDICAID ==
--- NOTE | 2019-03-13 15:49 | ER Document Report ---
ED Medical Screen (RME) - General Chief Complaint: Suicidal Ideation Stated Complaint: SUICIDAL IDEATION Time Seen by Provider: 03/13/19 15:42 Primary Care Provider: TJ HODGE DO [Primary Care Provider] - Follow up as needed Mode of Arrival: Ambulatory Information source: Patient Notes: 38-year-old female presented to ED for suicidal ideation. Is been is with her and states that she took 12 Ambien last night trying to commit suicide. He states he brought her to the emergency room last night and she was sent home this morning. He states she is still saying she wants to commit suicide so he took her to [facility] today he sent her back to the emergency room to be held until they can get a bed at [facility] for her suicidal ideation. I have greeted and performed a rapid initial assessment of this patient. A comprehensive ED assessment and evaluation of the patient, analysis of test results and completion of medical decision making process will be conducted by an additional ED providers. TRAVEL OUTSIDE OF THE [place] IN LAST 30 DAYS: No - Related Data Allergies/Adverse Reactions: lurasidone HCl [From Latuda] Allergy (Severe, Verified 02/28/19 01:04) Seizures morphine Adverse Reaction (Intermediate, Verified 02/28/19 01:04) Hives Past Medical History - Social History Family history: Hypertension - Past Medical History Cardiac Medical History: Reports: Hx Hypercholesterolemia Pulmonary Medical History: Reports: Hx Asthma, Hx Pneumonia, Hx Intubation Neurological Medical History: Reports: Hx Seizures - Mode CTA right 9 months he accepted/diagnosed of the leonly while on latuda Renal/ Medical History: Reports: Hx Ovarian Cysts GI Medical History: Reports: Hx Irritable Bowel Musculoskeltal Medical History: Reports Hx Musculoskeletal Trauma Psychiatric Medical History: Reports: Hx Anxiety, Hx Bipolar Disorder, Hx Depression Past Surgical History: Reports: Hx Section - x2, Hx Tubal Ligation - Immunizations Immunizations up to date: Yes Hx Diphtheria, Pertussis, Tetanus Vaccination: Yes Physical Exam - Vital signs Vitals: Temp Pulse Resp BP Pulse Ox 98.3 F 80 16 133/83 H 98 03/13/19 15:31 03/13/19 15:31 03/13/19 15:31 03/13/19 15:31 03/13/19 15:31 Course - Vital Signs Vital signs: Temp Pulse Resp BP Pulse Ox 98.3 F 80 16 133/83 H 98 03/13/19 15:31 03/13/19 15:31 03/13/19 15:31 03/13/19 15:31 03/13/19 15:31 Doctor's Discharge - Discharge Referrals: TJ HODGE, [Primary Care Provider] - Follow up as needed
--- NOTE | 2019-03-13 16:56 | ER Document Report ---
ED General - General Chief Complaint: Suicidal Ideation Stated Complaint: SUICIDAL IDEATION Time Seen by Provider: 03/13/19 15:42 Primary Care Provider: TJ HODGE DO [Primary Care Provider] - Follow up as needed Mode of Arrival: Ambulatory Notes: Patient is a 38-year-old white female who was seen here earlier under IVC for suspected overdose attempt, she reported while she was here that this was not an overdose attempt, the IVC was rescinded and she agreed to follow-up outpatient at [facility] for continued care. Once her took her over to see [facility] and they evaluated her she admitted that she lied and that it was an overdose attempt and that she actually took 12 Ambien. They recommended placement in the local psychiatric facility [facility], the patient declined stating she did not want to go there so she was referred back here to the ER given her true suicidal attempt. She was recently medically cleared, psychiatry again has seen her here in the emergency department and she has agreed to go to another facility called [facility] that is approximately 2 hours away. Her has agreed that he will happily drive her there. She is in agreement. Denies any further suicide attempt between discharge and return here. TRAVEL OUTSIDE OF THE [place] IN LAST 30 DAYS: No - Related Data Allergies/Adverse Reactions: lurasidone HCl [From Latuda] Allergy (Severe, Verified 03/13/19 15:47) Seizures morphine Adverse Reaction (Intermediate, Verified 03/13/19 15:47) Hives Past Medical History - General Information source: Patient - Social History Smoking Status: Former Smoker Frequency of alcohol use: None Drug Abuse: None Family History: Reviewed & Not Pertinent, CAD, DM, Hypertension Patient has suicidal ideation: Yes Patient has homicidal ideation: No - Past Medical History Cardiac Medical History: Reports: Hx Hypercholesterolemia Pulmonary Medical History: Reports: Hx Asthma, Hx Pneumonia, Hx Intubation Neurological Medical History: Reports: Hx Seizures - Mode CTA right 9 months he accepted/diagnosed of the leonly while on latuda Renal/ Medical History: Reports: Hx Ovarian Cysts GI Medical History: Reports: Hx Irritable Bowel Musculoskeletal Medical History: Reports Hx Musculoskeletal Trauma Psychiatric Medical History: Reports: Hx Anxiety, Hx Bipolar Disorder, Hx Dep ression Past Surgical History: Reports: Hx Section - x2, Hx Tubal Ligation - Immunizations Immunizations up to date: Yes Hx Diphtheria, Pertussis, Tetanus Vaccination: Yes Review of Systems - Review of Systems Neurological/Psychological: Other - Suicidal ideation depression Physical Exam - Vital signs Vitals: Temp Pulse Resp BP Pulse Ox 98.3 F 80 16 133/83 H 98 03/13/19 15:31 03/13/19 15:31 03/13/19 15:31 03/13/19 15:31 03/13/19 15:31 - General General appearance: Appears well, Alert - Respiratory Respiratory status: No respiratory distress Chest status: Nontender Breath sounds: Normal Chest palpation: Normal - Cardiovascular Rhythm: Regular Heart sounds: Normal auscultation - Neurological Neuro grossly intact: Yes Cognition: Normal Orientation: AAOx4 [place] Coma Scale Eye Opening: Spontaneous [place] Coma Scale Verbal: Oriented Dottie Coma Scale Motor: Obeys Commands [place] Coma Scale Total: 15 Speech: Normal - Psychological Associated symptoms: Aggressive, Agitated, Depressed, Irritable, Other - Suicidal ideation - Skin Skin Temperature: Warm Skin Moisture: Dry Skin Color: Normal Course - Re-evaluation Re-evalutation: 03/13/19 16:52 Myself, mental health, Dr. Grant and Dr. Day already discussed the case revisited this situation and discussed with the patient that she will need to go directly to [facility] where they have a bed ready for her. The patient states that she is willing to go voluntarily. states he will take her there. We have advised her that she has no less than approximately 3 hours to get to this facility which is 2 hours away and if we have not received a call from them stating that she has arrived we will take out IVC papers on her and have the police picked her up. She and her are in agreement. They will report directly there. Counseled him at length regarding the importance of outpatient follow-up and advised to return here or any ER immediately with any new, persistent or worsening symptoms. They verbalized understood and agreed. - Vital Signs Vital signs: Temp Pulse Resp BP Pulse Ox 98.3 F 80 16 133/83 H 98 03/13/19 15:31 03/13/19 15:31 03/13/19 15:31 03/13/19 15:31 03/13/19 15:31 Discharge - Discharge Clinical Impression: Suicidal ideations Depression Qualifiers: Depression Type: other depression Qualified Code(s): F32.89 - Other specified depressive episodes Disposition: PSYCH HOSP/UNIT Instructions: Suicidal Ideation ([facility]) Referrals: TJ HODGE DO [Primary Care Provider] - Follow up as needed
[2019-03-13 17:15] VITALS: BP 136/82
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
== END 2019-03-13 17:15 ==
LOC: ER 15:02
DX: R45.851 Suicidal ideations (principal); F32.89 Other specified depressive episodes; Z79.899 Other long term (current) drug therapy; Z87.891 Personal history of nicotine dependence

== ENCOUNTER 2019-03-31 21:04 | Emergency (ER) | payer MEDICARE, MEDICAID ==
--- NOTE | 2019-03-31 22:14 | ER Document Report ---
ED Medical Screen (RME) - General Chief Complaint: Abdominal Pain Stated Complaint: ABDOMINAL PAIN,BLOOD IN STOOL Time Seen by Provider: 03/31/19 22:00 Primary Care Provider: TJ HODGE DO [Primary Care Provider] - Follow up as needed TRAVEL OUTSIDE OF THE [place] IN LAST 30 DAYS: No - HPI Notes: 03/31/19 22:13 38-year-old female to the emergency department with complaints of lower abdominal pain with diarrhea that began early this morning at 3 AM. She states that she had black diarrhea that lasted from 3 AM to 5 AM. She is not seen any further black or gross really bloody diarrhea since then. However she has been continuing to have pain. There is a family history of colon cancer. She has not had a scope. She denies any fevers or chills. She admits to nausea. I performed a brief medical screening exam on the patient determined that the patient needs further evaluation and management by main side provider. I have placed initial orders to help expedite care. - Related Data Allergies/Adverse Reactions: lurasidone HCl [From Latuda] Allergy (Severe, Verified 03/13/19 15:47) Seizures morphine Adverse Reaction (Intermediate, Verified 03/13/19 15:47) Hives Home Medications: saphris. ferrous sulfate. benzatopine. aprazolam. Cymbalta. ambien Past Medical History - Social History Chew tobacco use (# tins/day): No Frequency of alcohol use: None Drug Abuse: None Family history: Hypertension - Past Medical History Cardiac Medical History: Reports: Hx Hypercholesterolemia Pulmonary Medical History: Reports: Hx Asthma, Hx Pneumonia, Hx Intubation Neurological Medical History: Reports: Hx Seizures - Mode CTA right 9 months he accepted/diagnosed of the leonly while on latuda Renal/ Medical History: Reports: Hx Ovarian Cysts GI Medical History: Reports: Hx Irritable Bowel Musculoskeltal Medical History: Reports Hx Musculoskeletal Trauma Psychiatric Medical History: Reports: Hx Anxiety, Hx Bipolar Disorder, Hx Depression Past Surgical History: Reports: Hx Section - x2, Hx Tubal Ligation - Immunizations Immunizations up to date: Yes Hx Diphtheria, Pertussis, Tetanus Vaccination: Yes Physical Exam - Vital signs Vitals: Temp Pulse Resp BP Pulse Ox 98.7 F 94 18 131/83 H 98 03/31/19 21:14 03/31/19 21:14 03/31/19 21:14 03/31/19 21:14 03/31/19 21:14 Course - Vital Signs Vital signs: Temp Pulse Resp BP Pulse Ox 98.7 F 94 18 131/83 H 98 03/31/19 21:14 03/31/19 21:14 03/31/19 21:14 03/31/19 21:14 03/31/19 21:14 Doctor's Discharge - Discharge Referrals: TJ HODGE DO [Primary Care Provider] - Follow up as needed
[2019-03-31 23:16] LABS: ABSOLUTE BASOPHILS # (AUTO) 0.1 10^3/uL (0.0-0.2); ABSOLUTE EOSINOPHILS # (AUTO) 0.3 10^3/uL (0.0-0.6); ABSOLUTE LYMPHOCYTES (AUTO) 1.5 10^3/uL (0.5-4.7); ABSOLUTE MONOCYTES (AUTO) 0.5 10^3/uL (0.1-1.4); ABSOLUTE NEUT (AUTO) 4.1 10^3/uL (1.7-8.2); EOSINOPHILS % (AUTO) 5.4 % (0-6); HEMATOCRIT 41.9 % (36.0-47.0); HEMOGLOBIN 14.5 g/dL (12.0-15.5); LYMPHOCYTES % (AUTO) 22.7 % (13-45); MEAN CORPUSCULAR HEMOGLOBIN 30.2 pg (27.0-33.4); MEAN CORPUSCULAR HGB CONC 34.7 g/dL (32.0-36.0); MEAN CORPUSCULAR VOLUME 87 fl (80-97); MONOCYTES % (AUTO) 7.9 % (3-13); PLATELET COUNT 272 10^3/uL (150-450); RED BLOOD COUNT 4.81 10^6/uL (3.72-5.28); RED CELL DISTRIBUTION WIDTH 15.4 % (11.5-14.0); TOTAL CELLS COUNTED % (AUTO) 100 %; WHITE BLOOD COUNT 6.5 10^3/uL (4.0-10.5)
[2019-03-31 23:36] LABS: ALBUMIN 4.1 g/dL (3.5-5.0); ALKALINE PHOSPHATASE 74 U/L (38-126); ANION GAP 9 (5-19); ASPARTATE AMINO TRANSFERASE 23 U/L (14-36); BILIRUBIN,DIRECT 0.3 mg/dL (0.0-0.4); BILIRUBIN,TOTAL 0.5 mg/dL (0.2-1.3); BLOOD UREA NITROGEN 10 mg/dL (7-20); CALCIUM 9.9 mg/dL (8.4-10.2); CARBON DIOXIDE 28 mmol/L (22-30); CHLORIDE 103 mmol/L (98-107); GLUCOSE 83 mg/dL (75-110); TOTAL PROTEIN 7.4 g/dL (6.3-8.2)
[2019-04-01] MEDS ORDERED: ONDANSETRON HCL INJ/PF 4 MG/2 ML SDV IV ONE (03:32)
[2019-04-01] MEDS ORDERED: NORMAL SALINE 1000 ML 1,000 ML IV ONE (03:32)
--- NOTE | 2019-04-01 03:34 | ER Document Report ---
ED GI/ - General Chief Complaint: Abdominal Pain Stated Complaint: ABDOMINAL PAIN,BLOOD IN STOOL Time Seen by Provider: 03/31/19 22:00 Primary Care Provider: TAINA MCNEAL MD [ACTIVE STAFF] - Follow up in 1 week Notes: Patient is a 38-year-old female that comes emergency department for chief complaint of lower abdominal pain. She states she has had multiple loose stools last night which stopped early this morning. She states that it looked "black". She states that she also wiped today and saw some bright red blood. She denies vomiting but she reports some nausea. She denies any fever or chills. She has had a , tubal ligation, and she states she has a family history of colon cancer so she did get an endoscopy and colonoscopy. She states this was recent, they removed several polyps but they told her it was normal otherwise. Past medical history of bipolar disorder, hyperlipidemia, asthma, IBS. She states she was recently released from [facility]. TRAVEL OUTSIDE OF THE [place] IN LAST 30 DAYS: No - Related Data Allergies/Adverse Reactions: lurasidone HCl [From Latuda] Allergy (Severe, Verified 03/13/19 15:47) Seizures morphine Adverse Reaction (Intermediate, Verified 03/13/19 15:47) Hives Home Medications: saphris. ferrous sulfate. benzatopine. aprazolam. Cymbalt a. ambien Past Medical History - General Information source: Patient - Social History Smoking Status: Never Smoker Chew tobacco use (# tins/day): No Frequency of alcohol use: None Drug Abuse: None Lives with: Family Family History: Reviewed & Not Pertinent, CAD, DM, Hypertension Patient has suicidal ideation: No Patient has homicidal ideation: No - Past Medical History Cardiac Medical History: Reports: Hx Hypercholesterolemia Pulmonary Medical History: Reports: Hx Asthma, Hx Pneumonia, Hx Intubation Neurological Medical History: Reports: Hx Seizures - Mode CTA right 9 months he accepted/diagnosed of the leonly while on latuda Renal/ Medical History: Reports: Hx Ovarian Cysts GI Medical History: Reports: Hx Irritable Bowel Musculoskeletal Medical History: Reports Hx Musculoskeletal Trauma Psychiatric Medical History: Reports: Hx Anxiety, Hx Bipolar Disorder, Hx Depression Past Surgical History: Reports: Hx Section - x2, Hx Tubal Ligation - Immunizations Immunizations up to date: Yes Hx Diphtheria, Pertussis, Tetanus Vaccination: Yes Review of Systems - Review of Systems Constitutional: No symptoms reported EENT: No symptoms reported Cardiovascular: No symptoms reported Respiratory: No symptoms reported Gastrointestinal: See HPI Genitourinary: No symptoms reported Female Genitourinary: No symptoms reported Musculoskeletal: No symptoms reported Skin: No symptoms reported Hematologic/Lymphatic: No symptoms reported Neurological/Psychological: No symptoms reported Physical Exam - Vital signs Vitals: Temp Pulse Resp BP Pulse Ox 98.7 F 94 18 131/83 H 98 03/31/19 21:14 03/31/19 21:14 03/31/19 21:14 03/31/19 21:14 03/31/19 21:14 - Notes Notes: GENERAL: Alert, interacts well. No acute distress. HEAD: Normocephalic, atraumatic. EYES: Pupils equal, round, and reactive to light. Extraocular movements intact. ENT: Oral mucosa moist, tongue midline. Oropharynx unremarkable. Airway patent. NECK: Full range of motion. Supple. Trachea midline. LUNGS: Clear to auscultation bilaterally, no wheezes, rales, or rhonchi. No respiratory distress. HEART: Regular rate and rhythm. No murmur ABDOMEN: Soft benign abdomen throughout. No distention. Bowel sounds heard th roughout. GENITOURINARY: Deferred RECTAL: Small internal hemorrhoid at the 8 o'clock position. No current bleeding. No tenderness. No concerning findings. Exam performed with Kassidy YORK at bedside. EXTREMITIES: Moves all 4 extremities spontaneously. No edema, normal radial and dorsalis pedis pulses bilaterally. No cyanosis. BACK: no cervical, thoracic, lumbar midline tenderness. No saddle anesthesia, normal distal neurovascular exam. Moves all extremities in full range of motion. NEUROLOGICAL: Alert and oriented x3. Normal speech. Cranial nerves II through XII grossly intact. PSYCH: Normal affect, normal mood. SKIN: Warm, dry, normal turgor. No rashes or lesions noted. Course - Re-evaluation Re-evalutation: CBC and chemistry unremarkable. Patient has already had a CAT scan as well from triage. Unfortunately no test was performed but patient states she is not with great certainty. Patient also has a completed work-up, she is very relieved, she request something for pain. Rectal exam shows small internal hemorrhoid with no tenderness or concerning finding, no current bleeding. CBC, chemistry completely unremarkable. CAT scan reviewed and shows no concerning findings. I suspect this is a combination of patient's IBS and bleeding from an internal hemorrhoid. I discussed this in detail. However because of patient's positive medical history of polyp and family history of colon cancer I stressed the importance of close follow-up with gastroenterology and provided a referral. Patient states she will do so. Discussed return precautions. Patient states understanding and agreement. Stable at time of discharge. - Vital Signs Vital signs: Temp Pulse Resp BP Pulse Ox 97.7 F 63 16 111/73 100 04/01/19 05:41 04/01/19 05:41 04/01/19 05:41 04/01/19 05:41 04/01/19 05:41 - Laboratory Result Diagrams: 03/31/19 23:03 03/31/19 23:03 Laboratory results interpreted by me: 03/31/19 23:03 RDW 15.4 H Discharge - Discharge Clinical Impression: Abdominal pain Qualifiers: Abdominal location: generalized Qualified Code(s): R10.84 - Generalized abdominal pain Condition: Stable Disposition: HOME, SELF-CARE Additional Instructions: Your imaging and tests do not show any concerning findings. I suspect your symptoms are mostly from your irritable bowel, he also have an internal hemorrhoid. However because of your family history of colon cancer, h istory of polyps, and not having a colonoscopy for 5 years, please closely follow-up with the gastroenterology referral for additional management. Call the listed referral to set this up. Take Zofran if needed for nausea, Bentyl if needed for pain, and take the stool softener for the next several days. Avoid any straining. This should help with the hemorrhoids and the intermittent bleeding resolved. Return if you worsen including vomiting, fever, severe worsening pain, or any other concerning symptoms. Prescriptions: Dicyclomine HCl [Bentyl 20 mg Tablet] 20 mg PO QID PRN #20 tablet PRN Reason: Docusate Sodium [Colace 100 mg Capsule] 100 mg PO ASDIR PRN #30 capsule PRN Reason: Ondansetron [Zofran Odt 4 mg Tablet] 1 - 2 tab PO Q4H PRN #15 tab.rapdis PRN Reason: For Nausea/Vomiting Referrals: TAINA MCNEAL MD [ACTIVE STAFF] - Follow up in 1 week
--- NOTE | 2019-04-01 03:40 | RADIOLOGY REPORT (SQ) ---
CLINICAL HISTORY: lower abdominal pain, bloody diarrhea COMPARISON: None. TECHNIQUE: CT ABDOMEN PELVIS WITH IV CONTRAST on 03/31/2019 10:12 PM [employer] This exam was performed according to our departmental dose-optimization program, which includes automated exposure control, adjustment of the mA and/or kV according to patient size and/or use of iterative reconstruction technique. FINDINGS: Lower lungs are clear. Abdomen: The liver is normal in appearance. There is no biliary dilatation. Gallbladder is normally distended. The pancreas and spleen are normal in appearance. The adrenal glands and kidneys are unremarkable. Abdominal aorta is normal in course and caliber without aneurysm. There is no free air. There is no retroperitoneal adenopathy. Pelvis: There is no bowel obstruction. Urinary bladder is unremarkable. There is no free fluid. Uterus is normal in size. Appendix is normal. Skeleton: There are no acute osseous findings. No suspicious bony lesions. IMPRESSION: No acute inflammatory process.
[2019-04-01] MEDS ORDERED: OXYCODONE-ACETAMINOPHEN 5-325 MG TABLET PO ONE (05:04)
[2019-04-01 05:43] VITALS: BP 111/73
== END 2019-04-01 05:41 | disposition home or self-care (01) ==
LOC: ER 21:04
DX: R10.84 Generalized abdominal pain (principal); R11.0 Nausea; K92.1 Melena; K64.8 Other hemorrhoids; J45.909 Unspecified asthma, uncomplicated; F31.9 Bipolar disorder, unspecified; F41.9 Anxiety disorder, unspecified; Z79.899 Other long term (current) drug therapy; Z80.0 Family history of malignant neoplasm of digestive organs
CPT/HCPCS: 99284; 96361; 96374; 36415; 85025; 80053; 74177; A9270; J2405; J7030

== ENCOUNTER 2019-04-24 00:27 | Emergency (ER) | payer MEDICARE, MEDICAID ==
--- NOTE | 2019-04-24 02:37 | RADIOLOGY REPORT (SQ) ---
CLINICAL HISTORY: knee pain COMPARISON: None. TECHNIQUE: XR KNEE 4 OR MORE VIEWS 04/24/2019 12:00 AM CDT FINDINGS: There is no fracture. Joint spaces are preserved. Soft tissues are unremarkable. IMPRESSION: No acute osseous findings.
--- NOTE | 2019-04-24 03:34 | ER Document Report ---
HPI - HPI Time Seen by Provider: 04/24/19 03:25 Pain Level: 5 Notes: Patient is a 38-year-old female who presents complaining of anterior right knee pain for the past couple weeks. Patient states that she feels like it is grinding and has noticed mild swelling. Pain does not radiate. Denies injury. She does have an appointment for this scheduled with her family doctor. Denies any headache, fever, neck pain, URI, sore throat, chest pain, palpitations, syncope, cough, shortness of breath, wheeze, dyspnea, abdominal pain, nausea/vomiting/diarrhea, urinary retention, dysuria, hematuria, numbness/tingling, paralysis, or rash. - ROS Systems Reviewed and Negative: Yes All other systems reviewed and negative - REPRODUCTIVE Reproductive: DENIES: : - MUSCULOSKELETAL Musculoskeletal: REPORTS: Extremity pain Past Medical History - Social History Smoking Status: Never Smoker Family History: Reviewed & Not Pertinent, CAD, DM, Hypertension Patient has suicidal ideation: No Patient has homicidal ideation: No - Past Medical History Cardiac Medical History: Reports: Hx Hypercholesterolemia Pulmonary Medical History: Reports: Hx Asthma, Hx Pneumonia, Hx Intubation Neurological Medical History: Reports: Hx Seizures - Mode CTA right 9 months he accepted/diagnosed of the leonly while on latuda Renal/ Medical History: Reports: Hx Ovarian Cysts GI Medical History: Reports: Hx Irritable Bowel Musculoskeletal Medical History: Reports Hx Musculoskeletal Trauma Psychiatric Medical History: Reports: Hx Anxiety, Hx Bipolar Disorder, Hx Depression Past Surgical History: Reports: Hx Section - x2, Hx Tubal Ligation - Immunizations Immunizations up to date: Yes Hx Diphtheria, Pertussis, Tetanus Vaccination: Yes Vertical Provider Document - CONSTITUTIONAL Agree With Documented VS: Yes Notes: PHYSICAL EXAMINATION: GENERAL: Well-appearing, well-nourished and in no acute distress. LUNGS: Breath sounds clear to auscultation bilaterally and equal. No wheezes rales or rhonchi. HEART: Regular rate and rhythm without murmurs, rubs, gallops. Musculoskeletal: Rt knee: No obvious swelling, ecchymosis, effusion, or deformity. FROM to passive/active and flexion >90. Strength 5+/5. N/V intact distal. + mild tenderness to the anterior knee to palp. Ligamentous grossly stable, limited exam with larger leg size. Trisha grossly negative. Patellar grind mildly positive. No calf tenderness. Extremities: No cyanosis, clubbing, or edema b/l. Peripheral pulses 2+. Capillary refill less than 3 seconds. Ebony neg b/l. NEUROLOGICAL: Normal speech, normal gait. Normal sensory, motor exams PSYCH: Normal mood, normal affect. SKIN: Warm, Dry, normal turgor, no rashes or lesions noted. - INFECTION CONTROL TRAVEL OUTSIDE OF THE [place] IN LAST 30 DAYS: No Course - Re-evaluation Re-evalutation: 04/24/19 03:36 Patient is an afebrile, well-hydrated, 38-year-old female who presents to the ED with Rt knee pain which I suspect to be arthritic/inflammatory. Vitals are acceptable without any significant tachycardia, tachypnea, or hypoxia. PE is otherwise unremarkable for any neurovascular compromise, obvious tendon/ligament rupture, obvious fracture/dislocation, septic joint. X-ray was unremarkable for any acute pathology. Patient is nontoxic-appearing. Patient is able to ambulate and weight-bear although she is limping. No other labs or imaging warranted at this time based on H&P. Conservative measures otherwise for symptoms. Recheck with your PCM in 3-5 days. Consider consult orthopedics. Return to the ED with any worsening/concerning symptoms otherwise as reviewed in discharge. Patient is in agreement. - Vital Signs Vital signs: Temp Pulse Resp BP Pulse Ox 98.4 F 97 18 132/73 H 96 04/24/19 00:42 04/24/19 00:42 04/24/19 00:42 04/24/19 00:42 04/24/19 00:42 Discharge - Discharge Clinical Impression: Right knee pain Qualifiers: Chronicity: acute Qualified Code(s): M25.561 - Pain in right knee Condition: Stable Disposition: HOME, SELF-CARE Additional Instructions: Rest, Ice, Compression, Elevation Tylenol/ibuprofen as needed Light stretches daily Strength exercises as able Moist heat and massage may help F/u with your PCP in 3-5 days for a recheck Consider consult(s) with Orthopedics/physical therapy for ongoing/worsening symptoms Return to the ED with any worsening symptoms and/or development of fever, headache, chest pain, palpitations, syncope, shortness of breath, trouble breathing, abdominal pain, n/v/d, muscle weakness/paralysis, numbness/tingling, swelling, redness, or other worsening symptoms that are concerning to you. Prescriptions: Ibuprofen [Motrin 800 mg Tablet] 800 mg PO Q8H PRN #15 tab PRN Reason: Forms: Elevated Blood Pressure Referrals: TJ HODGE DO [Primary Care Provider] - Follow up as needed [facility] [Provider Group] - Follow up as needed
[2019-04-24 03:45] VITALS: BP 130/70
== END 2019-04-24 03:40 | disposition home or self-care (01) ==
LOC: ER 00:27
DX: M25.561 Pain in right knee (principal); J45.909 Unspecified asthma, uncomplicated
CPT/HCPCS: 99283

== ENCOUNTER 2019-06-07 00:01 | Emergency (ER) | payer MEDICARE, MEDICAID ==
[2019-06-07 02:24] VITALS: BP 110/70
[2019-06-07] MEDS ORDERED: FENTANYL CITRATE INJ/PF 100 MCG/2 ML AMPUL IM ONE (03:10)
[2019-06-07] MEDS ORDERED: PROMETHAZINE HCL INJ 25 MG/1 ML VIAL IM ONE (03:10)
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
--- NOTE | 2019-06-07 03:49 | RADIOLOGY REPORT (SQ) ---
EXAM DESCRIPTION: XR ANKLE 3 OR MORE VIEWS COMPLETED DATE/TME: 06/07/2019 03:06 CLINICAL HISTORY: 38 years, Female, fall COMPARISON: None. NUMBER OF VIEWS: 3 TECHNIQUE: 3 views of the left ankle LIMITATIONS: None. FINDINGS: Negative for acute fracture or dislocation. Well-corticated ossific densities inferior to the lateral malleolus could reflect sequelae of old trauma. There is mild soft tissue swelling in the region. IMPRESSION: Suspected old avulsion injury near the lateral malleolus. No acute fracture or dislocation copyright 2010 [employer]- All Rights Reserved
--- NOTE | 2019-06-07 03:56 | RADIOLOGY REPORT (SQ) ---
EXAM DESCRIPTION: XR FOOT 3 OR MORE VIEWS COMPLETED DATE/TME: 06/07/2019 03:06 CLINICAL HISTORY: 38 years, Female, fall COMPARISON: None. FINDINGS: 3 views of the left foot. No acute fracture or dislocation. Normal osseous mineralization. Tarsals and metatarsals are appropriately aligned. The IMPRESSION: 1. No acute fracture or dislocation. copyright 2010 [employer]- All Rights Reserved
[2019-06-07] MEDS ORDERED: HYDROCODONE/ACETAMINOPHEN 5-325 MG (6 TAB/ER DISP) PO PRN (04:18)
--- NOTE | 2019-06-07 04:59 | RADIOLOGY REPORT (SQ) ---
EXAM: X-ray tibia fibula left CLINICAL DATA: 38-year-old female who fell from a step and complains of pain distally in the ankle area TECHNICAL DATA: Two x-ray views of the left tibia fibula were performed on 06/07/2019 at 4:36 AM. COMPARISONS: None FINDINGS: There is no evidence of fracture or dislocation. There is no significant arthritis or degenerative change. No focal lytic or sclerotic bone lesions are seen. Bone mineralization is normal. No focal soft tissue abnormalities are identified. IMPRESSION: No evidence of acute osseous injury involving the left tibia or fibula.
== END 2019-06-07 06:10 | disposition home or self-care (01) ==
LOC: ER 00:01
DX: T14.8XXA Other injury of unspecified body region, initial encounter (principal); S99.922A Unspecified injury of left foot, initial encounter; W10.8XXA Fall (on) (from) other stairs and steps, initial encounter; J45.909 Unspecified asthma, uncomplicated; F32.9 Major depressive disorder, single episode, unspecified; F41.9 Anxiety disorder, unspecified; Z79.899 Other long term (current) drug therapy; Z87.891 Personal history of nicotine dependence; Z88.8 Allergy status to other drugs, medicaments and biological substances
CPT/HCPCS: 99285; 96372; 73610; 73630; 73590; 29515; J3010; J2550; A9270

== ENCOUNTER 2019-09-10 17:31 | Emergency (ER) | payer MEDICARE, MEDICAID ==
[2019-09-10 18:33] LABS: ABSOLUTE BASOPHILS # (AUTO) 0.1 10^3/uL (0.0-0.2); ABSOLUTE EOSINOPHILS # (AUTO) 0.1 10^3/uL (0.0-0.6); ABSOLUTE MONOCYTES (AUTO) 0.6 10^3/uL (0.1-1.4); ABSOLUTE NEUT (AUTO) 6.7 10^3/uL (1.7-8.2); BASOPHILS % (AUTO) 0.6 % (0-2); EOSINOPHILS % (AUTO) 0.8 % (0-6); HEMATOCRIT 41.6 % (36.0-47.0); LYMPHOCYTES % (AUTO) 12.1 % (13-45); MEAN CORPUSCULAR HEMOGLOBIN 27.1 pg (27.0-33.4); MEAN CORPUSCULAR HGB CONC 33.8 g/dL (32.0-36.0); MEAN CORPUSCULAR VOLUME 80 fl (80-97); MONOCYTES % (AUTO) 6.7 % (3-13); PLATELET COUNT 306 10^3/uL (150-450); RED BLOOD COUNT 5.19 10^6/uL (3.72-5.28); RED CELL DISTRIBUTION WIDTH 14.8 % (11.5-14.0); SEGMENTED NEUTROPHILS % (AUTO) 79.8 % (42-78); TOTAL CELLS COUNTED % (AUTO) 100 %; WHITE BLOOD COUNT 8.4 10^3/uL (4.0-10.5)
--- NOTE | 2019-09-10 18:48 | EKG REPORT ---
SEVERITY:- BORDERLINE ECG - SINUS RHYTHM BORDERLINE INFERIOR Q WAVES LA ABNORMALITY : Confirmed by: Yazan Brock MD 10-Sep-2019 18:47:41
[2019-09-10 18:53] LABS: ALBUMIN 4.4 g/dL (3.5-5.0); ALKALINE PHOSPHATASE 83 U/L (38-126); ANION GAP 11 (5-19); ASPARTATE AMINO TRANSFERASE 27 U/L (14-36); BILIRUBIN,TOTAL 0.7 mg/dL (0.2-1.3); BLOOD UREA NITROGEN 7 mg/dL (7-20); CALCIUM 9.4 mg/dL (8.4-10.2); CARBON DIOXIDE 22 mmol/L (22-30); CHLORIDE 102 mmol/L (98-107); GLUCOSE 112 mg/dL (75-110); POTASSIUM 3.6 mmol/L (3.6-5.0); TOTAL PROTEIN 7.9 g/dL (6.3-8.2)
[2019-09-10 18:55] LABS: ACETAMINOPHEN < 10 ug/mL (10-30); ALCOHOL < 10 mg/dL (NONE DETECTED); SALICYLATE < 1.0 mg/dL (2.0-20.0)
--- NOTE | 2019-09-10 18:56 | ER Document Report ---
ED General - General Chief Complaint: Psych Problem Stated Complaint: PSYCH EVAL Primary Care Provider: TJ HODGE DO [Primary Care Provider] - Follow up as needed Notes: 39-year-old female with past medical history of depression presents with her daughter. Daughter states that mom has not seen acting normally for about 4 days. States that she has not been talking to anybody, not eating, not sleeping and also states that she has been peeing over herself. States that she is not taking her medication. States that her dad is in charge of her medication. Patient does not interact at all with the provider. TRAVEL OUTSIDE OF THE [place] IN LAST 30 DAYS: No - Related Data Allergies/Adverse Reactions: lurasidone HCl [From Latuda] Allergy (Severe, Verified 03/13/19 15:47) Seizures morphine Adverse Reaction (Intermediate, Verified 03/13/19 15:47) Hives Past Medical History - Social History Smoking Status: Unknown if Ever Smoked Family History: Reviewed & Not Pertinent, CAD, DM, Hypertension - Past Medical History Cardiac Medical History: Reports: Hx Hypercholesterolemia Pulmonary Medical History: Reports: Hx Asthma, Hx Pneumonia, Hx Intubation Neurological Medical History: Reports: Hx Seizures - Mode CTA right 9 months he accepted/diagnosed of the leonly while on latuda Renal/ Medical History: Reports: Hx Ovarian Cysts GI Medical History: Reports: Hx Irritable Bowel Musculoskeletal Medical History: Reports Hx Musculoskeletal Trauma Psychiatric Medical History: Reports: Hx Anxiety, Hx Bipolar Disorder, Hx Depression Past Surgical History: Reports: Hx Section - x2, Hx Tubal Ligation - Immunizations Immunizations up to date: Yes Hx Diphtheria, Pertussis, Tetanus Vaccination: Yes Review of Systems - Review of Systems -: Yes ROS unobtainable due to patient's medical condition Physical Exam - Vital signs Vitals: Pulse Resp BP Pulse Ox 94 17 140/91 H 99 09/10/19 18:21 09/10/19 18:21 09/10/19 18:21 09/10/19 18:21 Interpretation: Hypertensive - Notes Notes: Adult General: GENERAL: Alert, appears concerned HEAD: Normocephalic, atraumatic EYES: Pupils equal, round and reactive to light. Extraocular movements intact. ENT: Airway patent. Nares patent. NECK: Full range of motion. Supple. Trachea midline. No lymphadenopathy. LUNGS: No respiratory distress. Nontender chest wall. HEART: Regular rate and rhythm. No murmurs, rubs or gallops. ABDOMEN: Soft, nontender. Nondistended. GENITOURINARY: Deferred EXTREMITIES: Moves all 4 extremities spontaneously. BACK: Moves all extremities with full range of motion. NEUROLOGICAL: Alert and oriented x3. Speech is delayed. Strength 5/ 5 in all extremities. PSYCH: Poor eye contact SKIN: Warm, dry, normal turgor. No rashes or lesions noted. Course - Re-evaluation Re-evalutation: 09/10/19 21:[address] non contrast as patients daughter reports that the patient has not acted this altered before. I received a phone call for CT who states the patient is not able to be scanned as she is not following orders. Ed with [facility] provided medication recommendations. Those have been ordered. CT scan is unremarkable and additional labs are unremarkable. She is medically cleared. Pending placement from [facility]. - Vital Signs Vital signs: Temp Pulse Resp BP Pulse Ox 98.5 F 86 14 123/66 98 09/14/19 08:55 09/14/19 08:55 09/14/19 08:55 09/14/19 08:55 09/14/19 08:55 - Laboratory Result Diagrams: 09/10/19 18:10 09/10/19 18:10 Laboratory results interpreted by me: 09/10/19 09/10/19 09/11/19 18:10 18:10 15:15 RDW 14.8 H Lymph % (Auto) 12.1 L Seg Neutrophils % 79.8 H Sodium 135.0 L Glucose 112 H Urine Ketones TRACE H Urine Blood MODERATE H Salicylates < 1.0 L Acetaminophen < 10 L - EKG Interpretation by Me Additional EKG results interpreted by me: 09/12/19 08:43 HR 96, sinus rhythem MD 152, qtc of 450, no st segment elevations or depressions Discharge - Discharge Clinical Impression: Depression Condition: Stable Disposition: PSYCH HOSP/UNIT Referrals: TJ HODGE DO [Primary Care Provider] - Follow up as needed
--- NOTE | 2019-09-10 20:03 | PSYCHOLOGICAL NOTE ---
Psych Note - Psych Note Date seen by psych provider: 09/10/19 Time seen by psych provider: 17:43 Psych Note: Clinician was asked to assist out front of ED. Patient reportedly was sitting in a car having a "mental breakdown." Upon arrival patient is observed sitting calmly in the front seat. She does not respond to clinician however is heard multiple times stating to her "I am telling the truth" when he asked her questions such as "can you get out of the car....lets inside so we can get help" etc. Clinician notes young child in the backseat crying. Patient does not appear to noticed that the child is crying. After over 30 minutes patient is convinced to come into the ED with her adult daughter. Patient reportedly has not slept in 4 to 5 days. It is unknown if she has been taking her psychiatric medications during this time. Patient is unable/unwilling to engage in evaluation. Clinician notes patient affect is flat. Occasion recommendations per [facility]'s contracted psychiatrist Dr. Krunal ALVAREZ are as follows Zyprexa 5 mg once Cogentin 1 mg 1 Impression/plan:24-hour petition for evaluation has been submitted. Medication recommendations have been provided to assist the patient in getting sleep in the hope that she can engage in evaluation tomorrow morning. Dr. Grant was consulted to care management of this patient; tending physicians in agreement with recommendations and disposition.
[2019-09-10] MEDS ORDERED: OLANZAPINE INJ/PF 10 MG SDV IM ONE (20:19)
[2019-09-10] MEDS ORDERED: BENZTROPINE MESYLATE INJ 2 MG/2 ML AMPULE IM ONE (20:20)
[2019-09-11] MEDS ORDERED: LORAZEPAM INJ 2 MG/1 ML VIAL IV ONE (11:39)
[2019-09-11] MEDS ORDERED: HALOPERIDOL LACTATE INJ 5 MG/1 ML VIAL IV ONE (11:39)
[2019-09-11] MEDS ORDERED: DIPHENHYDRAMINE HCL 50 MG/ML VIAL IV ONE (11:40)
--- NOTE | 2019-09-11 11:50 | ER Document Report ---
Doctor's Note Notes: 09/11/19 11:47 Patient's vital signs are previous labs, diagnostic imaging reviewed. Reviewed mental health notes, nurses notes and previous vital signs. Patient is in no distress at this time denies. Is aware that she is at [facility], knows the year. States is willing to provide a urinalysis. Will not answer all questions. Has a delayed response and is avoiding eye contact. General:responsive, alert Heart: RRR, no murmurs, rubs or gallops Lungs: CTABL Psych: avoiding eye contact, not following commands. A&P: Still have not been able to obtain urine sample from patient. Was notified that she has not slept. Will provide medication to help her sleep. I still do feel she needs a CT scan. CT scan was able to be obtained. No acute findings. Urinalysis was obtained. Shows mild blood, other ge unremarkable.
--- NOTE | 2019-09-11 14:09 | RADIOLOGY REPORT (SQ) ---
EXAM DESCRIPTION: CT HEAD WITHOUT IMAGES COMPLETED DATE/TIME: 09/11/2019 1:58 pm REASON FOR STUDY: altered COMPARISON: MRI 02/14/[address] 07/05/2017 TECHNIQUE: Axial images acquired through the brain without intravenous contrast. Images reviewed wi th bone, brain and subdural windows. Additional sagittal and coronal reconstructions were generated. Images stored on PACS. All CT scanners at this facility use dose modulation, iterative reconstruction, and/or weight based d osing when appropriate to reduce radiation dose to as low as reasonably achievable (ALARA). [facility]: Dose Right [facility]: CareDose [facility]: Dose Right [facility]: Teradose 4D [facility]: NVISION MEDICAL RADIATION DOSE: CT Rad equipment meets quality standard of care and radiation dose reduction techniq ues were employed. CTDIvol: 55.2 mGy. DLP: 1056 mGy-cm. mGy. LIMITATIONS: None. FINDINGS: VENTRICLES: Normal size and contour. CEREBRUM: No masses. No hemorrhage. No midline shift. No evidence for acute infarction. Normal gra y/white matter differentiation. No areas of low density in the white matter. CEREBELLUM: No masses. No hemorrhage. No alteration of density. No evidence for acute infarction. EXTRAAXIAL SPACES: No fluid collections. No masses. ORBITS AND GLOBE: No intra- or extraconal masses. Normal contour of globe without masses. CALVARIUM: No fracture. PARANASAL SINUSES: No fluid or mucosal thickening. SOFT TISSUES: No mass or hematoma. OTHER: No other significant finding. IMPRESSION: NORMAL BRAIN CT WITHOUT CONTRAST. EVIDENCE OF ACUTE STROKE: NO. COMMENT: Quality ID # [id number]: Final reports with documentation of one or more dose reduction techniques (e.g., Automated exposure control, adjustment of the mA and/or kV according to patient size, use of iterative reconstruction technique) TECHNICAL DOCUMENTATION: JOB ID: [id number] 2010 [employer]- All Rights Reserved Reading location - IP/workstation name: [email or web address]
--- NOTE | 2019-09-11 14:58 | PSYCHOLOGICAL NOTE ---
Psych Note - Psych Note Date seen by psych provider: 09/11/19 Time seen by psych provider: 11:30 Psych Note: Reason for Consult: Psychosis Check in conducted with patient: Patient continues to be unable/unwilling to engage in evaluation. Patient is noted to be sitting on the strecher starting at the floor. She does make eye contact and when asked a question, there is a significant lag in her responding. When she does respond it is not connected to the question asked ie "tell my parents they were good parents....my dad didn't do anything to me....you don't understand, they wont listen to me...he was a good man." Patient becomes tearful. Patient is alert and orientated to self. Mood is labile with congruent affect. Patient has impaired cognitive functioning. Medication recommendations per [facility]'s contracted psychiatrist Dr. Krunal ALVAREZ are as follows Zyprexa 5 mg once Cogentin 1 mg 1 Impression/plan: Patient is recommended for full IVC: Paperwork is signed, faxed to museum exhibit designer and placed in patient's chart. Patient continues to be unable to engage in evaluation. Dr. Grant was consulted to care management of this patient; tending physicians in agreement with recommendations and disposition.
[2019-09-11 15:37] LABS: APPEARANCE,URINE SLIGHTLY-CLOUDY; BILIRUBIN,URINE NEGATIVE (NEGATIVE); COLOR,URINE YELLOW; GLUCOSE, URINE NEGATIVE (NEGATIVE); KETONES,URINE TRACE mg/dL (NEGATIVE); LEUKOCYTE ESTERASE,URINE NEGATIVE (NEGATIVE); NITRITE,URINE NEGATIVE (NEGATIVE); PROTEIN,URINE NEGATIVE (NEGATIVE); URINE SPECIFIC GRAVITY 1.014; UROBILINOGEN,URINE NEGATIVE mg/dL (<2.0)
[2019-09-11 15:51] LABS: URINE AMPHETAMINES SCREEN NEGATIVE; URINE BARBITURATES SCREEN NEGATIVE; URINE BENZODIAZEPINES SCREEN NEGATIVE; URINE COCAINE SCREEN NEGATIVE; URINE METHADONE SCREEN NEGATIVE; URINE PHENCYCLIDINE SCREEN NEGATIVE
[2019-09-11 15:57] LABS: URINE MARIJUANA (THC) SCREEN UNCONFIRMED POSITIVE
[2019-09-12] MEDS ORDERED: HALOPERIDOL LACTATE INJ 5 MG/1 ML VIAL IM ONE (08:06)
--- NOTE | 2019-09-12 08:47 | ER Document Report ---
Doctor's Note Notes: 09/12/19 08:43 Patient's vital signs and previous labs, diagnostic imaging reviewed. Reviewed mental health notes, nurses notes and previous vital signs. Patient is in no distress at this time. Continues to ask to talk to her . She is alert and oriented today. Takes cymbalta and seroquel. Denies any SI or HI. Denies hallucinations. Denies any fevers, chills, chest pain, shortness of breath or additional symptoms. General: alert, oriented Heart: RRR Lungs: CTABL Psych: flat A&P: Patient is medically cleared. Pending mental health dispo
--- NOTE | 2019-09-12 18:51 | PSYCHOLOGICAL NOTE ---
Psych Note - Psych Note Date seen by psych provider: 09/12/19 Time seen by psych provider: 11:46 - Re evaluation from [id number]. Psych Note: Patient is a 39 year old female in the Emergency Department on FULL IVC since 09/11/2019 after family brought her in for not sleeping in 4-5 days and acting bizarre. Today patient reported "I'm fine" when asked how she was. She stated "I am" when noted she had not been engaged or talkative the past couple days. When asked if she knew why she was in the Emergency Department she said "yeah" but then did not elaborate. Later she stated her and daughter brought her to the hospital because they said she hadn't been sleeping but she said "but I have been." She stated she takes her medications at home as directed. She identified her outpatient mental health provider is [facility] and she is prescribed Klonopin, Cymbalta, Saphris and Trazodone as needed. She denied any recent medication changes. She stated her Primary Care Provider is Dr. Chan. Patient denied suicidal and homicidal ideation. She denied having any recent stress or worries. When asked if she needed anything she said a drink and to call her Juan (she had previously said she spoke with him already and he said he was going to make a visit). Patient interacted and answered questions more today. She continued to have slow processing and was slow to answer questions. She made fair eye contact but at times looked ahead with blank stare. Clinical Presentation: No sleep in 4-5 days Would not engage initially, today was better then previous days Concerns for psychosis Impression/Plan: Recommendation to maintain FULL IVC. Today is the first day patient has improved in her more appropriate interactions, answering questions in a more linear/organized fashion than previous days, engaged more and made fair eye contact. Family noted she had not slept in 4-5 days and when she first arrived she was not talking and just staring at the floor. Consulted with Dr. Grant regarding the management and care of patient. ED Physician in agreement with recommendations.
[2019-09-12] MEDS ORDERED: OLANZAPINE 5 MG TABLET PO ONE (23:17)
[2019-09-12] MEDS ORDERED: BENZTROPINE MESYLATE 1 MG TABLET PO ONE (23:20)
[2019-09-13] MEDS ORDERED: OLANZAPINE 5 MG TABLET PO SCH (10:00)
[2019-09-13] MEDS ORDERED: BENZTROPINE MESYLATE 1 MG TABLET PO SCH (10:00)
--- NOTE | 2019-09-13 17:48 | PSYCHOLOGICAL NOTE ---
Psych Note - Psych Note Date seen by psych provider: 09/13/19 Time seen by psych provider: 13:00 Psych Note: Reason for Consult: Psychosis Check in conducted with patient: Patient has started engaging in her environment but continues to demonstrate slow processing and neglecting self care. Medication recommendations per [facility]'s contracted psychiatrist Dr. Krunal ALVAREZ are as follows Zyprexa 5 mg once Cogentin 1 mg 1 Impression/plan: Patient is recommended for continued IVC. Patient was accepted to [facility] today for transport in the morning. Dr. Grant was consulted to care management of this patient; tending physicians in agreement with recommendations and disposition.
--- NOTE | 2019-09-13 18:59 | ER Document Report ---
Doctor's Note Notes: 09/13/19 18:57 Progress note: Reevaluation of the patient today. She is resting comfortably in the room. Her has just left as it is nearing the end of visitation hours. She has no medical complaints. She was previously medically cleared. She has been evaluated by psychiatry and has been accepted at [place] for transfer. The plan is to transfer her tomorrow, 09/14/2019. I discussed this with the patient and she is agreeable with this plan. General: Awake, alert and oriented Heart: Regular rate and rhythm Lungs: Clear to auscultation bilaterally. Psych: Appropriate affect and mentation.
[2019-09-13] MEDS ORDERED: HYDROXYZINE PAMOATE 50 MG CAPSULE PO ONE (22:17)
--- NOTE | 2019-09-14 08:43 | ER Document Report ---
Doctor's Note Notes: 09/14/19 08:42 Progress note: Reevaluation of the patient this morning. She is resting comfortably in the room. Her is at bedside visiting. She denies any complaints today. She was previously medically cleared. She has been arranged to be transported to [place]. Her transport services here, the [facility] to transport her there. She is stable and appropriate for transfer. PE: General: Awake alert in no acute distress Cardio: Regular rate and rhythm Lungs: Clear to auscultation bilaterally. Psych: Depressed mood.
[2019-09-14 09:01] VITALS: BP 123/66
== END 2019-09-14 09:00 ==
LOC: ER 17:31
DX: Z04.6 Encounter for general psychiatric examination, requested by authority (principal); F32.9 Major depressive disorder, single episode, unspecified; R31.9 Hematuria, unspecified; J45.909 Unspecified asthma, uncomplicated; Z88.8 Allergy status to other drugs, medicaments and biological substances; Z75.1 Person awaiting admission to adequate facility elsewhere
CPT/HCPCS: 93005; 99285; 96372; 96374; 96375; 36415; 80307 ×4; 85025; 81025; 80053; 81001; 70450; 93010; A9270 ×5; J0515; J1200; J1630 ×2; J2060; J3490

== ENCOUNTER 2019-10-10 16:03 | Emergency (ER) | payer MEDICARE, MEDICAID ==
[2019-10-10 16:13] VITALS: BP 145/85
--- NOTE | 2019-10-10 16:59 | ER Document Report ---
ED Medical Screen (RME) - General Chief Complaint: Anxiety Stated Complaint: PSYCH EVAL Time Seen by Provider: 10/10/19 16:36 Primary Care Provider: TJ HODGE DO [Primary Care Provider] - Follow up as needed Mode of Arrival: Wheelchair Information source: Patient, Relative - Notes: Patient is a 39-year-old female presented to the emergency department with request for mental health evaluation. Patient reports she was here about a month ago and sent to a mental health facility in [place]. Her and her state that that did not help. Patient is very tearful and withdrawn in triage. She denies any suicidal homicidal ideations. The reports she is having paranoia. I have greeted and performed a rapid initial assessment of this patient. A comprehensive ED assessment and evaluation of the patient, analysis of test results and completion of the medical decision making process will be conducted by additional ED providers. I have specifically instructed the patient or family members with the patient to immediately return to any nursing staff should anything change in the patient's condition or with their chief complaint. TRAVEL OUTSIDE OF THE [place] IN LAST 30 DAYS: No - Related Data Allergies/Adverse Reactions: lurasidone HCl [From Latuda] Allergy (Severe, Verified 03/13/19 15:47) Seizures morphine Adverse Reaction (Intermediate, Verified 03/13/19 15:47) Hives Past Medical History - Social History Chew tobacco use (# tins/day): No Frequency of alcohol use: None Drug Abuse: Marijuana Family history: Hypertension - Past Medical History Cardiac Medical History: Reports: Hx Hypercholesterolemia Pulmonary Medical History: Reports: Hx Asthma, Hx Pneumonia, Hx Intubation Neurological Medical History: Reports: Hx Seizures - Mode CTA right 9 months he accepted/diagnosed of the leonly while on latuda Renal/ Medical History: Reports: Hx Ovarian Cysts GI Medical History: Reports: Hx Irritable Bowel Musculoskeltal Medical History: Reports Hx Musculoskeletal Trauma Psychiatric Medical History: Reports: Hx Anxiety, Hx Bipolar Disorder, Hx Depression Past Surgical History: Reports: Hx Section - x2, Hx Tubal Ligation - Immunizations Immunizations up to date: Yes Hx Diphtheria, Pertussis, Tetanus Vaccination: Yes Physical Exam - Vital signs Vitals: Temp Pulse Resp BP Pulse Ox 98.1 F 90 16 145/85 H 99 10/10/19 16:12 10/10/19 16:12 10/10/19 16:12 10/10/19 16:12 10/10/19 16:12 Course - Vital Signs Vital signs: Temp Pulse Resp BP Pulse Ox 98.1 F 90 16 145/85 H 99 10/10/19 16:12 10/10/19 16:12 10/10/19 16:12 10/10/19 16:12 10/10/19 16:12 Doctor's Discharge - Discharge Referrals: TJ HODGE DO [Primary Care Provider] - Follow up as needed
[2019-10-10 17:19] LABS: ABSOLUTE BASOPHILS # (AUTO) 0.1 10^3/uL (0.0-0.2); ABSOLUTE EOSINOPHILS # (AUTO) 0.1 10^3/uL (0.0-0.6); ABSOLUTE LYMPHOCYTES (AUTO) 1.2 10^3/uL (0.5-4.7); ABSOLUTE MONOCYTES (AUTO) 0.5 10^3/uL (0.1-1.4); ABSOLUTE NEUT (AUTO) 6.2 10^3/uL (1.7-8.2); BASOPHILS % (AUTO) 1.2 % (0-2); EOSINOPHILS % (AUTO) 1.6 % (0-6); HEMOGLOBIN 13.7 g/dL (12.0-15.5); LYMPHOCYTES % (AUTO) 15.3 % (13-45); MEAN CORPUSCULAR HEMOGLOBIN 26.6 pg (27.0-33.4); MEAN CORPUSCULAR HGB CONC 33.4 g/dL (32.0-36.0); MEAN CORPUSCULAR VOLUME 80 fl (80-97); MONOCYTES % (AUTO) 5.9 % (3-13); PLATELET COUNT 300 10^3/uL (150-450); RED BLOOD COUNT 5.14 10^6/uL (3.72-5.28); RED CELL DISTRIBUTION WIDTH 15.1 % (11.5-14.0); TOTAL CELLS COUNTED % (AUTO) 100 %; WHITE BLOOD COUNT 8.1 10^3/uL (4.0-10.5)
[2019-10-10 17:41] LABS: ALBUMIN 3.9 g/dL (3.5-5.0); ALKALINE PHOSPHATASE 95 U/L (38-126); ANION GAP 10 (5-19); ASPARTATE AMINO TRANSFERASE 23 U/L (14-36); BILIRUBIN,DIRECT 0.2 mg/dL (0.0-0.4); BILIRUBIN,TOTAL 0.5 mg/dL (0.2-1.3); BLOOD UREA NITROGEN 5 mg/dL (7-20); CALCIUM 9.1 mg/dL (8.4-10.2); CARBON DIOXIDE 25 mmol/L (22-30); CHLORIDE 104 mmol/L (98-107); GLUCOSE 98 mg/dL (75-110)
[2019-10-10 17:42] LABS: ACETAMINOPHEN < 10 ug/mL (10-30); ALCOHOL < 10 mg/dL (NONE DETECTED); SALICYLATE < 1.0 mg/dL (2.0-20.0)
--- NOTE | 2019-10-10 18:33 | ER Document Report ---
ED General <SUSHIL PAREKH - Last Filed: 10/10/19 18:56> - General Mode of Arrival: Wheelchair Information source: Patient, Relative TRAVEL OUTSIDE OF THE [place] IN LAST 30 DAYS: No <MILADYS YIP - Last Filed: 10/10/19 19:09> - General Chief Complaint: Anxiety Stated Complaint: PSYCH EVAL Time Seen by Provider: 10/10/19 16:36 Primary Care Provider: Cameron Fuller [Outside] - Follow up in 1 week (Follow up for medication management within 5-7 days since changes to your regimen took place. Also request Individual Therapy.) [facility] [Outside] - Follow up as needed [facility] [Outside] - Follow up as needed TJ HODGE DO [Primary Care Provider] - Follow up as needed Notes: Patient is a 39-year-old female presenting to the emergency department with her chief complaint of mental health evaluation. At time of presentation patient denies suicidal homicidal ideation however family states the patient has been much more paranoid than normal. Patient states that she does not believe that her medications are working appropriately. She just cannot relax she has not been sleeping well has not been eating well. Patient was recently seen and sent to [place] however there were no medication adjustments at that time. Prior to seeing the patient I was informed by mental health services that they had seen and evaluated the patient and they did make medication recommendations. Patient denies nausea vomiting diarrhea fevers chills cough or cold symptoms. (MILADYS YIP) - Related Data Allergies/Adverse Reactions: lurasidone HCl [From Latuda] Allergy (Severe, Verified 03/13/19 15:47) Seizures morphine Adverse Reaction (Intermediate, Verified 03/13/19 15:47) Hives Past Medical History - General Information source: Patient, Relative - - Social History Smoking Status: Former Smoker Chew tobacco use (# tins/day): No Frequency of alcohol use: None Drug Abuse: Marijuana Family History: Reviewed & Not Pertinent, CAD, DM, Hypertension - Past Medical History Cardiac Medical History: Reports: Hx Hypercholesterolemia Pulmonary Medical History: Reports: Hx Asthma, Hx Pneumonia, Hx Intubation Neurological Medical History: Reports: Hx Seizures - Mode CTA right 9 months he accepted/diagnosed of the leonly while on latuda Renal/ Medical History: Reports: Hx Ovarian Cysts GI Medical History: Reports: Hx Irritable Bowel Musculoskeletal Medical History: Reports Hx Musculoskeletal Trauma Psychiatric Medical History: Reports: Hx Anxiety, Hx Bipolar Disorder, Hx Depression Past Surgical History: Reports: Hx Section - x2, Hx Tubal Ligation - Immunizations Immunizations up to date: Yes Hx Diphtheria, Pertussis, Tetanus Vaccination: Yes <MILADYS YIP - Last Filed: 10/10/19 19:09> Review of Systems <MILADYS YIP - Last Filed: 10/10/19 19:09> - Review of Systems Notes: REVIEW OF SYSTEMS: CONSTITUTIONAL : Denies fever, chills, or sweats. Denies recent illness. EENT: Denies eye, ear, throat, or mouth pain or symptoms. Denies nasal or sinus congestion. CARDIOVASCULAR: Denies chest pain. RESPIRATORY: Denies cough, cold, or chest congestion. Denies shortness of breath, difficulty breathing, or wheezing. GASTROINTESTINAL: Denies abdominal pain. Denies nausea, vomiting, or diarrhea. Denies constipation. GENITOURINARY: Denies difficulty urinating, painful urination, burning, frequency, or blood in urine. MUSCULOSKELETAL: Denies neck or back pain or joint pain or swelling. SKIN: Denies rash or skin lesions. HEMATOLOGIC : Denies easy bruising or bleeding. NEUROLOGICAL: Denies altered mental status or loss of consciousness. Denies headache. Denies weakness or paralysis or loss of use of either side. Denies problems with gait or speech. Denies sensory or motor loss. PSYCHIATRIC: Per HPI 10 Systems are negative unless otherwise specified above (MILADYS YIP) Physical Exam <MILADYS YIP - Last Filed: 10/10/19 19:09> - Vital signs Vitals: Temp Pulse Resp BP Pulse Ox 98.1 F 90 16 145/85 H 99 10/10/19 16:12 10/10/19 16:12 10/10/19 16:12 10/10/19 16:12 10/10/19 16:12 - Notes Notes: PHYSICAL EXAMINATION: GENERAL: Well-appearing, well-nourished and in no acute distress. HEAD: Atraumatic, normocephalic. EYES: Pupils equal round and reactive to light, extraocular movements intact, sclera anicteric, conjunctiva are normal. ENT: nares patent, oropharynx clear without exudates. Moist mucous membranes. NECK: Normal range of motion, supple without lymphadenopathy, no appreciable JVD LUNGS: Lungs clear to auscultation bilaterally and equal. No wheezes rales or rhonchi. HEART: Regular rate and rhythm without murmurs ABDOMEN: Soft, nontender, normal bowel sounds. No guarding, no rebound. No masses appreciated. EXTREMITIES: Active full range of motion, no pitting or edema. No cyanosis. 2+ pulses x4 NEUROLOGICAL: No focal neurological deficits. Moves all extremities spontaneously and on command. SKIN: Warm, Dry, and intact. Normal turgor, no rashes or lesions noted. (MILADYS YIP) Course - Laboratory Result Diagrams: 10/10/19 17:04 10/10/19 17:04 <SUSHIL PAREKH - Last Filed: 10/10/19 18:56> - Laboratory Result Diagrams: 10/10/19 17:04 10/10/19 17:04 <MILADYS YIP - Last Filed: 10/10/19 19:09> - Re-evaluation Re-evalutation: 10/10/19 19:09 I did speak a great length with the patient and her as well as mental health services this is going to be a visit for medication adjustment. Patient is not suicidal or homicidal. Medication adjustments have been made by mental health services the patient is recommended to follow-up with her primary care provider in the next several days. Patient is stable at time of discharge. (MILADYS YIP) - Vital Signs Vital signs: Temp Pulse Resp BP Pulse Ox 98.1 F 90 16 145/85 H 99 10/10/19 16:12 10/10/19 16:12 10/10/19 16:12 10/10/19 16:12 10/10/19 16:12 - Laboratory Laboratory results interpreted by me: 10/10/19 10/10/19 10/10/19 17:04 17:04 18:05 MCH 26.6 L RDW 15.1 H BUN 5 L Urine Blood LARGE H Salicylates < 1.0 L Acetaminophen < 10 L Discharge <SUSHIL PAREKH - Last Filed: 10/10/19 18:56> <MILADYS YIP - Last Filed: 10/10/19 19:09> - Discharge Clinical Impression: Anxiety Condition: Stable Disposition: HOME, SELF-CARE Additional Instructions: You have been evaluated by both medical and behavioral health teams for increased anxiety/worry, poor self esteem and crying often. You have been deemed appropriate for discharge. While in the emergency department you received the following services: Medical screening and assessment, nursing services, dietary services, pharmacological services, one-on-one counseling and/or psychotherapy, environmental services, and continuous observation by a patient safety teacher. Medication recommendations have been have been provided and are as follows: Discontinue Trazodone 100MG at night for sleep Discontinue Saphris 5MG sublingual twice a day for mood Discontinue Cymbalta DR 60MG daily Decrease Klonopin to 0.5MG three times a day for anxiety Add Zyprexa 2.5MG twice a day for mood stabilization/impulse control Please take your medications as prescribed and do not stop these medications without discussion with your prescribing physician. Anxiety (lack of sleep and stress can increase this even when being medicated for it) The physician feels that some of your health problems are being caused by anxiety. Anxiety affects your health in many ways. Anxiety alone can cause palpitations, sweats, chest pains, abdominal pains, shortness of breath, and headaches. It contributes to ulcer disease, high blood pressure, irritable bowel syndrome, and has been shown to cause flare-ups of many other diseases. Anxiety is not a simple disorder to treat. If the anxiety is due to recent life stresses, you may simply need time to "work through" the changes. If the anxiety is due to an underlying unhappiness with yourself or due to psychiatric disturbance, professional help will be needed. Your physician can refer you for further help if needed. Anti-anxiety medication is occasionally given if the stress is acute or if you are having trouble sleeping. Chronic or frequent use of these medications is not a good idea because the body becomes reliant on it, preventing you from dealing with life's normal stresses. Follow up: You are recommended to follow up with your current outpatient medication provider at [facility] ([facility] within 5- 7 days. Your medications have been changes and follow up is important. You should also request Individual Therapy, as medication management combined with therapy is known to be most beneficial. You have been provided both local mobile crisis numbers. If your symptoms persist or worsen you should contact your physician immediately, utilize mobile crisis or return to the Emergency Department. Prescriptions: Olanzapine [Zyprexa 2.5 Mg Tablet] 2.5 mg PO BID #30 tablet Referrals: TJ HODGE DO [Primary Care Provider] - Follow up as needed [facility] [Outside] - Follow up as needed [facility] [Outside] - Follow up as needed Cameron Fuller [Outside] - Follow up in 1 week (Follow up for medication management within 5-7 days since changes to your regimen took place. Also request Individual Therapy.)
[2019-10-10 18:34] LABS: APPEARANCE,URINE CLEAR; BILIRUBIN,URINE NEGATIVE (NEGATIVE); COLOR,URINE YELLOW; GLUCOSE, URINE NEGATIVE (NEGATIVE); KETONES,URINE NEGATIVE (NEGATIVE); LEUKOCYTE ESTERASE,URINE NEGATIVE (NEGATIVE); NITRITE,URINE NEGATIVE (NEGATIVE); PROTEIN,URINE NEGATIVE (NEGATIVE); URINE SPECIFIC GRAVITY 1.006; UROBILINOGEN,URINE NEGATIVE mg/dL (<2.0)
[2019-10-10 18:49] LABS: URINE AMPHETAMINES SCREEN NEGATIVE; URINE BARBITURATES SCREEN NEGATIVE; URINE BENZODIAZEPINES SCREEN NEGATIVE; URINE COCAINE SCREEN NEGATIVE; URINE METHADONE SCREEN NEGATIVE; URINE PHENCYCLIDINE SCREEN NEGATIVE
[2019-10-10 18:54] LABS: URINE MARIJUANA (THC) SCREEN UNCONFIRMED POSITIVE
[2019-10-10] MEDS ORDERED: LORAZEPAM 0.5 MG TABLET PO ONE (19:06)
[2019-10-10] MEDS ORDERED: OLANZAPINE 2.5 MG TABLET PO ONE (19:12)
--- NOTE | 2019-10-10 20:22 | EKG REPORT ---
SEVERITY:- NORMAL ECG - SINUS RHYTHM : Confirmed by: Yazan Brock MD 10-Oct-2019 20:21:50
--- NOTE | 2019-10-11 13:37 | PSYCHOLOGICAL NOTE ---
Psych Note - Psych Note Date seen by psych provider: 10/10/19 Time seen by psych provider: 17:36 - Evaluation from [id number] (first obtained collateral from , then spoke to patient and ). Psych Note: Patient is a 39 year old female who presented to the Emergency Department this evening via privately owned vehicle/ for anxiety, being tearful and crying frequently, being hard on herself/poor self esteem (calling self fat and ugly), and paranoia (thinks her is leaving her and not coming back, thinks nobody wants her). Note patient was seen in the Emergency Department by Behavioral Health 09/10/2019 after not sleeping for a week, not being engaged or talking at first, with mental health history and outpatient provider [facility] for medication management. She was subsequently sent to [facility] on [facility]. was at bedside and patient needed to use restroom so obtained collateral from first. He identified [facility] did not change patient's medications and they had follow up with [facility] since [facility] discharge and no medications changes. Previous medications were (also confirmed via pharmacy in [facility]): Klonopin 1MG three times a day, Saphris 5MG sublingual twice a day, Cymbalta DR 60MG daily and Trazodone 100MG at night. These were last filled 10/03/2019 and prescribed by Maggy Villanueva ([facility] provider). described patient as "staying in her room, coming out frequently saying I love you every 5 minutes, says she doesn't think the family loves her, and always asking if he is coming back (he helps out family often) then calling him 30 times when he is gone, and crying all the time." He identified they are residing with patient's mother to help her out, her mother "is evil and stresses patient out to the extent her [facility] provider told her to avoid and ignore mother." He denied patient making any suicidal statements, comments or gestures. He denied alcohol and drug use with the exception of "using a little marijuana to sleep/manage pain related to sciatic nerve, she chose this over narcotic pain medication, and the doctor is well aware." He stated patient had also been to [facility] for hospitalization in the past which he felt was helpful and [facility] was not. He noted patient is doing medication management at [facility] and they want her to do therapy. Patient denied being worried or thinking about anything. She stated sleep was "a little better but still not sleeping well." She denied suicidal ideation. She became tearful and when asked why she stated "I don't want my to leave." She was referencing she didn't want him to go home tonight since she thought she was staying in the hospital. She also expressed not wanting to go inpatient. Psychoeducated patient and on the importance and effectiveness of medication management and therapy combined. Explained could make medication changes today and then they need to initiate the therapy. Patient was alert and oriented to self, person, place, time and situation. Mood was depressed with congruent affect as evidenced by crying. She denied current suicidal and homicidal ideation. Patient did not appear to be responding to internal stimuli as evidenced by fair eye contact and answering questions appropriately when addressed. Thought processes were linear and perseverative on leaving. Conversational speech was within normal limits for rate, tone and prosody. Intellectual abilities are estimated to be average. Insight, judgment and impulse control were fair as evidenced by talking and answering questions (when she first presented last month she would not talk or engage the first couple days). Clinical Presentation: Poor Sleep Stress living with patient's mother (could be a trigger for patient on some level) Anxiety Medication recommendations made by the psychiatric medication provider Dr. Krunal ALVAREZ., includes: Discontinue Trazodone 100MG at night for sleep Discontinue Cymbalta DR 60MG daily for depression Discontinue Saphris 5MG sublingual twice a day for mood stabilization Decrease Klonopin to 0.5MG three times a day for anxiety Add Zyprexa 2.5MG twice a day for mood stabilization/impulse control (give one time dose and provide prescription) Impression/Plan: Patient is cleared from acute psychiatric services. She denied current suicidal and homicidal ideation, denied patient making any statements/comments/gestures, and no observed psychosis. She was talking and answering questions. Provided medication adjustments to better manage symptoms (anxiety, crying, paranoia) since her medications were not changed at [place] admission last month and not changed at [facility] follow up. Recommended patient have follow up with [facility] within 5-7 days for medication management and to request therapy. Provided patient and with the outpatient mental health resource sheet which documented follow up with [facility] within 5-7 days and requesting therapy, as well as highlighted both local mobile crisis numbers. Consulted with Dr. Grant regarding the management and care of patient. ED Physician in agreement with recommendations.
== END 2019-10-10 19:21 | disposition home or self-care (01) ==
LOC: ER 16:03
DX: F41.9 Anxiety disorder, unspecified (principal); Z88.8 Allergy status to other drugs, medicaments and biological substances; Z87.891 Personal history of nicotine dependence; J45.909 Unspecified asthma, uncomplicated
CPT/HCPCS: 93005; 99284; 36415; 80307 ×4; 84703; 85025; 80053; 81001; 93010; A9270 ×2; J3490

== ENCOUNTER 2019-10-14 15:03 | Emergency (ER) | payer MEDICARE, MEDICAID ==
[2019-10-14 15:08] VITALS: BP 131/86
--- NOTE | 2019-10-14 15:51 | ER Document Report ---
ED Medical Screen (RME) - General Chief Complaint: Psych Problem Stated Complaint: PSYCH ISSUES Time Seen by Provider: 10/14/19 15:20 Primary Care Provider: TJ HODGE DO [Primary Care Provider] - Follow up as needed Mode of Arrival: Ambulatory Information source: Patient Notes: 39-year-old female presented to ED for mental health problems. She states she just paces constantly. She states she has mental health medications but they are just not working. She is very tearful. She states she is not planning to help her hurt herself or anyone else. She states she just cannot concentrate on anything. She is to here tearful throughout the conversation. She states she does not know what medication she is taking and she does not remember what her mental health diagnoses are. She states she just wants her . When I did call her he went outside and stated he would be back. I have greeted and performed a rapid initial assessment of this patient. A comprehensive ED assessment and evaluation of the patient, analysis of test results and completion of medical decision making process will be conducted by an additional ED providers. TRAVEL OUTSIDE OF THE [place] IN LAST 30 DAYS: No - Related Data Allergies/Adverse Reactions: lurasidone HCl [From Latuda] Allergy (Severe, Verified 03/13/19 15:47) Seizures morphine Adverse Reaction (Intermediate, Verified 03/13/19 15:47) Hives Past Medical History - Social History Family history: Hypertension - Past Medical History Cardiac Medical History: Reports: Hx Hypercholesterolemia Pulmonary Medical History: Reports: Hx Asthma, Hx Pneumonia, Hx Intubation Neurological Medical History: Reports: Hx Seizures - Mode CTA right 9 months he accepted/diagnosed of the leonly while on latuda Renal/ Medical History: Reports: Hx Ovarian Cysts GI Medical History: Reports: Hx Irritable Bowel Musculoskeltal Medical History: Reports Hx Musculoskeletal Trauma Psychiatric Medical History: Reports: Hx Anxiety, Hx Bipolar Disorder, Hx Depression Past Surgical History: Reports: Hx Section - x2, Hx Tubal Ligation - Immunizations Immunizations up to date: Yes Hx Diphtheria, Pertussis, Tetanus Vaccination: Yes Physical Exam - Vital signs Vitals: Temp Pulse Resp BP Pulse Ox 99.6 F 104 H 20 131/86 H 96 10/14/19 15:06 10/14/19 15:06 10/14/19 15:10/14/19 15:10/14/19 15:06 Course - Vital Signs Vital signs: Temp Pulse Resp BP Pulse Ox 99.6 F 104 H 20 131/86 H 96 10/14/19 15:06 10/14/19 15:06 10/14/19 15:06 10/14/19 15:06 10/14/19 15:06 Doctor's Discharge - Discharge Referrals: TJ HODGE DO [Primary Care Provider] - Follow up as needed
[2019-10-14 16:52] LABS: ABSOLUTE BASOPHILS # (AUTO) 0.1 10^3/uL (0.0-0.2); ABSOLUTE EOSINOPHILS # (AUTO) 0.2 10^3/uL (0.0-0.6); ABSOLUTE MONOCYTES (AUTO) 0.5 10^3/uL (0.1-1.4); BASOPHILS % (AUTO) 0.7 % (0-2); HEMATOCRIT 40.9 % (36.0-47.0); HEMOGLOBIN 13.6 g/dL (12.0-15.5); MEAN CORPUSCULAR HEMOGLOBIN 26.4 pg (27.0-33.4); MEAN CORPUSCULAR HGB CONC 33.2 g/dL (32.0-36.0); MEAN CORPUSCULAR VOLUME 80 fl (80-97); MONOCYTES % (AUTO) 6.7 % (3-13); PLATELET COUNT 300 10^3/uL (150-450); RED BLOOD COUNT 5.14 10^6/uL (3.72-5.28); RED CELL DISTRIBUTION WIDTH 15.2 % (11.5-14.0); SEGMENTED NEUTROPHILS % (AUTO) 77.6 % (42-78); TOTAL CELLS COUNTED % (AUTO) 100 %; WHITE BLOOD COUNT 7.7 10^3/uL (4.0-10.5)
[2019-10-14 17:06] LABS: AMORPHOUS SEDIMENT,URINE TRACE /HPF; APPEARANCE,URINE CLOUDY; BILIRUBIN,URINE NEGATIVE (NEGATIVE); COLOR,URINE YELLOW; GLUCOSE, URINE NEGATIVE (NEGATIVE); KETONES,URINE NEGATIVE (NEGATIVE); LEUKOCYTE ESTERASE,URINE MODERATE (NEGATIVE); NITRITE,URINE NEGATIVE (NEGATIVE); PROTEIN,URINE 30 mg/dL (NEGATIVE); URINE SPECIFIC GRAVITY 1.021; UROBILINOGEN,URINE NEGATIVE mg/dL (<2.0)
[2019-10-14 17:12] LABS: ACETAMINOPHEN < 10 ug/mL (10-30); ALBUMIN 3.9 g/dL (3.5-5.0); ALCOHOL < 10 mg/dL (NONE DETECTED); ALKALINE PHOSPHATASE 89 U/L (38-126); ANION GAP 10 (5-19); ASPARTATE AMINO TRANSFERASE 26 U/L (14-36); BILIRUBIN,DIRECT 0.4 mg/dL (0.0-0.4); BILIRUBIN,TOTAL 0.7 mg/dL (0.2-1.3); BLOOD UREA NITROGEN 9 mg/dL (7-20); CALCIUM 9.2 mg/dL (8.4-10.2); CARBON DIOXIDE 27 mmol/L (22-30); CHLORIDE 102 mmol/L (98-107); GLUCOSE 103 mg/dL (75-110); SALICYLATE < 1.0 mg/dL (2.0-20.0); TOTAL PROTEIN 6.7 g/dL (6.3-8.2)
--- NOTE | 2019-10-14 17:17 | ER Document Report ---
ED General <YGSUSHIL MONTERROSO - Last Filed: 10/14/19 17:20> - General Mode of Arrival: Ambulatory TRAVEL OUTSIDE OF THE [place] IN LAST 30 DAYS: No <TJ CRUZ - Last Filed: 10/14/19 17:39> - General Chief Complaint: Psych Problem Stated Complaint: PSYCH ISSUES Time Seen by Provider: 10/14/19 15:20 Primary Care Provider: Cameron Fuller [Outside] - Follow up as needed [facility] [Outside] - Follow up as needed (You can go directly there as walk in from emergency department if you would like voluntary inpatient treatment. They will do their own screening to deteremine if they can assist you. ) [facility] [Outside] - Follow up as needed [facility] [Outside] - Follow up as needed TJ HODGE DO [Primary Care Provider] - Follow up as needed - HPI Notes: Chief complaint: "My medications are not working" HPI: 39-year-old female with history of bipolar disorder was seen here 4 days ago with complaint of insomnia and "racing thoughts" and was sent home after evaluation by the behavioral health service with recommendations for changes in her medication routine. She was advised to reduce her Klonopin dosage and was also started on Zyprexa 2.5 mg twice daily for mood stabilization. She is back today stating that her symptoms are really unchanged. She denies any visual or auditory hallucinations. She denies any suicidal/homicidal ideation. Admits that she occasionally smokes marijuana. She is not a cigarette smoker. She denies use of alcohol. She denies use of any other type of illicit drugs. (TJ CRUZ) - Related Data Allergies/Adverse Reactions: lurasidone HCl [From Latuda] Allergy (Severe, Verified 03/13/19 15:47) Seizures morphine Adverse Reaction (Intermediate, Verified 03/13/19 15:47) Hives Past Medical History - General Information source: Patient - Social History Smoking Status: Never Smoker Chew tobacco use (# tins/day): Yes Frequency of alcohol use: None Drug Abuse: None Family History: Reviewed & Not Pertinent, CAD, DM, Hypertension Patient has homicidal ideation: No - Past Medical History Cardiac Medical History: Reports: Hx Hypercholesterolemia Pulmonary Medical History: Reports: Hx Asthma, Hx Pneumonia, Hx Intubation Neurological Medical History: Reports: Hx Seizures - Mode CTA right 9 months he accepted/diagnosed of the leonly while on latuda Renal/ Medical History: Reports: Hx Ovarian Cysts GI Medical History: Reports: Hx Irritable Bowel Musculoskeletal Medical History: Reports Hx Musculoskeletal Trauma Psychiatric Medical History: Reports: Hx Anxiety, Hx Bipolar Disorder, Hx Depression Past Surgical History: Reports: Hx Section - x2, Hx Tubal Ligation - Immunizations Immunizations up to date: Yes Hx Diphtheria, Pertussis, Tetanus Vaccination: Yes <TJ CRUZ - Last Filed: 10/14/19 17:39> Review of Systems <TJ CRUZ - Last Filed: 10/14/19 17:39> - Review of Systems Notes: Constitutional: Negative for fever. HENT: Negative for sore throat. Eyes: Negative for visual changes. Cardiovascular: Negative for chest pain. Respiratory: Negative for shortness of breath. Gastrointestinal: Negative for abdominal pain, vomiting or diarrhea. Genitourinary: Negative for dysuria. Musculoskeletal: Negative for back pain. Skin: Negative for rash. Neurological: Negative for headaches, weakness or numbness. 10 point ROS negative except as marked above and in HPI. (TJ CRUZ) Physical Exam <TJ CRUZ - Last Filed: 10/14/19 17:39> - Vital signs Vitals: Temp Pulse Resp BP Pulse Ox 99.6 F 104 H 20 131/86 H 96 10/14/19 15:06 10/14/19 15:06 10/14/19 15:06 10/14/19 15:06 10/14/19 15:06 - Notes Notes: GENERAL: Mildly obese middle-aged female with extremely flat affect. SKIN: Good turgor no rashes. HEAD: Normocephalic atraumatic. EYES: PERRLA. EOMI. Conjunctivae and sclerae clear. EARS: CANALS AND TMS CLEAR. NOSE: CLEAR. MOUTH: Moist mucosa. Good dentition. No stridor or edema. No drooling. NECK: Supple. No masses or thyromegaly. No adenopathy. Carotids 2+ without bruits. No JVD. BACK: Symmetrical without tenderness. CHEST: Respirations unlabored. Breath sounds clear and symmetrical. HEART: Regular rhythm. No murmur gallop or rub. ABDOMEN: Soft nontender without masses, organomegaly or rebound. Bowel sounds normally active. No bruits. GENITALIA: Deferred. EXTREMITIES: No edema. No calf tenderness. Cap refill less than 1.5 seconds. Dorsalis pedis and posterior tibial pulses 3+ and symmetrical. NEUROLOGICAL: GCS 15. Alert and oriented x3. Normal gait. Fluent speech. Cranial nerves II through XII intact. Sensorimotor and cerebellar normal. Normal tone. PSYCHIATRIC: Flat anxious affect. (TJ CRUZ) Course - Laboratory Result Diagrams: 10/14/19 16:47 10/14/19 16:47 <SUSHIL PAREKH - Last Filed: 10/14/19 17:20> - Laboratory Result Diagrams: 10/14/19 16:47 10/14/19 16:47 <TJ CRUZ - Last Filed: 10/14/19 17:39> - Re-evaluation Re-evalutation: 10/14/19 17:37 Patient is medically cleared. She does not meet criteria for IVC. She was seen by behavioral medicine service. They feel that she simply has not given her medication changes time to change her condition. She is offered the option of voluntary inpatient psychiatry admission at [facility]. She is stable for discharge at this time. 10/14/19 17:39 Findings, clinical impression and plan of treatment have been discussed with patient/family. Understanding of current findings and recommendations has been acknowledged by them and there is agreement regarding disposition and follow-up. (TJ CRUZ) - Vital Signs Vital signs: Temp Pulse Resp BP Pulse Ox 99.6 F 104 H 20 131/86 H 96 10/14/19 15:06 10/14/19 15:06 10/14/19 15:06 10/14/19 15:06 10/14/19 15:06 - Laboratory Laboratory results interpreted by me: 10/14/19 10/14/19 10/14/19 16:47 16:47 16:47 MCH 26.4 L RDW 15.2 H Urine Protein 30 H Urine Blood MODERATE H Ur Leukocyte Esterase MODERATE H Salicylates < 1.0 L Acetaminophen < 10 L - EKG Interpretation by Me Additional EKG results interpreted by me: 10/14/19 17:36 Twelve-lead EKG from 1711 hrs. reviewed contemporaneously by me. Indication for study: Psychiatric evaluation Normal sinus rhythm. Rate 82. Normal intervals. Normal QRS axis +[address]/T wave changes. Interpretation: Normal sinus rhythm. (TJ CRUZ) Discharge <YGSUSHIL MONTERROSO - Last Filed: 10/14/19 17:20> <TJ CRUZ - Last Filed: 10/14/19 17:39> - Discharge Clinical Impression: Anxiety, Bipolar 1 disorder, Poor sleep Condition: Stable Disposition: HOME, SELF-CARE Additional Instructions: You have been evaluated by both medical and behavioral health teams for anxiety, no sleep and history of Bipolar Disorder. You have been deemed appropriate for discharge. While in the emergency department you received the following services/or had access to: Medical screening and assessment, nursing services, dietary services, pharmacological services, one-on-one counseling and/or psychotherapy, environmental services, and continuous observation by a patient traffic safety administrator. Please take your medications as prescribed and do not stop these medications without discussion with your prescribing physician. Bipolar Disorder (by history) Bipolar disorder is also called manic-depressive disorder. Depression alternates with brain hyperactivity called hannah. Each phase lasts from several days to a few weeks. We don't know exactly what causes bipolar disorder, but it's treatable. During the "manic phase," you may feel elated and energetic. You may have racing thoughts, rapid speech, increased activity, and grandiose ideas. During this time, you may not realize how poor your judgement is. Inappropriate spending, drug abuse, excessive alcohol use, marriage problems, and irresponsible sexual behavior are common during the manic phase. During the "depressive phase," you might feel depressed, guilty, worthless, fatigued, and unable to concentrate. You might have thoughts of suicide. Good treatments are available for bipolar disorder. Naschitti is a classic drug for bipolar disorder, and is still often useful. If the manic phase is very mild, an antidepressant alone can be prescribed. If the manic phase is very sev ere, an antipsychotic medicine (such as Haldol) may be needed. The treatment must be matched to your symptoms, so it's important to work closely with your psychiatric care provider. Contact your physician, the hospital emergency center, crisis line, or your counsellor if you are losing control or having self-destructive thoughts. Anxiety The physician feels that some of your health problems are being caused by anxiety. Anxiety affects your health in many ways. Anxiety alone can cause palpitations, sweats, chest pains, abdominal pains, shortness of breath, and headaches. It contributes to ulcer disease, high blood pressure, irritable bowel syndrome, and has been shown to cause flare-ups of many other diseases. Anxiety is not a simple disorder to treat. If the anxiety is due to recent life stresses, you may simply need time to "work through" the changes. If the anxiety is due to an underlying unhappiness with yourself or due to psychiatric disturbance, professional help will be needed. Your physician can refer you for further help if needed. Anti-anxiety medication is occasionally given if the stress is acute or if you are having trouble sleeping. Chronic or frequent use of these medications is not a good idea because the body becomes reliant on it, preventing you from dealing with life's normal stresses. Follow up: You are recommended to continue the medication regimen from your 10/10/2019 visit. Contact your outpatient medication provider at [facility] ([facility]) first thing tomorrow (10/15/2019) and request sooner appointment for medication management and request therapy. The [facility] does voluntary inpatient treatment, you can walk in/call/use mobile crisis as ways to be linked. You have been provided [facility] and both local mobile crisis numbers. If your symptoms persist or worsen utilize [facility], contact your physician at [facility], utilize mobile crisis, and if all these things have been tried/considered you may return to the Emergency Department. Referrals: TJ HODGE, [Primary Care Provider] - Follow up as needed [facility] [Outside] - Follow up as needed (You can go directly there as walk in from emergency department if you would like voluntary inpatient treatment. They will do their own screening to deteremine if they can assist you. ) [facility] [Outside] - Follow up as needed [facility] [Outside] - Follow up as needed [facility] [Outside] - Follow up as needed
[2019-10-14 17:18] LABS: URINE AMPHETAMINES SCREEN NEGATIVE; URINE BARBITURATES SCREEN NEGATIVE; URINE BENZODIAZEPINES SCREEN NEGATIVE; URINE COCAINE SCREEN NEGATIVE; URINE METHADONE SCREEN NEGATIVE; URINE PHENCYCLIDINE SCREEN NEGATIVE
[2019-10-14 17:19] LABS: URINE MARIJUANA (THC) SCREEN UNCONFIRMED POSITIVE
--- NOTE | 2019-10-14 18:33 | PSYCHOLOGICAL NOTE ---
Psych Note - Psych Note Date seen by psych provider: 10/14/19 Time seen by psych provider: 17:09 - Evaluation with patient from [id number]. Spoke to from [id number]. Psych Note: Patient is a 39 year old female who presented to the Emergency Department today via privately owned vehicle/ for racing thoughts, pacing constantly and insomnia. Patient kept saying she wanted her and asking hospital staff to call him. She reported she has not been crying as much. She reported poor sleep still. When asked if anything changed between her and her she said "no, I love him." She was tearful when talking about her and wanting him present. When asked if living with her mother triggers anything from childhood she said "no." She denied suicidal and homicidal ideation. She denied hallucinations and no psychosis observed. Attending ED Physician noted patient informed him her mind has been racing, she has been pacing, has Insomnia, and has a diagnosis of Bipolar. She also stated she had started the medication change from the 10/10/2019 visit even saying she was only taking the Zyprexa and had cut the Klonopin in half. She admitted to occasional marijuana use (Urine Drug Screen was positive for Cannabis). Patient was alert and oriented to self, person, place, time and situation. Mood was depressed with congruent affect as evidenced by being tearful at times. She denied current suicidal and homicidal ideation. Patient did not appear to be responding to internal stimuli as evidenced by fair eye contact and answering questions appropriately when addressed. Thought processes were linear and organized. Conversational speech was within normal limits for rate, tone and prosody. Intellectual abilities are estimated to be average. Insight, judgment and impulse control were fair as evidenced by being open about her symptoms. From [id number] spoke to patient's . He noted he had the grandchildren with him which is why he dropped patient off. He stated he was on his way back to the hospital from [place]. He identified he tried to take patient to [facility] but she did not want to go. He was informed of plan of care to discharge with recommendation to utilize [facility] for voluntary inpatient treatment or call [facility] (current outpatient mental health provider) first thing tomorrow morning for follow up appointment (medication management) and request therapy. Clinical Presentation: Poor Sleep Anxiety/manic symptoms (pacing, mind racing) Change to medication regimen 10/10/2019 from that Emergency Department visit History of Bipolar Impression/Plan: Patient is cleared from acute psychiatric services. She was seen by [facility] 10/10/2019 for similar etiology, medication regimen changed, and instructed to utilize [facility] or follow up with current outpatient provider [facility]. She reported less crying, continued poor sleep and anxiety/manic symptoms (mind racing, pacing). She denied suicidal and homicidal ideation and no observed psychosis. Included in plan of care and he provided transportation. Patient and recommended to utilize [facility] for voluntary inpatient if she feels like she isn't managing well at home, at the very least following up with current outpatient medication provider at [facility] (also request therapy). Also provided both local mobile crisis numbers. Consulted with Dr. Grant regarding the management and care of patient. ED Physician in agreement with recommendations.
--- NOTE | 2019-10-15 08:45 | EKG REPORT ---
SEVERITY:- ABNORMAL ECG - SINUS RHYTHM : Confirmed by: Yayo Cohen MD 15-Oct-2019 08:44:49
== END 2019-10-14 17:59 | disposition home or self-care (01) ==
LOC: ER 15:03
DX: F41.9 Anxiety disorder, unspecified (principal); F31.89 Other bipolar disorder; G47.9 Sleep disorder, unspecified
CPT/HCPCS: 36415; 80053; 80307; 81001; 84703; 85025; 93005; 93010; 99285

== ENCOUNTER 2020-01-23 19:06 | Emergency (ER) | payer MEDICARE, MEDICAID ==
--- NOTE | 2020-01-23 21:21 | ER Document Report ---
ED Medical Screen (RME) - General Chief Complaint: Dizziness Stated Complaint: DIZZINESS Time Seen by Provider: 01/23/20 21:02 Primary Care Provider: TJ HODGE DO [Primary Care Provider] - Follow up as needed Mode of Arrival: Wheelchair Information source: Patient, Relative Notes: Patient is a 39-year-old female comes emergency room complaining of dizziness for the past 3 days. Patient states that even when she lays down she is dizzy and when she stands up or gets worse. She denies any chest pain or shortness of breath. She has no history of this in the past. Patient also denies any nausea or vomiting. She does state that the room spins when she is not off balance. Patient does have a history of asthma. She does state that 2 weeks ago she had a asthma bout that she had increase her inhaled beta agonist. Physical exam: Patient is a well-nourished well-developed 39-year-old female no apparent distress on examination tonight. Cardiac: Regular rate and rhythm without any murmurs noted. Lungs: Bilateral breath sounds breath sounds increased clear to auscultation. Abdomen: Bowel sounds present all 4 quads nontender to palpate. Neuro: Patient has an NIH score of 0. On physical lamination in triage patient is not till tubal and is not nauseous with any movements. Given her history of this increasing in her being off stating she is not off balance we will go ahead and CT her head. I have greeted and performed a rapid initial assessment of this patient. A comprehensive ED assessment and evaluation of the patient, analysis of test results and completion of the medical decision making process will be conducted by additional ED providers. Dictation of this chart was performed using voice recognition software; therefore, there may be some unintended grammatical errors. TRAVEL OUTSIDE OF THE [place] IN LAST 30 DAYS: No - Related Data Allergies/Adverse Reactions: lurasidone HCl [From Latuda] Allergy (Severe, Verified 03/13/19 15:47) Seizures morphine Adverse Reaction (Intermediate, Verified 03/13/19 15:47) Hives Past Medical History - Social History Frequency of alcohol use: None Drug Abuse: None Family history: Hypertension - Past Medical History Cardiac Medical History: Reports: Hx Hypercholesterolemia Pulmonary Medical History: Reports: Hx Asthma, Hx Pneumonia, Hx Intubation Neurological Medical History: Reports: Hx Seizures - Mode CTA right 9 months he accepted/diagnosed of the leonly while on latuda Renal/ Medical History: Reports: Hx Ovarian Cysts GI Medical History: Reports: Hx Irritable Bowel Musculoskeltal Medical History: Reports Hx Musculoskeletal Trauma Psychiatric Medical History: Reports: Hx Anxiety, Hx Bipolar Disorder, Hx Depression Past Surgical History: Reports: Hx Section - x2, Hx Tubal Ligation - Immunizations Immunizations up to date: Yes Hx Diphtheria, Pertussis, Tetanus Vaccination: Yes Physical Exam - Vital signs Vitals: Temp Pulse Resp BP Pulse Ox 98.5 F 93 16 118/78 96 01/23/20 19:13 01/23/20 19:13 01/23/20 19:13 01/23/20 19:13 01/23/20 19:13 Course - Vital Signs Vital signs: Temp Pulse Resp BP Pulse Ox 98.5 F 93 16 118/78 96 01/23/20 19:13 01/23/20 19:13 01/23/20 19:13 01/23/20 19:13 01/23/20 19:13 Doctor's Discharge - Discharge Referrals: TJ HODGE DO [Primary Care Provider] - Follow up as needed
--- NOTE | 2020-01-23 22:19 | RADIOLOGY REPORT (SQ) ---
EXAM: CT HEAD WITHOUT CLINICAL INDICATION: 39-year-old female with dizziness and lightheadedness. COMPARISON: None. TECHNIQUE: CT brain without contrast. This exam was performed according to our departmental dose optimization program which includes use of automated exposure control, adjustment of the mA and/or kV according to patient size and/or use of iterative reconstruction technique. FINDINGS: The ventricles, sulci, and cisterns are within normal limits. The durand-white matter differentiation is preserved. Subcentimeter focus of hypoattenuation present within the LEFT basal ganglia suggesting prominent perivascular space similar in appearance to the previous examination. There is no mass effect, midline shift, intra- or extra-axial fluid collection/acute hemorrhage. The osseous structures are unremarkable. The paranasal sinuses and mastoid air cells are clear. IMPRESSION: No acute intracranial abnormalities.
--- NOTE | 2020-01-24 00:38 | ER Document Report ---
ED Dizziness/Weakness - General Chief Complaint: Dizziness Stated Complaint: DIZZINESS Time Seen by Provider: 01/23/20 21:02 Primary Care Provider: TJ HODGE DO [Primary Care Provider] - Follow up as needed Mode of Arrival: Wheelchair Information source: Patient Notes: 01/23/20 20:56 - ED Nursing Note by BRADLEY GARCIA Acct Num: [id number] : 1980 Patient Age: 39 Addendum entered by BRADLEY GARCIA RN 01/23/20 21:03: denies n/v Addendum entered by BRADLEY GARCIA RN 01/23/20 20:59: pt also reports headache 3/5 behind eyes Original Note: pt presents via pov w/ c/o dizziness x3 days. pt reports feeling like "everything is spinning." pt reports constant dizziness, nothing makes it worse for better. pt has a hx of anemia, but denies evr having symptoms like this. pt alert and oriented, reports feeling like she might pass out. MY NOTES 39-year-old female arrives with 3-day history of dizziness and room spinning even despite patient remaining still and keeping her eyes closed. She was shopping in [employer] today and felt near syncope. She denies any sore throat earache cephalgia nuchal rigidity skin rash Covid or influenza contacts. She denies any fever chills cough TRAVEL OUTSIDE OF THE [place] IN LAST 30 DAYS: No - HPI Patient complains to provider of: Dizziness, Vertigo Onset: Other - x 3 days Quality of pain: No pain Severity: Mild Pain Level: 2 Associated symptoms: Almost fainted, Lightheaded. denies: None, Chest pain, Diarrhea, Loss of sensation, Nausea, Ringing/roaring in ear, Sleeping more, Sweating - Related Data Allergies/Adverse Reactions: lurasidone HCl [From Latuda] Allergy (Severe, Verified 03/13/19 15:47) Seizures morphine Adverse Reaction (Intermediate, Verified 03/13/19 15:47) Hives Past Medical History - General Information source: Patient, Relative - Social History Smoking Status: Former Smoker Cigarette use (# per day): No Chew tobacco use (# tins/day): No Smoking Education Provided: No Frequency of alcohol use: None Drug Abuse: None Lives with: Family Family History: Reviewed & Not Pertinent, CAD, DM, Hypertension Patient has suicidal ideation: No Patient has homicidal ideation: No - Past Medical History Cardiac Medical History: Reports: Hx Hypercholesterolemia Pulmonary Medical History: Reports: Hx Asthma, Hx Pneumonia, Hx Intubation Neurological Medical History: Reports: Hx Seizures - Mode CTA right 9 months he accepted/diagnosed of the leonly while on latuda Renal/ Medical History: Reports: Hx Ovarian Cysts GI Medical History: Reports: Hx Irritable Bowel Musculoskeletal Medical History: Reports Hx Musculoskeletal Trauma Psychiatric Medical History: Reports: Hx Anxiety, Hx Bipolar Disorder, Hx Depression Past Surgical History: Reports: Hx Section - x2, Hx Tubal Ligation - Immunizations Immunizations up to date: Yes Hx Diphtheria, Pertussis, Tetanus Vaccination: Yes Review of Systems - Review of Systems Constitutional: No symptoms reported EENT: No symptoms reported Cardiovascular: No symptoms reported Respiratory: No symptoms reported Gastrointestinal: No symptoms reported Genitourinary: No symptoms reported Female Genitourinary: No symptoms reported Musculoskeletal: No symptoms reported Skin: No symptoms reported Hematologic/Lymphatic: No symptoms reported Neurological/Psychological: See HPI, Weakness -: Yes All other systems reviewed and negative Physical Exam - Vital signs Vitals: Temp Pulse Resp BP Pulse Ox 98.5 F 93 16 118/78 96 01/23/20 19:13 01/23/20 19:13 01/23/20 19:13 01/23/20 19:13 01/23/20 19:13 Interpretation: Normal - General General appearance: Appears well, Alert - HEENT Head: Normocephalic, Atraumatic Eyes: Normal Pupils: PERRL Tympanic membrane: Serous effusion - R>L TMs Sinus: Normal Nasal: Normal Mouth/Lips: Normal Mucous membranes: Normal Pharynx: Normal Neck: Normal - Respiratory Respiratory status: No respiratory distress Chest status: Nontender Breath sounds: Normal Chest palpation: Normal - Cardiovascular Rhythm: Regular Heart sounds: Normal auscultation Murmur: No - Abdominal Inspection: Normal Distension: No distension Bowel sounds: Normal Tenderness: Nontender Organomegaly: No organomegaly - Rectal Hemorrhoids: Other - deferred - Genitourinary Bimanuel exam: Other - deferred - Back Back: Normal, Nontender - Extremities General upper extremity: Normal inspection, Nontender, Normal color, Normal ROM, Normal temperature General lower extremity: Normal inspection, Nontender, Normal color, Normal ROM, Normal temperature, Normal weight bearing. No: Ebony's sign - Neurological Neuro grossly intact: Yes Cognition: Normal Orientation: AAOx4 Dottie Coma Scale Eye Opening: Spontaneous Dottie Coma Scale Verbal: Oriented Dottie Coma Scale Motor: Obeys Commands [place] Coma Scale Total: 15 Speech: Normal Motor strength normal: LUE, RUE, LLE, RLE Sensory: Normal - Psychological Associated symptoms: Normal affect, Normal mood - Skin Skin Temperature: Warm Skin Moisture: Dry Skin Color: Normal Course - Vital Signs Vital signs: Temp Pulse Resp BP Pulse Ox 98.5 F 93 16 118/78 96 01/23/20 19:13 01/23/20 19:13 01/23/20 19:13 01/23/20 19:13 01/23/20 19:13 - Laboratory Results Result Diagrams: 01/24/20 00:33 01/24/20 00:33 Laboratory Results Interpreted: 01/24/20 01/24/20 00:33 00:33 MCH 26.1 L RDW 16.3 H Eos % (Auto) 9.3 H Sodium 132.9 L Critical Laboratory Results Reviewed: Yes Attending or Supervising Physician who Reviewed Labs: MORIS HIGHTOWER JR - Radiology Results Radiology Results Interpreted: 01/24/20 01:[address] Critical Radiology Results Reviewed: No Critical Results Attending or Supervising Physician who Reviewed Radiology: MORIS HIGHTOWER JR - EKG Interpretation by [place] EKG shows normal: Sinus rhythm Rate: Normal Rhythm: NSR - [address] elevation no ST depression no T wave depression no T wave elevation and axis within normal limits and no STEMI and this EKG was read by myself and I agree with the EKG machine results Discharge - Discharge Clinical Impression: Vertigo Acute serous otitis media of both ears Qualifiers: Recurrence: non-recurrent Qualified Code(s): H65.03 - Acute serous otitis media, bilateral Condition: Stable Disposition: HOME, SELF-CARE Instructions: Meclizine ([facility]) Additional Instructions: Follow-up with personal doctor this week return to ER as needed and encourage fluids and take medications as directed. Try to avoid quick turns or movements of your neck or head. Prescriptions: Meclizine HCl [Antivert 25 mg Tablet] 25 mg PO TID PRN #21 tablet PRN Reason: Mupirocin [Bactroban 2% Ointment 22 gm] 1 applic NASL HSP PRN #1 tube PRN Reason: Levofloxacin [Levaquin 500 mg Tablet] 500 mg PO DAILY 7 Days #7 tablet Referrals: TJ HODGE DO [Primary Care Provider] - Follow up as needed
[2020-01-24 00:47] LABS: ABSOLUTE BASOPHILS # (AUTO) 0.1 10^3/uL (0.0-0.2); ABSOLUTE EOSINOPHILS # (AUTO) 0.6 10^3/uL (0.0-0.6); ABSOLUTE LYMPHOCYTES (AUTO) 1.4 10^3/uL (0.5-4.7); ABSOLUTE MONOCYTES (AUTO) 0.6 10^3/uL (0.1-1.4); BASOPHILS % (AUTO) 0.8 % (0-2); EOSINOPHILS % (AUTO) 9.3 % (0-6); HEMOGLOBIN 12.8 g/dL (12.0-15.5); LYMPHOCYTES % (AUTO) 20.7 % (13-45); MEAN CORPUSCULAR HEMOGLOBIN 26.1 pg (27.0-33.4); MEAN CORPUSCULAR HGB CONC 32.7 g/dL (32.0-36.0); MEAN CORPUSCULAR VOLUME 80 fl (80-97); MONOCYTES % (AUTO) 8.6 % (3-13); PLATELET COUNT 210 10^3/uL (150-450); RED BLOOD COUNT 4.89 10^6/uL (3.72-5.28); RED CELL DISTRIBUTION WIDTH 16.3 % (11.5-14.0); SEGMENTED NEUTROPHILS % (AUTO) 60.6 % (42-78); TOTAL CELLS COUNTED % (AUTO) 100 %; WHITE BLOOD COUNT 6.6 10^3/uL (4.0-10.5)
[2020-01-24] MEDS ORDERED: MECLIZINE HCL 25 MG TABLET PO ONE (01:02)
[2020-01-24 01:05] LABS: ALBUMIN 3.6 g/dL (3.5-5.0); ALKALINE PHOSPHATASE 65 U/L (38-126); ANION GAP 8 (5-19); ASPARTATE AMINO TRANSFERASE 36 U/L (14-36); BILIRUBIN,DIRECT 0.4 mg/dL (0.0-0.4); BILIRUBIN,TOTAL 0.6 mg/dL (0.2-1.3); BLOOD UREA NITROGEN 12 mg/dL (7-20); CALCIUM 8.9 mg/dL (8.4-10.2); CARBON DIOXIDE 27 mmol/L (22-30); CHLORIDE 98 mmol/L (98-107); GLUCOSE 105 mg/dL (75-110); POTASSIUM 4.4 mmol/L (3.6-5.0); TOTAL PROTEIN 7.2 g/dL (6.3-8.2)
[2020-01-24 01:12] LABS: ALCOHOL < 10 mg/dL (NONE DETECTED)
[2020-01-24 01:42] VITALS: BP 105/76
--- NOTE | 2020-01-24 08:56 | EKG REPORT ---
SEVERITY:- NORMAL ECG - SINUS RHYTHM : Confirmed by: Sharla Campbell MD 24-Jan-2020 08:56:21
== END 2020-01-24 01:42 | disposition home or self-care (01) ==
LOC: ER 19:06
DX: H65.03 Acute serous otitis media, bilateral (principal); R42 Dizziness and giddiness; R51.9 Headache, unspecified; R53.1 Weakness; J45.909 Unspecified asthma, uncomplicated; Z87.891 Personal history of nicotine dependence; Z88.8 Allergy status to other drugs, medicaments and biological substances
CPT/HCPCS: 93005; 99285; 36415; 80307; 85025; 80053; 84484; 70450; 93010; A9270